=== PATIENT | male | born 1945 | race Hispanic/Latino ===

== ENCOUNTER 2018-03-28 12:17 | Emergency (ER) | payer OTHER ==
[2018-03-28 13:02] LABS: Absolute Lymphocytes (CBC) 1.5 K/uL (0.7-4.9); Absolute Monocytes 0.4 K/uL (0.1-1.3); Absolute Neutrophil 4.9 K/uL (1.8-8.0); Basophils % 0.5 % (0-1.3); Eosinophils % 1.6 % (0-4.4); Hematocrit 28.5 % (39.6-49.0); Lymphocytes % 21.3 % (15.3-44.8); MCH 30.3 pg (27.0-35.0); MCV 90.2 fL (80-100); MPV 8.2 fL (7.6-11.3); Monocytes % 5.7 % (3.3-12.3); RBC Red Blood Cell Count 3.16 M/uL (4.33-5.43)
[2018-03-28 13:03] LABS: Protime INR 2.69
[2018-03-28 13:16] LABS: Magnesium 2.8 mg/dL (1.8-2.4); Potassium 4.1 mmol/L (3.5-5.1)
--- NOTE | 2018-03-28 13:19 | RAD REPORT ---
EXAM DESCRIPTION: CT - Head Brain Wo Cont - 03/28/2018 1:09 pm CLINICAL HISTORY: Dizziness, weakness, history of CVA COMPARISON: CT head August 2010 TECHNIQUE: Axial 5 mm thick images of the head were obtained without IV contrast. All CT scans are performed using dose optimization technique as appropriate and may include automated exposure control or mA/KV adjustment according to patient size. FINDINGS: No intracranial hemorrhage, mass, edema or shift of mid-line structures. No acute cortical based infarction. No cortical edema or sulcal effacement. Patient has atrophy change this relatively mild but is progressive from 2011 comparison. There is chronic ischemic change in the cerebral white matter also progressive. Ventricles are in proportion to volume loss. Dense arterial tree calcificat ions are present. Mastoid air cells and visualized portions of the paranasal sinuses are clear. No acute bony findings. IMPRESSION: No hemorrhage, mass or acute cortical based infarction. Atrophy and chronic ischemic changes are present and have progressed from 2011. Chronic ischemic changes can mask nonhemorrhagic acute infarction. MR brain followup can be obtained if there is ongoing concern for acute ischemia.
--- NOTE | 2018-03-28 13:27 | RAD REPORT ---
EXAM DESCRIPTION: [place] Single View03/28/2018 1:02 pm CLINICAL HISTORY: Atrial fibrillation/hypertension COMPARISON: October 2017 FINDINGS: The lungs appear clear of acute infiltrate. The heart is mildly to moderately enlarged. P acemaker leads are in place. Postsurgical changes involve the chest IMPRESSION: No acute abnormalities displayed
[2018-03-28] MEDS ORDERED: NA CHLORIDE 0.9% 250 ML ONE (13:41)
--- NOTE | 2018-03-28 14:13 | ER ---
Nurse's Notes [facility] Name: Zana Zamora Age: 72 yrs Sex: Male : 1945 Arrival Date: 03/28/2018 Time: 12:20 Bed 5 Private MD: Diagnosis: Dizziness and giddiness;Dehydration;Unspecified systolic (congestive) heart failure Presentation: 03/28 12:20 Presenting complaint: EMS states: dizziness since 2 days. Transition of care: patient cc3 was received from another setting of care (ambulatory primary care physician practice), from the [place]. Onset of symptoms was March 26, 2018. Risk Assessment: Do you want to hurt yourself or someone else? Patient reports no desire to harm self or others. Initial Sepsis Screen: Does the patient meet any 2 criteria? No. Patient's initial sepsis screen is negative. Does the patient have a suspected source of infection? No. Patient's initial sepsis screen is negative. Care prior to arrival: None. 12:20 Method Of Arrival: EMS: [facility] cc3 12:20 Acuity: ELLA 3 cc3 Triage Assessment: 12:20 General: Appears in no apparent distress. comfortable, Behavior is calm, cooperative, cc3 appropriate for age. Pain: Denies pain. EENT: Reports dizziness since 2 days.. Neuro: Level of Consciousness is awake, alert, obeys commands, Oriented to person, place, time, situation, Appropriate for age Reports dizziness, since 2 days. Cardiovascular: Denies chest pain, Capillary refill < 3 seconds is brisk in bilateral Rhythm is Respiratory: Airway is patent Respiratory effort is even, unlabored, Respiratory pattern is regular, symmetrical. GI: Abdomen is flat, round non-distended. : No signs and/or symptoms were reported regarding the genitourinary system. Derm: No signs and/or symptoms reported regarding the dermatologic system. Musculoskeletal: No signs and/or symptoms reported regarding the musculoskeletal system. Historical: - Allergies: 12:20 No Known Allergies; cc3 - Home Meds: 12:20 aspirin 81 mg Oral chew 1 tab once daily [Active]; atorvastatin 20 mg Oral tab 1 tab cc3 once daily [Active]; carvedilol 25 mg Oral tab 1 tab 2 times per day [Active]; cyanocobalamin (vitamin B-12) 1,000 mcg oral tab daily [Active]; ferrous gluconate 324 mg (38 mg iron) Oral tab 324 mg twice a day [Active]; furosemide 40 mg Oral tab 1 tab 2 times per day [Active]; Novolog 100 unit/mL Sub-Q soln three times a day [Active]; 13:03 warfarin 5 mg oral tab 1 tab mondays, wednesdays, and fridays [Active]; cc3 - PMHx: 12:20 Atrial Fib; CAD; CHF; CVA; Diabetes - IDDM; Hyperlipidemia; Hypertension; Umbilical cc3 hernia; - PSHx: 12: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 - Social history:: Smoking status: Patient uses tobacco products, 2 cigars per day. - Ebola Screening: : Patient denies travel to an Ebola-affected area in the 21 days before illness onset No symptoms or risks identified at this time. - Family history:: not pertinent. - Hospitalizations: : No recent hospitalization is reported. Screenin:20 Abuse screen: Denies threats or abuse. Denies injuries from another. Nutritional cc3 screening: No deficits noted. Tuberculosis screening: No symptoms or risk factors identified. Fall Risk None identified. Mental Status- Oriented to own ability (0 pts). Total Feng Fall Scale indicates No Risk (0-24 pts). Assessment: 12:20 General: Appears in no apparent distress. comfortable, Behavior is calm, cooperative, cc3 appropriate for age. Pain: Denies pain. Neuro: Level of Consciousness is awake, alert, obeys commands, Oriented to person, place, time, situation, Appropriate for age Reports dizziness, since 2 days. Cardiovascular: Denies chest pain, Capillary refill < 3 seconds is brisk in bilateral Rhythm is ventricular pacer. Respiratory: Airway is patent Respiratory effort is even, unlabored, Respiratory pattern is regular, symmetrical. GI: Abdomen is flat, round non-distended. : No signs and/or symptoms were reported regarding the genitourinary system. EENT: Reports dizziness since 2 days. Derm: No signs and/or symptoms reported regarding the dermatologic system. Musculoskeletal: No signs and/or symptoms reported regarding the musculoskeletal system. 13:30 Reassessment: Patient appears in no apparent distress at this time. Patient and/or cc3 family updated on plan of care and expected duration. Pain level reassessed. Patient is alert, oriented x 3, equal unlabored respirations, skin warm/dry/pink. Patient states feeling better. Patient states symptoms have improved. 14:13 Reassessment: Patient appears in no apparent distress at this time. Patient and/or cc3 family updated on plan of care and expected duration. Pain level reassessed. Patient is alert, oriented x 3, equal unlabored respirations, skin warm/dry/pink. able to ambulate 70-80 steps; denies SOB, denies dizziness, Dr. Huynh informed Patient states feeling better. Patient states symptoms have improved. Vital Signs: 12:20 BP 137 / 66; Pulse 76; Resp 18; Temp 97.8(TE); Pulse Ox 99% on R/A; Weight 79.38 kg; hj Height 5 ft. 7 in. (170.18 cm); Pain 0/10; 13:15 BP 135 / 72; Pulse 74; Resp 17; Pulse Ox 98% on R/A; Pain 0/10; cc3 14:00 BP 119 / 96; Pulse 75; Resp 18; Pulse Ox 99% on R/A; Pain 0/10; cc3 12:20 Body Mass Index 27.41 (79.38 kg, 170.18 cm) ED Course: 12:20 Patient arrived in ED. hj 12:20 Arm band placed on right wrist. cc3 12:20 Patient has correct armband on for positive identification. Placed in gown. Bed in low cc3 position. Call light in reach. Side rails up X2. Adult w/ patient. 12:23 Niko Huynh MD is Attending Physician. rn 12:26 Brittney Douglas is Primary Nurse. cc3 12:27 EKG done, by field tech. reviewed by Niko Huynh MD. dt2 12:30 Triage completed. cc3 12:40 Inserted saline lock: 22 gauge in right antecubital area, using aseptic technique. cc3 Blood collected. 13:02 XRAY Chest (1 view) In Process Unspecified. EDMS 13:09 CT Head Brain wo Cont In Process Unspecified. EDMS 14:49 No provider procedures requiring assistance completed. IV discontinued, intact, cc3 bleeding controlled, No redness/swelling at site. Pressure dressing applied. Administered Medications: 13:34 Drug: NS 0.9% 250 ml Route: IV; Rate: 1 bolus; Site: right antecubital; cc3 14:00 Follow up: IV Status: Completed infusion; IV Intake: 250ml cc3 Point of Care Testing: Blood Glucose: 12:20 Blood Glucose: 217 mg/dL; hj Ranges: Intake: 14:00 IV: 250ml; Total: 250ml. cc3 Outcome: 14:13 Discharge ordered by MD. rn 14:49 Discharged to home ambulatory, with family. cc3 14:49 Condition: stable 14:49 Discharge instructions given to patient, family, Instructed on discharge instructions, follow up and referral plans. Demonstrated understanding of instructions, follow-up care. 14:50 Patient left the ED. cc3 Signatures: Dispatcher [employer] EDMS Niko Huynh MD MD rn Joaquin, Henry, RN RN hj Teague, Danielle dtBrittney Parry cc3 Corrections: (The following items were deleted from the chart) 12:42 12:20 Cardiovascular: Denies chest pain, Capillary refill < 3 seconds is brisk in cc3 bilateral Rhythm is cc3 12:46 12:20 Cardiovascular: Denies chest pain, Capillary refill < 3 seconds is brisk in hj bilateral Rhythm is cc3
--- NOTE | 2018-03-28 14:13 | EDPHYS ---
Physician Documentation [facility] Name: Zana Zamora Age: 72 yrs Sex: Male : 1945 Arrival Date: 03/28/2018 Time: 12:20 Bed 5 Private MD: ED Physician Niko Huynh HPI: 03/28 12:34 This 72 yrs old Male presents to ER via EMS with complaints of Dizziness. rn 12:34 The patient presents with dizziness, lightheadedness. Onset: The symptoms/episode rn began/occurred 2 day(s) ago. Modifying factors: The symptoms are alleviated by nothing, the symptoms are aggravated by changing position. Associated signs and symptoms: Pertinent positives: near-syncope, Pertinent negatives: abdominal pain, ataxia, blurred vision, chest pain, combativeness, confusion, diaphoresis, focal weakness, head injury, headache, seizure, shortness of breath, syncope, tingling, vomiting. Severity of symptoms: At their worst the symptoms were mild in the emergency department the symptoms have improved. The patient has experienced similar episodes in the past. REports dizziness, intermittent for 2 days, lightheaded and fatigue, worse when standing, no head injury, no focal weakness or complaints, no vomiting/diarrhea, eating and drinking fine, taking diuretics for CHF, denies chest pain and sob. Denies abd pain.. Historical: - Allergies: 12:20 No Known Allergies; cc3 - Home Meds: 12:20 aspirin 81 mg Oral chew 1 tab once daily [Active]; atorvastatin 20 mg Oral tab 1 tab cc3 once daily [Active]; carvedilol 25 mg Oral tab 1 tab 2 times per day [Active]; cyanocobalamin (vitamin B-12) 1,000 mcg oral tab daily [Active]; ferrous gluconate 324 mg (38 mg iron) Oral tab 324 mg twice a day [Active]; furosemide 40 mg Oral tab 1 tab 2 times per day [Active]; Novolog 100 unit/mL Sub-Q soln three times a day [Active]; 13:03 warfarin 5 mg oral tab 1 tab mondays, wednesdays, and fridays [Active]; cc3 - PMHx: 12:20 Atrial Fib; CAD; CHF; CVA; Diabetes - IDDM; Hyperlipidemia; Hypertension; Umbilical cc3 hernia; - PSHx: 12: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 - Social history:: Smoking status: Patient uses tobacco products, 2 cigars per day. - Ebola Screening: : Patient denies travel to an Ebola-affected area in the 21 days before illness onset No symptoms or risks identified at this time. - Family history:: not pertinent. - Hospitalizations: : No recent hospitalization is reported. ROS: 12:34 Constitutional: Negative for fever, chills, and weight loss, Eyes: Negative for injury, rn pain, redness, and discharge, Neck: Negative for injury, pain, and swelling, Cardiovascular: Negative for chest pain, palpitations, and edema, Respiratory: Negative for shortness of breath, cough, wheezing, and pleuritic chest pain, Abdomen/GI: Negative for abdominal pain, nausea, vomiting, diarrhea, and constipation, MS/Extremity: Negative for injury and deformity, Skin: Negative for injury, rash, and discoloration, Neuro: Negative for headache, numbness, tingling, and seizure. Exam: 12:34 Constitutional: This is a well developed, well nourished patient who is awake, alert, rn and in no acute distress. Head/Face: Normocephalic, atraumatic. Eyes: Pupils equal round and reactive to light, extra-ocular motions intact. Lids and lashes normal. Conjunctiva and sclera are non-icteric and not injected. Periorbital areas with no swelling, redness, or edema. Neck: Trachea midline, no thyromegaly or masses palpated, and no cervical lymphadenopathy. Supple, full range of motion without nuchal rigidity, or vertebral point tenderness. No Meningismus. Cardiovascular: regular rate and rhythm, no murmur Respiratory: Lungs have equal breath sounds bilaterally, clear to auscultation and percussion. No rales, rhonchi or wheezes noted. No increased work of breathing, no retractions or nasal flaring. Abdomen/GI: Soft, non-tender. No distension or tympany. No guarding or rebound. No evidence of tenderness throughout. Skin: Warm, dry, no evidence of cellulitis. MS/ Extremity: Pulses equal, no cyanosis. Neurovascular intact. Full, normal range of motion. Equal circumference. 1+ non-pitting edema bilateral lower ext Neuro: Awake and alert, GCS 15, oriented to person, place, time, and situation. Cranial nerves II-XII grossly intact. Motor strength 5/5 in all extremities. Sensory grossly intact. Cerebellar exam normal. Vital Signs: 12:20 BP 137 / 66; Pulse 76; Resp 18; Temp 97.8(TE); Pulse Ox 99% on R/A; Weight 79.38 kg; hj Height 5 ft. 7 in. (170.18 cm); Pain 0/10; 13:15 BP 135 / 72; Pulse 74; Resp 17; Pulse Ox 98% on R/A; Pain 0/10; cc3 14:00 BP 119 / 96; Pulse 75; Resp 18; Pulse Ox 99% on R/A; Pain 0/10; cc3 12:20 Body Mass Index 27.41 (79.38 kg, 170.18 cm) hj MDM: 12:23 Patient medically screened. rn 14:10 Differential diagnosis: generalized weakness, hypovolemia, idiopathic dizziness. Data rn reviewed: vital signs, nurses notes, lab test result(s), EKG, radiologic studies, CT scan, plain films, and as a result, I will discharge patient. Counseling: I had a detailed discussion with the patient and/or guardian regarding: the historical points, exam findings, and any diagnostic results supporting the discharge/admit diagnosis, lab results, radiology results, the need for outpatient follow up, to return to the emergency department if symptoms worsen or persist or if there are any questions or concerns that arise at home. Response to treatment: the patient's symptoms have markedly improved after treatment, and as a result, I will discharge patient. Special discussion: I discussed with the patient/guardian in detail that at this point there is no indication for admission to the hospital. It is understood, however, that if the symptoms persist or worsen the patient needs to return immediately for re-evaluation. ED course: Pt feels better after small fluid bolus, elevated BNP but no gross changes in CXR, oxygen 100%, ambulated after fluids, no longer feels dizzy, no pain, no dyspnea, patient wants to go home. Stable vitals, INR within acceptable range. . 14:14 ED course: No gross changes in ECG. rn 03/28 12:26 Order name: Glucose, Ancillary Testing; Complete Time: 12:32 EDMS 03/28 12:33 Order name: Basic Metabolic Panel; Complete Time: 13:29 rn 03/28 12:33 Order name: CBC with Diff; Complete Time: 13:16 rn 03/28 12:33 Order name: Magnesium; Complete Time: 13:29 rn 03/28 12:33 Order name: Protime (+inr); Complete Time: 13:16 rn 03/28 12:33 Order name: CT Head Brain wo Cont; Complete Time: 13:29 rn 03/28 12:33 Order name: Troponin (emerg Dept Use Only); Complete Time: 13:29 rn 03/28 12:33 Order name: EKG; Complete Time: 12:34 rn 03/28 12:33 Order name: Cardiac monitoring; Complete Time: 12:34 rn 03/28 12:33 Order name: BNP; Complete Time: 13: rn 03/28 12:33 Order name: Procalcitonin; Complete Time: 13:34 rn 03/28 12:33 Order name: XRAY Chest (1 view); Complete Time: 13:29 rn 03/28 12:33 Order name: EKG - Nurse/Tech; Complete Time: 12:34 rn 03/28 12:33 Order name: IV Saline Lock; Complete Time: 12:46 rn 03/28 12:33 Order name: Labs collected and sent; Complete Time: 12:46 rn 03/28 12:33 Order name: O2 Per Protocol; Complete Time: 12:34 rn 03/28 12:33 Order name: O2 Sat Monitoring; Complete Time: 12:34 rn Administered Medications: 13:34 Drug: NS 0.9% 250 ml Route: IV; Rate: 1 bolus; Site: right antecubital; cc3 14:00 Follow up: IV Status: Completed infusion; IV Intake: 250ml cc3 Point of Care Testing: Blood Glucose: 12:20 Blood Glucose: 217 mg/dL; hj Ranges: Critical Glucose Levels:Adult <50 mg/dl or >400 mg/dl <40 mg/dl or >180 mg/dl Disposition: 03/28/18 14:13 Discharged to Home. Impression: Dizziness and giddiness, Dehydration, Unspecified systolic (congestive) heart failure. - Condition is Stable. - Discharge Instructions: Dehydration, Adult, Dizziness. - Medication Reconciliation Form, Thank You Letter, Antibiotic Education, Prescription Opioid Use form. - Follow up: Private Physician; When: As needed; Reason: Recheck today's complaints, Re-evaluation by your physician. - Problem is new. - Symptoms have improved. Signatures: Dispatcher [employer] EDMS Niko Huynh MD MD rn Cordel, Charlene cc3 Corrections: (The following items were deleted from the chart) 14:50 14:13 03/28/2018 14:13 Discharged to Home. Impression: Dizziness and giddiness; cc3 Dehydration; Unspecified systolic (congestive) heart failure. Condition is Stable. Forms are Medication Reconciliation Form, Thank You Letter, Antibiotic Education, Prescription Opioid Use. Follow up: Private Physician; When: As needed; Reason: Recheck today's complaints, Re-evaluation by your physician. Problem is new. Symptoms have improved. rn
[2018-03-28 14:55] VITALS: TEMP 97.8
[2018-03-28 14:57] VITALS: BP 119/96; O2SAT 99
--- NOTE | 2018-03-29 09:33 | EKG ---
Test Date: 2018-03-28 Test Time: 12:18:08 Architecture Consultant: CARLOS MEASUREMENT RESULTS: Intervals: Rate: 75 UT: 184 QRSD: 96 QT: 394 QTc: 439 [place]: P: UT: 184 QRS: 43 T: 147 INTERPRETIVE STATEMENTS: Electronic atrial pacemaker ST & T wave abnormality, consider inferolateral ischemia Abnormal ECG Compared to ECG 10/16/2017 12:03:26 Possible ischemia now present Ventricular-paced complex(es) or rhythm no longer present ST (T wave) deviation still present Electronically Signed On 03-29-18 09:32:24 CDT by Jeovanny Ulloa
== END 2018-03-28 14:50 | disposition home or self-care (01) ==
LOC: ER 12:17
DX: E86.0 Dehydration (principal); I50.20 Unspecified systolic (congestive) heart failure; I10 Essential (primary) hypertension; F17.290 Nicotine dependence, other tobacco product, uncomplicated; E11.9 Type 2 diabetes mellitus without complications; Z95.1 Presence of aortocoronary bypass graft; I48.91 Unspecified atrial fibrillation; Z86.73 Personal history of transient ischemic attack (TIA), and cerebral infarction without residual deficits; Z79.01 Long term (current) use of anticoagulants; Z79.82 Long term (current) use of aspirin; Z79.4 Long term (current) use of insulin
CPT/HCPCS: 36415; 70450; 71045; 80048; 82962; 83735; 83880; 84145; 84484; 85025; 85610; 93005; 96360; 96365; 99284

== ENCOUNTER 2018-04-07 08:09 | Emergency (ER) | payer OTHER ==
[2018-04-07 09:35] LABS: Absolute Lymphocytes (CBC) 1.6 K/uL (0.7-4.9); Absolute Monocytes 0.4 K/uL (0.1-1.3); Absolute Neutrophil 5.2 K/uL (1.8-8.0); Hematocrit 23.6 % (39.6-49.0)
[2018-04-07 09:39] LABS: Potassium 4.1 mmol/L (3.5-5.1)
[2018-04-07 09:42] LABS: Albumin 3.3 g/dL (3.4-5.0); Magnesium 2.7 mg/dL (1.8-2.4)
[2018-04-07 09:45] LABS: Bilirubin Direct 0.1 mg/dL (0-0.2)
[2018-04-07 09:47] LABS: Bilirubin Total 0.3 mg/dL (0.2-1.0); Protein, Total 7.6 g/dL (6.4-8.2)
[2018-04-07 09:51] LABS: Troponin (Emerg Dept Use Only) 0.03 ng/mL (0.0-0.045)
[2018-04-07 11:16] LABS: MCH 31.3 pg (27.0-35.0); MCV 92.7 fL (80-100); MPV 8.7 fL (7.6-11.3); RBC Red Blood Cell Count 2.55 M/uL (4.33-5.43)
[2018-04-07 11:17] LABS: Basophils % 0.4 % (0-1.3); Eosinophils % 1.7 % (0-4.4); Lymphocytes % 21.8 % (15.3-44.8); Monocytes % 5.7 % (3.3-12.3)
[2018-04-07 11:22] LABS: Protime INR 3.04
--- NOTE | 2018-04-07 12:06 | EDPHYS ---
Physician Documentation [facility] Name: Zana Zamora Age: 72 yrs Sex: Male : 1945 Arrival Date: 04/07/2018 Time: 08:13 Bed 5 Private MD: None, None ED Physician Zackery Murphy HPI: 04/07 09:17 This 72 yrs old Male presents to ER via Wheelchair with complaints of kdr Shortness Of Breath, Chest Pressure, Dizziness. Historical: - Allergies: 08:15 No Known Allergies; aa5 - Home Meds: 08:15 aspirin 81 mg Oral chew 1 tab once daily [Active]; atorvastatin 20 mg Oral tab 1 tab aa5 once daily [Active]; carvedilol 25 mg Oral tab 1 tab 2 times per day [Active]; cyanocobalamin (vitamin B-12) 1,000 mcg Oral tab daily [Active]; ferrous gluconate 324 mg (38 mg iron) Oral tab 324 mg twice a day [Active]; furosemide 40 mg Oral tab 1 tab 2 times per day [Active]; Novolog 100 unit/mL Sub-Q soln three times a day [Active]; warfarin 5 mg Oral tab 1 tab mondays, wednesdays, and fridays [Active]; - PMHx: 08:15 Atrial Fib; CAD; CHF; CVA; Diabetes - IDDM; Hyperlipidemia; Hypertension; Umbilical aa5 hernia; - PSHx: 08:15 CABG; Defibrillator; aa5 - Immunization history:: Adult Immunizations unknown. - Social history:: Smoking status: Patient uses tobacco products, cigars. - Ebola Screening: : No symptoms or risks identified at this time. ROS: 09:40 Constitutional: Negative for fever, chills, and weight loss, Eyes: Negative for injury, kdr pain, redness, and discharge, ENT: Negative for injury, pain, and discharge, Neck: Negative for injury, pain, and swelling, Abdomen/GI: Negative for abdominal pain, nausea, vomiting, diarrhea, and constipation, Back: Negative for injury and pain, : Negative for injury, bleeding, discharge, and swelling, MS/Extremity: Negative for injury and deformity, Skin: Negative for injury, rash, and discoloration, Neuro: Negative for headache, weakness, numbness, tingling, and seizure activity. Psych: Negative for depression, anxiety, suicide ideation, homicidal ideation, and hallucinations, Allergy/Immunology: Negative for hives, rash, and allergies, Endocrine: Negative for neck swelling, polydipsia, polyuria, polyphagia, and marked weight changes, Hematologic/Lymphatic: Negative for swollen nodes, abnormal bleeding, and unusual bruising. 09:40 Cardiovascular: Positive for chest pain, of the chest, Negative for edema, orthopnea, palpitations, paroxysmal nocturnal dyspnea, acute changes. Exam: 09:40 Constitutional: This is a well developed, well nourished patient who is awake, alert, kdr and in no acute distress. Head/Face: Normocephalic, atraumatic. Eyes: Pupils equal round and reactive to light, extra-ocular motions intact. Lids and lashes normal. Conjunctiva and sclera are non-icteric and not injected. Cornea within normal limits. Periorbital areas with no swelling, redness, or edema. Neck: Trachea midline, no thyromegaly or masses palpated, and no cervical lymphadenopathy. Supple, full range of motion without nuchal rigidity, or vertebral point tenderness. No Meningismus. Chest/axilla: Normal chest wall appearance and motion. Nontender with no deformity. No lesions are appreciated. Cardiovascular: Regular rate and rhythm with a normal S1 and S2. No gallops, murmurs, or rubs. Normal PMI, no JVD. No pulse deficits. Respiratory: Lungs have equal breath sounds bilaterally, clear to auscultation and percussion. No rales, rhonchi or wheezes noted. No increased work of breathing, no retractions or nasal flaring. Abdomen/GI: Soft, non-tender, with normal bowel sounds. No distension or tympany. No guarding or rebound. No evidence of tenderness throughout. Back: No spinal tenderness. No costovertebral tenderness. Full range of motion. Skin: Warm, dry with normal turgor. Normal color with no rashes, no lesions, and no evidence of cellulitis. MS/ Extremity: Pulses equal, no cyanosis. Neurovascular intact. Full, normal range of motion. Neuro: Awake and alert, GCS 15, oriented to person, place, time, and situation. Cranial nerves II-XII grossly intact. Motor strength 5/5 in all extremities. Sensory grossly intact. Cerebellar exam normal. Normal gait. Psych: Awake, alert, with orientation to person, place and time. Behavior, mood, and affect are within normal limits. Vital Signs: 08:18 BP 136 / 75; Pulse 75; Resp 16 S; Temp 98.3(O); Pulse Ox 98% on R/A; Weight 77.11 kg aa5 (R); Height 5 ft. 7 in. (170.18 cm) (R); Pain 4/10; 11:00 BP 117 / 72; Pulse 75; Resp 18 S; Pulse Ox 96% on R/A; aa5 12:00 BP 115 / 62; Pulse 75; Resp 16 S; Pulse Ox 97% on R/A; aa5 13:00 BP 119 / 57; Pulse 75; Resp 16 S; Pulse Ox 96% on R/A; aa5 08:18 Body Mass Index 26.63 (77.11 kg, 170.18 cm) aa5 MDM: 09:40 Data reviewed: vital signs, nurses notes, lab test result(s), EKG, radiologic studies. kdr Counseling: I had a detailed discussion with the patient and/or guardian regarding: the historical points, exam findings, and any diagnostic results supporting the discharge/admit diagnosis, lab results, radiology results. 11:30 Patient medically screened. kdr 04/07 08:17 Order name: LFT's; Complete Time: 12:22 kdr 04/07 08:17 Order name: Basic Metabolic Panel; Complete Time: 12:22 kdr 04/07 08:17 Order name: CBC with Diff; Complete Time: 12:22 kdr 04/07 08:17 Order name: Magnesium; Complete Time: 12:22 kdr 04/07 08:17 Order name: NT PRO-BNP; Complete Time: 12:22 kdr 04/07 08:17 Order name: PT-INR; Complete Time: 12:22 kdr 04/07 08:17 Order name: Ptt, Activated; Complete Time: 12:22 kdr 04/07 08:17 Order name: Troponin (emerg Dept Use Only); Complete Time: 12:22 kdr 04/07 08:17 Order name: XRAY Chest (1 view) kdr 04/07 08:17 Order name: EKG; Complete Time: 08:18 kdr 04/07 08:17 Order name: Cardiac monitoring; Complete Time: 11:22 kdr 04/07 08:17 Order name: EKG - Nurse/Tech; Complete Time: 11: kdr 04/07 11:17 Order name: Guiac aa5 04/07 13:17 Order name: Urine Dipstick--Ancillary (enter results) eb 04/07 08:17 Order name: IV Saline Lock; Complete Time: 11: kdr 04/07 08:17 Order name: Labs collected and sent; Complete Time: : kdr 04/07 08:17 Order name: O2 Per Protocol; Complete Time: : kdr 04/07 08:17 Order name: O2 Sat Monitoring; Complete Time: : kdr 04/07 08:17 Order name: Urine Dipstick-Ancillary (obtain specimen); Complete Time: 13:15 kdr Administered Medications: No medications were administered Point of Care Testing: Guaiac: 11:17 Stool Guaiac: Positive; Stool Hemoccult Control: Pass; aa5 11:[address] Murphy aa5 Disposition: 04/07/18 11:30 Transfer ordered to [facility]. Diagnosis are Weakness, Anemia, unspecified. - Reason for transfer: Higher level of care. - Accepting physician is Dr. Duarte. - Condition is Fair. - Problem is new. - Symptoms have improved. Signatures: Dispatcher [employer] EDMS Zackery Murphy MD MD [facility] Alla Redd RN RN aa5 Corrections: (The following items were deleted from the chart) 13:11 11:30 04/07/2018 11:30 Transfer ordered to [facility]. Diagnosis is Weakness; Anemia, unspecified. Reason for transfer: Higher level of care. Accepting physician is Accepting. Condition is Fair. Problem is new. Symptoms have improved. kdr 13:52 13:11 04/07/2018 11:30 Transfer ordered to [facility]. Diagnosis is aa5 Weakness; Anemia, unspecified. Reason for transfer: Higher level of care. Accepting physician is Dr. Duarte. Condition is Fair. Problem is new. Symptoms have improved. kdr
--- NOTE | 2018-04-07 12:06 | ER ---
Nurse's Notes [facility] Name: Zana Zamora Age: 72 yrs Sex: Male : 1945 Arrival Date: 04/07/2018 Time: 08:13 Bed 5 Private MD: None, None Diagnosis: Weakness;Anemia, unspecified Presentation: 04/07 08:15 Presenting complaint: Patient states: chest pressure, SOB, generalized weakness, and aa5 dizziness since last night. Pt denies cough. Pt states "I was here last week for the same thing". 08:15 Transition of care: patient was not received from another setting of care. Onset of aa5 symptoms was April 06, 2018. Risk Assessment: Do you want to hurt yourself or someone else? Patient reports no desire to harm self or others. Initial Sepsis Screen: Does the patient meet any 2 criteria? No. Patient's initial sepsis screen is negative. Does the patient have a suspected source of infection? No. Patient's initial sepsis screen is negative. Care prior to arrival: None. 08:15 Acuity: ELLA 3 aa5 08:15 Method Of Arrival: Wheelchair aa5 Historical: - Allergies: 08:15 No Known Allergies; aa5 - Home Meds: 08:15 aspirin 81 mg Oral chew 1 tab once daily [Active]; atorvastatin 20 mg Oral tab 1 tab aa5 once daily [Active]; carvedilol 25 mg Oral tab 1 tab 2 times per day [Active]; cyanocobalamin (vitamin B-12) 1,000 mcg Oral tab daily [Active]; ferrous gluconate 324 mg (38 mg iron) Oral tab 324 mg twice a day [Active]; furosemide 40 mg Oral tab 1 tab 2 times per day [Active]; Novolog 100 unit/mL Sub-Q soln three times a day [Active]; warfarin 5 mg Oral tab 1 tab mondays, wednesdays, and fridays [Active]; - PMHx: 08:15 Atrial Fib; CAD; CHF; CVA; Diabetes - IDDM; Hyperlipidemia; Hypertension; Umbilical aa5 hernia; - PSHx: 08:15 CABG; Defibrillator; aa5 - Immunization history:: Adult Immunizations unknown. - Social history:: Smoking status: Patient uses tobacco products, cigars. - Ebola Screening: : No symptoms or risks identified at this time. Screenin:50 Abuse screen: Denies threats or abuse. Nutritional screening: No deficits noted. aa5 Tuberculosis screening: No symptoms or risk factors identified. Fall Risk None identified. Assessment: 11:22 Reassessment: See pt's paper chart for previous documentation and initial assessment . aa5 11:25 Reassessment: Patient and/or family updated on plan of care and expected duration. Pain aa5 level reassessed. Neuro: Level of Consciousness is awake, alert, obeys commands, Oriented to person, place, time, situation. Respiratory: Airway is patent Respiratory effort is even, unlabored, Respiratory pattern is regular, symmetrical. Derm: Skin is dry, Skin is pale, Skin temperature is warm. 11:25 Cardiovascular: Rhythm is sinus rhythm. aa5 12:10 Reassessment: Patient and/or family updated on plan of care and expected duration. Pain aa5 level reassessed. Pain: Pain currently is 3 out of 10 on a pain scale. Neuro: Level of Consciousness is awake, alert, obeys commands, Oriented to person, place, time, situation. Cardiovascular: Rhythm is sinus rhythm. Respiratory: Airway is patent Respiratory effort is even, unlabored, Respiratory pattern is regular, symmetrical. Derm: Skin is dry, Skin is pale, Skin temperature is warm. 13:05 Reassessment: Pt notified of wait time for transfer . Neuro: Level of Consciousness is aa5 awake, alert, obeys commands, Oriented to person, place, time, situation. Respiratory: Airway is patent Respiratory effort is even, unlabored, Respiratory pattern is regular, symmetrical. Derm: Skin is dry, Skin is pale, Skin temperature is warm. Vital Signs: 08:18 BP 136 / 75; Pulse 75; Resp 16 S; Temp 98.3(O); Pulse Ox 98% on R/A; Weight 77.11 kg aa5 (R); Height 5 ft. 7 in. (170.18 cm) (R); Pain 4/10; 11:00 BP 117 / 72; Pulse 75; Resp 18 S; Pulse Ox 96% on R/A; aa5 12:00 BP 115 / 62; Pulse 75; Resp 16 S; Pulse Ox 97% on R/A; aa5 13:00 BP 119 / 57; Pulse 75; Resp 16 S; Pulse Ox 96% on R/A; aa5 08:18 Body Mass Index 26.63 (77.11 kg, 170.18 cm) aa5 ED Course: 08:13 Patient arrived in ED. mr 08:13 None, None is Private Physician. mr 08:15 Arm band placed on Patient placed in an exam room, on a stretcher. aa5 08:15 Patient has correct armband on for positive identification. Placed in gown. Bed in low aa5 position. Call light in reach. Side rails up X2. automobile detailer on. Pulse ox on. NIBP on. 08:16 Zackery Murphy MD is Attending Physician. kdr 08:23 Alla Redd, MARTITA is Primary Nurse. aa5 08:27 Triage completed. aa5 08:30 Missed attempt(s): 20 gauge in right forearm. Bleeding controlled, band aid applied, mb4 catheter tip intact. 08:50 Inserted saline lock: 22 gauge in right upper arm, using aseptic technique. aa5 11:47 initiated a transfer with Deion at the [facility]. Per [place] they gave no beds at this time. 12:10 initiated a transfer with Shari at the [facility] transfer center. eb 12:16 connected the GI child welfare consultant from [facility] with ED doc for patient transfer eb consultaion. 12:25 connected the Hospitalist from [facility] with ED doc for patient transfer eb consulation. 12:30 administrative approval given by Shari Funes Hr Associate at [facility]. eb Pt going to 722 Report to be called to [phone]. Dr. Duarte accepted the patient in transfer. 12:44 XRAY Chest (1 view) In Process Unspecified. EDMS 13:50 Patient transferred, IV remains in place. aa5 13:50 No provider procedures requiring assistance completed. aa5 Administered Medications: No medications were administered Point of Care Testing: Guaiac: 11:17 Stool Guaiac: Positive; Stool Hemoccult Control: Pass; aa5 11:[address] Murphy aa5 Outcome: 11:30 ER care complete, transfer ordered by . kdr 13:50 Transferred by ground EMS to [facility], Transfer form completed. aa5 X-rays sent w/ patient. Note: report given to [facility], report given to MARTITA Man at [facility]'s 13:50 Condition: stable 13:50 Instructed on the need for transfer, Demonstrated understanding of instructions. 13:52 Patient left the ED. aa5 Signatures: Dispatcher [employer] EDZackery Terry MD MD kdr Rivera, Maria mr Calderon, Audri, RN RN aa5 Sayra Perez Mackenzie 4
[2018-04-07 13:52] LABS: Urine Blood TRACE (NEG); Urine Glucose NEGATIVE (NEG); Urine Protein TRACE (NEG); Urine Specific Gravity 1.015 (1.005-1.030); Urine pH 5.5 (5.0-7.0)
[2018-04-07 13:58] VITALS: TEMP 98.3
[2018-04-07 14:07] VITALS: BP 119/57; O2SAT 96
--- NOTE | 2018-04-07 14:41 | RAD REPORT ---
EXAM DESCRIPTION: RAD - Chest Single View - 04/07/2018 9:03 am CLINICAL HISTORY: CHEST PAIN<Reason For Exam>CHEST PAIN Weakness, dizziness, shortness of breath COMPARISON: Chest Single View dated 03/28/2018; Chest Pa And Lat (2 Views) dated 10/17/2017; Chest Sin gle View dated 10/16/2017; Chest Single View dated 12/15/2015<Comparisons> TECHNIQUE: AP portable chest image was obtained 0850 hours . FINDINGS: No peripheral mass or consolidation. Lung markings are prominent but stable. Upper lobe va sculature within normal limits. Cardiomegaly is present. Cardiac silhouette is similar to the compari son. Pacemaker is in place. Sternotomy wires are in place. Trachea is midline. No measurable pleural effusion and no pneumothorax. No gross bony abnormality seen. No acute aortic findings suspected. IMPRESSION: Chronic prominence of the interstitial markings. No acute lung parenchymal process ident ifiable. Stable cardiomegaly without vascular engorgement.
--- NOTE | 2018-04-08 08:38 | EKG ---
Test Date: 2018-04-07 Test Time: 08:23:16 [employer] Dean: THOM MEASUREMENT RESULTS: Intervals: Rate: 75 ME: 282 QRSD: 102 QT: 400 QTc: 446 [place]: P: 62 ME: 282 QRS: 86 T: -51 INTERPRETIVE STATEMENTS: Atrial-paced rhythm with prolonged AV conduction Possible Inferior infarct, age undetermined ST & T wave abnormality, consider lateral ischemia Abnormal ECG Compared to ECG 03/28/2018 12:18:08 Myocardial infarct finding now present ST (T wave) deviation still present Possible ischemia still present Electronically Signed On 04-08-18 08:36:36 CDT by Jeovanny Ulloa
== END 2018-04-07 13:52 | disposition short-term general hospital (02) ==
LOC: ER 08:09
DX: D64.9 Anemia, unspecified (principal); E11.9 Type 2 diabetes mellitus without complications; E78.5 Hyperlipidemia, unspecified; I10 Essential (primary) hypertension; F17.290 Nicotine dependence, other tobacco product, uncomplicated; Z79.4 Long term (current) use of insulin
CPT/HCPCS: 36415; 71045; 80048; 80076; 81003; 83735; 83880; 84484; 85025; 85610; 85730; 93005; 99285

== ENCOUNTER 2018-06-23 04:37 | Emergency (ER) | payer OTHER ==
--- OUTSIDE RECORDS SUMMARY | 2018-06-23 04:40 | XMS REPORT | Clinical Summary ---
:1945 Author Organization [facility] Address [address] [place] [address] Care Team Providers Name Role Phone Pcp, No Primary Care Provider Unavailable Allergies No Known Allergies Medications Medication Sig Dispensed Refills Start End Date Status Date aspirin 81 MG Take 81 mg by 0 Active chewable tablet mouth daily. atorvastatin Take 20 mg by 0 Active (LIPITOR) 20 MG mouth daily. tablet cyanocobalamin Take 1,000 mcg by 0 Active 1000 MCG tablet mouth daily. carvedilol (COREG) Take 25 mg by 0 Active 25 MG tablet mouth 2 (two) times daily with breakfast and dinner. ferrous gluconate Take 324 mg by 0 Active (FERGON) 324 MG mouth 2 (two) tablet times daily. finasteride Take 5 mg by mouth 0 Active (PROSCAR) 5 mg daily. tablet furosemide (LASIX) Take 40 mg by 0 Active 40 MG tablet mouth 2 (two) times daily. levothyroxine Take 112 mcg by 0 Active (SYNTHROID, mouth Every LEVOTHROID) 112 morning on an MCG tablet empty stomach 1 hour before breakfast with glass of water . lisinopril Take 10 mg by 0 Active (PRINIVIL,ZESTRIL) mouth daily. 10 MG tablet insulin aspart Inject 10 Units 0 Active U-100 (NOVOLOG) subcutaneously 3 100 unit/mL InPn (three) times daily with meals Do not give if meal is missed . insulin detemir Inject 15 Units 0 Active U-100 (LEVEMIR) subcutaneously 100 unit/mL (3 mL) every morning. InPn injection omeprazole Take 20 mg by 0 Active (PRILOSEC) 20 MG mouth daily. capsule warfarin Take 5 mg by mouth 0 Active (COUMADIN) 5 MG daily Except tablet Monday, Monday and Monday. . warfarin Take 7.5 mg by 0 Active (COUMADIN) 7.5 MG mouth daily On tablet Monday, Monday and Monday . nitroglycerin Place 1 tablet 90 tablet 0 Active (NITROSTAT) 0.4 MG (0.4 mg total) 8 SL tablet under the tongue every 5 (five) minutes as needed for Chest pain. ranolazine Take 1 tablet (500 180 tablet 3 04/10/20 Active (RANEXA) 500 MG 12 mg total) by mouth 8 19 hr tablet 2 (two) times daily. insulin detemir Inject 35 Units 0 04/10/20 Discontinued U-100 (LEVEMIR) subcutaneously 18 100 unit/mL (3 mL) nightly. InPn injection nitroglycerin Place 1 tablet 90 tablet 0 04/10/20 Discontinued (NITROSTAT) 0.4 MG (0.4 mg total) 8 18 SL tablet under the tongue every 5 (five) minutes as needed for Chest pain. ranolazine Take 1 tablet (500 180 tablet 3 04/10/20 Discontinued (RANEXA) 500 MG 12 mg total) by mouth 8 18 hr tablet 2 (two) times daily. Active Problems Problem Noted Date Chest pain 04/09/2018 Combined systolic and diastolic congestive heart failure, unspecified HF 04/08 chronicity CHF (congestive heart failure) 04/07/2018 Encounters Date Type Specialty Care Team Description 04/10/2018 Orders Only General Internal Medicine 04/08/2018 Surgery Gastroenterology [facility], UPPER ENDOSCOPY Jeovanny Scales MD 04/08/2018 Anesthesia Event Gastroenterology Deric Valero CRNA 04/07/2018 [facility] General Internal [facility] Combined systolic and diastolic congestive heart failure, unspecified HF chronicity (HCC); - Encounter Medicine ri, Atrial fibrillation, unspecified type (HCC); 04/10/2018 Juana, Essential hypertension; Gastrointestinal hemorrhage, unspecified gastrointestinal hemorrhage type; Mezrahi, Anemia due to other cause, not classified MD Torey David, MD Lisa 04/07/2018 Telephone Critical Care Medicine Samson, Biug-ov-Ilmq Call MD Sona after 06/22/2017 Social History Tobacco Use Types Packs/Day Years Used Date Never Assessed Sex Assigned at Date Recorded Not on file Job Start Date Occupation Industry Not on file Not on file Not on file Travel History Travel Start Travel End No recent travel history available. Last Filed Vital Signs Vital Sign Reading Time Taken Blood Pressure 134/68 04/10/2018 4:17 PM CDT Pulse 76 04/10/2018 4:17 PM CDT Temperature 35.9 C (96.6 F) 04/10/2018 4:17 PM CDT Respiratory Rate 18 04/10/2018 4:17 PM CDT Oxygen Saturation 97% 04/10/2018 4:17 PM CDT Inhaled Oxygen Concentration - - Weight 76.2 kg (168 lb) 04/07/2018 3:32 PM CDT Height 170.2 cm (5' 7") 04/07/2018 3:32 PM CDT Body Mass Index 26.31 04/07/2018 3:32 PM CDT Plan of Treatment Not on file Procedures Procedure Name Priority Date/Time Associated Comments Diagnosis ECHOCARDIOGRAM REPORT - 04/13/2018 9:20 SCAN AM CDT REPORT OF PROCEDURE - 04/12/2018 11:01 ENDOSCOPY SCAN AM CDT REPORT OF PROCEDURE - 04/12/2018 11:01 ENDOSCOPY SCAN AM CDT RHYTHM STRIP - SCAN 04/12/2018 11:01 AM CDT POCT-GLUCOSE METER Routine 04/10/2018 11:30 Results for this AM CDT procedure are in the results section. NM CARDIAC PET STAT 04/10/2018 8:47 Results for this PERFUSION REST AND/OR AM CDT procedure are in STRESS the results section. TREADMILL Routine 04/10/2018 8:38 Results for this TOLERANCE(NON-NUCLEAR AM CDT procedure are in TREADMILL) the results section. ECG 12-LEAD Routine 04/10/2018 8:34 Results for this AM CDT procedure are in the results section. ECG 12-LEAD Routine 04/10/2018 8:34 AM CDT Procedure Note - Interface, External Ris In - 04/10/2018 8:51 AM CDT Ventricular Rate 75 BPM Atrial Rate 75 BPM P-R Interval 214 ms QRS Duration 118 ms Q-T Interval 434 ms QTC Calculation(Bazett) 484 ms P [place] 33 degrees R [place] 77 degrees T [place] 229 degrees Sinus rhythm with 1st degree A-V block Non-specific intra-ventricular conduction delay ST & T wave abnormality, consider lateral ischemia Prolonged QT Abnormal ECG POCT-GLUCOSE METER Routine 04/10/2018 7:19 AM CDT CBC W/PLT COUNT & AUTO Routine 04/10/2018 5:26 AM CDT Results for this DIFFERENTIAL procedure are in the results section. PROTHROMBIN TIME/INR Routine 04/10/2018 5:26 AM CDT MAGNESIUM Routine 04/10/2018 5:26 AM CDT BASIC METABOLIC PANEL (7) Routine 04/10/2018 5:26 AM CDT CBC W/PLT COUNT & AUTO Routine 04/10/2018 5:26 AM CDT Results for this DIFFERENTIAL procedure are in the results section. POCT-GLUCOSE METER Routine 04/09/2018 10:32 PM CDT POCT-GLUCOSE METER Routine 04/09/2018 7:48 PM CDT POCT-GLUCOSE METER Routine 04/09/2018 11:30 AM CDT 2D ECHO W/ DOPPLER CLAY 04/09/2018 10:29 AM CDT Results for this (CW/PW/COLOR) procedure are in the results section. POCT-GLUCOSE METER Routine 04/09/2018 7:32 AM CDT CBC W/PLT COUNT & AUTO Routine 04/09/2018 5:57 AM CDT Results for this DIFFERENTIAL procedure are in the results section. PROTHROMBIN TIME/INR Routine 04/09/2018 5:57 AM CDT MAGNESIUM Routine 04/09/2018 5:57 AM CDT BASIC METABOLIC PANEL (7) Routine 04/09/2018 5:57 AM CDT CBC W/PLT COUNT & AUTO Routine 04/09/2018 5:57 AM CDT Results for this DIFFERENTIAL procedure are in the results section. CREATINE KINASE (CK), STAT 04/09/2018 5:57 AM CDT Results for this TOTAL AND MB procedure are in the results section. POCT-GLUCOSE METER Routine 04/08/2018 10:41 PM CDT UPPER ENDOSCOPY 04/08/2018 4:00 PM CDT Melena POCT-GLUCOSE METER Routine 04/08/2018 3:01 PM CDT POCT-GLUCOSE METER Routine 04/08/2018 2:29 PM CDT REPORT OF PROCEDURE - 04/08/2018 2:19 PM CDT ENDOSCOPY URL POCT-GLUCOSE METER Routine 04/08/2018 6:35 AM CDT CBC W/PLT COUNT & AUTO Routine 04/08/2018 5:25 AM CDT Results for this DIFFERENTIAL procedure are in the results section. PROTHROMBIN TIME/INR Routine 04/08/2018 5:25 AM CDT MAGNESIUM Routine 04/08/2018 5:25 AM CDT BASIC METABOLIC PANEL (7) Routine 04/08/2018 5:25 AM CDT CBC W/PLT COUNT & AUTO Routine 04/08/2018 5:25 AM CDT Results for this DIFFERENTIAL procedure are in the results section. CREATINE KINASE (CK), STAT 04/08/2018 5:25 AM CDT Results for this TOTAL AND MB procedure are in the results section. VITAMIN B12 AND FOLATE Routine 04/08/2018 5:25 AM CDT FERRITIN Routine 04/08/2018 5:25 AM CDT IRON, TIBC, % SAT. Routine 04/08/2018 5:25 AM CDT Results for this (WITHOUT FERRITIN) procedure are in the results section. HEMOGLOBIN A1C Routine 04/08/2018 5:25 AM CDT LIPID PANEL Routine 04/08/2018 12:25 AM CDT TROPONIN I Routine 04/08/2018 12:25 AM CDT POCT-GLUCOSE METER Routine 04/08/2018 12:05 AM CDT ECG 12-LEAD STAT 04/07/2018 6:27 PM CDT XR CHEST 1 VIEW STAT 04/07/2018 6:18 PM CDT Results for this PORTABLE/BEDSIDE procedure are in the results section. POCT-GLUCOSE METER Routine 04/07/2018 5:25 PM CDT CBC W/PLT COUNT & AUTO STAT 04/07/2018 4:51 PM CDT Results for this DIFFERENTIAL procedure are in the results section. PROTHROMBIN TIME/INR Routine 04/07/2018 4:51 PM CDT B-TYPE NATRIURETIC FACTOR STAT 04/07/2018 4:51 PM CDT Results for this (BNP) procedure are in the results section. TROPONIN I STAT 04/07/2018 4:51 PM CDT COMPREHENSIVE METABOLIC STAT 04/07/2018 4:51 PM CDT Results for this PANEL procedure are in the results section. CBC W/PLT COUNT & AUTO STAT 04/07/2018 4:51 PM CDT Results for this DIFFERENTIAL procedure are in the results section. after 06/22/2017 Results ECHOCARDIOGRAM REPORT - SCAN (04/13/2018 9:20 AM CDT) Narrative Performed At EKG-SCANNED (04/12/2018 11:01 AM CDT)Only the most recent of2 resultswithin the time period is included. Narrative Performed At RHYTHM STRIP - SCAN (04/12/2018 11:01 AM CDT) Narrative Performed At POC-Glucose meter (04/10/2018 11:30 AM CDT)Only the most recent of12 resultswithin the time period is included. POC-Glucose Meter 354 (H)Comment: Notified 70 - 110 mg/dL [facility] MARTITA MORSE/TESTED AT [address] [address] Specimen Blood Performing Organization Address City/State/Zipcode Phone Number [address] [address] CENTER NM myocardial perfusion PET (rest and stress) (04/10/2018 8:47 AM CDT) Narrative Performed At FINAL REPORT GE [facility] PROCEDURE:Rest/Stress MYOCARDIAL PERFUSION PET with regadenoson\\XA9\\ CPT CODE:50724 INDICATION:Ischemic evaluation, chest pain, atrial fibrillation HISTORY:Cardiac risk factors: Diabetes mellitus. Other cardiovascular history: Known CAD, CABG, ICD, cardiomyopathy. Recent cardiac symptoms: Dyspnea. Current cardiovascular-related medications: Warfarin, atorvastatin, Bumex, carvedilol. PROTOCOL:Limited low-dose CT imaging was performed for attenuation correction. 40.1 mCi of Rb-82 chloride was injected iv at rest, and gated PET (positron emission tomography) images were obtained. Subsequently, 40.0 mCi of Rb-82 chloride was injected iv at expected peak pharmacologic effect, and gated PET images were obtained. PRELIMINARY STRESS TEST DATA FROM NONINVASIVE CARDIOLOGY: Pharmacologic stress was by 10-second iv infusion of 0.4 mg of regadenoson.Radiotracer was injected 30 seconds after start of stress. Heart rate was 75 beats/min at rest and 75 beats/min (50% of MPHR) at tracer injection. BP was 101/50 mmHg at rest and 126/43 mmHg at tracer injection. Stress was stopped for predetermined endpoint. The patient experienced dyspnea; treatment was not required . Preliminary ECG evaluation revealed sinus rhythm at rest and no ischemic changes with stress. (Final ECG interpretation and other stress and monitoring data are reported separately by Cardiology.) IMAGING FINDINGS:Study quality is good. Images obtained after stress injection show moderately decreased anterior lateral lateral and inferior. Resting images show shows improvement in the anterolateral segment. LV volume appears dilated . RV volume appears normal . Gated images obtained immediately after stress show global hypokinesis LV wall motion. Gated images obtained at rest show global hypokinesis LV wall motion. LVEF at rest is 23%. LVEF at stress is 28%. IMPRESSION: 1. Abnormal study.2. Appropriate pharmacologic stress.3. Abnormal myocardial perfusion.There is a moderately severe severity, large size, anterolateral, lateral and inferior lateral, perfusion defect. There is reversibility of the inferolateral segment.4. Abnormal resting LV function. Abnormal stress function.5. Extracardiac tracer distribution is normal.6. No previous [facility] study for comparison. NONINVASIVE RISK STRATIFICATION: The above findings are considered high risk (>3% annual mortality rate) based on the following criteria: - Severe resting left ventricular dysfunction (LVEF 35%) - Severe exercise left ventricular dysfunction (exercise LVEF 35%) - Stress-induced large perfusion defect (particularly if anterior) - Stress-induced multiple perfusion defects of moderate size - Large, fixed perfusion defect with LV dilation or increased lung uptake (thallium-201) - Stress-induced moderate perfusion defect with LV dilation or increased lung uptake (thallium-201) (JACC. 2012;59(9):175-88.) Signed: Hao Faith MD Report Verified Date/Time:04/10/2018 12:33:34 Reading Location: [address] Reading Room Procedure Note Interface, External Ris In - 04/10/2018 12:35 PM CDT FINAL REPORT PROCEDURE: Rest/Stress MYOCARDIAL PERFUSION PET with regadenoson\\XA9\\ CPT CODE: 57433 INDICATION: Ischemic evaluation, chest pain, atrial fibrillation HISTORY: Cardiac risk factors: Diabetes mellitus. Other cardiovascular history: Known CAD, CABG, ICD, cardiomyopathy. Recent cardiac symptoms: Dyspnea. Current cardiovascular-related medications: Warfarin, atorvastatin, Bumex, carvedilol. PROTOCOL: Limited low-dose CT imaging was performed for attenuation correction. 40.1 mCi of Rb-82 chloride was injected iv at rest, and gated PET (positron emission tomography) images were obtained. Subsequently, 40.0 mCi of Rb-82 chloride was injected iv at expected peak pharmacologic effect, and gated PET images were obtained. PRELIMINARY STRESS TEST DATA FROM NONINVASIVE CARDIOLOGY: Pharmacologic stress was by 10-second iv infusion of 0.4 mg of regadenoson. Radiotracer was injected 30 seconds after start of stress. Heart rate was 75 beats/min at rest and 75 beats/min (50% of MPHR) at tracer injection. BP was 101/50 mmHg at rest and 126/43 mmHg at tracer injection. Stress was stopped for predetermined endpoint. The patient experienced dyspnea; treatment was not required . Preliminary ECG evaluation revealed sinus rhythm at rest and no ischemic changes with stress. (Final ECG interpretation and other stress and monitoring data are reported separately by Cardiology.) IMAGING FINDINGS: Study quality is good. Images obtained after stress injection show moderately decreased anterior lateral lateral and inferior. Resting images show shows improvement in the anterolateral segment. LV volume appears dilated . RV volume appears normal . Gated images obtained immediately after stress show global hypokinesis LV wall motion. Gated images obtained at rest show global hypokinesis LV wall motion. LVEF at rest is 23%. LVEF at stress is 28%. IMPRESSION: 1. Abnormal study. 2. Appropriate pharmacologic stress. 3. Abnormal myocardial perfusion. There is a moderately severe severity, large size, anterolateral, lateral and inferior lateral, perfusion defect. There is reversibility of the inferolateral segment. 4. Abnormal resting LV function. Abnormal stress function. 5. Extracardiac tracer distribution is normal. 6. No previous [facility] study for comparison. NONINVASIVE RISK STRATIFICATION: The above findings are considered high risk (>3% annual mortality rate) based on the following criteria: - Severe resting left ventricular dysfunction (LVEF 35%) - Severe exercise left ventricular dysfunction (exercise LVEF 35%) - Stress-induced large perfusion defect (particularly if anterior) - Stress-induced multiple perfusion defects of moderate size - Large, fixed perfusion defect with LV dilation or increased lung uptake (thallium-201) - Stress-induced moderate perfusion defect with LV dilation or increased lung uptake (thallium-201) (JACC. 2012;59(9):857-81.) Signed: Hao Faith MD Report Verified Date/Time: 04/10/2018 12:33:34 Reading Location: [address] Reading Room Performing Organization Address City/State/Zipcode Phone Number GE RIS Treadmill tolerance(Non-Nuclear Treadmill) (04/10/2018 8:38 AM CDT) Narrative Performed At Protocol Name Regadenoson What They Like Time In Exercise Phase 00:01:00 Max. Systolic BP 126 mmHg Max Diastolic BP 43 mmHg Max Heart Rate 75 BPM Max Predicted Heart Rate 149 BPM Reason For Termination Predetermined end point Reason for Test Chest Pain Dyspnea Known Coronary Artery Disease Target HR Formula (220 - Age)*100% Arrhythmias none Resting ECG Normal sinus rhythm ST Changes No Significant Changes Overall Impression Indeterminate due to pharmacological stress Chest Pain none HR Response To Exercise BP Response To Exercise wardfarin,atorvastatin,bumex,carvedilol Confirmed by fellow Tye Valencia ([id number]) on 04/10/2018 9:39:04 AM Confirmed by MD JACK YOCHAI ([id number]) on 04/18/2018 12:34:10 PM Procedure Note Interface, External Ris In - 04/18/2018 12:34 PM CDT Protocol Name Abby Time In Exercise Phase 00:01:00 Max. Systolic BP 126 mmHg Max Diastolic BP 43 mmHg Max Heart Rate 75 BPM Max Predicted Heart Rate 149 BPM Reason For Termination Predetermined end point Reason for Test Chest Pain Dyspnea Known Coronary Artery Disease Target HR Formula (220 - Age)*100% Arrhythmias none Resting ECG Normal sinus rhythm ST Changes No Significant Changes Overall Impression Indeterminate due to pharmacological stress Chest Pain none HR Response To Exercise BP Response To Exercise wardfarin,atorvastatin,bumex,carvedilol Confirmed by fellow Tye Valencia ([id number]) on 04/10/2018 9:39:04 AM Confirmed by MD JACK YOCHAI ([id number]) on 04/18/2018 12:34:10 PM Performing Organization Address [facility] Phone Number GE MUSE ECG 12 lead (04/10/2018 8:34 AM CDT)Only the most recent of2 resultswithin the time period is included. Narrative Performed At Ventricular Rate 75 BPM GE MUSE Atrial Rate 75 BPM P-R Interval 214 ms QRS Duration 118 ms Q-T Interval 434 ms QTC Calculation(Bazett) 484 ms P [place] 33 degrees R [place] 77 degrees T [place] 229 degrees Sinus rhythm with 1st degree A-V block Non-specific intra-ventricular conduction delay ST & T wave abnormality, consider lateral ischemia Prolonged QT Abnormal ECG Confirmed by MD Young Mahboob ([id number]) on 04/10/2018 1:15:21 PM Procedure Note Interface, External Ris In - 04/10/2018 1:15 PM CDT Ventricular Rate 75 BPM Atrial Rate 75 BPM P-R Interval 214 ms QRS Duration 118 ms Q-T Interval 434 ms QTC Calculation(Bazett) 484 ms P [place] 33 degrees R [place] 77 degrees T [place] 229 degrees Sinus rhythm with 1st degree A-V block Non-specific intra-ventricular conduction delay ST & T wave abnormality, consider lateral ischemia Prolonged QT Abnormal ECG Confirmed by MD Young Mahboob ([id number]) on 04/10/2018 1:15:21 PM Performing Organization Address [facility] Phone Number [facility] MUSE CBC with platelet count + automated diff (04/10/2018 5:26 AM CDT)Only the most recent of4 resultswithin the time period is included. WBC 6.3 3.5 - 10.5 K/L [facility] RBC 3.02 (L) 4.63 - 6.08 M/L [facility] Hemoglobin 9.1 (L) 13.7 - 17.5 GM/DL [facility] Hematocrit 28.4 (L) 40.1 - 51.0 % [facility] MCV 94.0 (H) 79.0 - 92.2 fL [facility] MCH 30.1 25.7 - 32.2 pg [facility] MCHC 32.0 (L) 32.3 - 36.5 GM/DL [facility] RDW 15.1 (H) 11.6 - 14.4 % [facility] Platelets 127 (L) 150 - 450 K/CU MM [facility] MPV 9.9 9.4 - 12.4 fL [facility] nRBC 0 0 - 0 /100 WBC [facility] % Neutros 70 % [facility] % Lymphs 18 % [facility] % Monos 9 % [facility] % Eos 2 % [facility] % Baso 1 % [facility] # Neutros 4.46 1.78 - 5.38 K/L [facility] # Lymphs 1.15 (L) 1.32 - 3.57 K/L [facility] # Monos 0.56 0.30 - 0.82 K/L [facility] # Eos 0.10 0.04 - 0.54 K/L [facility] # Baso 0.03 0.01 - 0.08 K/L [facility] Immature Granulocytes-Relative 1 0 - 1 % [facility] Specimen Blood - Arm, Right Performing Organization Address [facility] Phone Number [address] [address] [place] Daily Prothrombin time/INR while on warfarin (04/10/2018 5:26 AM CDT)Only the most recent of4 resultswithin the time period is included. Protime 17.5 (H) 11.7 - 14.7 seconds [facility] INR 1.4 <=5.9 [facility] Specimen Blood - Arm, Right Narrative Performed At [facility] RECOMMENDED COUMADIN/WARFARIN INR THERAPY RANGES STANDARD DOSE: 2.0 - 3.0 Includes: PROPHYLAXIS for venous thrombosis, systemic embolization; TREATMENT for venous thrombosis and/or pulmonary embolus. HIGH RISK: Target INR is 2.5-3.5 for patients with mechanical heart valves. While on warfarin. Performing Organization Address [facility] Phone Number [address] [address] CENTER Magnesium (04/10/2018 5:26 AM CDT)Only the most recent of3 resultswithin the time period is included. Magnesium 2.5 1.6 - 2.6 mg/dL [facility] Specimen Blood - Arm, Right Performing Organization Address City/[facility]/Zipcode Phone Number [address] [address] [place] Basic metabolic panel (04/10/2018 5:26 AM CDT)Only the most recent of3 resultswithin the time period is included. Sodium 137 136 - 145 meq/L [facility] Potassium 3.6 3.5 - 5.1 meq/L [facility] Chloride 101 98 - 107 meq/L [facility] CO2 28 22 - 29 meq/L [facility] BUN 28 (H) 7 - 21 mg/dL [facility] Creatinine 1.73 (H) 0.57 - 1.25 mg/dL [facility] Glucose 135 (H) 70 - 105 mg/dL [facility] Calcium 9.0 8.4 - 10.2 mg/dL [facility] EGFR 39Comment: ESTIMATED GFR IS mL/min/1.73 sq m [facility] NOT ACCURATE [facility] CLEARANCE IN PREDICTING GLOMERULAR FILTRATION RATE. ESTIMATED GFR IS NOT APPLICABLE FOR DIALYSIS PATIENTS. Specimen Blood - Arm, Right Performing Organization Address City/State/Zipcode Phone Number [facility] [address] [place] [address] [phone] CENTER 2D Echo W/Doppler(CW/PW/Color) (04/09/2018 10:29 AM CDT) Ejection Fraction [facility] ECHO [facility] Narrative Performed At Transthoracic Echocardiography Report (TTE) [facility] Demographics Patient Name SILVERIO ZAMORA Date of Study04/09/2018 [id number] Gender Male Visit Number [id number] Unknown [id number] Room [id number] Number Date of Birth1945Referring CHEN Marmolejo Age72 year(s)Stereoptic Projection Topographer Vance Duran [facility] AnalystIzolda Regis Calvin MD Procedure Type of Study TTE procedure:2DECHO W DOPPLER(CW/PW/COLOR) (CLAY) Indications:Acute Chest Pain/ Suspected CAD. Clinical History HGB 7.8 HCT 25.0 % CAD, ACB, PCI, AICD ([facility]) DM, ICMP Contrast Medium: Definity. Amount - 2 ml Height: 67 inches Weight: 76.2 kg (168 lbs) BSA: 1.88 m^2 BMI: 26.31 kg/m^2 HR: 75 bpm BP: 137/68 mmHg Summary The left ventricle is chamber size (by vol index) is severely enlarged (male - LVED vol >100ml/m2). Normal LV wall thickness. All of the LV segments are hypokinetic . Global LV systolic function moderately reduced . LVEF by Morales's method of disk assessment is moderately reduced (30-34%) . Grade 3 diastolic dysfunction (marked elevated LA pressure). Global RV systolic function is mildly reduced . Estimated peak systolic PA pressure is 40-45 mmHg . No significant pericardial effusion is visualized. The estimated RA pressure by IVC dynamics 11-15mmHg . Previous Study No prior exam available for comparison. Signature Findings Left Ventricle The left ventricle is chamber size (by vol index) is severely enlarged (male - LVED vol >100ml/m2). No rmal LV wall thickness. Al l of the LV segments are hypokinetic . Gl obal LV systolic function moderately reduced . LV EF by Morales's method of disk assessment is mo derately reduced (30-34%) . Th e LVEF was measured using Morales's bi-plane me thod of disk . LV endocardium is adequately visualized with IV ul trasound enhancing agent. Gr melody 3 diastolic dysfunction (marked elevated LA pr essure). Lo w (cardiac index <2 L/min/m2) cardiac output st ate at rest is noted. Left AtriumLA size is severely enlarged (>48 ml/m2) . Right VentricleRV pacing wire is visualized . RV chamber size is normal . Gl obal RV systolic function is mildly reduced . Right Atrium RA pacing wire is visualized . RA cavity size is mildly enlarged . Aortic Valve Mild AoV cusp thickening. A trace of aortic regurgitation. Mitral Valve Mild MV leaflet thickening. Tr argenis mitral regurgitation. Tricuspid ValveMild tricuspid regurgitation. Es timated peak systolic PA pressure is 40-45 mmHg . Pulmonic Valve Normal PV structure and function. A trace of pulmonary regurgitation. AortaAortic root size (SInus of Valsalva diameter) is no rmal . Proximal ascending aorta size is normal . PericardiumNo significant pericardial effusion is visualized. IVC/SVC/PA/PV/PleuralPulmonary vein flow is consistent with increased LA P . Th e estimated RA pressure by IVC dynamics 11-15mmHg . Chambers/Structures Left Atrium LA Volume: 99.31 ml LA Area: 29.64 cm^2 LA Vol. Index: 53 ml/m^2 Left Ventricle LVIDd: 5.96 cm LV Septum Diastolic: 0.65 cm LV PW Diastolic: 0.77 cm LVEDV Morales's:260.85 ml LVESV Morales's:176.87 ml LVEF Morales's: 32.2 % LVEDVI: 139 ml/m^2 LVESVI: 94 ml/m^2 LVOT Diameter: 2.04 cm Right Atrium RA Vol. (Sngl Plane): 71.99 ml Right Ventricle TAPSE: 1.11 cm Aorta Ao Root S of Sara.: 2.87 cm Ascending Aorta: 2.9 cm Doppler/Quantitative Measurements Mitral Valve MV Peak E-Wave: 1.26 m/sMV Peak A-Wave: 0.49 m/s E/A Ratio: 2.55 Peak Gradient: 6.37 mmHg Deceleration Time: 121.5 msec MV Cruz. Peak: Tissue Doppler E' Lateral Velocity: 0.09 m/s E/E': 14.22 LVOT Peak Velocity: 0.66 m/s Peak Gradient: 1.74 mmHg Mean Velocity: 0.44 m/s Mean Gradient: 0.91 mmHg LVOT Diameter: 2.04 cmLVOT VTI: 14.77 cm LVOT Area: 3.27 cm^2LVOT SV:48.25 ml LVOT CO: 3.62 l/min LVOT CI: 1.93 l/min/m^2 Tricuspid Valve TR Velocity: 2.69 m/s TR Gradient: 28.85 mmHg Procedure Note Interface, External Ris In - 04/13/2018 8:59 AM CDT Transthoracic Echocardiography Report (TTE) Demographics Patient Name SILVERIO ZAMORA Date of Study 04/09/2018 Gender Male Visit Number [id number] Race Unknown Room Number 722 Number Date of 1945 Referring Physician CHEN Valentin Age 72 year(s) 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 Learning Consultant Lawrence Gray Interpreting Regis Chung Physician MD Joe Corrigan MD Procedure Type of Study TTE procedure:2DECHO W DOPPLER(CW/PW/COLOR) (CLAY) Indications:Acute Chest Pain/ Suspected CAD. Clinical History HGB 7.8 HCT 25.0 % CAD, ACB, PCI, AICD ([facility]) DM, ICMP Contrast Medium: Definity. Amount - 2 ml Height: 67 inches Weight: 76.2 kg (168 lbs) BSA: 1.88 m^2 BMI: 26.31 kg/m^2 HR: 75 bpm BP: 137/68 mmHg Summary The left ventricle is chamber size (by vol index) is severely enlarged (male - LVED vol >100ml/m2). Normal LV wall thickness. All of the LV segments are hypokinetic . Global LV systolic function moderately reduced . LVEF by Morales's method of disk assessment is moderately reduced (30-34%) . Grade 3 diastolic dysfunction (marked elevated LA pressure). Global RV systolic function is mildly reduced . Estimated peak systolic PA pressure is 40-45 mmHg . No significant pericardial effusion is visualized. The estimated RA pressure by IVC dynamics 11-15mmHg . Previous Study No prior exam available for comparison. Signature Findings Left Ventricle The left ventricle is chamber size (by vol index) is severely enlarged (male - LVED vol >100ml/m2). Normal LV wall thickness. All of the LV segments are hypokinetic . Global LV systolic function moderately reduced . LVEF by Morales's method of disk assessment is moderately reduced (30-34%) . The LVEF was measured using Morales's bi-plane method of disk . LV endocardium is adequately visualized with IV ultrasound enhancing agent. Grade 3 diastolic dysfunction (marked elevated LA pressure). Low (cardiac index <2 L/min/m2) cardiac output state at rest is noted. Left Atrium LA size is severely enlarged (>48 ml/m2) . Right Ventricle RV pacing wire is visualized . RV chamber size is normal . Global RV systolic function is mildly reduced . Right Atrium RA pacing wire is visualized . RA cavity size is mildly enlarged . Aortic Valve Mild AoV cusp thickening. A trace of aortic regurgitation. Mitral Valve Mild MV leaflet thickening. Trace mitral regurgitation. Tricuspid Valve Mild tricuspid regurgitation. Estimated peak systolic PA pressure is 40-45 mmHg . Pulmonic Valve Normal PV structure and function. A trace of pulmonary regurgitation. Aorta Aortic root size (SInus of Valsalva diameter) is normal . Proximal ascending aorta size is normal . Pericardium No significant pericardial effusion is visualized. IVC/SVC/PA/PV/Pleural Pulmonary vein flow is consistent with increased LAP . The estimated RA pressure by IVC dynamics 11-15mmHg . Chambers/Structures Left Atrium LA Volume: 99.31 ml LA Area: 29.64 cm^2 LA Vol. Index: 53 ml/m^2 Left Ventricle LVIDd: 5.96 cm LV Septum Diastolic: 0.65 cm LV PW Diastolic: 0.77 cm LVEDV Morales's:260.85 ml LVESV Morales's:176.87 ml LVEF Morales's: 32.2 % LVEDVI: 139 ml/m^2 LVESVI: 94 ml/m^2 LVOT Diameter: 2.04 cm Right Atrium RA Vol. (Sngl Plane): 71.99 ml Right Ventricle TAPSE: 1.11 cm Aorta Ao Root S of Sara.: 2.87 cm Ascending Aorta: 2.9 cm Doppler/Quantitative Measurements Mitral Valve MV Peak E-Wave: 1.26 m/s MV Peak A-Wave: 0.49 m/s E/A Ratio: 2.55 Peak Gradient: 6.37 mmHg Deceleration Time: 121.5 msec MV Cruz. Peak: Tissue Doppler E' Lateral Velocity: 0.09 m/s E/E': 14.22 LVOT Peak Velocity: 0.66 m/s Peak Gradient: 1.74 mmHg Mean Velocity: 0.44 m/s Mean Gradient: 0.91 mmHg LVOT Diameter: 2.04 cm LVOT VTI: 14.77 cm LVOT Area: 3.27 cm^2 LVOT SV:48.25 ml LVOT CO: 3.62 l/min LVOT CI: 1.93 l/min/m^2 Tricuspid Valve TR Velocity: 2.69 m/s TR Gradient: 28.85 mmHg Performing Organization Address City/[facility] Phone Number [facility] MKCKESSON CPACS Creatine Kinase (CK), Total and MB (04/09/2018 5:57 AM CDT)Only the most recent of2 resultswithin the time period is included. Total CK 184 29 - 200 U/L [facility] CK-MB 0.9 0.0 - 6.6 ng/mL [facility] MB Relative Index 0.5 % [facility] Specimen Blood - Arm, Right Narrative Performed At CK-MB Reference Range: [facility] <6.7Normal 6.7-10.0Borderline >10.0 Abnormal Performing Organization Address [facility] [place] Phone Number [facility] [address] [place] [phone] CENTER REPORT OF PROCEDURE - ENDOSCOPY URL (04/08/2018 2:19 PM CDT) Narrative Performed At Vitamin B12 and Folate (04/08/2018 5:25 AM CDT) Vitamin B12 1,684 (H) 213 - 816 pg/mL [facility] Folate 14.0 >=7.0 ng/mL [facility] Specimen Blood - Arm, Right Performing Organization Address [facility] Centercowv Phone Number [facility] [address] [place] [address] [phone] CENTER Iron, TIBC, % sat. (without ferritin) (04/08/2018 5:25 AM CDT) Iron 36 (L) 40 - 160 ug/dL [facility] TIBC 278 250 - 450 ug/dL [facility] Iron % Saturation 13 (L) 20 - 55 % [facility] Specimen Blood - Arm, Right Performing Organization Address City/[facility]/Zipcode Phone Number [address] [phone] CENTER Hemoglobin A1c (04/08/2018 5:25 AM CDT) Hemoglobin A1C 6.6 (H) 4.3 - 6.1 % [facility] Specimen Blood - Arm, Right Performing Organization Address [facility]/Zipcode Phone Number [address] [address] CENTER Ferritin (04/08/2018 5:25 AM CDT) Ferritin 54 5 - 275 ng/mL [facility] Specimen Blood - Arm, Right Performing Organization Address [facility] Phone Number [address] [address] [phone] CENTER Troponin I (04/08/2018 12:25 AM CDT)Only the most recent of2 resultswithin the time period is included. Troponin I 0.03 0.00 - 0.03 ng/mL [facility] Specimen Blood - Arm, Right Narrative Performed At [facility] Troponin I (TnI) levels must be interpreted in the context of the presenting symptoms and the clinical findings. Elevated TnI levels indicate myocardial damage, but are not specific for ischemic heart disease. Elevated TnI levels are seen in patients with other cardiac conditions (including myocarditis and congestive heart failure), and slight TnI elevations occur in patients with other conditions, including sepsis, renal failure, acidosis, acute neurological disease, and persistent tachyarrhythmia. Performing Organization Address City/State/Zipcode Phone Number [facility] [address] [place] [address] [place] Lipid panel (04/08/2018 12:25 AM CDT) Triglycerides 147 mg/dL [facility] Cholesterol 129 mg/dL [facility] HDL 34 mg/dL [facility] LDL Calculated 66 mg/dL [facility] Specimen Blood - Arm, Right Narrative Performed At [facility] Triglyceride Reference Range: Low Risk <150 [id number] High Risk 200-499 Very High Risk>=500 Cholesterol Reference Range: Low Risk <200 [id number] High Risk>240 HDL Cholesterol Reference Range: Low Risk >=60 High Risk <40 LDL Cholesterol Reference Range: Optimal<100 Near [id number] Very High >=190 Performing Organization Address City/State/Zipcode Phone Number [facility] [address] [place] [address] [place] XR chest 1 view portable / bedside (04/07/2018 6:18 PM CDT) Narrative Performed At FINAL REPORT GE RIS History: Fluid overload. Comparison: None. Findings: A single view of the chest is submitted. The cardiac silhouette is enlarged. The patient has undergone previous sternotomy and left subclavian ICD placement. There is atherosclerotic calcification of the aorta. There is mild central pulmonary vascular congestion. Bilateral interstitial opacities are centered on the perihilar lungs and suggest pulmonary edema. There is no focal consolidation, pneumothorax, large pleural effusion or acute bony abnormality. Signed: Raul Villarreal MD Report Verified Date/Time:04/07/2018 18:37:22 Reading Location: [address] Reading Room Procedure Note Interface, External Ris In - 04/07/2018 6:39 PM CDT FINAL REPORT History: Fluid overload. Comparison: None. Findings: A single view of the chest is submitted. The cardiac silhouette is enlarged. The patient has undergone previous sternotomy and left subclavian ICD placement. There is atherosclerotic calcification of the aorta. There is mild central pulmonary vascular congestion. Bilateral interstitial opacities are centered on the perihilar lungs and suggest pulmonary edema. There is no focal consolidation, pneumothorax, large pleural effusion or acute bony abnormality. Signed: Raul Villarreal MD Report Verified Date/Time: 04/07/2018 18:37:22 Reading Location: [address] Reading Room Performing Organization Address City/State/Zipcode Phone Number [facility] B-type Natriuretic Factor (BNP) (04/07/2018 4:51 PM CDT) BNP 927 (H) 0 - 100 pg/mL [facility] Specimen Blood - Arm, Right Performing Organization Address [facility]/Zipcode Phone Number [place] [phone] [place] [address] [phone] CENTER Comprehensive metabolic panel (04/07/2018 4:51 PM CDT) Protein, Total 7.1 6.0 - 8.3 gm/dL [facility] Albumin 3.6 3.5 - 5.0 g/dL [facility] Alkaline Phosphatase 144 40 - 150 U/L [facility] Total Bilirubin 0.6 0.2 - 1.2 mg/dL [facility] Sodium 140 136 - 145 meq/L [facility] Potassium 4.0 3.5 - 5.1 meq/L [facility] Chloride 107 98 - 107 meq/L [facility] CO2 25 22 - 29 meq/L [facility] BUN 30 (H) 7 - 21 mg/dL [facility] Creatinine 1.59 (H) 0.57 - 1.25 mg/dL [facility] Glucose 97 70 - 105 mg/dL [facility] Calcium 8.9 8.4 - 10.2 mg/dL [facility] AST 25 5 - 34 U/L [facility] ALT 28 6 - 55 U/L [facility] EGFR 43Comment: ESTIMATED GFR mL/min/1.73 sq m IS NOT ACCURATE [facility] CREATININE CLEARANCE IN PREDICTING GLOMERULAR FILTRATION RATE. ESTIMATED GFR IS NOT APPLICABLE FOR DIALYSIS PATIENTS. Specimen Blood - Arm, Right Performing Organization Address City/State/Zipcode Phone Number [facility] [address] [place] [address] CENTER after 06/22/2017 Insurance Payer Benefit Plan / Group Subscriber ID Type Phone Address MEDICARE MEDICARE A B xxxxxxxxxx Medicare ([place]) [address] [place] [phone] Advance Directives For more information, please contact:[facility] [place] [address] [phone] Code Status Date Activated Date Inactivated Comments Full Code 04/07/2018 5:00 PM 04/10/2018 8:00 PM This code status was determined by: Patient
--- OUTSIDE RECORDS SUMMARY | 2018-06-23 04:41 | XMS REPORT ---
:1945 [facility] Address [address] [place] [place] [address] Care Team Providers Name Role Phone MATIAS COLLIER Unavailable Unavailable Problems This patient has no known problems. Allergies, Adverse Reactions, Alerts This patient has no known allergies or adverse reactions. Medications This patient has no known medications. Results Test Description Test Time Test Comments Text Results Atomic Results Result Comments PET, CARDIAC 2018-04-10 Reason for FINAL REPORT PATIENT ID: PERFUSION 12:33:00 exam:->ischemia [id number] PROCEDURE: MULTIPLE evaluation. Rest/Stress MYOCARDIAL STUDIES, REST PERFUSION PET with AND STRESS regadenoson\XA9\ CPT CODE: 13421 INDICATION: Ischemic evaluation, chest pain, atrial fibrillation [...] tracer distribution is normal. 6. No previous [facility] study for comparison. NONINVASIVE RISK STRATIFICATION: The above findings are considered high risk (>3% annual mortality rate) based on the following criteria: - Severe resting left ventricular dysfunction (LVEF 35%)- Severe exercise left ventricular dysfunction (exercise LVEF 35%)- Stress-induced large perfusion defect (particularly if anterior)- Stress-induced multiple perfusion defects of moderate size- Large, fixed perfusion defect with LV dilation or increased lung uptake(thallium-201)- Stress-induced moderate perfusion defect with LV dilation or increasedlung uptake (thallium-201)(JACC. 2012;59(9):857-97.) Signed: Andrew Faith Verified Date/Time: 04/10/2018 12:33:34 Reading Location: [address] Reading Room -GLUCOSE METER 2018-04-10 11:43:00 Test Item Value Reference Range Comments POC-GLUCOSE METER (BEAKER) (test 354 mg/dL 70-110 Notified MARTITA MORSE/TESTED AT [facility] lxxw=5750) [address] [place] [id number] POCT-GLUCOSE [id number] 07:21:00 Test Item Value Reference Range Comments POC-GLUCOSE METER (BEAKER) 156 mg/dL 70-110 TESTED AT [address] (test zpwt=9505) [facility] [address] [id number] 06:34:00 Test Item Value Reference Range Comments MAGNESIUM (BEAKER) (test qllu=601) 2.5 mg/dL 1.6-2.6 BASIC METABOLIC [id number] 06:34:00 Test Item Value Reference Range Comments SODIUM (BEAKER) (test 137 meq/L 136-145 khnt=459) POTASSIUM (BEAKER) (test 3.6 meq/L 3.5-5.1 tkhj=780) CHLORIDE (BEAKER) (test 101 meq/L 98-107 lefb=786) CO2 (BEAKER) (test 28 meq/L 22-29 drka=226) BLOOD UREA NITROGEN 28 mg/dL 7-21 (BEAKER) (test ghmb=806) CREATININE (BEAKER) (test 1.73 mg/dL 0.57-1.25 lkpm=574) GLUCOSE RANDOM (BEAKER) 135 mg/dL 70-105 (test qgqy=555) CALCIUM (BEAKER) (test 9.0 mg/dL 8.4-10.2 najk=294) EGFR (BEAKER) (test 39 mL/min/1.73 sq m ESTIMATED GFR IS NOT kdwh=5288) ACCURATE CREATININE CLEARANCE IN PREDICTING GLOMERULAR FILTRATION RATE. ESTIMATED GFR IS NOT APPLICABLE FOR DIALYSIS PATIENTS. PROTHROMBIN TIME/[id number] 06:31:00 Test Item Value Reference Range Comments PROTIME (BEAKER) (test dbre=377) 17.5 seconds 11.7-14.7 INR (BEAKER) (test peow=674) 1.4 <=5.9 RECOMMENDED COUMADIN/WARFARIN INR THERAPY RANGESSTANDARD DOSE: 2.0 - 3.0 Includes: PROPHYLAXIS forvenous thrombosis, systemic embolization; TREATMENT for venous thrombosis and/or pulmonary embolus.HIGH RISK: Target INR is 2.5-3.5 for patients with mechanical heart valves.While on warfarin.CBC W/PLT COUNT &amp ; AUTO [id number] 06:19:00 Test Item Value Reference Range Comments WHITE BLOOD CELL COUNT (BEAKER) (test tadz=665) 6.3 K/ L 3.5-10.5 RED BLOOD CELL COUNT (BEAKER) (test hgpi=572) 3.02 M/ L 4.63-6.08 HEMOGLOBIN (BEAKER) (test neew=915) 9.1 GM/DL 13.7-17.5 HEMATOCRIT (BEAKER) (test cgvn=975) 28.4 % 40.1-51.0 MEAN CORPUSCULAR VOLUME (BEAKER) (test mszq=862) 94.0 fL 79.0-92.2 MEAN CORPUSCULAR HEMOGLOBIN (BEAKER) (test 30.1 pg 25.7-32.2 wkrv=379) MEAN CORPUSCULAR HEMOGLOBIN CONC (BEAKER) (test 32.0 GM/DL 32.3-36.5 hjfo=538) RED CELL DISTRIBUTION WIDTH (BEAKER) (test 15.1 % 11.6-14.4 xkiv=761) PLATELET COUNT (BEAKER) (test ylin=693) 127 K/CU MM 150-450 MEAN PLATELET VOLUME (BEAKER) (test ndix=247) 9.9 fL 9.4-12.4 NUCLEATED RED BLOOD CELLS (BEAKER) (test 0 /100 WBC 0-0 mzkr=511) NEUTROPHILS RELATIVE PERCENT (BEAKER) (test 70 % igkx=869) LYMPHOCYTES RELATIVE PERCENT (BEAKER) (test 18 % vwho=297) MONOCYTES RELATIVE PERCENT (BEAKER) (test 9 % mjsc=630) EOSINOPHILS RELATIVE PERCENT (BEAKER) (test 2 % jsgy=464) BASOPHILS RELATIVE PERCENT (BEAKER) (test 1 % nlqk=481) NEUTROPHILS ABSOLUTE COUNT (BEAKER) (test 4.46 K/ L 1.78-5.38 nbwd=938) LYMPHOCYTES ABSOLUTE COUNT (BEAKER) (test 1.15 K/ L 1.32-3.57 zepn=490) MONOCYTES ABSOLUTE COUNT (BEAKER) (test 0.56 K/ L 0.30-0.82 tcbg=523) EOSINOPHILS ABSOLUTE COUNT (BEAKER) (test 0.10 K/ L 0.04-0.54 kppw=693) BASOPHILS ABSOLUTE COUNT (BEAKER) (test 0.03 K/ L 0.01-0.08 bnni=426) IMMATURE GRANULOCYTES-RELATIVE PERCENT (BEAKER) 1 % 0-1 (test qfol=8352) POCT-GLUCOSE [id number] 23:34:00 Test Item Value Reference Range Comments POC-GLUCOSE METER (BEAKER) 155 mg/dL 70-[address] [facility] [address] [facility] (test ygdf=8578) [facility] [address] POCT-GLUCOSE [id number] 19:50:00 Test Item Value Reference Range Comments POC-GLUCOSE METER (BEAKER) 155 mg/dL 70-[address] [facility] [address] [facility] [facility] (test clla=6081) [facility] [address] POCT-GLUCOSE [id number] 11:50:00 Test Item Value Reference Range Comments POC-GLUCOSE METER (BEAKER) 196 mg/dL 70-110 TESTED AT [place] [id number] [facility] (test kqzc=3292) [facility] [address] POCT-GLUCOSE [id number] 07:58:00 Test Item Value Reference Range Comments POC-GLUCOSE METER (BEAKER) 170 mg/dL 70-110 TESTED AT [address] (test ihvu=9155) [facility] [address] [id number] 07:31:00 Test Item Value Reference Range Comments MAGNESIUM (BEAKER) (test xwez=780) 2.5 mg/dL 1.6-2.6 BASIC METABOLIC [id number] 07:31:00 Test Item Value Reference Range Comments SODIUM (BEAKER) (test 138 meq/L 136-145 awpc=956) POTASSIUM (BEAKER) (test 3.9 meq/L 3.5-5.1 wduv=652) CHLORIDE (BEAKER) (test 104 meq/L 98-107 mvwc=285) CO2 (BEAKER) (test 22 meq/L 22-29 dmec=020) BLOOD UREA NITROGEN 28 mg/dL 7-21 (BEAKER) (test isnq=751) CREATININE (BEAKER) (test 1.66 mg/dL 0.57-1.25 pgez=013) GLUCOSE RANDOM (BEAKER) 133 mg/dL 70-105 (test bjcb=380) CALCIUM (BEAKER) (test 8.4 mg/dL 8.4-10.2 bank=154) EGFR (BEAKER) (test 41 mL/min/1.73 sq m ESTIMATED GFR IS NOT jlxo=4060) ACCURATE CREATININE CLEARANCE IN PREDICTING GLOMERULAR FILTRATION RATE. ESTIMATED GFR IS NOT APPLICABLE FOR DIALYSIS PATIENTS. CREATINE KINASE (CK), TOTAL AND [id number] 07:31:00 Test Item Value Reference Range Comments CREATINE KINASE TOTAL (BEAKER) (test adij=139) 184 U/L 29-200 CREATINE KINASE-MB (BEAKER) (test zqin=023) 0.9 ng/mL 0.0-6.6 CREATINE KINASE-MB INDEX (BEAKER) (test scml=176) 0.5 % CK-MB Reference Range:<6.7 Normal6.7-10.0 Borderline>10.0 AbnormalCBC W/PLT COUNT & AUTO [id number] 06:40:00 Test Item Value Reference Range Comments WHITE BLOOD CELL COUNT (BEAKER) (test zkrc=934) 6.6 K/ L 3.5-10.5 RED BLOOD CELL COUNT (BEAKER) (test cbyd=164) 2.61 M/ L 4.63-6.08 HEMOGLOBIN (BEAKER) (test nsjd=626) 7.8 GM/DL 13.7-17.5 HEMATOCRIT (BEAKER) (test gygc=716) 25.0 % 40.1-51.0 MEAN CORPUSCULAR VOLUME (BEAKER) (test qnfp=621) 95.8 fL 79.0-92.2 MEAN CORPUSCULAR HEMOGLOBIN (BEAKER) (test 29.9 pg 25.7-32.2 zzni=899) MEAN CORPUSCULAR HEMOGLOBIN CONC (BEAKER) (test 31.2 GM/DL 32.3-36.5 jkuv=450) RED CELL DISTRIBUTION WIDTH (BEAKER) (test 15.3 % 11.6-14.4 gejn=173) PLATELET COUNT (BEAKER) (test emmk=260) 111 K/CU MM 150-450 MEAN PLATELET VOLUME (BEAKER) (test hmoz=374) 9.8 fL 9.4-12.4 NUCLEATED RED BLOOD CELLS (BEAKER) (test 0 /100 WBC 0-0 uibe=351) NEUTROPHILS RELATIVE PERCENT (BEAKER) (test 72 % bhle=379) LYMPHOCYTES RELATIVE PERCENT (BEAKER) (test 18 % tbga=442) MONOCYTES RELATIVE PERCENT (BEAKER) (test 8 % jlnc=431) EOSINOPHILS RELATIVE PERCENT (BEAKER) (test 1 % ifni=660) BASOPHILS RELATIVE PERCENT (BEAKER) (test 1 % ewyl=154) NEUTROPHILS ABSOLUTE COUNT (BEAKER) (test 4.72 K/ L 1.78-5.38 xtra=950) LYMPHOCYTES ABSOLUTE COUNT (BEAKER) (test 1.19 K/ L 1.32-3.57 fzdy=577) MONOCYTES ABSOLUTE COUNT (BEAKER) (test 0.52 K/ L 0.30-0.82 pion=701) EOSINOPHILS ABSOLUTE COUNT (BEAKER) (test 0.06 K/ L 0.04-0.54 roco=819) BASOPHILS ABSOLUTE COUNT (BEAKER) (test 0.03 K/ L 0.01-0.08 geki=529) IMMATURE GRANULOCYTES-RELATIVE PERCENT (BEAKER) 1 % 0-1 (test jgec=0776) PROTHROMBIN [id number] 06:40:00 Test Item Value Reference Range Comments PROTIME (BEAKER) (test olkl=341) 18.2 seconds 11.7-14.7 INR (BEAKER) (test trmy=103) 1.5 <=5.9 RECOMMENDED COUMADIN/WARFARIN INR THERAPY RANGESSTANDARD DOSE: 2.0 - 3.0 Includes: PROPHYLAXIS forvenous thrombosis, systemic embolization; TREATMENT for venous thrombosis and/or pulmonary embolus.HIGH RISK: Target INR is 2.5-3.5 for patients with mechanical heart valves.While on warfarin.POCT-GLUCOSE [id number] 23:26:00 Test Item Value Reference Range Comments POC-GLUCOSE METER (BEAKER) 175 mg/dL 70-110 TESTED AT [address] (test rxmx=4413) [place] [address] POCT-GLUCOSE [id number] 16:46:00 Test Item Value Reference Range Comments POC-GLUCOSE METER (BEAKER) 143 mg/dL 70-110 TESTED AT [address] (test tobh=3334) [place] [address] POCT-GLUCOSE [id number] 14:34:00 Test Item Value Reference Range Comments POC-GLUCOSE METER (BEAKER) 171 mg/dL 70-110 TESTED AT [address] (test brwi=6440) [place] [address] HEMOGLOBIN [id number] 11:18:00 Test Item Value Reference Range Comments HEMOGLOBIN A1C (BEAKER) (test uxmf=380) 6.6 % 4.3-6.1 CREATINE KINASE (CK), TOTAL AND [id number] 07:48:00 Test Item Value Reference Range Comments CREATINE KINASE TOTAL (BEAKER) (test ttxb=083) 111 U/L 29-200 CREATINE KINASE-MB (BEAKER) (test jono=147) 1.1 ng/mL 0.0-6.6 CREATINE KINASE-MB INDEX (BEAKER) (test ejpc=629) 1.0 % CK-MB Reference Range:<6.7 Normal6.7-10.0 Borderline>10.0 [id number] 07:42:00 Test Item Value Reference Range Comments MAGNESIUM (BEAKER) (test geui=100) 2.4 mg/dL 1.6-2.6 BASIC METABOLIC [id number] 07:42:00 Test Item Value Reference Range Comments SODIUM (BEAKER) (test 137 meq/L 136-145 yoxc=206) POTASSIUM (BEAKER) (test 4.0 meq/L 3.5-5.1 gsfb=751) CHLORIDE (BEAKER) (test 104 meq/L 98-107 snrp=777) CO2 (BEAKER) (test 24 meq/L 22-29 wagj=357) BLOOD UREA NITROGEN 31 mg/dL 7-21 (BEAKER) (test vuiw=311) CREATININE (BEAKER) (test 1.62 mg/dL 0.57-1.25 fjwz=783) GLUCOSE RANDOM (BEAKER) 145 mg/dL 70-105 (test tcxh=559) CALCIUM (BEAKER) (test 8.5 mg/dL 8.4-10.2 vtve=831) EGFR (BEAKER) (test 42 mL/min/1.73 sq m ESTIMATED GFR IS NOT vgup=0087) ACCURATE CREATININE CLEARANCE IN PREDICTING GLOMERULAR FILTRATION RATE. ESTIMATED GFR IS NOT APPLICABLE FOR DIALYSIS PATIENTS. [id number] 07:17:00 Test Item Value Reference Range Comments FERRITIN (BEAKER) (test ejrs=996) 54 ng/mL 5-275 VITAMIN B12 AND [id number] 07:17:00 Test Item Value Reference Range Comments VITAMIN B12 (BEAKER) (test uizs=534) 1684 pg/mL 213-816 FOLATE (BEAKER) (test odqd=216) 14.0 ng/mL >=7.0 CBC W/PLT COUNT & AUTO [id number] 07:08:00 Test Item Value Reference Range Comments WHITE BLOOD CELL COUNT (BEAKER) (test hqqe=380) 6.2 K/ L 3.5-10.5 RED BLOOD CELL COUNT (BEAKER) (test kfwc=591) 2.55 M/ L 4.63-6.08 HEMOGLOBIN (BEAKER) (test wbwv=900) 7.7 GM/DL 13.7-17.5 HEMATOCRIT (BEAKER) (test xcnw=961) 24.5 % 40.1-51.0 MEAN CORPUSCULAR VOLUME (BEAKER) (test bmbo=332) 96.1 fL 79.0-92.2 MEAN CORPUSCULAR HEMOGLOBIN (BEAKER) (test 30.2 pg 25.7-32.2 znfn=567) MEAN CORPUSCULAR HEMOGLOBIN CONC (BEAKER) (test 31.4 GM/DL 32.3-36.5 bxbv=480) RED CELL DISTRIBUTION WIDTH (BEAKER) (test 15.6 % 11.6-14.4 leep=106) PLATELET COUNT (BEAKER) (test caae=120) 110 K/CU MM 150-450 MEAN PLATELET VOLUME (BEAKER) (test pmlw=004) 10.3 fL 9.4-12.4 NUCLEATED RED BLOOD CELLS (BEAKER) (test 0 /100 WBC 0-0 ksak=898) NEUTROPHILS RELATIVE PERCENT (BEAKER) (test 74 % mcvq=282) LYMPHOCYTES RELATIVE PERCENT (BEAKER) (test 19 % mkzw=617) MONOCYTES RELATIVE PERCENT (BEAKER) (test 5 % ynsn=936) EOSINOPHILS RELATIVE PERCENT (BEAKER) (test 1 % dppu=915) BASOPHILS RELATIVE PERCENT (BEAKER) (test 0 % ktcp=130) NEUTROPHILS ABSOLUTE COUNT (BEAKER) (test 4.58 K/ L 1.78-5.38 aprr=439) LYMPHOCYTES ABSOLUTE COUNT (BEAKER) (test 1.16 K/ L 1.32-3.57 hxch=795) MONOCYTES ABSOLUTE COUNT (BEAKER) (test 0.29 K/ L 0.30-0.82 dqcu=617) EOSINOPHILS ABSOLUTE COUNT (BEAKER) (test 0.06 K/ L 0.04-0.54 jcmk=476) BASOPHILS ABSOLUTE COUNT (BEAKER) (test 0.02 K/ L 0.01-0.08 bhce=468) IMMATURE GRANULOCYTES-RELATIVE PERCENT (BEAKER) 1 % 0-1 (test owfu=8922) IRON, TIBC, % SAT. (WITHOUT FERRITIN)2018-04-08 06:51:00 Test Item Value Reference Range Comments IRON (BEAKER) (test mrha=761) 36 ug/dL 40-160 TOTAL IRON BINDING CAPACITY (BEAKER) (test 278 ug/dL 250-450 hxec=570) IRON % SATURATION (2) (BEAKER) (test qvfd=8596) 13 % 20-55 POCT-GLUCOSE [id number] 06:40:00 Test Item Value Reference Range Comments POC-GLUCOSE METER (BEAKER) 147 mg/dL 70-[address] [facility] [address] (test xbph=2605) [facility] [address] PROTHROMBIN [id number] 06:24:00 Test Item Value Reference Range Comments PROTIME (BEAKER) (test disf=934) 23.6 seconds 11.7-14.7 INR (BEAKER) (test dztw=469) 2.1 <=5.9 RECOMMENDED COUMADIN/WARFARIN INR THERAPY RANGESSTANDARD DOSE: 2.0 - 3.0 Includes: PROPHYLAXIS forvenous thrombosis, systemic embolization; TREATMENT for venous thrombosis and/or pulmonary embolus.HIGH RISK: Target INR is 2.5-3.5 for patients with mechanical heart valves.TROPONIN [id number] 00:58:00 Test Item Value Reference Range Comments TROPONIN I (BEAKER) (test beiu=265) 0.03 ng/mL 0.00-0.03 Troponin I (TnI) levels must be interpreted [...] failure, acidosis, acute neurological disease, and persistent tachyarrhythmia.LIPID [id number] 00:52:00 Test Item Value Reference Range Comments TRIGLYCERIDES (BEAKER) (test epsb=440) 147 mg/dL CHOLESTEROL (BEAKER) (test hbca=984) 129 mg/dL HDL CHOLESTEROL (BEAKER) (test ctve=728) 34 mg/dL LDL CHOLESTEROL CALCULATED (BEAKER) (test 66 mg/dL tmlj=901) Triglyceride Reference Range: Low Risk <150 Borderline 150- 199 High Risk 200-499 Very High Risk >=500Cholesterol Reference Range: Low Risk <200 Borderline 200-239 High Risk > 240HDL Cholesterol Reference Range: Low Risk >=60 High Risk <40LDL Cholesterol Reference Range: Optimal <100 Near Optimal 100-129 Borderline 130-159 High 160-189 Very High >=190POCT-GLUCOSE [id number] 00:10:00 Test Item Value Reference Range Comments POC-GLUCOSE METER (BEAKER) 76 mg/dL 70-[address] [facility] [address] [facility] [facility] (test zfmt=2431) [facility] [address] RAD, CHEST, 1 VIEW, NON [id number] 18:37:00Reason for exam:->fluid overloadShould this be performed at the bedside?->YesFINAL REPORT History: Fluid overload. Comparison: None. Findings: A single view of the chest is submitted. The cardiac silhouette is enlarged. The patient has undergone previoussternotomy and left subclavian ICD placement. There is atherosclerotic calcification of the aorta. There is mild central pulmonary vascular congestion. Bilateral interstitial opacities are centered onthe perihilar lungs and suggest pulmonary edema. There is no focal consolidation, pneumothorax, large pleural effusion or acute bony abnormality. Signed: Aristeo Badillo MDReport Verified Date/Time: 04/07/2018 18:37:22 Reading Location: [address] Reading Room TROPONIN [id number] 17:35:00 Test Item Value Reference Range Comments TROPONIN I (BEAKER) (test solw=244) 0.02 ng/mL 0.00-0.03 Troponin I (TnI) levels must be interpreted [...] failure, acidosis, acute neurological disease, and persistent tachyarrhythmia.B-TYPE NATRIURETIC FACTOR (BNP) 17:35:00 Test Item Value Reference Range Comments B-TYPE NATRIURETIC PEPTIDE (BEAKER) (test 927 pg/mL 0-100 embr=000) POCT-GLUCOSE [id number] 17:28:00 Test Item Value Reference Range Comments POC-GLUCOSE METER (BEAKER) 105 mg/dL 70-[address] [facility] [address] [facility] [facility] (test yfpt=6833) [facility] [address] COMPREHENSIVE METABOLIC [id number] 17:28:00 Test Item Value Reference Range Comments TOTAL PROTEIN (BEAKER) 7.1 gm/dL 6.0-8.3 (test dumw=530) ALBUMIN (BEAKER) (test 3.6 g/dL 3.5-5.0 wezk=2102) ALKALINE PHOSPHATASE 144 U/L 40-150 (BEAKER) (test fezv=394) BILIRUBIN TOTAL (BEAKER) 0.6 mg/dL 0.2-1.2 (test djjg=496) SODIUM (BEAKER) (test 140 meq/L 136-145 pavz=424) POTASSIUM (BEAKER) (test 4.0 meq/L 3.5-5.1 ophx=751) CHLORIDE (BEAKER) (test 107 meq/L 98-107 fplf=300) CO2 (BEAKER) (test 25 meq/L 22-29 ooqb=519) BLOOD UREA NITROGEN 30 mg/dL 7-21 (BEAKER) (test trcc=191) CREATININE (BEAKER) (test 1.59 mg/dL 0.57-1.25 zuhw=710) GLUCOSE RANDOM (BEAKER) 97 mg/dL 70-105 (test lerh=042) CALCIUM (BEAKER) (test 8.9 mg/dL 8.4-10.2 yuvj=268) AST (SGOT) (BEAKER) (test 25 U/L 5-34 omea=436) ALT (SGPT) (BEAKER) (test 28 U/L 6-55 keag=607) EGFR (BEAKER) (test 43 mL/min/1.73 sq m ESTIMATED GFR IS NOT ybjn=9397) ACCURATE CREATININE CLEARANCE IN PREDICTING GLOMERULAR FILTRATION RATE. ESTIMATED GFR IS NOT APPLICABLE FOR DIALYSIS PATIENTS. PROTHROMBIN [id number] 17:18:00 Test Item Value Reference Range Comments PROTIME (BEAKER) (test zsks=001) 29.2 seconds 11.7-14.7 INR (BEAKER) (test nirx=140) 2.8 <=5.9 RECOMMENDED COUMADIN/WARFARIN INR THERAPY RANGESSTANDARD DOSE: 2.0 - 3.0 Includes: PROPHYLAXIS forvenous thrombosis, systemic embolization; TREATMENT for venous thrombosis and/or pulmonary embolus.HIGH RISK: Target INR is 2.5-3.5 for patients with mechanical heart valves.CBC W/PLT COUNT & AUTO [id number] 17:09:00 Test Item Value Reference Range Comments WHITE BLOOD CELL COUNT (BEAKER) (test iane=958) 6.7 K/ L 3.5-10.5 RED BLOOD CELL COUNT (BEAKER) (test lupo=933) 2.55 M/ L 4.63-6.08 HEMOGLOBIN (BEAKER) (test kzxa=000) 7.8 GM/DL 13.7-17.5 HEMATOCRIT (BEAKER) (test ttja=350) 24.4 % 40.1-51.0 MEAN CORPUSCULAR VOLUME (BEAKER) (test luym=683) 95.7 fL 79.0-92.2 MEAN CORPUSCULAR HEMOGLOBIN (BEAKER) (test 30.6 pg 25.7-32.2 jjpm=837) MEAN CORPUSCULAR HEMOGLOBIN CONC (BEAKER) (test 32.0 GM/DL 32.3-36.5 mzdy=104) RED CELL DISTRIBUTION WIDTH (BEAKER) (test 15.7 % 11.6-14.4 eevr=283) PLATELET COUNT (BEAKER) (test mbcr=195) 117 K/CU MM 150-450 MEAN PLATELET VOLUME (BEAKER) (test earx=220) 9.6 fL 9.4-12.4 NUCLEATED RED BLOOD CELLS (BEAKER) (test 0 /100 WBC 0-0 oprd=303) NEUTROPHILS RELATIVE PERCENT (BEAKER) (test 69 % vybn=508) LYMPHOCYTES RELATIVE PERCENT (BEAKER) (test 23 % puon=779) MONOCYTES RELATIVE PERCENT (BEAKER) (test 6 % qlci=963) EOSINOPHILS RELATIVE PERCENT (BEAKER) (test 2 % afrc=044) BASOPHILS RELATIVE PERCENT (BEAKER) (test 0 % msjr=179) NEUTROPHILS ABSOLUTE COUNT (BEAKER) (test 4.65 K/ L 1.78-5.38 hfsq=912) LYMPHOCYTES ABSOLUTE COUNT (BEAKER) (test 1.51 K/ L 1.32-3.57 efpy=352) MONOCYTES ABSOLUTE COUNT (BEAKER) (test 0.40 K/ L 0.30-0.82 ytmu=914) EOSINOPHILS ABSOLUTE COUNT (BEAKER) (test 0.11 K/ L 0.04-0.54 rsow=422) BASOPHILS ABSOLUTE COUNT (BEAKER) (test 0.02 K/ L 0.01-0.08 zjku=065) IMMATURE GRANULOCYTES-RELATIVE PERCENT (BEAKER) 0 % 0-1 (test qold=0950)
[2018-06-23] MEDS ORDERED: LORazepam 2 MG/ML VIAL ONE (04:51)
[2018-06-23] MEDS ORDERED: NA CHLORIDE 0.9% 100 ML IV ONE (04:52)
[2018-06-23] MEDS ORDERED: FOSPHENYTOIN PE 500 MG/10 ML VIAL ONE (04:53)
[2018-06-23 05:04] LABS: Absolute Lymphocytes (CBC) 1.7 K/uL (0.7-4.9); Absolute Monocytes 0.6 K/uL (0.1-1.3); Absolute Neutrophil 6.1 K/uL (1.8-8.0); Basophils % 0.3 % (0-1.3); Eosinophils % 1.2 % (0-4.4); Hematocrit 35.9 % (39.6-49.0); Lymphocytes % 20.1 % (15.3-44.8); MCH 30.4 pg (27.0-35.0); MCV 90.7 fL (80-100); MPV 7.3 fL (7.6-11.3); Monocytes % 6.9 % (3.3-12.3); RBC Red Blood Cell Count 3.96 M/uL (4.33-5.43)
[2018-06-23 05:07] LABS: Protime INR 3.01
--- NOTE | 2018-06-23 05:11 | ER ---
Nurse's Notes [facility] Name: Zana Zamora Age: 72 yrs Sex: Male : 1945 Arrival Date: 06/23/2018 Time: 04:38 Bed 15 Private MD: Diagnosis: Cerebral infarction;Epileptic seizures related to external causes;Coagulation defect, unspecified;Unspecified kidney failure Presentation: 06/23 04:39 Presenting complaint: EMS states: pt was found with left sided weakness at 0330 at [facility] [address] [place] [address]. ems reported a 147. Transition of care: patient was not received from another setting of care. Onset of symptoms was June 23, 2018 at 03:30. Risk Assessment: Do you want to hurt yourself or someone else? Patient reports no desire to harm self or others. Initial Sepsis Screen: Does the patient meet any 2 criteria? No. Patient's initial sepsis screen is negative. Does the patient have a suspected source of infection? No. Patient's initial sepsis screen is negative. Care prior to arrival: IV in place and IV fluids. 04:39 Method Of Arrival: EMS: [facility] 04:39 Acuity: ELLA 2 ak1 Triage Assessment: 03:35 General: Appears in no apparent distress. comfortable, Behavior is calm, cooperative. jb4 Historical: - Allergies: 04:50 NKA; ak1 - Home Meds: 04:50 aspirin 81 mg Oral chew 1 tab once daily [Active]; atorvastatin 20 mg Oral tab 1 tab ak1 once daily [Active]; carvedilol 6.25 mg oral tab .5 tab 2 times per day [Active]; furosemide 20 mg oral tab 3 tabs [Active]; levothyroxine 112 mcg tab 1 tab once daily [Active]; lisinopril 5 mg oral tab 1 tab once daily [Active]; Novolog 100 unit/mL Sub-Q soln three times a day [Active]; omeprazole 20 mg Oral cpDR 2 caps once daily [Active]; Ranexa 1,000 mg oral Tb12 1 tab 2 times per day [Active]; warfarin 5 mg Oral tab 1.5 tabs mondays, wednesdays, and fridays [Active]; warfarin 5 mg Oral tab 1 tab , Th, Sat, Sun [Active]; - PMHx: 04:50 Atrial Fib; CAD; CHF; CVA; Diabetes - IDDM; Hyperlipidemia; Hypertension; Umbilical ak1 hernia; - PSHx: 04:50 CABG; Defibrillator; ak1 - Immunization history:: Adult Immunizations unknown. - Social history:: Smoking status: Patient/guardian denies using tobacco. - Ebola Screening: : No symptoms or risks identified at this time. - Family history:: not pertinent. Screenin:57 Abuse screen: Denies threats or abuse. Nutritional screening: No deficits noted. [facility] Tuberculosis screening: No symptoms or risk factors identified. Patient has been NPO before screening. Pt post Ictal unable to perform. Fall Risk None identified. Assessment: 04:57 General: Appears Pt in postictal state.. Behavior is Pt is post ictal. Pt received from [facility] EMS at 0435. Taken to [place] 0437. Seized \T\ 0440. CT completed O445. PT in ER Room 0449. . Pain: Unable to use pain scale. Neuro: Level of Consciousness is post ictal, Speech Speech is slurred upon arrival at 0435. Facial droop on left, Pupils are PERRLA. Cardiovascular: Heart tones S1 S2 present Patient's skin is warm and dry. Respiratory: Airway is patent Respiratory effort is even, unlabored, Respiratory pattern is regular, symmetrical. GI: No signs and/or symptoms were reported involving the gastrointestinal system. : No signs and/or symptoms were reported regarding the genitourinary system. EENT: No signs and/or symptoms were reported regarding the EENT system. Derm: Skin is intact, Skin is pink, warm \T\ dry. Musculoskeletal: Range of motion:. 06:05 Reassessment: Patient appears in no apparent distress at this time. Patient and/or 4 family updated on plan of care and expected duration. Pain level reassessed. Pt is more awake and alert. Pt is not aware of where he is. respirations even and unlabored. 06:34 Reassessment: Patient appears in no apparent distress at this time. No changes from [facility] previously documented assessment. Patient and/or family updated on plan of care and expected duration. Pain level reassessed. EMS at the bedside prepping pt for transfer. Vital Signs: 04:52 BP 134 / 66; Pulse 75; Resp 16; Temp 97.7(A); Pulse Ox 99% on R/A; Weight 72.57 kg (R); jb4 Height 5 ft. 9 in. (175.26 cm); 05:24 BP 116 / 69; Pulse 75; Resp 16; Pulse Ox 100% on R/A; jb4 05:54 BP 137 / 69; Pulse 75; Resp 16; Pulse Ox 100% on R/A; jb4 04:52 Body Mass Index 23.63 (72.57 kg, 175.26 cm) jb4 NIH Stroke Scale Scores: 05:03 NIHSS Score: 10 denzel ED Course: 04:38 Patient arrived in ED. al2 04:47 Triage completed. ak1 04:48 CT Stroke Brain w/o Contrast In Process Unspecified. EDMS 04:49 Bobby Funes MD is Attending Physician. denzel 04:50 Arm band placed on Patient placed in an exam room, on a stretcher, on monitoring manager, ak1 on pulse oximetry, pt straight to CT from EMS stretcher. 04:56 Kirill Wrad RN is Primary Nurse. jb4 04:57 Patient has correct armband on for positive identification. Bed in low position. Side jb4 rails up X2. vehicle monitor technician on. Pulse ox on. NIBP on. 05:00 Inserted saline lock: 20 gauge in right forearm, using aseptic technique. jb4 05:00 Initial lab(s) drawn, by ED staff, sent to lab. Inserted saline lock: 20 gauge in left jb4 antecubital area, using aseptic technique. Blood collected. 05:06 X-ray completed. Portable x-ray completed in exam room. sg4 05:11 Stroke CXR 1 View In Process Unspecified. EDMS 05:59 Head angio In Process Unspecified. EDMS 06:05 Neck Angio In Process Unspecified. EDMS 06:36 No provider procedures requiring assistance completed. jb4 06:36 Patient transferred, IV remains in place. jb4 Administered Medications: 04:52 Drug: Fosphenytoin 1 grams Route: IVPB; Site: left antecubital; ea 05:14 Follow up: Response: No adverse reaction; IV Status: Completed infusion jb4 05:04 Drug: NS 0.9% 500 ml Route: IV; Rate: bolus; Site: left antecubital; ak1 06:07 Follow up: Response: No adverse reaction; IV Status: Completed infusion jb4 05:18 Drug: foLIC Acid 1 mg Route: IVPB; Site: left antecubital; jb4 05:18 Follow up: Response: No adverse reaction; IV Status: Completed infusion jb4 06:36 Follow up: IV Status: Completed infusion ak1 06:08 Drug: NS 0.9% 1000 ml Route: IV; Rate: 125 ml/hr; Site: left antecubital; jb4 06:34 Follow up: Response: No adverse reaction; IV Status: Infusion continued upon transfer jb4 06:36 Not Given (pt transferred with no other seizure activity. ): Ativan 2 mg IVP once ak1 Point of Care Testing: Blood Glucose: 04:57 Blood Glucose: 225 mg/dL; jb4 Ranges: Outcome: 05:10 ER care complete, transfer ordered by [facility] 06:36 Transferred to [facility]. jb4 06:36 Condition: stable 06:36 Instructed on the need for transfer, Demonstrated understanding of follow-up care. 06:37 Patient left the ED. jb4 NIH Stroke Scale - NIH Stroke Score Date: 06/23/2018 Time: 05:03 Total Score = 10 1a. Level of Consciousness (LOC) - 0(Alert) 1b. Level of Consciousness (LOC) (Year \T\ Age) - 0(Both) 1c. LOC Commands (Open \T\ Closes Eyes/Land Agent) - 0(Both) 2. Best Gaze (Lateral Gaze Paresis) - 0(Normal) 3. Visual Field Loss - 0(No visual loss) 4. Facial Palsy - 2(Partial paralysis) 5a. Left Arm: Motor (10-second hold) - 2(Drift, some effort against gravity) 5b. Right Arm: Motor (10-second hold) - 0(No drift) 6a. Left Leg: Motor (5-second hold - always test supine) - 2(Drift, some effort against gravity) 6b. Right Leg: Motor (5-second hold - always test supine) - 0(No drift) 7. Limb Ataxia (finger/nose \T\ heel/melvin - test with eyes open) - 2(Present in two limbs) 8. Sensory Loss (pinprick arms/legs/face) - 0(Normal) 9. Best Language: Aphasia (description/naming/reading) - 1(Mild to moderate aphasia) 10. Dysarthria (speech clarity - read or repeat words) - 1(Mild to Moderate) 11. Extinction and Inattention (visual/tactile/auditory/spatial/personal) - 0(No abnormality) Initials: denzel Signatures: Dispatcher [employer] EDBobby Short MD MD cha Krenek, Amber, RN RN ak1 Kirill Ward, RN RN jb4 Marlene Cotter, RN MARTITA Levin, Anali al2 Marilin Quevedo sg4 Corrections: (The following items were deleted from the chart) 05:17 04:52 BP 134 / 66; Pulse 75bpm; Resp 16bpm; Pulse Ox 99% RA; jb4 jb4 06:04 05:31 BP 137 / 69; Pulse 75bpm; Resp 16bpm; Pulse Ox 100% RA; jb4 jb4 06:44 04:57 General: Appears Pt in postictal state.. Pt received from EMS at 0435. jb[address] 0437. Seized \T\ 0440. CT completed O445. PT in ER Room 0449. . jb4 06:45 05:00 General: Appears PT is post ictal. Behavior is Pt is post ictal. jb4 jb4
--- NOTE | 2018-06-23 05:11 | EDPHYS ---
Physician Documentation [facility] Name: Zana Zamora Age: 72 yrs Sex: Male : 1945 Arrival Date: 06/23/2018 Time: 04:38 Bed 15 Private MD: ED Physician Bobby Funes HPI: 06/23 04:50 This 72 yrs old Male presents to ER via EMS with complaints of left side denzel weakness and aphasia. 04:50 This 72 yrs old Male presents to ER via EMS with complaints of left side denzel weakness, aphasia. 04:50 The patient's problem is reported as a facial droop, dysphasia, slurred speech, denzel expressive aphasia, weakness. Onset: The symptoms/episode began/occurred at an unknown time. awoke this way, last normal 11 pm. Context: the episode(s) was witnessed, by no one, symptoms became apparent upon awaking, last normal 11pm. The symptoms are alleviated by nothing. The symptoms are aggravated by nothing. The patient presents with dysphasia, trouble concentrating. Possible causes: low blood sugar, seizure. The patient presents to the emergency department with weakness of the left upper extremity, left lower extremity, left side of the face, that is moderate, a speech or higher order brain function problem, aphasia. Historical: - Allergies: 04:50 NKA; ak1 - Home Meds: 04:50 aspirin 81 mg Oral chew 1 tab once daily [Active]; atorvastatin 20 mg Oral tab 1 tab ak1 once daily [Active]; carvedilol 6.25 mg oral tab .5 tab 2 times per day [Active]; furosemide 20 mg oral tab 3 tabs [Active]; levothyroxine 112 mcg tab 1 tab once daily [Active]; lisinopril 5 mg oral tab 1 tab once daily [Active]; Novolog 100 unit/mL Sub-Q soln three times a day [Active]; omeprazole 20 mg Oral cpDR 2 caps once daily [Active]; Ranexa 1,000 mg oral Tb12 1 tab 2 times per day [Active]; warfarin 5 mg Oral tab 1.5 tabs mondays, wednesdays, and fridays [Active]; warfarin 5 mg Oral tab 1 tab Tues, Thurs, Sat, Sun [Active]; - PMHx: 04:50 Atrial Fib; CAD; CHF; CVA; Diabetes - IDDM; Hyperlipidemia; Hypertension; Umbilical ak1 hernia; - PSHx: 04:50 CABG; Defibrillator; ak1 - Immunization history:: Adult Immunizations unknown. - Social history:: Smoking status: Patient/guardian denies using tobacco. - Ebola Screening: : No symptoms or risks identified at this time. - Family history:: not pertinent. ROS: 04:50 Constitutional: Negative for fever, chills, and weight loss, Eyes: Negative for injury, denzel pain, redness, and discharge, ENT: Negative for injury, pain, and discharge, Neck: Negative for injury, pain, and swelling, Cardiovascular: Negative for chest pain, palpitations, and edema, Respiratory: Negative for shortness of breath, cough, wheezing, and pleuritic chest pain, Abdomen/GI: Negative for abdominal pain, nausea, vomiting, diarrhea, and constipation, Back: Negative for injury and pain, : Negative for injury, bleeding, discharge, and swelling, Skin: Negative for injury, rash, and discoloration, Psych: Negative for depression, anxiety, suicide ideation, homicidal ideation, and hallucinations, Allergy/Immunology: Negative for hives, rash, and allergies, Endocrine: Negative for neck swelling, polydipsia, polyuria, polyphagia, and marked weight changes. 04:50 : 04:50 MS/extremity: Positive for decreased range of motion, of the face, left arm and left leg. 04:50 Neuro: Positive for seizure activity, speech changes, weakness, of the face, left arm and left leg. Exam: 04:50 Constitutional: This is a well developed, well nourished patient who is awake, alert, denzel and in no acute distress. Head/Face: Normocephalic, atraumatic. Eyes: Pupils equal round and reactive to light, extra-ocular motions intact. Lids and lashes normal. Conjunctiva and sclera are non-icteric and not injected. Cornea within normal limits. Periorbital areas with no swelling, redness, or edema. ENT: Nares patent. No nasal discharge, no septal abnormalities noted. Tympanic membranes are normal and external auditory canals are clear. Oropharynx with no redness, swelling, or masses, exudates, or evidence of obstruction, uvula midline. Mucous membranes moist. Neck: Trachea midline, no thyromegaly or masses palpated, and no cervical lymphadenopathy. Supple, full range of motion without nuchal rigidity, or vertebral point tenderness. No Meningismus. Chest/axilla: Normal chest wall appearance and motion. Nontender with no deformity. No lesions are appreciated. Cardiovascular: Regular rate and rhythm with a normal S1 and S2. No gallops, murmurs, or rubs. Normal PMI, no JVD. No pulse deficits. Respiratory: Lungs have equal breath sounds bilaterally, clear to auscultation and percussion. No rales, rhonchi or wheezes noted. No increased work of breathing, no retractions or nasal flaring. Abdomen/GI: Soft, non-tender, with normal bowel sounds. No distension or tympany. No guarding or rebound. No evidence of tenderness throughout. Back: No spinal tenderness. No costovertebral tenderness. Full range of motion. Male : Normal genitalia with no discharge or lesions. Skin: Warm, dry with normal turgor. Normal color with no rashes, no lesions, and no evidence of cellulitis. MS/ Extremity: Pulses equal, no cyanosis. Neurovascular intact. Full, normal range of motion. Psych: Awake, alert, with orientation to person, place and time. Behavior, mood, and affect are within normal limits. 04:50 Neuro: Orientation: unable to test, Mentation: slow to respond, Memory: immediate memory is impaired, remote memory is impaired, recent memory is intact, Cerebellar function: dysmetria is noted on the left, the patient is unable to track right heel to left melvin, Motor: moves all fours, Sensation: no obvious gross deficits, appropriate no acute changes, Gait: not tested. Babinski testing is normal, seizure activity, in ct. 04:57 Radiologist reports: neg denzel 05:07 Neuro: arrived 438am, last normal 11pm, on coumadin, seizure in ct, no hx of seizure. [facility] Vital Signs: 04:52 BP 134 / 66; Pulse 75; Resp 16; Temp 97.7(A); Pulse Ox 99% on R/A; Weight 72.57 kg (R); jb4 Height 5 ft. 9 in. (175.26 cm); 05:24 BP 116 / 69; Pulse 75; Resp 16; Pulse Ox 100% on R/A; jb4 05:54 BP 137 / 69; Pulse 75; Resp 16; Pulse Ox 100% on R/A; jb4 04:52 Body Mass Index 23.63 (72.57 kg, 175.26 cm) 4 NIH Stroke Scale Scores: 05:03 NIHSS Score: 10 denzel MDM: 04:[address] [facility] 04:57 Data reviewed: vital signs, nurses notes, lab test result(s), EKG, radiologic studies, [facility] CT scan, plain films. 06/23 04:39 Order name: Basic Metabolic Panel; Complete Time: 05:20 [facility] 06/23 04:39 Order name: CBC with Diff; Complete Time: 05:20 [facility] 06/23 04:39 Order name: Protime (+inr); Complete Time: 05:20 [facility] 06/23 04:39 Order name: Ptt, Activated; Complete Time: 05:20 [facility] 06/23 04:39 Order name: CT Stroke Brain w/o Contrast [facility] 06/23 04:39 Order name: Stroke CXR 1 View [facility] 06/23 04:39 Order name: EKG; Complete Time: 04:40 [facility] 06/23 05:08 Order name: Head angio [facility] 06/23 05:08 Order name: Neck Angio [facility] 06/23 04:39 Order name: Accucheck; Complete Time: 05:05 [facility] 06/23 04:39 Order name: Cardiac monitoring; Complete Time: 05:05 [facility] 06/23 04:39 Order name: EKG - Nurse/Tech; Complete Time: 05:05 [facility] 06/23 04:39 Order name: IV Saline Lock; Complete Time: 05:05 [facility] 06/23 04:39 Order name: Labs collected and sent; Complete Time: 05:05 [facility] 06/23 04:39 Order name: NPO; Complete Time: 05:05 [facility] 06/23 04:39 Order name: O2 Per Protocol; Complete Time: 05:05 [facility] 06/23 04:39 Order name: O2 Sat Monitoring; Complete Time: 05:05 [facility] Administered Medications: 04:52 Drug: Fosphenytoin 1 grams Route: IVPB; Site: left antecubital; ea 05:14 Follow up: Response: No adverse reaction; IV Status: Completed infusion [facility] 05:04 Drug: NS 0.9% 500 ml Route: IV; Rate: bolus; Site: left antecubital; ak1 06:07 Follow up: Response: No adverse reaction; IV Status: Completed infusion jb4 05:18 Drug: foLIC Acid 1 mg Route: IVPB; Site: left antecubital; jb4 05:18 Follow up: Response: No adverse reaction; IV Status: Completed infusion jb4 06:36 Follow up: IV Status: Completed infusion ak1 06:08 Drug: NS 0.9% 1000 ml Route: IV; Rate: 125 ml/hr; Site: left antecubital; jb4 06:34 Follow up: Response: No adverse reaction; IV Status: Infusion continued upon transfer jb4 06:36 Not Given (pt transferred with no other seizure activity. ): Ativan 2 mg IVP once ak1 Point of Care Testing: Blood Glucose: 04:57 Blood Glucose: 225 mg/dL; jb4 Ranges: Critical Glucose Levels:Adult <50 mg/dl or >400 mg/dl <40 mg/dl or >180 mg/dl Disposition: 06/23/18 05:[address] [facility]. Diagnosis are Cerebral infarction, Epileptic seizures related to external causes, Coagulation defect, unspecified, Unspecified kidney failure. - Reason for transfer: Higher level of care. - Accepting physician is to rosalee medel. - Condition is Serious. - Problem is new. - Symptoms have improved. NIH Stroke Scale - NIH Stroke Score Date: 06/23/2018 Time: 05:03 Total Score = 10 1a. Level of Consciousness (LOC) - 0(Alert) 1b. Level of Consciousness (LOC) (Year \T\ Age) - 0(Both) 1c. LOC Commands (Open \T\ Closes Eyes/Bicycle Rental Clerk) - 0(Both) 2. Best Gaze (Lateral Gaze Paresis) - 0(Normal) 3. Visual Field Loss - 0(No visual loss) 4. Facial Palsy - 2(Partial paralysis) 5a. Left Arm: Motor (10-second hold) - 2(Drift, some effort against gravity) 5b. Right Arm: Motor (10-second hold) - 0(No drift) 6a. Left Leg: Motor (5-second hold - always test supine) - 2(Drift, some effort against gravity) 6b. Right Leg: Motor (5-second hold - always test supine) - 0(No drift) 7. Limb Ataxia (finger/nose \T\ heel/melvin - test with eyes open) - 2(Present in two limbs) 8. Sensory Loss (pinprick arms/legs/face) - 0(Normal) 9. Best Language: Aphasia (description/naming/reading) - 1(Mild to moderate aphasia) 10. Dysarthria (speech clarity - read or repeat words) - 1(Mild to Moderate) 11. Extinction and Inattention (visual/tactile/auditory/spatial/personal) - 0(No abnormality) Initials: denzel Signatures: Dispatcher [employer] EDMS Bobby Funes MD MD cha Krenek, Amber RN RN ak1 Kirill Ward RN RN jb4 Marlene Cotter RN RN mariam Corrections: (The following items were deleted from the chart) 05:12 04:39 Stroke Swallow Screen ordered. ak1 jbKarina 05:21 05:10 06/23/2018 05:[address] [facility]. denzel Diagnosis is Cerebral infarction; Epileptic seizures related to external causes; Coagulation defect, unspecified. Reason for transfer: Higher level of care. Accepting physician is to rosalee medel. Condition is Serious. Problem is new. Symptoms have improved. denzel 06:37 05:21 06/23/2018 05:[address] [facility]. brigitte Diagnosis is Cerebral infarction; Epileptic seizures related to external causes; Coagulation defect, unspecified; Unspecified kidney failure. Reason for transfer: Higher level of care. Accepting physician is to rosalee medel. Condition is Serious. Problem is new. Symptoms have improved. denzel
[2018-06-23 05:15] LABS: Potassium 3.6 mmol/L (3.5-5.1)
[2018-06-23] MEDS ORDERED: NA CHLORIDE 0.9% 1,000 ML ONE (05:17)
[2018-06-23] MEDS ORDERED: FOLIC ACID 5 MG/ML VIAL ONE (05:23)
[2018-06-23 06:47] VITALS: TEMP 97.7
[2018-06-23 06:48] VITALS: O2SAT 100
[2018-06-23 06:49] VITALS: BP 137/69
--- NOTE | 2018-06-23 10:39 | RAD REPORT ---
EXAM DESCRIPTION: CT - Ct Stroke Brain Wo Cont - 06/23/2018 6:46 am CLINICAL HISTORY: WEAKNESS TIA/CVA COMPARISON: Head Brain Wo Cont dated 03/28/2018; HEAD BRAIN W O CONTRAST dated 08/22/2010 TECHNIQUE: All CT scans are performed using dose optimization technique as appropriate and may inclu de automated exposure control or mA/KV adjustment according to patient size. FINDINGS: No intracranial hemorrhage, hydrocephalus or extra-axial fluid collection.Mild generalized brain atrophy is present with mild periventricular and deep white matter chronic microvascular ische shari changes.No areas of brain edema or evidence of midline shift. The paranasal sinuses and mastoids are clear. The calvarium is intact. Atherosclerosis of both verteb ral arteries. IMPRESSION: No acute intracranial abnormality.
--- NOTE | 2018-06-23 10:43 | RAD REPORT ---
EXAM DESCRIPTION: CT - Head angio - 06/23/2018 6:46 am CLINICAL HISTORY: Poss. Stroke TIA/CVA. COMPARISON: Ct Stroke Brain Wo Cont dated 06/23/2018; Head Brain Wo Cont dated 03/28/2018 TECHNIQUE: CT angiography of the head was performed with MIPs. All CT scans are performed using dose optimization technique as appropriate and may include automated exposure control or mA/KV adjustment according to patient size. FINDINGS: No evidence of aneurysm is detected. No vascular malformation identified. There is short-segment focal occlusion noted left intracranial vertebral artery. Reconstitution of di stal blood flow is seen likely from retrograde filling. The vertebral arteries are codominant. The visualized dural venous sinuses are patent. 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
--- NOTE | 2018-06-23 10:51 | RAD REPORT ---
EXAM DESCRIPTION: CT - Neck Angio - 06/23/2018 6:49 am CLINICAL HISTORY: Poss. Stroke TIA/CVA COMPARISON: Head C Spine Mpr Wo Con dated 12/15/2015Head C Spine Mpr Wo Con dated 12/15/2015 TECHNIQUE: CT angiography of the neck vessels was performed with MIPs. All CT scans are performed using dose optimization technique as appropriate and may include automated exposure control or mA/KV adjustment according to patient size. FINDINGS: A left aortic arch is identified with normal three vessel configuration of the great vesse ls. Moderately severe multifocal multisegmental atherosclerotic calcification is noted involving both com mon carotid arteries. Prominent hard plaquing is seen involving the left carotid bulb resulting in moderate stenosis estima jc at 70% utilizing NASCET criteria. The right carotid bulb demonstrates mild atherosclerosis withou t significant stenosis Focal short-segment occlusion of the intracranial left vertebral artery is again noted as detailed on dedicated MRA [place]. The extracranial vertebral arteries show no evidence of occlusion. IMPRESSION: Moderate stenosis of the left carotid bulb estimated at 70% utilizing NASCET criteria.
--- NOTE | 2018-06-23 10:53 | RAD REPORT ---
EXAM DESCRIPTION: RAD - Chest Single View - 06/23/2018 5:11 am CLINICAL HISTORY: stroke Chest pain. COMPARISON: Chest Single View dated 04/07/2018; Chest Single View dated 03/28/2018; Chest Pa And Lat (2 Views) dated 10/17/2017; Chest Single View dated 10/16/2017 FINDINGS: Portable technique limits examination quality. The lungs are grossly clear. The heart is mildly enlarged in size with a multilead pacer device prese nt. No displaced fractures.Sternotomy wires present. IMPRESSION: No acute intrathoracic process suspected.
--- NOTE | 2018-06-24 05:52 | EKG ---
Test Date: 2018-06-23 Test Time: 04:53:27 Rug Dyer: ROGELIO MEASUREMENT RESULTS: Intervals: Rate: 75 IA: 338 QRSD: 166 QT: 498 QTc: 556 [place]ford: P: 32 IA: 338 QRS: -1 T: 54 INTERPRETIVE STATEMENTS: Atrial-paced rhythm with prolonged AV conduction Right bundle branch block Inferior infarct, age undetermined Abnormal ECG Compared to ECG 05/10/2018 09:32:46 Right bundle-branch block now present Myocardial infarct finding still present Electronically Signed On 06-24-18 05:51:30 INSTRUCTOR OF NURSING by Jose Helms
== END 2018-06-23 06:37 | disposition short-term general hospital (02) ==
LOC: ER 04:37
DX: I63.9 Cerebral infarction, unspecified (principal); I10 Essential (primary) hypertension; R29.710 NIHSS score 10; G40.509 Epileptic seizures related to external causes, not intractable, without status epilepticus; D68.9 Coagulation defect, unspecified; N19 Unspecified kidney failure; E11.9 Type 2 diabetes mellitus without complications; E78.5 Hyperlipidemia, unspecified; I48.91 Unspecified atrial fibrillation; Z79.01 Long term (current) use of anticoagulants; Z79.82 Long term (current) use of aspirin; Z79.4 Long term (current) use of insulin; Z95.1 Presence of aortocoronary bypass graft; Z95.810 Presence of automatic (implantable) cardiac defibrillator
CPT/HCPCS: 36415; 70450; 70496; 70498; 71045; 80048; 82962; 85025; 85610; 85730; 93005; 96361; 96365; 96375; 99285; J7030; Q2009; Q9967 ×2

== ENCOUNTER 2018-07-20 17:01 | Observation (INO) | payer OTHER ==
--- OUTSIDE RECORDS SUMMARY | 2018-07-20 17:04 | XMS REPORT | Clinical Summary ---
:1945 Author Organization [facility] Address [address] [place] [address] Care Team Providers Name Role Phone Pcp, [...] MCG tablet mouth daily. carvedilol (COREG) Take 3.125 mg by 0 Active 25 MG tablet mouth 2 (two) times daily with breakfast and dinner . ferrous gluconate Take 324 mg by 0 Active (FERGON) 324 MG mouth 2 (two) tablet times daily. finasteride Take 5 mg by mouth 0 Active (PROSCAR) 5 mg daily. tablet furosemide (LASIX) Take 60 mg by 0 Active 40 MG tablet mouth daily . levothyroxine Take 112 mcg by 0 Active (SYNTHROID, mouth Every LEVOTHROID) 112 morning on an MCG tablet empty stomach 1 hour before breakfast with glass of water . lisinopril Take 5 mg by mouth 0 Active (PRINIVIL,ZESTRIL) daily . 10 MG tablet insulin aspart Inject 10 [...] times daily. Active Problems Problem Noted Date CVA (cerebral vascular accident) 06/24/2018 Seizures 06/23/2018 Essential hypertension 06/23/2018 Atrial fibrillation 06/23/2018 Stroke 06/23/2018 Chest pain 04/09/2018 Combined systolic and diastolic congestive heart failure, unspecified HF 04/08 chronicity CHF (congestive heart failure) 04/07/2018 Encounters Date Type Specialty Care Team Description 06/23/2018 [facility] Baron, Atrial fibrillation , unspecified type (HCC) (Primary Dx); - Encounter Medicine Fany Other congestive heart failure (HCC); 06/25/2018 MD Elissa Essential hypertension; Adelaida Lazar Seizures ([facility]); MD Yessy Dysarthria; Desiree Quintero Hemiparesis, unspecified hemiparesis etiology, unspecified laterality (HCC); MD Donnell Chronic kidney disease, unspecified CKD stage; Coronary artery disease involving [place] coronary artery of [place] heart without angina pectoris; Other specified hypothyroidism; Cerebrovascular accident (CVA), unspecified mechanism (HCC) 06/23/2018 Travel 04/10/2018 Orders Only General Internal Medicine 04/08/2018 Surgery Gastroenterology Jeovanny Magana UPPER ENDOSCOPY MD Loyda 04/08/2018 Anesthesia Event Gastroenterology Deric Valero CRNA 04/07/2018 Hospital General Internal [facility], Combined systolic and diastolic congestive heart failure, unspecified HF chronicity (HCC); - Encounter Medicine MD Juana Atrial fibrillation, unspecified type (HCC); 04/10/2018 Joann Shepherd, Essential hypertension; Gastrointestinal hemorrhage, unspecified gastrointestinal hemorrhage type; Lisa Lema MD Anemia due to other cause, not classified 04/07/2018 Telephone Critical Care Sona Davies MD Ofqd-yn-Dhar Call Medicine after 07/19/2017 Immunizations Name Dates Previously Given Next Due Pneumococcal Conjugate (Prevnar) 13-Valent 06/24/2018 (Deferred: ) Family History Medical History Relation Name Comments Heart attack Brother Heart attack Father Heart failure Mother Relation Name Status Comments Brother Father Mother Social History Tobacco Use Types Packs/Day Years Used Date Former Smoker Cigars 4 Smokeless Tobacco: Former User Snuff Alcohol Use Drinks/Week oz/Week Comments No Alcohol Habits Answer Date Recorded How often do you have a drink containing alcohol? Never 06/23/2018 How many drinks containing alcohol do you have on a typical Not asked day when you are drinking? How often do you have six or more drinks on one occasion? Not asked Sex Assigned at Date Recorded Not on file Job Start Date Occupation Industry Not on file Not on file Not on file Travel History Travel Start Travel End No recent travel history available. Last Filed Vital Signs Vital Sign Reading Time Taken Blood Pressure 129/72 06/25/2018 11:30 AM LEASE ATTENDANT Pulse 76 06/25/2018 11:30 AM LEASE ATTENDANT Temperature 36.2 C (97.2 F) 06/25/2018 11:30 AM LEASE ATTENDANT Respiratory Rate 18 06/25/2018 11:30 AM LEASE ATTENDANT Oxygen Saturation 100% 06/25/2018 11:30 AM LEASE ATTENDANT Inhaled Oxygen Concentration - - Weight 65.8 kg (145 lb) 06/25/2018 6:00 AM LEASE ATTENDANT Height 170.2 cm (5' 7") 06/23/2018 8:00 AM LEASE ATTENDANT Body Mass Index 22.71 06/25/2018 6:00 AM LEASE ATTENDANT Plan of Treatment Not on file Procedures Procedure Name Priority Date/Time Associated Comments Diagnosis ARRYTHMIA IMPLANT 06/26/2018 3:10 REPORT - SCAN PM LEASE ATTENDANT RHYTHM STRIP - SCAN 06/26/2018 3:10 PM LEASE ATTENDANT ECHOCARDIOGRAM REPORT 06/25/2018 5:50 - SCAN PM LEASE ATTENDANT 2D ECHO W/ DOPPLER Pending 06/25/2018 3:28 Results for (CW/PW/COLOR) Discharge PM LEASE ATTENDANT this procedure are in the results section. POCT-GLUCOSE METER Routine 06/25/2018 11:24 Results for AM LEASE ATTENDANT this procedure are in the results section. EEG AWAKE AND DROWSY Routine 06/25/2018 10:39 Results for AM LEASE ATTENDANT this procedure are in the results section. POCT-GLUCOSE METER Routine 06/25/2018 8:32 Results for AM LEASE ATTENDANT this procedure are in the results section. PROTHROMBIN TIME/INR Routine 06/25/2018 3:56 Results for AM LEASE ATTENDANT this procedure are in the results section. PHOSPHORUS Routine 06/25/2018 3:56 Results for AM LEASE ATTENDANT this procedure are in the results section. MAGNESIUM Routine 06/25/2018 3:56 Results for AM LEASE ATTENDANT this procedure are in the results section. BASIC METABOLIC PANEL Routine 06/25/2018 3:56 Results for (7) AM LEASE ATTENDANT this procedure are in the results section. URINALYSIS W/ REFLEX Routine 06/24/2018 9:54 Results for URINE CULTURE PM LEASE ATTENDANT this procedure are in the results section. URINE CULTURE Routine 06/24/2018 9:54 Results for PM LEASE ATTENDANT this procedure are in the results section. POCT-GLUCOSE METER Routine 06/24/2018 9:36 Results for PM LEASE ATTENDANT this procedure are in the results section. POCT-GLUCOSE METER Routine 06/24/2018 5:26 Results for PM LEASE ATTENDANT this procedure are in the results section. XR CHEST 1 VIEW Routine 06/24/2018 2:15 Results for PORTABLE/BEDSIDE PM LEASE ATTENDANT this procedure are in the results section. COMPREHENSIVE Routine 06/24/2018 12:55 Results for METABOLIC PANEL PM LEASE ATTENDANT this procedure are in the results section. POCT-GLUCOSE METER Routine 06/24/2018 12:38 Results for PM LEASE ATTENDANT this procedure are in the results section. CT BRAIN WITHOUT IV STAT 06/24/2018 9:30 Results for CONTRAST AM LEASE ATTENDANT this procedure are in the results section. POCT-GLUCOSE METER Routine 06/24/2018 8:08 Results for AM LEASE ATTENDANT this procedure are in the results section. T4, FREE Routine 06/24/2018 6:44 Results for AM LEASE ATTENDANT this procedure are in the results section. PROTHROMBIN TIME/INR Routine 06/24/2018 6:44 Results for AM LEASE ATTENDANT this procedure are in the results section. RPR Routine 06/24/2018 6:44 Results for AM LEASE ATTENDANT this procedure are in the results section. HEMOGLOBIN A1C Routine 06/24/2018 6:44 Results for AM LEASE ATTENDANT this procedure are in the results section. TSH/FREE T4 IF Routine 06/24/2018 6:44 Results for INDICATED AM LEASE ATTENDANT this procedure are in the results section. VITAMIN B12 AND Routine 06/24/2018 6:44 Results for FOLATE AM LEASE ATTENDANT this procedure are in the results section. LIPID PANEL Routine 06/24/2018 6:44 Results for AM LEASE ATTENDANT this procedure are in the results section. POCT-GLUCOSE METER Routine 06/23/2018 10:05 Results for PM LEASE ATTENDANT this procedure are in the results section. PROTHROMBIN TIME/INR Routine 06/23/2018 6:18 Results for PM LEASE ATTENDANT this procedure are in the results section. POCT-GLUCOSE METER Routine 06/23/2018 5:37 Results for PM LEASE ATTENDANT this procedure are in the results section. CBC W/PLT COUNT & Routine 06/23/2018 12:52 Results for AUTO DIFFERENTIAL PM LEASE ATTENDANT this procedure are in the results section. CBC W/PLT COUNT & Routine 06/23/2018 12:52 Results for AUTO DIFFERENTIAL PM LEASE ATTENDANT this procedure are in the results section. BASIC METABOLIC PANEL Routine 06/23/2018 12:52 Results for (7) PM LEASE ATTENDANT this procedure are in the results section. POCT-GLUCOSE METER Routine 06/23/2018 12:16 Results for PM LEASE ATTENDANT this procedure are in the results section. POCT-GLUCOSE METER Routine 06/23/2018 8:31 Results for AM LEASE ATTENDANT this procedure are in the results section. ECHOCARDIOGRAM REPORT 04/13/2018 9:20 - SCAN AM CDT REPORT OF PROCEDURE - 04/12/2018 11:01 ENDOSCOPY SCAN AM CDT REPORT OF PROCEDURE - 04/12/2018 11:01 ENDOSCOPY SCAN AM CDT RHYTHM STRIP - SCAN 04/12/2018 11:01 AM CDT POCT-GLUCOSE METER Routine 04/10/2018 11:30 Results for AM CDT this procedure are in the results section. NM CARDIAC PET STAT 04/10/2018 8:47 Results for PERFUSION REST AND/OR AM CDT this procedure STRESS are in the results section. TREADMILL Routine 04/10/2018 8:38 Results for TOLERANCE(NON-NUCLEAR AM CDT this procedure TREADMILL) are in the results section. ECG 12-LEAD Routine 04/10/2018 8:34 Results for AM CDT this procedure are in the results section. ECG 12-LEAD Routine 04/10/2018 8:34 AM CDT Procedure Note - Interface, External Ris In - 04/10/2018 8:51 AM CDT Ventricular Rate 75 BPM Atrial Rate 75 BPM P-R Interval 214 ms QRS Duration 118 ms Q-T Interval 434 ms QTC Calculation(Bazett) 484 ms P [place] 33 degrees R [place] 77 degrees T [place] 229 degrees Sinus rhythm with 1st degree [...] procedure are in the results section. after 07/19/2017 Results ARRYTHMIA IMPLANT REPORT - SCAN (06/26/2018 3:10 PM LEASE ATTENDANT) Narrative Performed At RHYTHM STRIP - SCAN (06/26/2018 3:10 PM LEASE ATTENDANT)Only the most recent of2 resultswithin the time period is included. Narrative Performed At ECHOCARDIOGRAM REPORT - SCAN (06/25/2018 5:50 PM LEASE ATTENDANT) Narrative Performed At 2D Echo W/Doppler(CW/PW/Color) (06/25/2018 3:28 PM LEASE ATTENDANT) Ejection Fraction [facility] Narrative Performed At Transthoracic Echocardiography Report (TTE) [facility] Demographics Patient NameCISNEROS,Date of Study06/25/2018 SILVERIO Gender Male Visit [id number] Race [id number] Number Date of 1945 Referring PhysicianDesiree Quintero MD Age 72 year(s) SonographJosephine Duran [facility] Binder Selector Sal Corrigan MD Physician Procedure Type of Study TTE procedure:2DECHO W DOPPLER(CW/PW/COLOR) (Pending Discharge) Indications:CVA. Clinical History HGB 11.9 HCT 35.6% A-FIB, CHF, CAD, DM, HTN, CVA ,CABG, DEFIB, PPM Height: 67 inches Weight: 65.77 kg (145 lbs) BSA: 1.76 m^2 BMI: 22.71 kg/m^2 HR: 79 bpm BP: 128/72 mmHg Summary The left ventricle is chamber size (by vol index) is mildly enlarged (male - LVED 75-89ml/m2). Normal LV wall thickness. The following segment(s) appear akinetic: inferior. The other segments are severely hypokinetic. LVEF by Morales's method of disk assessment is moderately reduced (30-34%) . LV diastolic function is indeterminate. Unable to estimate peak systolic PA pressure; inadequate TR velocity signal. No evidence of pericardial effusion. Previous Study In comparison with the prior exam 04/09/2018 no significant change. Signature Findings Left The left ventricle is chamber size (by vol index) is mildly Ventricleenlarged (male - LVED 75-89ml/m2). Normal LV wall thickness. The following segment(s) appear akinetic: inferior. The other segments are severely hypokinetic. LVEF by Morales's method of disk assessment is moderately reduced (30-34%) . LV diastolic function is indeterminate. Left AtriumLA size is [id number] enlarged . RightNormal right ventricle structure and function. VentricleRV pacing wire is visualized . Right Atrium Normal right atrium. Aortic Valve Mild AoV cusp thickening. Mild aortic regurgitation. Mitral Valve Mild MV leaflet thickening. Trace mitral regurgitation. TricuspidA trace of tricuspid regurgitation. ValveUnable to estimate peak systolic PA pressure; inadequate TR velocity signal. Pulmonic Normal PV structure and function by limited views and ValveDoppler. AortaAortic root size (SInus of Valsalva diameter) is normal . PericardiumNo evidence of pericardial effusion. Chambers/Structures Left Atrium LA Dimension: 3.8 cm LA Area: 22.51 cm^2 LA Volume: 76.29 ml LA Vol. Index: 43 ml/m^2 Left Ventricle LVIDd: 5.85 cm LVEDV:170 ml LV Septum Diastolic: 0.62 cm LV PW Diastolic: 0.73 cm LVEDV Morales's:139.69 ml LV Length: 7.56 cm LVESV Morales's:93.62 ml LVEF Morales's: 33 %L VEDVI: 79 ml/m^2 LVESVI: 53 ml/m^2 LVOT Diameter: 2.04 cm Aorta Ao Root S of Sara.: 2.81 cm Doppler/Quantitative Measurements LVOT Peak Velocity: 0.73 m/s Peak Gradient: 2.16 mmHg Mean Velocity: 0.38 m/s Mean Gradient: 0.76 mmHg LVOT Diameter: 2.04 cmLVOT VTI: 11.34 cm LVOT Area: 3.27 cm^2LVOT SV:37.05 ml LVOT CO: 2.93 l/min LVOT CI: 1.66 l/min/m^2 Tricuspid Valve TR Velocity: 1.86 m/s TR Gradient: 13.79 mmHg Procedure Note Interface, External Ris In - 06/25/2018 5:19 PM LEASE ATTENDANT Transthoracic Echocardiography Report (TTE) Demographics Patient Name URI, Date of Study 06/25/2018 SILVERIO Gender Male Visit Number [id number] Race Room Number 2235 Number Date of 1945 Referring Physician Desiree Quintero MD Age 72 year(s) 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 Clinical History HGB 11.9 HCT 35.6% A-FIB, CHF, CAD, DM, HTN, CVA ,CABG, DEFIB, PPM Height: 67 inches Weight: 65.77 kg (145 lbs) BSA: 1.76 m^2 BMI: 22.71 kg/m^2 HR: 79 bpm BP: 128/72 mmHg Summary The left ventricle is chamber size (by vol index) is mildly enlarged (male - LVED 75-89ml/m2). Normal LV wall thickness. The following segment(s) appear akinetic: inferior. The other segments are severely hypokinetic. LVEF by Morales's method of disk assessment is moderately reduced (30-34%) . LV diastolic function is indeterminate. Unable to estimate peak systolic PA pressure; inadequate TR velocity signal. No evidence of pericardial effusion. Previous Study In comparison with the prior exam 04/09/2018 no significant change. Signature Findings Left The left ventricle is chamber size (by vol index) is mildly Ventricle enlarged (male - LVED 75-89ml/m2). Normal LV wall thickness. The following segment(s) appear akinetic: inferior. The other segments are severely hypokinetic. LVEF by Morales's method of disk assessment is moderately reduced (30-34%) . LV diastolic function is indeterminate. Left Atrium LA size is [id number]-[id number] enlarged . Right Normal right ventricle structure and function. Ventricle RV pacing wire is visualized . Right Atrium Normal right atrium. Aortic Valve Mild AoV cusp thickening. Mild aortic regurgitation. Mitral Valve Mild MV leaflet thickening. Trace mitral regurgitation. Tricuspid A trace of tricuspid regurgitation. Valve Unable to estimate peak systolic PA pressure; inadequate TR velocity signal. Pulmonic Normal PV structure and function by limited views and Valve Doppler. Aorta Aortic root size (SInus of Valsalva diameter) is normal . Pericardium No evidence of pericardial effusion. Chambers/Structures Left Atrium LA Dimension: 3.8 cm LA Area: 22.51 cm^2 LA Volume: 76.29 ml LA Vol. Index: 43 ml/m^2 Left Ventricle LVIDd: 5.85 cm LVEDV:170 ml LV Septum Diastolic: 0.62 cm LV PW Diastolic: 0.73 cm LVEDV Morales's:139.69 ml LV Length: 7.56 cm LVESV Morales's:93.62 ml LVEF Morales's: 33 % LVEDVI: 79 ml/m^2 LVESVI: 53 ml/m^2 LVOT Diameter: 2.04 cm Aorta Ao Root S of Sara.: 2.81 cm Doppler/Quantitative Measurements LVOT Peak Velocity: 0.73 m/s Peak Gradient: 2.16 mmHg Mean Velocity: 0.38 m/s Mean Gradient: 0.76 mmHg LVOT Diameter: 2.04 cm LVOT VTI: 11.34 cm LVOT Area: 3.27 cm^2 LVOT SV:37.05 ml LVOT CO: 2.93 l/min LVOT CI: 1.66 l/min/m^2 Tricuspid Valve TR Velocity: 1.86 m/s TR Gradient: 13.79 mmHg Performing Organization Address City/State/Zipcode Phone Number [facility] POC-Glucose meter (06/25/2018 11:24 AM LEASE ATTENDANT)Only the most recent of22 resultswithin the time period is included. POC-Glucose Meter 156 (H)Comment: TESTED AT 70 - 110 mg/dL [facility] [address] [facility] [place] [address] Specimen Blood Performing Organization Address City/State/Zipcode Phone Number [address] [address] CENTER EEG AWAKE AND DROWSY (06/25/2018 10:39 AM LEASE ATTENDANT) Narrative Performed At Date of EE06/25/18 GE RIS DATE OF REPORT: 06/25/18 ACC: [id number] EEG Number: [id number] Test Location: Inpatient Start time: 06/25/18 at 1018 Stop time: 06/25/18 at 1039 ICD-10: 32420 CPT Code: R56.9 HISTORY: 72 year old male with h/o Afib, CAD s/p CABG, HTN,IDDM, prior CVA who presents with acute onset of dysarthria and seizure while in the CT scanner. MEDICATIONS THAT COULD AFFECT EEG: atorvastatin, carvedilol, levetiracetam, lisinopril TECHNICAL SUMMARY: This is a digital video-EEG recorded with 32 input channels reviewed with bipolar and referential montages using the modified combinatorial system nomenclature. DESCRIPTION OF RECORD: During the maximally alert state, a symmetric continuous background pattern is seen with an approximately 9 Hz posterior dominant rhythm that is poorly regulated. Drowsiness and stage II sleep are observed, all within normal limits. SIGNIFICANT VIDEO EVENTS: None SIGNIFICANT ELECTROCARDIOGRAM EVENTS: None HV: Hyperventilation was not performed. PHOTIC STIMULATION: Photic stimulation was done from 1-30 Hz; no photic driving was seen; photoparoxysmal responses were absent. IMPRESSION: Normal Awake and Asleep EEG. CLINICAL CORRELATION: An EEG without epileptiform discharges does not exclude the possibility of epilepsy.It the clinical suspicion of epilepsy remains, consider additional EEG recordings. Andre Sotelo MD Neurophysiology Fellow Yamilex Pagan MD PhD Attending Neurophysiologist [facility] Procedure Note Interface, External Ris In - 06/25/2018 2:58 PM LEASE ATTENDANT Date of EE06/25/18 DATE OF REPORT: 06/25/18 ACC: [id number] EEG Number: [id number] Test Location: Inpatient Start time: 06/25/18 at 1018 Stop time: 06/25/18 at 1039 ICD-10: 30833 CPT Code: R56.9 HISTORY: 72 year old male with h/o Afib, CAD s/p CABG, HTN,IDDM, prior CVA who presents with acute onset of dysarthria and seizure while in the CT scanner. MEDICATIONS THAT COULD AFFECT EEG: atorvastatin, carvedilol, levetiracetam, lisinopril TECHNICAL SUMMARY: This is a digital video-EEG recorded with 32 input channels reviewed with bipolar and referential montages using the modified combinatorial system nomenclature. DESCRIPTION OF RECORD: During the maximally alert state, a symmetric continuous background pattern is seen with an approximately 9 Hz posterior dominant rhythm that is poorly regulated. Drowsiness and stage II sleep are observed, all within normal limits. SIGNIFICANT VIDEO EVENTS: None SIGNIFICANT ELECTROCARDIOGRAM EVENTS: None HV: Hyperventilation was not performed. PHOTIC STIMULATION: Photic stimulation was done from 1-30 Hz; no photic driving was seen; photoparoxysmal responses were absent. IMPRESSION: Normal Awake and Asleep EEG. CLINICAL CORRELATION: An EEG without epileptiform discharges does not exclude the possibility of epilepsy. It the clinical suspicion of epilepsy remains, consider additional EEG recordings. Andre Sotelo MD Neurophysiology Fellow Yamilex Pagan MD PhD Attending Neurophysiologist [facility] Performing Organization Address City/State/Zipcode Phone Number GE RIS Prothrombin time/INR (06/25/2018 3:56 AM LEASE ATTENDANT)Only the most recent of7 resultswithin the time period is included. Protime 33.9 (H) 11.7 - 14.7 seconds [facility] INR 3.3 <=5.9 [facility] Specimen Blood Narrative Performed At RECOMMENDED COUMADIN/WARFARIN INR THERAPY [facility] RANGES STANDARD DOSE: 2.0 - 3.0 Includes: PROPHYLAXIS for venous thrombosis, systemic embolization; TREATMENT for venous thrombosis and/or pulmonary embolus. HIGH RISK: Target INR is 2.5-3.5 for patients with mechanical heart valves. Performing Organization Address City/State/Zipcode Phone Number [address] [address] [phone] CENTER Phosphorus (06/25/2018 3:56 AM LEASE ATTENDANT) Phosphorus 3.2 2.3 - 4.7 mg/dL [facility] Specimen Blood Performing Organization Address [facility] Phone Number [address] [address] CENTER Magnesium (06/25/2018 3:56 AM LEASE ATTENDANT)Only the most recent of4 resultswithin the time period is included. Magnesium 2.5 1.6 - 2.6 mg/dL [facility] Specimen Blood Performing Organization Address [facility] Phone Number [address] [address] [phone] CENTER Basic Metabolic Panel (06/25/2018 3:56 AM LEASE ATTENDANT)Only the most recent of5 resultswithin the time period is included. Sodium 137 136 - 145 meq/L [facility] Potassium 3.7 3.5 - 5.1 meq/L [facility] Chloride 103 98 - 107 meq/L [facility] CO2 23 22 - 29 meq/L [facility] BUN 20 7 - 21 mg/dL [facility] Creatinine 1.49 (H) 0.57 - 1.25 mg/dL [facility] Glucose 67 (L) 70 - 105 mg/dL [facility] Calcium 8.7 8.4 - 10.2 mg/dL [facility] EGFR 46Comment: ESTIMATED GFR IS mL/min/1.73 sq m [facility] NOT ACCURATE [facility] CLEARANCE IN PREDICTING GLOMERULAR FILTRATION RATE. ESTIMATED GFR IS NOT APPLICABLE FOR DIALYSIS PATIENTS. Specimen Blood Performing Organization Address City/[facility]/Zipcode Phone Number [facility] [address] [place] [address] BLUE DIAMOND Urinalysis w/Microscopic + Reflex to Culture (06/24/2018 9:54 PM LEASE ATTENDANT) Color, UA Yellow [facility] Clarity, UA Clear [facility] Specific [place], UA 1.014 1.001 - 1.035 [facility] pH, UA 6.5 5.0 - 8.0 [facility] Protein, UA 20 mg/dL (A) Negative [facility] Glucose, UA 70 mg/dL (A) Negative [facility] Ketones, UA Negative Negative [facility] Bilirubin, UA Negative Negative [facility] Blood, UA Negative Negative [facility] Nitrite, UA Negative Negative [facility] Leukocytes, UA Negative Negative [facility] Urobilinogen, UA 0.2 0.2 - 1.0 mg/dL [facility] RBC, UA 1 /HPF [facility] WBC, UA <1 /HPF [facility] Hyaline Casts, UA 1 /LPF [facility] Specimen Source [facility] Specimen Urine - Urine, Clean Catch Performing Organization Address City/[facility]/Zipcode Phone Number [address] [address] [phone] CENTER Urine culture (06/24/2018 9:54 PM LEASE ATTENDANT) Result STAPHYLOCOCCUS, COAGULASE [facility] NEGATIVE (A) CENTER Specimen Urine - Urine, Clean Catch Organism Antibiotic Method Susceptibility Coagulase negative Clindamycin <=0.12: Susceptible Staphylococcus Coagulase negative Erythromycin >=8: Resistant Staphylococcus Coagulase negative Linezolid 1: Susceptible Staphylococcus Coagulase negative Nitrofurantoin <=16: Susceptible Staphylococcus Coagulase negative Oxacillin <=0.25: Susceptible Staphylococcus Coagulase negative Rifampin <=0.5: Susceptible Staphylococcus Coagulase negative Tetracycline >=16: Resistant Staphylococcus Coagulase negative Trimethoprim + <=10: Susceptible Staphylococcus Sulfamethoxazole Coagulase negative Vancomycin <=0.5: Susceptible Staphylococcus Performing Organization Address City/State/Zipcode Phone Number [facility] [address] [place] [address] [phone] CENTER XR chest 1 view portable / bedside (06/24/2018 2:15 PM LEASE ATTENDANT)Only the most recent of2 resultswithin the time period is included. Narrative Performed At FINAL REPORT GE RIS Chest, 1 view Clinical history: AMS Comparison: April 07, 2018 Discussion: Left-sided pacemaker in position without pneumothorax or pleural effusion. There is mild bibasilar atelectasis. The cardiac silhouette is enlarged with tortuous appearance of the thoracic aorta. No acute osseous abnormality. Status post median sternotomy. Signed: Naveen Jackson MD Report Verified Date/Time:06/24/2018 16:32:28 Reading Location: [facility] C0[facility] Ortho Consult Reading Room Procedure Note Interface, External Ris In - 06/24/2018 4:34 PM LEASE ATTENDANT FINAL REPORT Chest, 1 view Clinical history: AMS Comparison: April 07, 2018 Discussion: Left-sided pacemaker in position without pneumothorax or pleural effusion. There is mild bibasilar atelectasis. The cardiac silhouette is enlarged with tortuous appearance of the thoracic aorta. No acute osseous abnormality. Status post median sternotomy. Signed: Naveen Jackson MD Report Verified Date/Time: 06/24/2018 16:32:28 Reading Location: [facility] [id number] Ortho Consult Reading Room Performing Organization Address City/[facility]/Zipcode Phone Number [facility] Comprehensive metabolic panel (06/24/2018 12:55 PM LEASE ATTENDANT)Only the most recent of2 resultswithin the time period is included. Protein, Total 7.7 6.0 - 8.3 gm/dL [facility] Albumin 3.8 3.5 - 5.0 g/dL [facility] Alkaline Phosphatase 122 40 - 150 U/L [facility] Total Bilirubin 0.5 0.2 - 1.2 mg/dL [facility] Sodium 136 136 - 145 meq/L [facility] Potassium 3.9 3.5 - 5.1 meq/L [facility] Chloride 101 98 - 107 meq/L [facility] CO2 28 22 - 29 meq/L [facility] BUN 19 7 - 21 mg/dL [facility] Creatinine 1.66 (H) 0.57 - 1.25 mg/dL [facility] Glucose 126 (H) 70 - 105 mg/dL [facility] Calcium 9.1 8.4 - 10.2 mg/dL [facility] AST 18 5 - 34 U/L [facility] ALT 17 6 - 55 U/L [facility] EGFR 41Comment: ESTIMATED GFR mL/min/1.73 sq m [facility] IS NOT ACCURATE [facility] CREATININE CLEARANCE IN PREDICTING GLOMERULAR FILTRATION RATE. ESTIMATED GFR IS NOT APPLICABLE FOR DIALYSIS PATIENTS. Specimen Blood - Arm, Right Performing Organization Address City/[facility]/Zipcode Phone Number [facility] [address] [place] [address] brain without IV contrast (06/24/2018 9:30 AM LEASE ATTENDANT) Narrative Performed At FINAL REPORT [facility] CT head without contrast 06/24/2018 9:31 AM CLINICAL HISTORY: stroke like symptoms, can't get mri 2/2 defibrillator, also had first time seizure TECHNIQUE: Axial noncontrast CT images through the head were obtained. This examination was performed according to our departmental dose optimization program, which includes automated exposure control, adjustment of the mA and/or kV according to patient size, and/or use of iterated reconstruction technique. COMPARISON: None available FINDINGS: There is no hemorrhage, extra-axial collection, mass, hydrocephalus, or midline shift. 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 There is mild microvascular ischemia and chadwick. There is atherosclerotic calcification of the intracranial arterial vasculature. There is generalized parenchymal volume loss. The visualized paranasal sinuses and mastoid air cells are well aerated. The skull is intact. IMPRESSION: No intracranial hemorrhage or mass effect. Chronic appearing ischemic and involutional changes. Signed: Gabriel Quarles MD Report Verified Date/Time:06/24/2018 09:37:20 Reading Location: [address] Neuro Reading Room Procedure Note Interface, External Ris In - 06/24/2018 9:39 AM LEASE ATTENDANT FINAL REPORT CT head without contrast 06/24/2018 9:31 AM CLINICAL HISTORY: stroke like symptoms, can't get mri 2/2 defibrillator, also had first time seizure TECHNIQUE: Axial noncontrast CT images through the head were obtained. This examination was performed according to our departmental dose optimization program, which includes automated exposure control, adjustment of the mA and/or kV according to patient size, and/or use of iterated reconstruction technique. COMPARISON: None available FINDINGS: There is no hemorrhage, extra-axial collection, mass, hydrocephalus, or midline shift. 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 There is mild microvascular ischemia and chadwick. There is atherosclerotic calcification of the intracranial arterial vasculature. There is generalized parenchymal volume loss. The visualized paranasal sinuses and mastoid air cells are well aerated. The skull is intact. IMPRESSION: No intracranial hemorrhage or mass effect. Chronic appearing ischemic and involutional changes. Signed: Gabriel Quarles MD Report Verified Date/Time: 06/24/2018 09:37:20 Reading Location: [address] Neuro Reading Room Performing Organization Address City/State/Zipcode Phone Number RIS Vitamin B12 and Folate (06/24/2018 6:44 AM LEASE ATTENDANT)Only the most recent of2 resultswithin the time period is included. Vitamin B12 1,074 (H) 213 - 816 pg/mL [facility] Folate 13.7 >=7.0 ng/mL [facility] Specimen Blood Performing Organization Address City/[facility] Phone Number [address] [address] [phone] [facility] TSH/Free T4 If Indicated (06/24/2018 6:44 AM LEASE ATTENDANT) TSH 0.04 (L) 0.35 - 4.94 uIU/mL [facility] Specimen Blood Performing Organization Address [facility] Cent[facility]ode Phone Number [address] [address] [phone] [facility] RPR (06/24/2018 6:44 AM LEASE ATTENDANT) RPR Nonreactive Nonreactive [facility] Specimen Blood Performing Organization Address [facility] Phone Number [address] [phone] [facility] T4, free (06/24/2018 6:44 AM LEASE ATTENDANT) Free T4 1.22 0.70 - 1.48 ng/dL [facility] Specimen Blood Performing Organization Address City/[facility] Cent[facility]ode Phone Number [address] [address] [phone] CENTER Hemoglobin A1c (06/24/2018 6:44 AM LEASE ATTENDANT)Only the most recent of2 resultswithin the time period is included. Hemoglobin A1C 5.8 4.3 - 6.1 % [facility] Specimen Blood Performing Organization Address City/[facility]/Zipcode Phone Number [facility] [address] [facility] Fasting lipid panel (06/24/2018 6:44 AM LEASE ATTENDANT)Only the most recent of2 resultswithin the time period is included. Triglycerides 185 mg/dL [facility] Cholesterol 166 mg/dL [facility] HDL 39 mg/dL [facility] LDL Calculated 90 mg/dL [facility] Specimen Blood Narrative Performed At Triglyceride Reference Range: [facility] Low Risk <150 [id number] High Risk 200-499 Very High Risk>=500 Cholesterol Reference Range: Low Risk <200 [id number] High Risk>240 HDL Cholesterol Reference Range: Low Risk >=60 High Risk <40 LDL Cholesterol Reference Range: Optimal<100 Near [id number] Vpekiozeur980-466 [id number] Very High >=190 Fasting Performing Organization Address City/State/Zipcode Phone Number [address] [phone] [facility] CBC with platelet count + automated diff (06/23/2018 12:52 PM LEASE ATTENDANT)Only the most recent of5 resultswithin the time period is included. WBC 7.3 3.5 - 10.5 K/L [facility] RBC 3.88 (L) 4.63 - 6.08 M/L [facility] Hemoglobin 11.9 (L) 13.7 - 17.5 GM/DL [facility] Hematocrit 35.6 (L) 40.1 - 51.0 % [facility] MCV 91.8 79.0 - 92.2 fL [facility] MCH 30.7 25.7 - 32.2 pg [facility] MCHC 33.4 32.3 - 36.5 GM/DL [facility] RDW 13.5 11.6 - 14.4 % [facility] Platelets 149 (L) 150 - 450 K/CU MM [facility] MPV 9.5 9.4 - 12.4 fL [facility] nRBC 0 0 - 0 /100 WBC [facility] % Neutros 78 % [facility] % Lymphs 15 % [facility] % Monos 6 % [facility] % Eos 0 % [facility] % Baso 0 % [facility] # Neutros 5.67 (H) 1.78 - 5.38 K/L [facility] # Lymphs 1.08 (L) 1.32 - 3.57 K/L [facility] # Monos 0.47 0.30 - 0.82 K/L [facility] # Eos 0.02 (L) 0.04 - 0.54 K/L [facility] # Baso 0.02 0.01 - 0.08 K/L [facility] Immature Granulocytes-Relative 0 0 - 1 % [facility] Specimen Blood - Arm, Right Performing Organization Address City/State/Zipcode Phone Number [facility] [address] [place] [address] [phone] CENTER ECHOCARDIOGRAM REPORT - SCAN (04/13/2018 9:20 AM CDT) Narrative Performed At EKG-SCANNED (04/12/2018 11:01 AM CDT)Only the most recent of2 resultswithin the time period is included. Narrative Performed At NM myocardial perfusion PET (rest and stress) (04/10/2018 8:47 AM CDT) Narrative Performed At FINAL REPORT [facility] PROCEDURE:Rest/Stress MYOCARDIAL PERFUSION PET with regadenoson\\XA9\\ CPT CODE:83911 INDICATION:Ischemic evaluation, chest pain, atrial fibrillation HISTORY:Cardiac [...] Extracardiac tracer distribution is normal.6. No previous [facility] study for comparison. NONINVASIVE RISK STRATIFICATION: The [...] dilation or increased lung uptake (thallium-201) (JACC. 2012;59(9):349-48.) Signed: Hao Faith MD Report Verified Date/Time:04/10/2018 12:33:34 Reading Location: [address] [address] Reading Room Procedure Note Interface, External Ris In - 04/10/2018 12:35 PM CDT FINAL REPORT PROCEDURE: Rest/Stress MYOCARDIAL PERFUSION PET with regadenoson\\XA9\\ CPT CODE: [id number] INDICATION: Ischemic evaluation, chest pain, atrial fibrillation [...] is normal. 6. No previous [facility] study for comparison. NONINVASIVE RISK STRATIFICATION: The [...] Report Verified Date/Time: 04/10/2018 12:33:34 Reading Location: [address] Reading Room Performing Organization Address City/State/Zipcode Phone Number GE RIS Treadmill tolerance(Non-Nuclear Treadmill) (04/10/2018 8:38 AM CDT) Narrative Performed At Protocol Name Regadenoson GE MUSE Time In Exercise Phase 00:01:00 Max. Systolic [...] Exercise wardfarin,atorvastatin,bumex,carvedilol Confirmed by fellow Tye Valencia ([id number]) on 04/10/2018 9:39:04 AM Confirmed by MD GUERO, JAMESON ([id number]) on 04/18/2018 12:34:10 PM Procedure Note Interface, External Ris In - 04/18/2018 12:34 PM CDT Protocol Name Regadenoson Time In Exercise Phase 00:01:00 Max. Systolic [...] Exercise wardfarin,atorvastatin,bumex,carvedilol Confirmed by fellow Tye Valencia ([id number]) on 04/10/2018 9:39:04 AM Confirmed by MD JACK YOCHAI ([id number]) on 04/18/2018 12:34:10 PM Performing Organization Address City/[facility] Phone Number [facility] ECG 12 lead (04/10/2018 8:34 AM CDT)Only the most recent of2 resultswithin the time period is included. Narrative Performed At Ventricular Rate 75 BPM GE MUSE Atrial Rate 75 BPM P-R Interval 214 ms QRS Duration 118 ms Q-T Interval 434 ms QTC Calculation(Bazett) 484 ms P Nor[place] 33 degrees R Norwood 77 degrees T [place]wood 229 degrees Sinus rhythm with 1st degree [...] 434 ms QTC Calculation(Bazett) 484 ms P [place] 33 degrees R [place] 77 degrees T [place] 229 degrees Sinus rhythm with 1st degree A-V block Non-specific intra-ventricular conduction delay ST & T wave abnormality, consider lateral ischemia Prolonged QT Abnormal ECG Confirmed by MD Young Mahboob ([id number]) on 04/10/2018 1:15:21 PM Performing Organization Address City/[facility] Phone Number [facility] 2D Echo W/Doppler(CW/PW/Color) (04/09/2018 10:29 AM CDT) Ejection Fraction [facility] Narrative Performed At Transthoracic Echocardiography Report (TTE) 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 Duran [facility] Rita Gray Interpreting Regis Chung MD Procedure Type of Study TTE procedure:2DECHO [...] of Study 04/09/2018 Gender Male Visit Number [id number] Race Unknown Room Number 722 Number Date of 1945 Referring Physician CHEN Valentin Age 72 year(s) 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 Total CK 184 29 - 200 U/L [facility] CK-MB 0.9 0.0 - 6.6 ng/mL [facility] MB Relative Index 0.5 % [facility] Specimen Blood - Arm, Right Narrative Performed At CK-MB Reference Range: [facility] <6.7Normal 6.7-10.0Borderline >10.0 Abnormal Performing Organization Address [facility]/Zipcode Phone Number [address] [phone] [facility] REPORT OF PROCEDURE - ENDOSCOPY URL (04/08/2018 2:19 PM CDT) Narrative Performed At Iron, TIBC, % sat. (without ferritin) (04/08/2018 5:25 AM CDT) Iron 36 (L) 40 - 160 ug/dL [facility] TIBC 278 250 - 450 ug/dL [facility] Iron % Saturation 13 (L) 20 - 55 % [facility] Specimen Blood - Arm, Right Performing Organization Address [facility] Phone Number [address] [address] CENTER Ferritin (04/08/2018 5:25 AM CDT) Ferritin 54 5 - 275 ng/mL [facility] Specimen Blood - Arm, Right Performing Organization Address [facility] Phone Number [address] [phone] CENTER Troponin I (04/08/2018 12:25 AM CDT)Only the most recent of2 resultswithin the time period is included. Troponin I 0.03 0.00 - 0.03 ng/mL [facility] Specimen Blood - Arm, Right Narrative Performed At [facility] Troponin I (TnI) levels must be [...] tachyarrhythmia. Performing Organization Address City/State/Zipcode Phone Number [facility] [address] [place] [address] [phone] CENTER B-type Natriuretic Factor (BNP) (04/07/2018 4:51 PM CDT) BNP 927 (H) 0 - 100 pg/mL [facility] Specimen Blood - Arm, Right Performing Organization Address City/State/Zipcode Phone Number [facility] [address] [place] [address] [phone] CENTER after 07/19/2017 Insurance Payer Benefit Plan / Group Subscriber ID Type Phone Address MEDICARE MEDICARE A B xxxxxxxxxxx Medicare ) [address] [place] [phone] Advance Directives Patient has advance care planning documents, and code status on file. For more information, please contact:[address] [phone] Code Status Date Activated Date Inactivated Comments Full Code 06/23/2018 8:37 AM This code status was determined by: Patient Full Code 04/07/2018 5:00 PM 04/10/2018 8:00 PM This code status was determined by: Patient
--- OUTSIDE RECORDS SUMMARY | 2018-07-20 17:05 | XMS REPORT ---
:1945 [facility] Address [address] [place] [address] [address]. [address] [place] [address] Care Team Providers Name Role Phone DELFINO WARREN Unavailable Unavailable MATIAS COLLIER Unavailable Unavailable Problems This patient has no known problems. Allergies, Adverse Reactions, Alerts This patient has no known allergies or adverse reactions. Medications This patient has no known medications. Results Test Description Test Time Test Comments Text Results Atomic Results Result Comments URINE CULTURE 2018-06-27 09:31:00 Test Item Value Reference Range Comments CULTURE (BEAKER) (test COAGULASE NEGATIVE 10-19,000 col/mL Coagulase vqrg=5743) STAPHYLOCOCCUS negative Staphylococcus Clindamycin (test code=10) Erythromycin (test code=4) Linezolid (test code=40) Nitrofurantoin (test code=23) Oxacillin (test code=14) Rifampin (test code=43) Tetracycline (test code=2) Trimethoprim + Sulfamethoxazole (test code=47) Vancomycin (test code=13) EEG AWAKE AND [id number] 14:58:00For STAT EEG- after 5 PM weekdays, weekends and holidays, page the on-call EEG TechReason for exam:->reports of first time seizure hould this be performed at the bedside?->YesDate of EE06/25/18 DATE OF REPORT: 06/25/18 ACC: [id number] EEG Number: [id number] Test Location: Inpatient Start time: 06/25/18 at 1018 Stop time: 06/25/18 at 1039 ICD -10: 83451 CPT Code: R56.9 HISTORY: 72 year old male with h/o Afib, CAD s/p CABG, HTN,IDDM, prior CVA who presents with acute onset ofdysarthria and seizure while in the CT scanner. MEDICATIONS THAT COULD AFFECT EEG: atorvastatin , carvedilol, levetiracetam, lisinopril TECHNICAL SUMMARY: This is [...] all within normal limits. SIGNIFICANT VIDEO EVENTS: NoneSIGNIFICANT ELECTROCARDIOGRAM EVENTS: None HV: Hyperventilation was not performed. PHOTIC STIMULATION: Photic stimulation was done from 1-30 Hz; no photic driving was seen; photoparoxysmal responses were absent. IMPRESSION: Normal Awake and Asleep EEG. CLINICAL CORRELATION: An EEG without epileptiform discharges does not exclude the possibility of epilepsy. It the clinical suspicion of epilepsy remains, consider additional EEG recordings. Andre Sotelo MD Neurophysiology Fellow Jamir Pagan MD PhD Attending Neurophysiologist [facility] POCT-GLUCOSE [id number] 11:26:00 Test Item Value Reference Range Comments POC-GLUCOSE METER (BEAKER) 156 mg/dL 70-110 TESTED AT [address] (test jmrp=9211) [facility] [address] POCT-GLUCOSE [id number] 08:59:00 Test Item Value Reference Range Comments POC-GLUCOSE METER (BEAKER) 85 mg/dL 70-110 TESTED AT [address] (test jdgw=6735) [facility] [address] [id number] 07:29:00 Test Item Value Reference Range Comments PHOSPHORUS (BEAKER) (test qngp=394) 3.2 mg/dL 2.3-4.7 [id number] 07:29:00 Test Item Value Reference Range Comments MAGNESIUM (BEAKER) (test uuvk=955) 2.5 mg/dL 1.6-2.6 BASIC METABOLIC [id number] 07:29:00 Test Item Value Reference Range Comments SODIUM (BEAKER) (test 137 meq/L 136-145 iazq=656) POTASSIUM (BEAKER) (test 3.7 meq/L 3.5-5.1 gesy=490) CHLORIDE (BEAKER) (test 103 meq/L 98-107 advs=892) CO2 (BEAKER) (test 23 meq/L 22-29 fylp=084) BLOOD UREA NITROGEN 20 mg/dL 7-21 (BEAKER) (test yvvh=052) CREATININE (BEAKER) (test 1.49 mg/dL 0.57-1.25 akxf=106) GLUCOSE RANDOM (BEAKER) 67 mg/dL 70-105 (test btfb=819) CALCIUM (BEAKER) (test 8.7 mg/dL 8.4-10.2 uieh=188) EGFR (BEAKER) (test 46 mL/min/1.73 sq m ESTIMATED GFR IS NOT qtdz=3402) ACCURATE CREATININE CLEARANCE IN PREDICTING GLOMERULAR FILTRATION RATE. ESTIMATED GFR IS NOT APPLICABLE FOR DIALYSIS PATIENTS. PROTHROMBIN [id number] 06:05:00 Test Item Value Reference Range Comments PROTIME (BEAKER) (test qzdm=356) 33.9 seconds 11.7-14.7 INR (BEAKER) (test mfng=621) 3.3 <=5.9 RECOMMENDED COUMADIN/WARFARIN INR THERAPY RANGESSTANDARD DOSE: 2.0 - 3.0 Includes: PROPHYLAXIS forvenous thrombosis, systemic embolization; TREATMENT for venous thrombosis and/or pulmonary embolus.HIGH RISK: Target INR is 2.5-3.5 for patients with mechanical heart valves.[id number] 03:36:00 Test Item Value Reference Range Comments RPR SCREEN (BEAKER) (test iryu=992) Nonreactive Nonreactive URINALYSIS W/ REFLEX URINE [id number] 22:28:00 Test Item Value Reference Range Comments COLOR (BEAKER) (test syrx=734) Yellow CLARITY (BEAKER) (test mxbh=308) Clear SPECIFIC GRAVITY UA (BEAKER) (test tmzn=363) 1.014 1.001-1.035 PH UA (BEAKER) (test ddah=706) 6.5 5.0-8.0 PROTEIN UA (BEAKER) (test sdnc=915) 20 mg/dL Negative GLUCOSE UA (BEAKER) (test tzyo=350) 70 mg/dL Negative KETONES UA (BEAKER) (test nmyk=586) Negative Negative BILIRUBIN UA (BEAKER) (test osle=936) Negative Negative BLOOD UA (BEAKER) (test ista=397) Negative Negative NITRITE UA (BEAKER) (test rehf=784) Negative Negative LEUKOCYTE ESTERASE UA (BEAKER) (test pskq=044) Negative Negative UROBILINOGEN UA (BEAKER) (test wddz=164) 0.2 mg/dL 0.2-1.0 RBC UA (BEAKER) (test gnap=068) 1 /HPF WBC UA (BEAKER) (test svty=718) < /HPF HYALINE CASTS (BEAKER) (test vzvl=094) 1 /LPF SOURCE(BEAKER) (test tmxn=8444) POCT-GLUCOSE [id number] 22:00:00 Test Item Value Reference Range Comments POC-GLUCOSE METER (BEAKER) 84 mg/dL 70-110 TESTED AT [address] (test otra=5741) [place] [id number] POCT-GLUCOSE [id number] 17:33:00 Test Item Value Reference Range Comments POC-GLUCOSE METER (BEAKER) 106 mg/dL 70-110 TESTED AT [address] (test nlau=4597) [facility] [address] RAD, CHEST, 1 VIEW, NON [id number] 16:32:00Reason for exam:->AMSShould this be performed at the bedside?->YesFINAL REPORT Chest, 1 view Clinical history: AMS Comparison: April 07, 2018 Discussion: Left-sided pacemaker in position without pneumothorax or pleural effusion. There is mild bibasilar atelectasis. The cardiac silhouette is enlarged with tortuous appearance of the thoracicaorta. No acute osseous abnormality. Status post median sternotomy. Signed: Aguila Jackson MDReport Verified Date/Time: 2017 16:32:28 Reading Location: [facility] B1 C013X Ortho Consult Reading Room COMPREHENSIVE METABOLIC [id number] 13:24:00 Test Item Value Reference Range Comments TOTAL PROTEIN (BEAKER) 7.7 gm/dL 6.0-8.3 (test cggy=756) ALBUMIN (BEAKER) (test 3.8 g/dL 3.5-5.0 nnrr=8271) ALKALINE PHOSPHATASE 122 U/L 40-150 (BEAKER) (test dqet=611) BILIRUBIN TOTAL (BEAKER) 0.5 mg/dL 0.2-1.2 (test tmpt=288) SODIUM (BEAKER) (test 136 meq/L 136-145 jtql=396) POTASSIUM (BEAKER) (test 3.9 meq/L 3.5-5.1 rosp=808) CHLORIDE (BEAKER) (test 101 meq/L 98-107 elyo=589) CO2 (BEAKER) (test 28 meq/L 22-29 ylwn=022) BLOOD UREA NITROGEN 19 mg/dL 7-21 (BEAKER) (test widx=892) CREATININE (BEAKER) (test 1.66 mg/dL 0.57-1.25 qrfh=944) GLUCOSE RANDOM (BEAKER) 126 mg/dL 70-105 (test pjod=189) CALCIUM (BEAKER) (test 9.1 mg/dL 8.4-10.2 snbl=868) AST (SGOT) (BEAKER) (test 18 U/L 5-34 ustk=860) ALT (SGPT) (BEAKER) (test 17 U/L 6-55 jvxs=412) EGFR (BEAKER) (test 41 mL/min/1.73 sq m ESTIMATED GFR IS NOT uopf=8066) ACCURATE CREATININE CLEARANCE IN PREDICTING GLOMERULAR FILTRATION RATE. ESTIMATED GFR IS NOT APPLICABLE FOR DIALYSIS PATIENTS. POCT-GLUCOSE [id number] 12:41:00 Test Item Value Reference Range Comments POC-GLUCOSE METER (BEAKER) 135 mg/dL 70-[address] [facility] [address] [facility] (test eirk=3772) [facility] [address] T4, [id number] 11:37:00 Test Item Value Reference Range Comments FREE T4 (BEAKER) (test lvgq=278) 1.22 ng/dL 0.70-1.48 CT, BRAIN, WITHOUT [id number] 09:37:00FINAL REPORT CT head without contrast 06/24/2018 9:31 AM CLINICAL HISTORY: stroke like symptoms, can't get mri 2/2 defibrillator, also had first time seizure TECHNIQUE: Axial noncontrast CT images through the head were obtained. This examination was performed according to our departmental dose optimization program, which includes automated exposure control, adjustment of the mAand/or kV according to patient size, and/or use [...] appearing ischemic and involutional changes. Signed: Gabriel Hill Verified Date/Time: 09:37:20 Reading Location: [facility] C013V Neuro Reading Room POCT- GLUCOSE [id number] 09:07:00 Test Item Value Reference Range Comments POC-GLUCOSE METER (BEAKER) 144 mg/dL 70-[address] [facility] [address] [facility] (test gvqm=2146) [facility] [address] VITAMIN B12 AND [id number] 08:24:00 Test Item Value Reference Range Comments VITAMIN B12 (BEAKER) (test lvgb=607) 1074 pg/mL 213-816 FOLATE (BEAKER) (test zrba=106) 13.7 ng/mL >=7.0 HEMOGLOBIN [id number] 08:16:00 Test Item Value Reference Range Comments HEMOGLOBIN A1C (BEAKER) (test ukla=642) 5.8 % 4.3-6.1 TSH/FREE T4 IF [id number] 08:01:00 Test Item Value Reference Range Comments THYROID STIMULATING HORMONE (BEAKER) (test 0.04 uIU/mL 0.35-4.94 ivxg=063) LIPID [id number] 07:25:00 Test Item Value Reference Range Comments TRIGLYCERIDES (BEAKER) (test figp=347) 185 mg/dL CHOLESTEROL (BEAKER) (test aruz=244) 166 mg/dL HDL CHOLESTEROL (BEAKER) (test vpxx=810) 39 mg/dL LDL CHOLESTEROL CALCULATED (BEAKER) (test 90 mg/dL tjhp=512) Triglyceride Reference Range: Low Risk <150 Borderline 150- 199 High Risk 200-499 Very High Risk >=500Cholesterol Reference Range: Low Risk <200 Borderline 200-239 High Risk > 240HDL Cholesterol Reference Range: Low Risk >=60 High Risk <40LDL Cholesterol Reference Range: Optimal <100 Near Optimal 100-129 Borderline 130-159 High 160-189 Very High >=190 FastingPROTHROMBIN [id number] 07:13:00 Test Item Value Reference Range Comments PROTIME (BEAKER) (test glkf=889) 29.0 seconds 11.7-14.7 INR (BEAKER) (test yxcl=020) 2.7 <=5.9 RECOMMENDED COUMADIN/WARFARIN INR THERAPY RANGESSTANDARD DOSE: 2.0 - 3.0 Includes: PROPHYLAXIS forvenous thrombosis, systemic embolization; TREATMENT for venous thrombosis and/or pulmonary embolus.HIGH RISK: Target INR is 2.5-3.5 for patients with mechanical heart valves.POCT-GLUCOSE [id number] 22:17:00 Test Item Value Reference Range Comments POC-GLUCOSE METER ([email or web address]) 176 mg/dL 70-110 TESTED AT [address] (test hmwt=8733) [place] [address] PROTHROMBIN [id number] 18:50:00 Test Item Value Reference Range Comments PROTIME (BEAKER) (test dxlf=074) 30.8 seconds 11.7-14.7 INR (BEAKER) (test hwbc=579) 3.0 <=5.9 RECOMMENDED COUMADIN/WARFARIN INR THERAPY RANGESSTANDARD DOSE: 2.0 - 3.0 Includes: PROPHYLAXIS forvenous thrombosis, systemic embolization; TREATMENT for venous thrombosis and/or pulmonary embolus.HIGH RISK: Target INR is 2.5-3.5 for patients with mechanical heart valves.POCT-GLUCOSE [id number] 17:55:00 Test Item Value Reference Range Comments POC-GLUCOSE METER ([employer]) 134 mg/dL 70-110 TESTED AT [address] (test pdhs=5508) [place] [address] BASIC METABOLIC [id number] 13:37:00 Test Item Value Reference Range Comments SODIUM (BEAKER) (test 136 meq/L 136-145 yfwl=375) POTASSIUM (BEAKER) (test 4.6 meq/L 3.5-5.1 Specimen slightly dlgb=564) hemolyzed CHLORIDE (BEAKER) (test 103 meq/L 98-107 rplv=678) CO2 (BEAKER) (test 23 meq/L 22-29 gmss=998) BLOOD UREA NITROGEN 16 mg/dL 7-21 (BEAKER) (test stig=426) CREATININE (BEAKER) (test 1.39 mg/dL 0.57-1.25 Specimen slightly vhsg=732) hemolyzed GLUCOSE RANDOM (BEAKER) 132 mg/dL 70-105 (test pxal=815) CALCIUM (BEAKER) (test 8.7 mg/dL 8.4-10.2 jzfw=572) EGFR (BEAKER) (test 50 mL/min/1.73 sq m ESTIMATED GFR IS NOT kewj=4546) ACCURATE CREATININE CLEARANCE IN PREDICTING GLOMERULAR FILTRATION RATE. ESTIMATED GFR IS NOT APPLICABLE FOR DIALYSIS PATIENTS. CBC W/PLT COUNT & AUTO [id number] 13:23:00 Test Item Value Reference Range Comments WHITE BLOOD CELL COUNT (BEAKER) (test teqz=216) 7.3 K/ L 3.5-10.5 RED BLOOD CELL COUNT (BEAKER) (test xvki=922) 3.88 M/ L 4.63-6.08 HEMOGLOBIN (BEAKER) (test yjuf=749) 11.9 GM/DL 13.7-17.5 HEMATOCRIT (BEAKER) (test kdkq=727) 35.6 % 40.1-51.0 MEAN CORPUSCULAR VOLUME (BEAKER) (test diwg=773) 91.8 fL 79.0-92.2 MEAN CORPUSCULAR HEMOGLOBIN (BEAKER) (test 30.7 pg 25.7-32.2 gucq=343) MEAN CORPUSCULAR HEMOGLOBIN CONC (BEAKER) (test 33.4 GM/DL 32.3-36.5 rldf=779) RED CELL DISTRIBUTION WIDTH (BEAKER) (test 13.5 % 11.6-14.4 lhml=729) PLATELET COUNT (BEAKER) (test dqdw=839) 149 K/CU MM 150-450 MEAN PLATELET VOLUME (BEAKER) (test mgyd=882) 9.5 fL 9.4-12.4 NUCLEATED RED BLOOD CELLS (BEAKER) (test 0 /100 WBC 0-0 ynng=703) NEUTROPHILS RELATIVE PERCENT (BEAKER) (test 78 % rnth=933) LYMPHOCYTES RELATIVE PERCENT (BEAKER) (test 15 % cbzd=714) MONOCYTES RELATIVE PERCENT (BEAKER) (test 6 % qyga=346) EOSINOPHILS RELATIVE PERCENT (BEAKER) (test 0 % aamz=008) BASOPHILS RELATIVE PERCENT (BEAKER) (test 0 % tddb=777) NEUTROPHILS ABSOLUTE COUNT (BEAKER) (test 5.67 K/ L 1.78-5.38 wcps=085) LYMPHOCYTES ABSOLUTE COUNT (BEAKER) (test 1.08 K/ L 1.32-3.57 dqrx=809) MONOCYTES ABSOLUTE COUNT (BEAKER) (test 0.47 K/ L 0.30-0.82 wirt=730) EOSINOPHILS ABSOLUTE COUNT (BEAKER) (test 0.02 K/ L 0.04-0.54 ahee=906) BASOPHILS ABSOLUTE COUNT (BEAKER) (test 0.02 K/ L 0.01-0.08 ntps=176) IMMATURE GRANULOCYTES-RELATIVE PERCENT (BEAKER) 0 % 0-1 (test whym=4100) POCT-GLUCOSE [id number] 12:33:00 Test Item Value Reference Range Comments POC-GLUCOSE METER (BEAKER) 165 mg/dL 70-110 TESTED AT [address] (test ozpp=7574) [place] [address] POCT-GLUCOSE [id number] 08:33:00 Test Item Value Reference Range Comments POC-GLUCOSE METER (BEAKER) 233 mg/dL 70-110 TESTED AT [address] (test ooeo=5672) [place] [address] PET, CARDIAC PERFUSION MULTIPLE STUDIES, REST AND [id number] 12:33: 00Reason for exam:->ischemia evaluation.FINAL REPORT PROCEDURE: Rest/Stress MYOCARDIAL PERFUSION PET with regadenoson\XA9\ CPT CODE: 44033 INDICATION: Ischemic evaluation, chest pain, atrial fibrillation [...] 75 beats/min at rest and 75 beats/min (50 % of MPHR) at tracer injection. BP was [...] FINDINGS: Study quality is good. Images obtained afterstress injection show moderately decreased anterior lateral lateral [...] is normal. 6. No previous [facility] study for comparison. NONINVASIVE RISK STRATIFICATION: The above findings are considered high risk (& gt;3% annual mortality rate) based on the following criteria: - Severe resting left ventriculardysfunction (LVEF 35%)- Severe exercise left ventricular dysfunction (exercise LVEF 35%)- Stress-induced large perfusion defect ( particularly if anterior)- Stress-induced multiple perfusion defects of moderate size- Large, fixed perfusion defect with LV dilation or increased lung uptake(thallium-201)-Stress-induced moderate perfusion defect with LV dilation or increasedlung uptake (thallium-201)(JACC. 2012;59(9):857-81.) Signed: Andrew Faith MDReport Verified Date/Time: 04/10/2018 12:33:34 Reading Location: [address] Reading Room POCT-GLUCOSE [id number] 11:43:00 Test Item Value Reference Range Comments POC-GLUCOSE METER (BEAKER) 354 mg/dL 70-110 Notified MARTITA MORSE/TESTED AT [facility] (test atbv=4097) [address] [facility] [address] POCT-GLUCOSE [id number] 07:21:00 Test Item Value Reference Range Comments POC-GLUCOSE METER (BEAKER) 156 mg/dL 70-110 TESTED AT [address] (test wigc=7625) [facility] [address] [id number] 06:34:00 Test Item Value Reference Range Comments MAGNESIUM (BEAKER) (test zbce=819) 2.5 mg/dL 1.6-2.6 BASIC METABOLIC [id number] 06:34:00 Test Item Value Reference Range Comments SODIUM (BEAKER) (test 137 meq/L 136-145 bjfd=935) POTASSIUM (BEAKER) (test 3.6 meq/L 3.5-5.1 ebmv=076) CHLORIDE (BEAKER) (test 101 meq/L 98-107 yhqk=574) CO2 (BEAKER) (test 28 meq/L 22-29 yuhz=201) BLOOD UREA NITROGEN 28 mg/dL 7-21 (BEAKER) (test olgi=091) CREATININE (BEAKER) (test 1.73 mg/dL 0.57-1.25 cxva=144) GLUCOSE RANDOM (BEAKER) 135 mg/dL 70-105 (test sazs=035) CALCIUM (BEAKER) (test 9.0 mg/dL 8.4-10.2 xcva=963) EGFR (BEAKER) (test 39 mL/min/1.73 sq m ESTIMATED GFR IS NOT gghj=3307) ACCURATE CREATININE CLEARANCE IN PREDICTING GLOMERULAR FILTRATION RATE. ESTIMATED GFR IS NOT APPLICABLE FOR DIALYSIS PATIENTS. PROTHROMBIN [id number] 06:31:00 Test Item Value Reference Range Comments PROTIME (BEAKER) (test abre=481) 17.5 seconds 11.7-14.7 INR (BEAKER) (test wliy=971) 1.4 <=5.9 RECOMMENDED COUMADIN/WARFARIN INR THERAPY RANGESSTANDARD DOSE: 2.0 - 3.0 Includes: PROPHYLAXIS forvenous thrombosis, systemic embolization; TREATMENT for venous thrombosis and/or pulmonary embolus.HIGH RISK: Target INR is 2.5-3.5 for patients with mechanical heart valves.While on warfarin.CBC W/PLT COUNT &amp ; AUTO [id number] 06:19:00 Test Item Value Reference Range Comments WHITE BLOOD CELL COUNT (BEAKER) (test iwcz=936) 6.3 K/ L 3.5-10.5 RED BLOOD CELL COUNT (BEAKER) (test ygtb=211) 3.02 M/ L 4.63-6.08 HEMOGLOBIN (BEAKER) (test oziq=894) 9.1 GM/DL 13.7-17.5 HEMATOCRIT (BEAKER) (test uuzs=246) 28.4 % 40.1-51.0 MEAN CORPUSCULAR VOLUME (BEAKER) (test ekfi=570) 94.0 fL 79.0-92.2 MEAN CORPUSCULAR HEMOGLOBIN (BEAKER) (test 30.1 pg 25.7-32.2 iamg=541) MEAN CORPUSCULAR HEMOGLOBIN CONC (BEAKER) (test 32.0 GM/DL 32.3-36.5 hchv=037) RED CELL DISTRIBUTION WIDTH (BEAKER) (test 15.1 % 11.6-14.4 wvti=147) PLATELET COUNT (BEAKER) (test snmp=394) 127 K/CU MM 150-450 MEAN PLATELET VOLUME (BEAKER) (test wlui=585) 9.9 fL 9.4-12.4 NUCLEATED RED BLOOD CELLS (BEAKER) (test 0 /100 WBC 0-0 uhrn=957) NEUTROPHILS RELATIVE PERCENT (BEAKER) (test 70 % kfol=894) LYMPHOCYTES RELATIVE PERCENT (BEAKER) (test 18 % dfrp=842) MONOCYTES RELATIVE PERCENT (BEAKER) (test 9 % uysh=553) EOSINOPHILS RELATIVE PERCENT (BEAKER) (test 2 % bmzs=008) BASOPHILS RELATIVE PERCENT (BEAKER) (test 1 % xbgz=833) NEUTROPHILS ABSOLUTE COUNT (BEAKER) (test 4.46 K/ L 1.78-5.38 twuj=505) LYMPHOCYTES ABSOLUTE COUNT (BEAKER) (test 1.15 K/ L 1.32-3.57 iwmh=395) MONOCYTES ABSOLUTE COUNT (BEAKER) (test 0.56 K/ L 0.30-0.82 xfqp=136) EOSINOPHILS ABSOLUTE COUNT (BEAKER) (test 0.10 K/ L 0.04-0.54 uypx=815) BASOPHILS ABSOLUTE COUNT (BEAKER) (test 0.03 K/ L 0.01-0.08 uoho=467) IMMATURE GRANULOCYTES-RELATIVE PERCENT (BEAKER) 1 % 0-1 (test qkja=5563) POCT-GLUCOSE [id number] 23:34:00 Test Item Value Reference Range Comments POC-GLUCOSE METER (BEAKER) 155 mg/dL 70-110 TESTED AT [address] (test jggr=8174) [place] [id number] POCT-GLUCOSE [id number] 19:50:00 Test Item Value Reference Range Comments POC-GLUCOSE METER (BEAKER) 155 mg/dL 70-110 TESTED AT [address] (test vgxs=4876) [place] [address] POCT-GLUCOSE [id number] 11:50:00 Test Item Value Reference Range Comments POC-GLUCOSE METER (BEAKER) 196 mg/dL 70-110 TESTED AT [address] (test kxoq=4225) [place] [address] POCT-GLUCOSE [id number] 07:58:00 Test Item Value Reference Range Comments POC-GLUCOSE METER (BEAKER) 170 mg/dL 70-110 TESTED AT [address] (test llro=6177) [place] [address] [id number] 07:31:00 Test Item Value Reference Range Comments MAGNESIUM (BEAKER) (test umbs=788) 2.5 mg/dL 1.6-2.6 BASIC METABOLIC [id number] 07:31:00 Test Item Value Reference Range Comments SODIUM (BEAKER) (test 138 meq/L 136-145 skde=320) POTASSIUM (BEAKER) (test 3.9 meq/L 3.5-5.1 fawm=504) CHLORIDE (BEAKER) (test 104 meq/L 98-107 ludx=748) CO2 (BEAKER) (test 22 meq/L 22-29 ierq=819) BLOOD UREA NITROGEN 28 mg/dL 7-21 (BEAKER) (test rbsw=881) CREATININE (BEAKER) (test 1.66 mg/dL 0.57-1.25 jxym=013) GLUCOSE RANDOM (BEAKER) 133 mg/dL 70-105 (test evhg=220) CALCIUM (BEAKER) (test 8.4 mg/dL 8.4-10.2 yngy=219) EGFR (BEAKER) (test 41 mL/min/1.73 sq m ESTIMATED GFR IS NOT fktf=4522) ACCURATE CREATININE CLEARANCE IN PREDICTING GLOMERULAR FILTRATION RATE. ESTIMATED GFR IS NOT APPLICABLE FOR DIALYSIS PATIENTS. CREATINE KINASE (CK), TOTAL AND [id number] 07:31:00 Test Item Value Reference Range Comments CREATINE KINASE TOTAL (BEAKER) (test ucxy=502) 184 U/L 29-200 CREATINE KINASE-MB (BEAKER) (test bjfl=142) 0.9 ng/mL 0.0-6.6 CREATINE KINASE-MB INDEX (BEAKER) (test tgbi=225) 0.5 % CK-MB Reference Range:<6.7 Normal6.7-10.0 Borderline>10.0 AbnormalCBC W/PLT COUNT & AUTO [id number] 06:40:00 Test Item Value Reference Range Comments WHITE BLOOD CELL COUNT (BEAKER) (test lqxm=329) 6.6 K/ L 3.5-10.5 RED BLOOD CELL COUNT (BEAKER) (test wwls=042) 2.61 M/ L 4.63-6.08 HEMOGLOBIN (BEAKER) (test wedu=447) 7.8 GM/DL 13.7-17.5 HEMATOCRIT (BEAKER) (test natn=803) 25.0 % 40.1-51.0 MEAN CORPUSCULAR VOLUME (BEAKER) (test uhes=178) 95.8 fL 79.0-92.2 MEAN CORPUSCULAR HEMOGLOBIN (BEAKER) (test 29.9 pg 25.7-32.2 cppm=969) MEAN CORPUSCULAR HEMOGLOBIN CONC (BEAKER) (test 31.2 GM/DL 32.3-36.5 fwsl=170) RED CELL DISTRIBUTION WIDTH (BEAKER) (test 15.3 % 11.6-14.4 myyw=560) PLATELET COUNT (BEAKER) (test igct=252) 111 K/CU MM 150-450 MEAN PLATELET VOLUME (BEAKER) (test ywjk=245) 9.8 fL 9.4-12.4 NUCLEATED RED BLOOD CELLS (BEAKER) (test 0 /100 WBC 0-0 iazi=443) NEUTROPHILS RELATIVE PERCENT (BEAKER) (test 72 % hlwi=257) LYMPHOCYTES RELATIVE PERCENT (BEAKER) (test 18 % qypm=954) MONOCYTES RELATIVE PERCENT (BEAKER) (test 8 % zpgo=105) EOSINOPHILS RELATIVE PERCENT (BEAKER) (test 1 % xjpp=761) BASOPHILS RELATIVE PERCENT (BEAKER) (test 1 % cpmw=464) NEUTROPHILS ABSOLUTE COUNT (BEAKER) (test 4.72 K/ L 1.78-5.38 uudm=168) LYMPHOCYTES ABSOLUTE COUNT (BEAKER) (test 1.19 K/ L 1.32-3.57 ifey=200) MONOCYTES ABSOLUTE COUNT (BEAKER) (test 0.52 K/ L 0.30-0.82 qggr=682) EOSINOPHILS ABSOLUTE COUNT (BEAKER) (test 0.06 K/ L 0.04-0.54 zahj=968) BASOPHILS ABSOLUTE COUNT (BEAKER) (test 0.03 K/ L 0.01-0.08 nvjj=674) IMMATURE GRANULOCYTES-RELATIVE PERCENT (BEAKER) 1 % 0-1 (test itgy=0714) PROTHROMBIN [id number] 06:40:00 Test Item Value Reference Range Comments PROTIME (BEAKER) (test emjl=164) 18.2 seconds 11.7-14.7 INR (BEAKER) (test ieyu=235) 1.5 <=5.9 RECOMMENDED COUMADIN/WARFARIN INR THERAPY RANGESSTANDARD DOSE: 2.0 - 3.0 Includes: PROPHYLAXIS forvenous thrombosis, systemic embolization; TREATMENT for venous thrombosis and/or pulmonary embolus.HIGH RISK: Target INR is 2.5-3.5 for patients with mechanical heart valves.While on warfarin.POCT-GLUCOSE [id number] 23:26:00 Test Item Value Reference Range Comments POC-GLUCOSE METER (BEAKER) 175 mg/dL 70-[address] [facility] [address] (test hgva=1341) [facility] [id number] POCT-GLUCOSE [id number] 16:46:00 Test Item Value Reference Range Comments POC-GLUCOSE METER (BEAKER) 143 mg/dL 70-[address] [facility] [address] [facility] (test ishx=6376) [facility] [address] POCT-GLUCOSE [id number] 14:34:00 Test Item Value Reference Range Comments POC-GLUCOSE METER (BEAKER) 171 mg/dL 70-[address] [facility] [address] [facility] (test sphr=3751) [facility] [address] HEMOGLOBIN [id number] 11:18:00 Test Item Value Reference Range Comments HEMOGLOBIN A1C (BEAKER) (test pgnc=359) 6.6 % 4.3-6.1 CREATINE KINASE (CK), TOTAL AND [id number] 07:48:00 Test Item Value Reference Range Comments CREATINE KINASE TOTAL (BEAKER) (test arxn=812) 111 U/L 29-200 CREATINE KINASE-MB (BEAKER) (test zgbh=866) 1.1 ng/mL 0.0-6.6 CREATINE KINASE-MB INDEX (BEAKER) (test cybb=685) 1.0 % CK-MB Reference Range:<6.7 Normal6.7-10.0 Borderline>10.0 [id number] 07:42:00 Test Item Value Reference Range Comments MAGNESIUM (BEAKER) (test swxr=398) 2.4 mg/dL 1.6-2.6 BASIC METABOLIC [id number] 07:42:00 Test Item Value Reference Range Comments SODIUM (BEAKER) (test 137 meq/L 136-145 utgd=540) POTASSIUM (BEAKER) (test 4.0 meq/L 3.5-5.1 rpqk=556) CHLORIDE (BEAKER) (test 104 meq/L 98-107 eypm=936) CO2 (BEAKER) (test 24 meq/L 22-29 fpvx=299) BLOOD UREA NITROGEN 31 mg/dL 7-21 (BEAKER) (test ukzx=962) CREATININE (BEAKER) (test 1.62 mg/dL 0.57-1.25 tgpo=207) GLUCOSE RANDOM (BEAKER) 145 mg/dL 70-105 (test prev=461) CALCIUM (BEAKER) (test 8.5 mg/dL 8.4-10.2 nkrz=825) EGFR (BEAKER) (test 42 mL/min/1.73 sq m ESTIMATED GFR IS NOT dwus=5112) ACCURATE CREATININE CLEARANCE IN PREDICTING GLOMERULAR FILTRATION RATE. ESTIMATED GFR IS NOT APPLICABLE FOR DIALYSIS PATIENTS. [id number] 07:17:00 Test Item Value Reference Range Comments FERRITIN (BEAKER) (test hjhu=396) 54 ng/mL 5-275 VITAMIN B12 AND [id number] 07:17:00 Test Item Value Reference Range Comments VITAMIN B12 (BEAKER) (test bbcc=394) 1684 pg/mL 213-816 FOLATE (BEAKER) (test xbhu=788) 14.0 ng/mL >=7.0 CBC W/PLT COUNT & AUTO [id number] 07:08:00 Test Item Value Reference Range Comments WHITE BLOOD CELL COUNT (BEAKER) (test wtob=975) 6.2 K/ L 3.5-10.5 RED BLOOD CELL COUNT (BEAKER) (test xgpt=966) 2.55 M/ L 4.63-6.08 HEMOGLOBIN (BEAKER) (test voce=363) 7.7 GM/DL 13.7-17.5 HEMATOCRIT (BEAKER) (test mkvc=231) 24.5 % 40.1-51.0 MEAN CORPUSCULAR VOLUME (BEAKER) (test dmjf=193) 96.1 fL 79.0-92.2 MEAN CORPUSCULAR HEMOGLOBIN (BEAKER) (test 30.2 pg 25.7-32.2 evvy=391) MEAN CORPUSCULAR HEMOGLOBIN CONC (BEAKER) (test 31.4 GM/DL 32.3-36.5 yrei=928) RED CELL DISTRIBUTION WIDTH (BEAKER) (test 15.6 % 11.6-14.4 zklc=924) PLATELET COUNT (BEAKER) (test kgne=455) 110 K/CU MM 150-450 MEAN PLATELET VOLUME (BEAKER) (test tbyy=470) 10.3 fL 9.4-12.4 NUCLEATED RED BLOOD CELLS (BEAKER) (test 0 /100 WBC 0-0 znob=201) NEUTROPHILS RELATIVE PERCENT (BEAKER) (test 74 % tujb=387) LYMPHOCYTES RELATIVE PERCENT (BEAKER) (test 19 % odoi=342) MONOCYTES RELATIVE PERCENT (BEAKER) (test 5 % bfxl=156) EOSINOPHILS RELATIVE PERCENT (BEAKER) (test 1 % sswu=362) BASOPHILS RELATIVE PERCENT (BEAKER) (test 0 % hgoz=452) NEUTROPHILS ABSOLUTE COUNT (BEAKER) (test 4.58 K/ L 1.78-5.38 tmht=506) LYMPHOCYTES ABSOLUTE COUNT (BEAKER) (test 1.16 K/ L 1.32-3.57 hruu=546) MONOCYTES ABSOLUTE COUNT (BEAKER) (test 0.29 K/ L 0.30-0.82 cceh=642) EOSINOPHILS ABSOLUTE COUNT (BEAKER) (test 0.06 K/ L 0.04-0.54 xamg=707) BASOPHILS ABSOLUTE COUNT (BEAKER) (test 0.02 K/ L 0.01-0.08 lkcr=256) IMMATURE GRANULOCYTES-RELATIVE PERCENT (BEAKER) 1 % 0-1 (test katu=1364) IRON, TIBC, % SAT. (WITHOUT FERRITIN)2018-04-08 06:51:00 Test Item Value Reference Range Comments IRON (BEAKER) (test sdat=028) 36 ug/dL 40-160 TOTAL IRON BINDING CAPACITY (BEAKER) (test 278 ug/dL 250-450 icjx=636) IRON % SATURATION (2) (BEAKER) (test hnga=3993) 13 % 20-55 POCT-GLUCOSE [id number] 06:40:00 Test Item Value Reference Range Comments POC-GLUCOSE METER (BEAKER) 147 mg/dL 70-[address] [facility] [address] [facility] (test pckz=9200) [facility] [address] PROTHROMBIN [id number] 06:24:00 Test Item Value Reference Range Comments PROTIME (BEAKER) (test gptj=380) 23.6 seconds 11.7-14.7 INR (BEAKER) (test kkzi=253) 2.1 <=5.9 RECOMMENDED COUMADIN/WARFARIN INR THERAPY RANGESSTANDARD DOSE: 2.0 - 3.0 Includes: PROPHYLAXIS forvenous thrombosis, systemic embolization; TREATMENT for venous thrombosis and/or pulmonary embolus.HIGH RISK: Target INR is 2.5-3.5 for patients with mechanical heart valves.TROPONIN [id number] 00:58:00 Test Item Value Reference Range Comments TROPONIN I (BEAKER) (test jste=721) 0.03 ng/mL 0.00-0.03 Troponin I (TnI) levels [...] acidosis, acute neurological disease, and persistent tachyarrhythmia.LIPID [id number] 00:52:00 Test Item Value Reference Range Comments TRIGLYCERIDES (BEAKER) (test dnrj=369) 147 mg/dL CHOLESTEROL (BEAKER) (test phoj=418) 129 mg/dL HDL CHOLESTEROL (BEAKER) (test mpcc=237) 34 mg/dL LDL CHOLESTEROL CALCULATED (BEAKER) (test 66 mg/dL ogez=003) Triglyceride Reference Range: Low Risk <150 Borderline 150- 199 High Risk 200-499 Very High Risk >=500Cholesterol Reference Range: Low Risk <200 Borderline 200-239 High Risk > 240HDL Cholesterol Reference Range: Low Risk >=60 High Risk <40LDL Cholesterol Reference Range: Optimal <100 Near Optimal 100-129 Borderline 130-159 High 160-189 Very High >=190POCT-GLUCOSE [id number] 00:10:00 Test Item Value Reference Range Comments POC-GLUCOSE METER ([employer]) 76 mg/dL 70-110 TESTED AT [address] (test oama=9501) [facility] [address] RAD, CHEST, 1 VIEW, NON [id number] 18:37:00Reason for exam:->fluid overloadShould this be performed [...] effusion or acute bony abnormality. Signed: Aristeo Badilloeport Verified Date/Time: 04/07/2018 18:37:22 Reading Location: [address] Reading Room TROPONIN [id number] 17:35:00 Test Item Value Reference Range Comments TROPONIN I (BEAKER) (test ffrz=632) 0.02 ng/mL 0.00-0.03 Troponin I (TnI) levels [...] NATRIURETIC PEPTIDE (BEAKER) (test 927 pg/mL 0-100 gjxg=122) POCT-GLUCOSE [id number] 17:28:00 Test Item Value Reference Range Comments POC-GLUCOSE METER (BEAKER) 105 mg/dL 70-110 TESTED AT [address] (test huto=7508) [facility] [address] COMPREHENSIVE METABOLIC [id number] 17:28:00 Test Item Value Reference Range Comments TOTAL PROTEIN (BEAKER) 7.1 gm/dL 6.0-8.3 (test boeb=089) ALBUMIN (BEAKER) (test 3.6 g/dL 3.5-5.0 phhe=6068) ALKALINE PHOSPHATASE 144 U/L 40-150 (BEAKER) (test jdya=084) BILIRUBIN TOTAL (BEAKER) 0.6 mg/dL 0.2-1.2 (test uyqy=341) SODIUM (BEAKER) (test 140 meq/L 136-145 sxzk=611) POTASSIUM (BEAKER) (test 4.0 meq/L 3.5-5.1 ffuy=877) CHLORIDE (BEAKER) (test 107 meq/L 98-107 eyly=786) CO2 (BEAKER) (test 25 meq/L 22-29 majc=864) BLOOD UREA NITROGEN 30 mg/dL 7-21 (BEAKER) (test aqaw=543) CREATININE (BEAKER) (test 1.59 mg/dL 0.57-1.25 cevz=814) GLUCOSE RANDOM (BEAKER) 97 mg/dL 70-105 (test ogpa=898) CALCIUM (BEAKER) (test 8.9 mg/dL 8.4-10.2 vcvp=151) AST (SGOT) (BEAKER) (test 25 U/L 5-34 wcuv=386) ALT (SGPT) (BEAKER) (test 28 U/L 6-55 mxzq=816) EGFR (BEAKER) (test 43 mL/min/1.73 sq m ESTIMATED GFR IS NOT twnp=8670) ACCURATE CREATININE CLEARANCE IN PREDICTING GLOMERULAR FILTRATION RATE. ESTIMATED GFR IS NOT APPLICABLE FOR DIALYSIS PATIENTS. PROTHROMBIN [id number] 17:18:00 Test Item Value Reference Range Comments PROTIME (BEAKER) (test gopd=939) 29.2 seconds 11.7-14.7 INR (BEAKER) (test hfrz=359) 2.8 <=5.9 RECOMMENDED COUMADIN/WARFARIN INR THERAPY RANGESSTANDARD DOSE: 2.0 - 3.0 Includes: PROPHYLAXIS forvenous thrombosis, systemic embolization; TREATMENT for venous thrombosis and/or pulmonary embolus.HIGH RISK: Target INR is 2.5-3.5 for patients with mechanical heart valves.CBC W/PLT COUNT & AUTO [id number] 17:09:00 Test Item Value Reference Range Comments WHITE BLOOD CELL COUNT (BEAKER) (test dkwx=173) 6.7 K/ L 3.5-10.5 RED BLOOD CELL COUNT (BEAKER) (test otzb=103) 2.55 M/ L 4.63-6.08 HEMOGLOBIN (BEAKER) (test remg=737) 7.8 GM/DL 13.7-17.5 HEMATOCRIT (BEAKER) (test vyww=766) 24.4 % 40.1-51.0 MEAN CORPUSCULAR VOLUME (BEAKER) (test ezxp=675) 95.7 fL 79.0-92.2 MEAN CORPUSCULAR HEMOGLOBIN (BEAKER) (test 30.6 pg 25.7-32.2 xlyv=233) MEAN CORPUSCULAR HEMOGLOBIN CONC (BEAKER) (test 32.0 GM/DL 32.3-36.5 yzxj=701) RED CELL DISTRIBUTION WIDTH (BEAKER) (test 15.7 % 11.6-14.4 ofsy=323) PLATELET COUNT (BEAKER) (test sjuv=181) 117 K/CU MM 150-450 MEAN PLATELET VOLUME (BEAKER) (test gktj=248) 9.6 fL 9.4-12.4 NUCLEATED RED BLOOD CELLS (BEAKER) (test 0 /100 WBC 0-0 nnep=131) NEUTROPHILS RELATIVE PERCENT (BEAKER) (test 69 % xsqz=127) LYMPHOCYTES RELATIVE PERCENT (BEAKER) (test 23 % tfqr=350) MONOCYTES RELATIVE PERCENT (BEAKER) (test 6 % kxon=806) EOSINOPHILS RELATIVE PERCENT (BEAKER) (test 2 % amxc=218) BASOPHILS RELATIVE PERCENT (BEAKER) (test 0 % xtkt=725) NEUTROPHILS ABSOLUTE COUNT (BEAKER) (test 4.65 K/ L 1.78-5.38 qxaa=708) LYMPHOCYTES ABSOLUTE COUNT (BEAKER) (test 1.51 K/ L 1.32-3.57 gkvp=203) MONOCYTES ABSOLUTE COUNT (BEAKER) (test 0.40 K/ L 0.30-0.82 qacl=389) EOSINOPHILS ABSOLUTE COUNT (BEAKER) (test 0.11 K/ L 0.04-0.54 dnmx=971) BASOPHILS ABSOLUTE COUNT (BEAKER) (test 0.02 K/ L 0.01-0.08 ankd=866) IMMATURE GRANULOCYTES-RELATIVE PERCENT (BEAKER) 0 % 0-1 (test udkk=7109)
[2018-07-20 17:49] LABS: Absolute Lymphocytes (CBC) 1.5 K/uL (0.7-4.9); Absolute Monocytes 0.5 K/uL (0.1-1.3); Absolute Neutrophil 3.2 K/uL (1.8-8.0); Basophils % 0.6 % (0-1.3); Eosinophils % 1.5 % (0-4.4); Hematocrit 33.9 % (39.6-49.0); MCH 30.5 pg (27.0-35.0); MCV 88.3 fL (80-100); MPV 8.3 fL (7.6-11.3); Monocytes % 8.9 % (3.3-12.3); RBC Red Blood Cell Count 3.83 M/uL (4.33-5.43)
[2018-07-20 17:50] LABS: Protime INR 2.87
[2018-07-20 18:10] LABS: Albumin 3.2 g/dL (3.4-5.0); Bilirubin Direct 0.1 mg/dL (0-0.2); Bilirubin Total 0.3 mg/dL (0.2-1.0); Magnesium 2.3 mg/dL (1.8-2.4); Potassium 3.8 mmol/L (3.5-5.1); Protein, Total 6.7 g/dL (6.4-8.2); Troponin (Emerg Dept Use Only) 0.02 ng/mL (0.0-0.045)
--- NOTE | 2018-07-20 18:10 | RAD REPORT ---
EXAM DESCRIPTION: Brandon Single View07/20/2018 5:34 pm CLINICAL HISTORY: Palpitation COMPARISON: June 2018 FINDINGS: The lungs appear clear of acute infiltrate. The heart is mildly enlarged. Pacemaker leads are in place. Postsurgical changes involve the chest IMPRESSION: No acute abnormalities displayed
[2018-07-20] MEDS ORDERED: NA CHLORIDE 0.9% 250 ML ONE (18:53)
[2018-07-20 19:19] LABS: Urine Bacteria 20-50 /HPF (NONE SEEN); Urine Culture Reflex Order REFLEXED; Urine Mucus 2+ /HPF (NONE SEEN); Urine RBC <5 /HPF (NONE SEEN)
[2018-07-20 19:20] LABS: Urine Blood NEGATIVE (NEG); Urine Glucose NEGATIVE (NEG); Urine Protein 1+ (NEG); Urine Specific Gravity >1.030 (1.005-1.030)
--- NOTE | 2018-07-20 19:54 | RAD REPORT ---
EXAM DESCRIPTION: CT - Head Brain Wo Cont - 07/20/2018 7:30 pm CLINICAL HISTORY: Dizziness COMPARISON: June 08 2018 TECHNIQUE: Computed axial tomography of the head was obtained. IV contrast was not requested. All CT scans are performed using dose optimization technique as appropriate and may include automated exposure control or mA/KV adjustment according to patient size. FINDINGS: An intracranial bleed is not seen . The ventricles are normal in caliber. No extra-axial fluid collection is noted. Small low-density area within the deep white matter of the left posterior frontal lobe may represent a small infarct. Fluid within the sinuses/ mastoids is not seen. IMPRESSION: No acute intracranial abnormality is seen. If patient's symptoms persist MRI of the bra in would be recommended.
--- NOTE | 2018-07-20 20:02 | ER ---
Nurse's Notes [facility] Name: Zana Zamora Age: 72 yrs Sex: Male : 1945 Arrival Date: 07/20/2018 Time: 17:06 Bed 30 Private MD: Diagnosis: Weakness-General;Palpitations Presentation: 07/20 17:22 Presenting complaint: EMS states: patient has been feeling weak and light headed and mg2 palpitation soon after his discharged from [facility] last Monday for TIA. BGL-145 md/dl on scene, EKG showing st elevation on lead II,III, AVF. denies chest pain and shortness of breath. Transition of care: [facility]. Onset of symptoms was July 16, 2018. Risk Assessment: Do you want to hurt yourself or someone else? Patient reports no desire to harm self or others. Initial Sepsis Screen: Does the patient meet any 2 criteria? No. Patient's initial sepsis screen is negative. Does the patient have a suspected source of infection? No. Patient's initial sepsis screen is negative. Care prior to arrival: None. 17:22 Method Of Arrival: EMS: [facility] mg2 17:22 Acuity: ELLA 3 mg2 Historical: - Allergies: 17:29 NKA; mg2 - Home Meds: 17:29 aspirin 81 mg Oral chew 1 tab once daily [Active]; atorvastatin 20 mg Oral tab 1 tab mg2 once daily [Active]; carvedilol 6.25 mg Oral tab 0.5 tab 2 times per day [Active]; furosemide 20 mg Oral tab 3 tabs [Active]; levothyroxine 112 mcg tab 1 tab once daily [Active]; lisinopril 5 mg Oral tab 1 tab once daily [Active]; Novolog 100 unit/mL Sub-Q soln three times a day [Active]; omeprazole 20 mg Oral cpDR 2 caps once daily [Active]; Ranexa 1,000 mg Oral Tb12 1 tab 2 times per day [Active]; warfarin 5 mg Oral tab 1.5 tabs mondays, wednesdays, and fridays [Active]; warfarin 5 mg Oral tab 1 tab es, Thurs, Sat, Sun [Active]; - PMHx: 17:29 Atrial Fib; CAD; CHF; CVA; Diabetes - IDDM; Hyperlipidemia; Hypertension; Umbilical mg2 hernia; - PSHx: 17:29 triple bypass; mg2 - Immunization history:: Flu vaccine is up to date. - Social history:: Smoking status: Patient/guardian denies using tobacco, Patient/guardian denies using alcohol, street drugs, IV drugs. - Ebola Screening: : No symptoms or risks identified at this time. Screenin:30 Abuse screen: Denies threats or abuse. Denies injuries from another. Nutritional mg2 screening: No deficits noted. Tuberculosis screening: No symptoms or risk factors identified. Fall Risk Secondary diagnosis (15 points) TIA, IV access (20 points). Assessment: 17:31 General: Appears in no apparent distress. comfortable, Behavior is calm, cooperative. mg2 Pain: Denies pain. Neuro: Level of Consciousness is awake, alert, obeys commands, Oriented to person, place, time, situation. Cardiovascular: Capillary refill < 3 seconds Patient's skin is warm and dry. Cardiovascular: Reports palpitations. Respiratory: Airway is patent Respiratory effort is even, unlabored, Respiratory pattern is regular, symmetrical. GI: No signs and/or symptoms were reported involving the gastrointestinal system. : No signs and/or symptoms were reported regarding the genitourinary system. EENT: No signs and/or symptoms were reported regarding the EENT system. Derm: Skin is intact, is healthy with good turgor, Skin is pink, warm \T\ dry. normal. Musculoskeletal: No signs and/or symptoms reported regarding the musculoskeletal system. 20:29 Reassessment: Patient appears in no apparent distress at this time. Patient and/or mg2 family updated on plan of care and expected duration. Pain level reassessed. Patient is alert, oriented x 3, equal unlabored respirations, skin warm/dry/pink. patient informed about the plan for admission. patient agreed. 23:20 Reassessment:. mg2 Vital Signs: 17:26 BP 125 / 60; Pulse 75; Resp 18; Temp 98.6(O); Pulse Ox 100% on R/A; Weight 63.5 kg; mg2 Height 5 ft. 7 in. (170.18 cm); Pain 0/10; 19:20 BP 152 / 76; Pulse 75; Resp 18; Pulse Ox 100% on R/A; Pain 0/10; mg2 19:59 BP 142 / 69; Pulse 75; Resp 18; Pulse Ox 100% on R/A; Pain 0/10; mg2 20:38 BP 146 / 70; Pulse 75; Resp 18; Pulse Ox 100% on R/A; Pain 0/10; mg2 22:15 BP 135 / 78; Pulse 80; Resp 18; Pulse Ox 100% on R/A; Pain 0/10; mg2 17:26 Body Mass Index 21.93 (63.50 kg, 170.18 cm) mg2 [place] Coma Score: 17:55 Eye Response: spontaneous(4). Verbal Response: oriented(5). Motor Response: obeys mg2 commands(6). Total: 15. NIH Stroke Scale Scores: 18:00 NIHSS Score: 0 mg2 ED Course: 17:06 Patient arrived in ED. cp 17:06 Bobby Dumont PA is PHCP. cp 17:06 Bobby Funes MD is Attending Physician. cp 17:12 Tex Win, MARTITA is Primary Nurse. mg2 17:21 EKG done, by certified emergency vehicle technician. reviewed by Bobby MARROQUIN. sm3 17:25 Triage completed. mg2 17:30 Arm band placed on. mg2 17:34 XRAY Chest (1 view) In Process Unspecified. EDMS 17:39 No provider procedures requiring assistance completed. Maintain EMS IV. Dressing mg2 intact. Good blood return noted. Site clean \T\ dry. Gauge \T\ site: 18 \T\ LFA. 17:39 Patient has correct armband on for positive identification. Placed in gown. Call light mg2 in reach. Side rails up X 1. quality assurance monitor final on. Pulse ox on. NIBP on. 17:55 Door closed. Warm blanket given. mg2 19:[address] vr 19:30 CT Head Brain wo Cont In Process Unspecified. EDMS 20:00 Zenia Licona MD is Hospitalizing Provider. cp 22:42 Patient admitted, IV remains in place. mg2 Administered Medications: 19:04 Drug: NS 0.9% 250 ml Route: IV; Rate: bolus; Site: left forearm; mg2 20:39 Follow up: Response: No adverse reaction; IV Status: Completed infusion mg2 Point of Care Testing: Blood Glucose: 17:26 Blood Glucose: 143 mg/dL; mg2 Ranges: Outcome: 20:01 Decision to Hospitalize by Provider. cp 22:43 Admitted to Med/surg accompanied by tech, via wheelchair, room 210, with chart, Report mg2 called to MARTITA Kaiser 22:43 Condition: stable 22:43 Instructed on the need for admit. 22:44 Patient left the ED. mg2 NIH Stroke Scale - NIH Stroke Score Date: 07/20/2018 Time: 18:00 Total Score = 0 1a. Level of Consciousness (LOC) - 0(Alert) 1b. Level of Consciousness (LOC) (Year \T\ Age) - 0(Both) 1c. LOC Commands (Open \T\ Closes Eyes/Brand Specialist) - 0(Both) 2. Best Gaze (Lateral Gaze Paresis) - 0(Normal) 3. Visual Field Loss - 0(No visual loss) 4. Facial Palsy - 0(Normal) 5a. Left Arm: Motor (10-second hold) - 0(No drift) 5b. Right Arm: Motor (10-second hold) - 0(No drift) 6a. Left Leg: Motor (5-second hold - always test supine) - 0(No drift) 6b. Right Leg: Motor (5-second hold - always test supine) - 0(No drift) 7. Limb Ataxia (finger/nose \T\ heel/melvin - test with eyes open) - 0(Absent) 8. Sensory Loss (pinprick arms/legs/face) - 0(Normal) 9. Best Language: Aphasia (description/naming/reading) - 0(No aphasia) 10. Dysarthria (speech clarity - read or repeat words) - 0(Normal) 11. Extinction and Inattention (visual/tactile/auditory/spatial/personal) - 0(No abnormality) Initials: mg2 Signatures: Dispatcher [employer] Beverly Montague Corey, PA PA cp Gardose, Michele, RN RN mg2 Nia Rosa3
--- NOTE | 2018-07-20 20:02 | EDPHYS ---
Physician Documentation [facility] Name: Zana Zamora Age: 72 yrs Sex: Male : 1945 Arrival Date: 07/20/2018 Time: 17:06 Bed 30 Private MD: ED Physician Bobby Funes HPI: 07/20 17:15 This 72 yrs old Male presents to ER via EMS with complaints of general cp weakness, palpitations. 17:15 The patient's problem is reported as weakness, that is generalized. cp 17:15 Onset: The symptoms/episode began/occurred gradually. cp 17:15 Duration: The episode is continuous. Associated signs and symptoms: Pertinent cp positives: dizziness, palpitations, Pertinent negatives: abdominal pain, chest pain, diaphoresis, diarrhea, headache, vomiting. Severity of symptoms: in the emergency department the symptoms are unchanged despite home interventions. Historical: - Allergies: 17:29 NKA; mg2 - Home Meds: 17:29 aspirin 81 mg Oral chew 1 tab once daily [Active]; atorvastatin 20 mg Oral tab 1 tab mg2 once daily [Active]; carvedilol 6.25 mg Oral tab 0.5 tab 2 times per day [Active]; furosemide 20 mg Oral tab 3 tabs [Active]; levothyroxine 112 mcg tab 1 tab once daily [Active]; lisinopril 5 mg Oral tab 1 tab once daily [Active]; Novolog 100 unit/mL Sub-Q soln three times a day [Active]; omeprazole 20 mg Oral cpDR 2 caps once daily [Active]; Ranexa 1,000 mg Oral Tb12 1 tab 2 times per day [Active]; warfarin 5 mg Oral tab 1.5 tabs mondays, wednesdays, and fridays [Active]; warfarin 5 mg Oral tab 1 tab , Th, Sat, Sun [Active]; - PMHx: 17:29 Atrial Fib; CAD; CHF; CVA; Diabetes - IDDM; Hyperlipidemia; Hypertension; Umbilical mg2 hernia; - PSHx: 17:29 triple bypass; mg2 - Immunization history:: Flu vaccine is up to date. - Social history:: Smoking status: Patient/guardian denies using tobacco, Patient/guardian denies using alcohol, street drugs, IV drugs. - Ebola Screening: : No symptoms or risks identified at this time. ROS: 17:22 Constitutional: Negative for body aches, chills, fever, poor PO intake. cp 17:22 Eyes: Negative for injury, pain, redness, and discharge. cp 17:22 ENT: Negative for drainage from ear(s), ear pain, sore throat, difficulty swallowing, difficulty handling secretions. 17:22 Cardiovascular: Positive for palpitations, Negative for chest pain, edema. 17:22 Respiratory: Negative for cough, shortness of breath, wheezing. 17:22 Abdomen/GI: Negative for abdominal pain, nausea, vomiting, and diarrhea, constipation, black/tarry stool, rectal bleeding. 17:22 : Negative for urinary symptoms. 17:22 Skin: Negative for cellulitis, rash. 17:22 Neuro: Positive for dizziness, weakness, Negative for altered mental status, headache, syncope. 17:22 All other systems are negative. Exam: 17:20 ECG was reviewed by the Attending Physician. cp 17:25 Constitutional: The patient appears in no acute distress, alert, awake, cp non-diaphoretic, non-toxic, well developed, well nourished. 17:25 Head/Face: Normocephalic, atraumatic. Eyes: Pupils equal round and reactive to light, cp extra-ocular motions intact. Lids and lashes normal. Conjunctiva and sclera are non-icteric and not injected. Cornea within normal limits. Periorbital areas with no swelling, redness, or edema. ENT: Nares patent. No nasal discharge, no septal abnormalities noted. Tympanic membranes are normal and external auditory canals are clear. Oropharynx with no redness, swelling, or masses, exudates, or evidence of obstruction, uvula midline. Mucous membranes moist. Neck: Trachea midline, no thyromegaly or masses palpated, and no cervical lymphadenopathy. Supple, full range of motion without nuchal rigidity, or vertebral point tenderness. No Meningismus. Chest/axilla: Normal chest wall appearance and motion. Nontender with no deformity. No lesions are appreciated. 17:25 Cardiovascular: Rate: normal, Rhythm: regular, Edema: is not appreciated, JVD: is not appreciated. 17:25 Respiratory: the patient does not display signs of respiratory distress, Respirations: normal, no use of accessory muscles, no retractions, no splinting, no tachypnea, labored breathing, is not present, Breath sounds: are clear throughout, no decreased breath sounds, no stridor, no wheezing. 17:25 Abdomen/GI: Inspection: abdomen appears normal, Bowel sounds: active, all quadrants, Palpation: abdomen is soft and non-tender, in all quadrants, rebound tenderness, is not appreciated, voluntary guarding, is not appreciated, involuntary guarding, is not appreciated. 17:25 Back: pain, is absent, ROM is normal. 17:25 Skin: cellulitis, is not appreciated, no rash present. 17:25 Neuro: Orientation: to person, place \T\ time. Mentation: is normal, Cerebellar function: is grossly normal, Motor: moves all fours, strength is normal, Sensation: is normal. 19:58 Radiologist reports: no acute findings cp Vital Signs: 17:26 BP 125 / 60; Pulse 75; Resp 18; Temp 98.6(O); Pulse Ox 100% on R/A; Weight 63.5 kg; mg2 Height 5 ft. 7 in. (170.18 cm); Pain 0/10; 19:20 BP 152 / 76; Pulse 75; Resp 18; Pulse Ox 100% on R/A; Pain 0/10; mg2 19:59 BP 142 / 69; Pulse 75; Resp 18; Pulse Ox 100% on R/A; Pain 0/10; mg2 20:38 BP 146 / 70; Pulse 75; Resp 18; Pulse Ox 100% on R/A; Pain 0/10; mg2 22:15 BP 135 / 78; Pulse 80; Resp 18; Pulse Ox 100% on R/A; Pain 0/10; mg2 17:26 Body Mass Index 21.93 (63.50 kg, 170.18 cm) mg2 NIH Stroke Scale Scores: 18:00 NIHSS Score: 0 mg2 Danilo Coma Score: 17:55 Eye Response: spontaneous(4). Verbal Response: oriented(5). Motor Response: obeys mg2 commands(6). Total: 15. MDM: 17:07 Patient medically screened. denzel 18:00 Differential diagnosis: CVA, TIA, metabolic disorder, drug effects, acute WI, cardiac cp arrythmia, electrolyte abnormality. 20:00 Data reviewed: vital signs, nurses notes, lab test result(s), EKG, radiologic studies, cp CT scan, plain films. 20:00 Test interpretation: by ED physician or midlevel provider: ECG, plain radiologic cp studies. 20:00 Response to treatment: the patient's symptoms have mildly improved after treatment, and cp as a result, I will admit patient. 07/20 17:07 Order name: Basic Metabolic Panel; Complete Time: 18:34 07/20 19:13 Interpretation: Normal except: GLUC 142; BUN 24; CRE 2.30; GFR 28; CA 7.8. 07/20 17:07 Order name: CBC with Diff; Complete Time: 18:34 07/20 18:34 Interpretation: Normal except: RBC 3.83; HGB 11.7; HCT 33.9; PLT 123. 07/20 17:07 Order name: LFT's; Complete Time: 18:34 07/20 19:13 Interpretation: Normal except: ALK 127; ALB 3.2; A/G 0.9. 07/20 17:07 Order name: Magnesium; Complete Time: 18:34 07/20 17:07 Order name: NT PRO-BNP; Complete Time: 18:34 07/20 17:07 Order name: PT-INR; Complete Time: 18:34 07/20 17:07 Order name: Troponin (emerg Dept Use Only); Complete Time: 18:34 07/20 17:10 Order name: Type And Screen; Complete Time: 18:34 07/20 17:10 Order name: Lactate; Complete Time: 18:34 07/20 18:35 Interpretation: Abnormal: LAC 2.1. 07/20 17:10 Order name: Procalcitonin; Complete Time: 18:34 07/20 17:10 Order name: Blood Culture Adult (2) 07/20 17:10 Order name: Influenza Screen (a \T\ B); Complete Time: 18:34 07/20 17:29 Order name: Urine Microscopic Only; Complete Time: 19:56 07/20 19:56 Interpretation: Normal except: UBACT 20-50; SQEPI 10-20. 07/20 18:31 Order name: Urine Dipstick--Ancillary (enter results); Complete Time: 19:56 em 07/20 19:56 Interpretation: Normal except: USPGR >1.030; UPROT 1+. 07/20 17:07 Order name: XRAY Chest (1 view); Complete Time: 18:34 07/20 17:07 Order name: EKG; Complete Time: 17:08 07/20 17:07 Order name: Cardiac monitoring; Complete Time: 17:18 07/20 17:07 Order name: EKG - Nurse/Tech; Complete Time: 17:18 07/20 17:07 Order name: IV Saline Lock; Complete Time: 17:18 07/20 17:07 Order name: Labs collected and sent; Complete Time: 17:18 07/20 17:07 Order name: O2 Per Protocol; Complete Time: 17:18 07/20 17:07 Order name: O2 Sat Monitoring; Complete Time: 17:18 07/20 17:29 Order name: Urine Dipstick-Ancillary (obtain specimen); Complete Time: 18:43 07/20 19:03 Order name: CT Head Brain wo Cont; Complete Time: 19:56 07/20 19:56 Interpretation: Report reviewed. 07/20 19:21 Order name: Urine Culture EDMS 07/20 21:40 Order name: Lactate Sepsis 2 HR Follow-up EDMS EC:20 Rate is 75 beats/min. Rhythm is regular, Paced. QRS interval is prolonged at 148 msec. cp QT interval is normal. T waves are Inverted in leads I, aVL, V2. Interpreted by me. Reviewed by me. Administered Medications: 19:04 Drug: NS 0.9% 250 ml Route: IV; Rate: bolus; Site: left forearm; mg2 20:39 Follow up: Response: No adverse reaction; IV Status: Completed infusion mg2 Point of Care Testing: Blood Glucose: 17:26 Blood Glucose: 143 mg/dL; mg2 Ranges: Critical Glucose Levels:Adult <50 mg/dl or >400 mg/dl <40 mg/dl or >180 mg/dl Disposition: 07/20/18 20:01 Hospitalization ordered by Zenia Licona for Observation. Preliminary diagnosis are Weakness - General, Palpitations. - Bed requested for Telemetry/MedSurg (observation). - Status is Observation. mg2 - Condition is Stable. - Problem is new. - Symptoms have improved. UTI on Admission? No NIH Stroke Scale - NIH Stroke Score Date: 07/20/2018 Time: 18:00 Total Score = 0 1a. Level of Consciousness (LOC) - 0(Alert) 1b. Level of Consciousness (LOC) (Year \T\ Age) - 0(Both) 1c. LOC Commands (Open \T\ Closes Eyes/Financial Services Assistant) - 0(Both) 2. Best Gaze (Lateral Gaze Paresis) - 0(Normal) 3. Visual Field Loss - 0(No visual loss) 4. Facial Palsy - 0(Normal) 5a. Left Arm: Motor (10-second hold) - 0(No drift) 5b. Right Arm: Motor (10-second hold) - 0(No drift) 6a. Left Leg: Motor (5-second hold - always test supine) - 0(No drift) 6b. Right Leg: Motor (5-second hold - always test supine) - 0(No drift) 7. Limb Ataxia (finger/nose \T\ heel/melvin - test with eyes open) - 0(Absent) 8. Sensory Loss (pinprick arms/legs/face) - 0(Normal) 9. Best Language: Aphasia (description/naming/reading) - 0(No aphasia) 10. Dysarthria (speech clarity - read or repeat words) - 0(Normal) 11. Extinction and Inattention (visual/tactile/auditory/spatial/personal) - 0(No abnormality) Initials: mg2 Addendum: 07/23/2018 07:02 Co-signature as Attending Physician, Bobby Funes MD I agree with the [facility] assessment and plan of care. Signatures: Dispatcher [employer] Renee Caro RN RN kl Anderson, Corey, MD MD cha Page, Corey, PA PA Tex Streeter RN RN mg2 Corrections: (The following items were deleted from the chart) 07/20 19:13 18:34 Normal except: GLUC 142; BUN 24; CRE 2.30; GFR 28. cp cp 20:00 17:29 Person ordered. cp mg2 22:03 20:01 Hospitalization Ordered by Zenia Licona MD for Observation. Preliminary kl diagnosis is Weakness - General; Palpitations. Bed requested for Telemetry/MedSurg (observation). Status is Observation. Condition is Stable. Problem is new. Symptoms have improved. UTI on Admission? No. cp 22:44 22:03 07/20/2018 20:01 Hospitalization Ordered by Zenia Licona MD for mg2 Observation. Preliminary diagnosis is Weakness - General; Palpitations. Bed requested for Telemetry/MedSurg (observation). Status is Observation. Condition is Stable. Problem is new. Symptoms have improved. UTI on Admission? No. kl
--- NOTE | 2018-07-20 21:43 | P.HP ---
Certification for Inpatient Patient admitted to: Observation With expected LOS: <2 Midnights Practitioner: I am a practitioner with admitting privileges, knowledge of patient current condition, hospital course, and medical plan of care. Services: Services provided to patient in accordance with Admission requirements found in Title 42 Section 412.3 of the Code of Federal Regulations Patient History Date of Service: 07/20/18 Reason for admission: dizziness History of Present Illness: Mr Zamora is a 72 years old male with multiple medical problems including, CAD S/P CABG, chronic systolic CHF, EF 23%, ICD placement, HTN, CKD, recently admitted to [facility] because dizziness and left side weakness. He was told that had a stroke. He was discharged home 4 days ago, since so, he has been progressively more dizzy and weak. His left side deficit has been slightly improving. He states that has not been taking enough water. He denied any chest pain, nausea, vomiting, fever or diarrhea. No SOB or palpitations. Lab work shows normal WBC count. lactate is elevated, creatinine more elevated than baseline, initial trop I negative, EKG shows pacemaker rhythm at 75 bpm, RBBB with left axis deviation. CT head shows no acute abnormalities. CXR no acute infiltrate. Allergies No Known Allergies Allergy (Verified 02/24/14 21:37) Home medications list reviewed: Yes Home Medications: Aspirin [Aspirin EC 81 MG] 81 mg PO DAILY 02/24/14 Carvedilol [Coreg] 25 mg PO BID 02/24/14 Furosemide [Lasix*] 40 mg PO BID 02/24/14 Insulin Aspart [Novolog*] 10 units SQ WMP PRN 02/24/14 Insulin Detemir [Levemir*] 35 units SQ BEDTIME 02/24/14 Simvastatin [Zocor*] 20 mg PO BEDTIME 02/24/14 Lisinopril [Zestril] 5 mg PO DAILY 02/26/14 Tamsulosin [Flomax*] 0.4 mg PO DAILY 02/26/14 Finasteride [Proscar*] 5 mg PO DAILY #0 tab 02/28/14 Insulin Detemir [Levemir*] 10 unit SQ BREAKFAST 10/16/17 Levothyroxine [Synthroid*] 112 mcg PO [id number] 10/16/17 Pantoprazole [Protonix Tab*] 20 mg PO DAILYAC 10/16/17 Warfarin Sodium 7.5 mg PO M,W,F 10/16/17 Warfarin Sodium [Coumadin*] 5 mg PO SEECOM 10/16/17 Cyanocobalamin (Vitamin B-12) [Vitamin B-12] 1,000 mcg PO DAILY #90 capsule Ferrous Sulfate [Iron] 325 mg PO BID #60 tablet 10/17/17 - Past Medical/Surgical History Diabetic: Yes -: History of atrial fibrillation -: Chronic anti coagulation -: CAD, CABG x3 vessel -: CHF, systolic dysfunction -: Hypertension -: BPH -: Hyperlipidemia -: Diabetes mellitus -: Pacemaker/defibrillator -: Tobacco abuse -: CABG -: DEFIBRILATOR -: L ARM SX Psychosocial/ Personal History: The patient lives at an assisted living facility. He is single. He has 3 children. - Family History Mother -: Heart disease Father -: Heart disease, Stroke - Social History Smoking Status: Former smoker Alcohol use: No CD- Drugs: No Caffeine use: Yes Place of Residence: Home Review of Systems 10-point ROS is otherwise unremarkable Physical Examination - Physical Exam General: Alert, In no apparent distress HEENT: Atraumatic, PERRLA, Mucous membr. moist/pink, EOMI, Sclerae nonicteric Neck: Supple, 2+ carotid pulse no bruit, No LAD, Without JVD or thyroid abnormality Respiratory: Clear to auscultation bilaterally, Normal air movement Cardiovascular: Regular rate/rhythm, Normal S1 S2 Gastrointestinal: Normal bowel sounds, No tenderness Musculoskeletal: No tenderness Integumentary: No rashes Neurological: Normal speech, Normal tone, Normal affect, Abnormal strength ( Left arm and leg 3/5, right arm and leg 5/5) Lymphatics: No axilla or inguinal lymphadenopathy - Studies Laboratory Data (last 24 hrs) 07/20/18 17:20: PT 34.2 H, INR 2.87 07/20/18 17:20: WBC 5.2, Hgb 11.7 L, Hct 33.9 L, Plt Count 123 L 07/20/18 17:20: Sodium 140, Potassium 3.8, BUN 24 H, Creatinine 2.30 H, Glucose 142 H, Magnesium 2.3, Total Bilirubin 0.3, AST 17, ALT 20, Alkaline Phosphatase 127 H Microbiology Data (last 24 hrs): 07/20/18 17:20 Nasopharnyx Influenza Type A Antigen Screen - Final 07/20/18 17:20 Nasopharnyx Influenza Type B Antigen Screen - Final Assessment and Plan - Problems (Diagnosis) (1) Chronic systolic (congestive) heart failure Current Visit: Yes Status: Acute (2) Dizziness Current Visit: Yes Status: Acute (3) Acute kidney injury superimposed on CKD Current Visit: Yes Status: Acute (4) CVA (cerebral vascular accident) Current Visit: Yes Status: Acute Qualifiers: CVA mechanism: unspecified Qualified Code(s): I63.9 - Cerebral infarction, unspecified (5) CAD (coronary artery disease) Onset Date: 10/17/17 Current Visit: No Status: Chronic Qualifiers: Coronary Disease-Associated Artery/Lesion type: unspecified vessel or lesion type [place] vs. transplanted heart: unspecified whether [place] or transplanted heart Associated angina: angina presence unspecified Qualified Code(s): I25.10 - Atherosclerotic heart disease of [place] coronary artery without angina pectoris (6) Diabetes mellitus Onset Date: 10/17/17 Current Visit: No Status: Chronic Qualifiers: Diabetes mellitus type: type 2 Diabetes mellitus flight technician insulin use: with flight technician use Diabetes mellitus complication status: with other specified complication Qualified Code(s): E11.69 - Type 2 diabetes mellitus with other specified complication; Z79.4 - MCC (current) use of insulin; Z79.4 - MCC (current) use of insulin; Z79.4 - MCC (current) use of insulin; Z79.4 - clinical psychologist licensed (current) use of insulin (7) Hypertension Onset Date: 10/17/17 Current Visit: No Status: Chronic Qualifiers: Hypertension type: essential hypertension Qualified Code(s): I10 - Essential (primary) hypertension (8) Presence of combination internal cardiac defibrillator (ICD) and pacemaker Onset Date: 10/17/17 Current Visit: No Status: Chronic - Plan Mr Zamora will be admitted to the hospital due to dizziness. The eitology seems to be multifactorial, including possible acute vs subacute CVA and volume depletion. Will order IV fluids, PT evalution, unable to perform MRI due to Pacemaker. [facility]. Cotinue serial cardiac enzymes, serial EKG, consult cardiology team. - Advance Directives Does patient have a Living Will: No Does patient have a Durable POA for Healthcare: Yes - Code Status/Comfort Care Code Status Assessed: Yes Code Status: Full Code
--- NOTE | 2018-07-20 22:09 | EKG ---
Test Date: 2018-07-20 Test Time: 17:14:33 Brass Molder Helper: [place] MEASUREMENT RESULTS: Intervals: Rate: 75 VA: 112 QRSD: 148 QT: 470 QTc: 524 [place]: P: 45 VA: 112 QRS: -40 T: 129 INTERPRETIVE STATEMENTS: Atrial-Ventricular Dual-Paced rhythm with prolonged AV delay Abnormal ECG Compared to ECG 06/23/2018 04:53:27 Ventricular-paced complex(es) or rhythm now present Electronically Signed On 07-20-18 22:08:43 INFORMATION SYSTEMS SUPERVISOR by Jose Helms
[2018-07-20] MEDS ORDERED: ACETAMINOPHEN 500 MG TAB PO PRN (22:54)
[2018-07-20] MEDS ORDERED: WARFARIN SODIUM 5 MG TAB PO SCH (22:54)
[2018-07-20] MEDS ORDERED: ONDANSETRON 4 MG/2 ML VIAL IV PRN (22:54)
[2018-07-20 22:56] VITALS: BMI 22.3
[2018-07-20] MEDS: NA CHLORIDE 0.9% 1,000 ML IV SCH (23:26)
[2018-07-21] MEDS ORDERED: WARFARIN SODIUM 5 MG TAB PO SCH ×2 (01:00→17:00)
[2018-07-21 01:14] VITALS: O2SAT 100
[2018-07-21] MEDS ORDERED: PNEUMOCOCCAL VACCINE 0.5 ML IMVAC ONE (06:00)
[2018-07-21 06:56] LABS: Protime INR 2.72
[2018-07-21 06:59] LABS: Absolute Lymphocytes (CBC) 1.4 K/uL (0.7-4.9); Absolute Monocytes 0.3 K/uL (0.1-1.3); Absolute Neutrophil 2.8 K/uL (1.8-8.0); Basophils % 0.6 % (0-1.3); Eosinophils % 1.9 % (0-4.4); Hematocrit 31.9 % (39.6-49.0); Lymphocytes % 29.4 % (15.3-44.8); MCH 30.2 pg (27.0-35.0); MCV 88.2 fL (80-100); MPV 8.3 fL (7.6-11.3); Monocytes % 7.5 % (3.3-12.3); RBC Red Blood Cell Count 3.62 M/uL (4.33-5.43)
[2018-07-21 07:08] LABS: Potassium 3.8 mmol/L (3.5-5.1)
[2018-07-21] MEDS: INSULIN -REGULAR HUMAN 50 UNIT/0.5 ML ML SQ SCH ×2 (07:30→13:00)
[2018-07-21] MEDS ORDERED: CARVEDILOL 25 MG TAB PO SCH (09:00)
[2018-07-21] MEDS ORDERED: POTASSIUM CL SA 10 MEQ TAB PO ONE (09:00)
[2018-07-21] MEDS ORDERED: ASPIRIN EC 81 MG TAB PO SCH (09:00)
[2018-07-21] MEDS ORDERED: INSULIN ASPART 10 UNIT SQ PRN (09:03)
[2018-07-21] MEDS ORDERED: INSULIN LISPRO 100 UNIT/1 ML SQ PRN (09:12)
[2018-07-21] MEDS: NA CHLORIDE 0.9% 1,000 ML IV SCH (09:37)
[2018-07-21] MEDS ORDERED: CARVEDILOL 3.125 MG TAB PO SCH (10:00)
[2018-07-21] MEDS ORDERED: PANTOPRAZOLE 40MG TABLET PO SCH (10:00)
[2018-07-21] MEDS ORDERED: FERROUS SULFATE 325 MG TAB PO SCH (10:00)
--- NOTE | 2018-07-21 12:49 | CON ---
History Of Present Illness: Mr. Zamora is a patient who has coronary heart disease and congestive heart failure. He had bypass surgery remotely. He has a defibrillator. It is a [facility] device a nd followed by the [facility]. He came to the hospital, because he was lightheaded. Whenever he would khan e body position, it did seem to come on. He had some vomiting, some less than ideal oral intake. No body has checked orthostatic vital signs at this point. He denies having chest pain or shortness of breath or palpitations or defibrillator discharge, and he feels back to normal. He is eating and dri nking, not feeling nauseated or dizzy. Physical Examination: General: He is 5 feet 7 inches, 142 pounds. Blood pressure 114/55, pulse 76, O2 saturation 96% on r oom air. HEENT: Normal carotids, no bruit. Abdomen: Soft. Extremities: No edema. Distal pulses palpable. He was a cigarette smoker, but quit when he had his bypass surgery. His electrocardiogram shows AV s equential pacing. He is completely pacemaker driven with his rhythm. Impression: My impression is that Mr. Zamora may have had vertigo. He may have had some mild orth ostasis. He does not seem to be orthostatic now. I think he could be discharged and continue outpat ient care. If he comes to my office, we could arrange a defibrillator check to [facility], but the re is not any strong reason to keep him in the hospital. I think he should be discharged home. SACHI/DANIEL Voice ID: [id number] Report ID: [id number]
[2018-07-21 15:21] VITALS: BP 123/60; TEMP 98
[2018-07-21] MEDS ORDERED: HOME MED 1 EA UNK (Ranolazine [Ranexa] 1,000 MG) PO SCH (21:00)
[2018-07-21] MEDS ORDERED: ATORVASTATIN 10 MG TAB PO SCH (21:00)
[2018-07-21] MEDS ORDERED: ATORVASTATIN 80 MG TAB PO SCH (21:00)
[2018-07-22] MEDS ORDERED: LEVOTHYROXINE SOD 0.112 MG TAB PO SCH (06:00)
--- NOTE | 2018-07-22 07:11 | DS ---
Date of Discharge: 07/21/2018 Consultants: Dr. Helms with Cardiology. Code status: addressed, full code Admitting Diagnoses: 1. Dizziness. 2. Acute dehydration. 3. [id number] kidney injury stage 3. 4. Congestive heart failure, systolic, chronic. 5. History of cerebrovascular accident. 6. Coronary artery disease, [place] artery and [place] heart without angina. 7. Diabetes mellitus type 2 with long-term use of insulin with hyperglycemia. 8. Essential hypertension. 9. Status post AICD pacemaker. Hospital Course: The patient is a 72-year-old male who follows at the [facility], was recently diagnosed with a stroke and was discharged home 5 days ago, has been having some dizziness and weakness. The patient has been dehydrated, comes in with a creatinine level of 2.3, which is above his baseline of about 1.5 or so. The patient was hydrated and his lactate level improved, creatinine also improved. He did not seem to be in any acute failure, ACS was ruled out. He was seen by Cardiology, Dr. Helms, did not recommend any further intervention. His head CT scan was negative for any acute issues. MRI of the brain was unable to be done due to his MRI incompatible pacemaker. The patient overall did well after fluid hydration. His vital signs had improved. The patient likely has acute dehydration and orthostatic hypotension. The patient was counseled on getting out of seating position immediately and to rest for standing up too quickly. The patient voiced understanding. Otherwise, the patient did not have any further complaints, did not appear septic, is doing well, tolerating his diet. He was then cleared for discharge from information security consultant's standpoint. Diet: Diabetic diet. Activity: As tolerated. Fall precautions. Followup: Follow up with PCP at the [facility] in 2 to 3 days. Follow up with electroplating worker, Dr. Helms, in 1 week to have pacemaker interrogated. Return to ER for worsening condition. Follow up with neurologist at the [facility] as scheduled. Medications: As per medication reconciliation list. Physical Examination: General: Awake, alert, oriented x3, elderly male, no acute distress. CV: S1, S2. Peripheral pulses present. Respiratory: Clear to auscultation bilaterally. No wheezing or stridor. Gastrointestinal: Abdomen is soft, nontender, nondistended. Positive bowel sounds. Extremities: No clubbing, cyanosis, edema. Neuro: Nonfocal. SA/MODL Voice ID: [id number] Report ID: [id number]
[2018-07-23] MEDS ORDERED: WARFARIN SODIUM 5 MG TAB PO SCH (17:00)
== END 2018-07-21 15:06 ==
LOC: ER 17:01 → ERHOLD 21:37 → 2ND 22:31
PROVIDERS: ADMIT Internal Medicine; ATTEND Internal Medicine
DX: R42 Dizziness and giddiness (principal); E86.0 Dehydration; I13.0 Hypertensive heart and chronic kidney disease with heart failure and stage 1 through stage 4 chronic kidney disease, or unspecified chronic kidney disease; E11.22 Type 2 diabetes mellitus with diabetic chronic kidney disease; N18.3 Chronic kidney disease, stage 3 (moderate); I50.22 Chronic systolic (congestive) heart failure; N17.9 Acute kidney failure, unspecified; I25.10 Atherosclerotic heart disease of native coronary artery without angina pectoris; Z95.810 Presence of automatic (implantable) cardiac defibrillator; Z95.1 Presence of aortocoronary bypass graft; Z86.73 Personal history of transient ischemic attack (TIA), and cerebral infarction without residual deficits; Z23 Encounter for immunization
CPT/HCPCS: 36415; 70450; 71045; 80048; 80061; 80076; 81003; 81015; 82962; 83605; 83735; 83880; 84145; 84484; 85025; 85610; 86850; 86900; 86901; 87040; 87086; 87088; 87804; 90670; 93005; 96360; 96361; 96365; 96366; 97166; 99285; G0009; G0378; J7030

== ENCOUNTER 2018-07-27 02:28 | Emergency (ER) | payer OTHER ==
[2018-07-27 03:13] LABS: Absolute Lymphocytes (CBC) 1.4 K/uL (0.7-4.9); Absolute Monocytes 0.4 K/uL (0.1-1.3); Absolute Neutrophil 3.4 K/uL (1.8-8.0); Basophils % 0.4 % (0-1.3); Eosinophils % 1.7 % (0-4.4); Hematocrit 35.1 % (39.6-49.0); Lymphocytes % 25.5 % (15.3-44.8); Monocytes % 8.4 % (3.3-12.3); RBC Red Blood Cell Count 4.01 M/uL (4.33-5.43)
[2018-07-27] MEDS ORDERED: NA CHLORIDE 0.9% 1,000 ML ONE (03:13)
[2018-07-27 03:23] LABS: Protime INR 2.78
[2018-07-27] MEDS ORDERED: THIAMINE 200 MG/2 ML INJ ONE (03:36)
[2018-07-27] MEDS ORDERED: FOLIC ACID 5 MG/ML VIAL ONE (03:37)
[2018-07-27 03:39] LABS: ALT/SGPT 27 U/L (12-78); AST/SGOT 30 U/L (15-37); Albumin 3.2 g/dL (3.4-5.0); Alkaline Phosphatase 136 U/L (45-117); BUN Blood Urea Nitrogen 11 mg/dL (7-18); Bicarbonate 26 mmol/L (21-32); Bilirubin Direct 0.2 mg/dL (0-0.2); Bilirubin Total 0.4 mg/dL (0.2-1.0); C-Reactive Protein < 2.90 mg/L (<3.00); Glucose Level 129 mg/dL (74-106); Lipase 152 U/L (73-393); Magnesium 2.2 mg/dL (1.8-2.4); NT PRO-BNP 5611 pg/mL (<125); Protein, Total 7.2 g/dL (6.4-8.2); Sodium Level 139 mmol/L (136-145); Troponin (Emerg Dept Use Only) 0.04 ng/mL (0.0-0.045)
--- NOTE | 2018-07-27 04:02 | ER ---
Nurse's Notes [facility] Name: Zana Zamora Age: 72 yrs Sex: Male : 1945 Arrival Date: 07/27/2018 Time: 02:28 Bed 2 Private MD: Diagnosis: Aphasia;Weakness;Altered mental status, unspecified Presentation: 07/27 02:33 Presenting complaint: EMS states: Pt has stated he does not feel good and has tremors. tl2 Denies chest pain or shortness of breath. Transition of care: patient was received from another setting of care (long-term care [facility]), [facility]. Onset of symptoms was July 27, 2018 at 02:00. Risk Assessment: Do you want to hurt yourself or someone else? Patient reports no desire to harm self or others. Initial Sepsis Screen: Does the patient meet any 2 criteria? No. Patient's initial sepsis screen is negative. Does the patient have a suspected source of infection? No. Patient's initial sepsis screen is negative. Care prior to arrival: None. 02:33 Method Of Arrival: EMS: [facility] tl2 02:33 Acuity: ELLA 2 tl2 Historical: - Allergies: 02:37 NKA; tl2 - Home Meds: 02:37 aspirin 81 mg Oral chew 1 tab once daily [Active]; atorvastatin 20 mg Oral tab 1 tab tl2 once daily [Active]; carvedilol 6.25 mg Oral tab 0.5 tab 2 times per day [Active]; furosemide 20 mg Oral tab 3 tabs [Active]; levothyroxine 112 mcg tab 1 tab once daily [Active]; lisinopril 5 mg Oral tab 1 tab once daily [Active]; Novolog 100 unit/mL Sub-Q soln three times a day [Active]; omeprazole 20 mg Oral cpDR 2 caps once daily [Active]; Ranexa 1,000 mg Oral Tb12 1 tab 2 times per day [Active]; warfarin 5 mg Oral tab 1.5 tabs mondays, wednesdays, and fridays [Active]; - PMHx: 02:37 Atrial Fib; CAD; CHF; CVA; Diabetes - IDDM; Hyperlipidemia; Hypertension; Umbilical tl2 hernia; - Immunization history:: Adult Immunizations up to date. - Social history:: Smoking status: Patient/guardian denies using tobacco. - Ebola Screening: : No symptoms or risks identified at this time. - Family history:: not pertinent. Screenin:38 Abuse screen: Denies threats or abuse. Nutritional screening: No deficits noted. tl2 Tuberculosis screening: No symptoms or risk factors identified. Fall Risk None identified. Assessment: 02:45 General: Appears in no apparent distress. Behavior is anxious. Pain: Denies pain. lp1 Neuro: Level of Consciousness is awake, alert, obeys commands, Oriented to person, place, situation, Reports numbness paresthesias in right arm, left arm, right leg and left leg. Cardiovascular: Patient's skin is warm and dry. Respiratory: Respiratory effort is even, unlabored, Breath sounds are clear bilaterally. GI: Abdomen is non-distended. : No signs and/or symptoms were reported regarding the genitourinary system. EENT: No signs and/or symptoms were reported regarding the EENT system. Derm: Skin is pink, warm \T\ dry. Musculoskeletal: Range of motion: intact in all extremities. 03:00 Patient has been NPO before screening. The patient is alert, and able to follow lp1 commands. The patient exhibits slurred or garbled speech. The patient is exhibiting difficulty speaking. The patient does not exhibit difficulty understanding words. The patient is able to swallow own secretions with no drooling or need for suction. Patient tolerated one teaspoon of water. No drooling, immediate coughing, gurgling, or clearing of the throat was noted. The patient tolerated 90mL of water. No drooling, immediate coughing, gurgling, or clearing of the throat was noted. The patient passed the bedside swallow screening. Oral medications may be given as ordered. Contact Physician for further diet orders. Provider notified of bedside swallow screening results: Bobby Funes MD. T-PA (Activase) Screening: Contraindications: Is the patient on Aspirin, Heparin, or Warfarin: Yes. 04:00 Reassessment: Patient appears in no apparent distress at this time. Patient is alert, lp1 oriented x 3, equal unlabored respirations, skin warm/dry/pink. Patient states feeling like his speech has improved. 04:49 Reassessment: Report called to MARTITA Segovia at [facility] for patient going to room 2250.lp1 05:34 Reassessment: Patient's daughter, Beverly, notified of patient's transfer to . [facility]. Reassessment: EMS at bedside for transfer. Vital Signs: 02:37 BP 161 / 91; Pulse 75; Resp 20; Pulse Ox 100% on R/A; Weight 77.11 kg; Height 5 ft. 9 tl2 in. (175.26 cm); Pain 0/10; 02:45 BP 156 / 94; Pulse 75; Resp 17; Pulse Ox 100% on R/A; lp1 03:45 BP 164 / 76; Pulse 76; Resp 18; Pulse Ox 99% on R/A; lp1 04:30 BP 146 / 67; Pulse 76; Resp 15; Temp 98.5(O); Pulse Ox 100% on R/A; Pain 0/10; lp1 02:37 Body Mass Index 25.10 (77.11 kg, 175.26 cm) tl2 NIH Stroke Scale Scores: 03:00 NIHSS Score: 8 lp1 03:28 NIHSS Score: 7 [facility] ED Course: 02:28 Patient arrived in ED. al2 02:34 Triage completed. tl2 02:37 Arm band placed on right wrist. tl2 02:38 Patient has correct armband on for positive identification. Bed in low position. Call tl2 light in reach. Side rails up X2. 02:42 Missed attempt(s): 22 gauge in right antecubital area. Inserted saline lock: 22 gauge lp1 in right forearm, using aseptic technique. Blood collected. 02:44 Bobby Funes MD is Attending Physician. [facility] 03:13 X-ray completed. Portable x-ray completed in exam room. Patient tolerated procedure kw well. 03:13 XRAY Chest (1 view) In Process Unspecified. EDMS 03:46 CT completed. Patient tolerated procedure well. Patient moved to CT via stretcher. Patient moved back from CT. 04:02 Liliam Cary, MARTITA is Primary Nurse. lp1 04:06 CT Head Brain wo Cont In Process Unspecified. EDMS 04:34 No provider procedures requiring assistance completed. lp1 05:34 Patient transferred, IV remains in place. lp1 Administered Medications: 03:07 Drug: NS 0.9% 500 ml Route: IV; Rate: bolus; Site: right forearm; tl2 03:30 Follow up: IV Status: Completed infusion; IV Intake: 500ml lp1 03:32 Drug: NS 0.9% 1000 ml Route: IV; Rate: 125 ml/hr; Site: right forearm; tl2 05:36 Follow up: IV Status: Infusion continued upon transfer lp1 03:32 Drug: foLIC Acid 1 mg Route: IVPB; Site: right forearm; tl2 04:30 Follow up: IV Status: Completed infusion lp1 03:32 Drug: Thiamine 100 mg Route: IV; Rate: bolus; Site: right forearm; tl2 04:30 Follow up: IV Status: Completed infusion lp1 Intake: 03:30 IV: 500ml; Total: 500ml. lp1 Outcome: 04:01 ER care complete, transfer ordered by . [facility] 04:37 Condition: stable lp1 05:34 Transferred by ground EMS to [facility], Transfer form completed. lp1 X-rays sent w/ patient. 05:34 Instructed on the need for transfer. 05:37 Patient left the ED. lp1 NIH Stroke Scale - NIH Stroke Score Date: 07/27/2018 Time: 03:00 Total Score = 8 1a. Level of Consciousness (LOC) - 0(Alert) 1b. Level of Consciousness (LOC) (Year \T\ Age) - 0(Both) 1c. LOC Commands (Open \T\ Closes Eyes/Director Of Recruiting) - 0(Both) 2. Best Gaze (Lateral Gaze Paresis) - 0(Normal) 3. Visual Field Loss - 1(Partial hemianopia) 4. Facial Palsy - 0(Normal) 5a. Left Arm: Motor (10-second hold) - 0(No drift) 5b. Right Arm: Motor (10-second hold) - 0(No drift) 6a. Left Leg: Motor (5-second hold - always test supine) - 1(Drift) 6b. Right Leg: Motor (5-second hold - always test supine) - 1(Drift) 7. Limb Ataxia (finger/nose \T\ heel/melvin - test with eyes open) - 2(Present in two limbs) 8. Sensory Loss (pinprick arms/legs/face) - 1(Mild to moderate loss) 9. Best Language: Aphasia (description/naming/reading) - 1(Mild to moderate aphasia) 10. Dysarthria (speech clarity - read or repeat words) - 1(Mild to Moderate) 11. Extinction and Inattention (visual/tactile/auditory/spatial/personal) - 0(No abnormality) Initials: lp1 NIH Stroke Scale - NIH Stroke Score Date: 07/27/2018 Time: 03:28 Total Score = 7 1a. Level of Consciousness (LOC) - 0(Alert) 1b. Level of Consciousness (LOC) (Year \T\ Age) - 0(Both) 1c. LOC Commands (Open \T\ Closes Eyes/Director Of Recruiting) - 0(Both) 2. Best Gaze (Lateral Gaze Paresis) - 0(Normal) 3. Visual Field Loss - 0(No visual loss) 4. Facial Palsy - 0(Normal) 5a. Left Arm: Motor (10-second hold) - 0(No drift) 5b. Right Arm: Motor (10-second hold) - 0(No drift) 6a. Left Leg: Motor (5-second hold - always test supine) - 1(Drift) 6b. Right Leg: Motor (5-second hold - always test supine) - 1(Drift) 7. Limb Ataxia (finger/nose \T\ heel/melvin - test with eyes open) - 2(Present in two limbs) 8. Sensory Loss (pinprick arms/legs/face) - 1(Mild to moderate loss) 9. Best Language: Aphasia (description/naming/reading) - 1(Mild to moderate aphasia) 10. Dysarthria (speech clarity - read or repeat words) - 1(Mild to Moderate) 11. Extinction and Inattention (visual/tactile/auditory/spatial/personal) - 0(No abnormality) Initials: denzel Signatures: Dispatcher [employer] EDBobby Short MD MD cha Hagler, China Qiu Laura RN RN lp1 Teresa Rodriguez RN RN tl2 Anali Levin
--- NOTE | 2018-07-27 04:02 | EDPHYS ---
Physician Documentation [facility] Name: Zana Zamora Age: 72 yrs Sex: Male : 1945 Arrival Date: 07/27/2018 Time: 02:28 Bed 2 Private MD: ED Physician Bobby Funes HPI: 07/27 02:59 This 72 yrs old Male presents to ER via EMS with complaints of ams, speech not denzel normal. 02:59 This 72 yrs old Male presents to ER via EMS with complaints of ams, speech denzel difficult. 02:59 The patient's problem is reported as altered mental status, disoriented to time, denzel confused. Onset: The symptoms/episode began/occurred just prior to arrival. Duration: The episode is continuous. Context: occurred while the patient was at rest. Context: the episode(s) was witnessed, by the shelter staff, symptoms became apparent upon waking, occurred at a shelter or assisted living facility. The symptoms are alleviated by nothing. The symptoms are aggravated by nothing. The patient presents with confusion. Onset: The symptoms/episode began/occurred at an unknown time. bed at 8pm awoke this way. Possible causes: CVA or TIA, low blood sugar. Associated signs and symptoms: The patient has no apparent associated signs or symptoms. Historical: - Allergies: 02:37 NKA; tl2 - Home Meds: 02:37 aspirin 81 mg Oral chew 1 tab once daily [Active]; atorvastatin 20 mg Oral tab 1 tab tl2 once daily [Active]; carvedilol 6.25 mg Oral tab 0.5 tab 2 times per day [Active]; furosemide 20 mg Oral tab 3 tabs [Active]; levothyroxine 112 mcg tab 1 tab once daily [Active]; lisinopril 5 mg Oral tab 1 tab once daily [Active]; Novolog 100 unit/mL Sub-Q soln three times a day [Active]; omeprazole 20 mg Oral cpDR 2 caps once daily [Active]; Ranexa 1,000 mg Oral Tb12 1 tab 2 times per day [Active]; warfarin 5 mg Oral tab 1.5 tabs mondays, wednesdays, and fridays [Active]; - PMHx: 02:37 Atrial Fib; CAD; CHF; CVA; Diabetes - IDDM; Hyperlipidemia; Hypertension; Umbilical tl2 hernia; - Immunization history:: Adult Immunizations up to date. - Social history:: Smoking status: Patient/guardian denies using tobacco. - Ebola Screening: : No symptoms or risks identified at this time. - Family history:: not pertinent. ROS: 02:59 Constitutional: Negative for fever, chills, and weight loss, Eyes: Negative for injury, denzel pain, redness, and discharge, ENT: Negative for injury, pain, and discharge, Neck: Negative for injury, pain, and swelling, Cardiovascular: Negative for chest pain, palpitations, and edema, Respiratory: Negative for shortness of breath, cough, wheezing, and pleuritic chest pain, Abdomen/GI: Negative for abdominal pain, nausea, vomiting, diarrhea, and constipation, Back: Negative for injury and pain, : Negative for injury, bleeding, discharge, and swelling, MS/Extremity: Negative for injury and deformity, Skin: Negative for injury, rash, and discoloration, Psych: Negative for depression, anxiety, suicide ideation, homicidal ideation, and hallucinations, Allergy/Immunology: Negative for hives, rash, and allergies, Endocrine: Negative for neck swelling, polydipsia, polyuria, polyphagia, and marked weight changes, Hematologic/Lymphatic: Negative for swollen nodes, abnormal bleeding, and unusual bruising. 02:59 Neuro: Positive for altered mental status, weakness. Exam: 02:59 Radiologist reports: see report denzel 02:59 Constitutional: This is a well developed, well nourished patient who is awake, alert, and in no acute distress. Head/Face: Normocephalic, atraumatic. Eyes: Pupils equal round and reactive to light, extra-ocular motions intact. Lids and lashes normal. Conjunctiva and sclera are non-icteric and not injected. Cornea within normal limits. Periorbital areas with no swelling, redness, or edema. ENT: Nares patent. No nasal discharge, no septal abnormalities noted. Tympanic membranes are normal and external auditory canals are clear. Oropharynx with no redness, swelling, or masses, exudates, or evidence of obstruction, uvula midline. Mucous membranes moist. Neck: Trachea midline, no thyromegaly or masses palpated, and no cervical lymphadenopathy. Supple, full range of motion without nuchal rigidity, or vertebral point tenderness. No Meningismus. Chest/axilla: Normal chest wall appearance and motion. Nontender with no deformity. No lesions are appreciated. Cardiovascular: Regular rate and rhythm with a normal S1 and S2. No gallops, murmurs, or rubs. Normal PMI, no JVD. No pulse deficits. Respiratory: Lungs have equal breath sounds bilaterally, clear to auscultation and percussion. No rales, rhonchi or wheezes noted. No increased work of breathing, no retractions or nasal flaring. Abdomen/GI: Soft, non-tender, with normal bowel sounds. No distension or tympany. No guarding or rebound. No evidence of tenderness throughout. Back: No spinal tenderness. No costovertebral tenderness. Full range of motion. Male : Normal genitalia with no discharge or lesions. Skin: Warm, dry with normal turgor. Normal color with no rashes, no lesions, and no evidence of cellulitis. 02:59 Neuro: Orientation: to person, Not oriented to place, time, situation, Mentation: slow to respond, confused, Memory: unable to test, Cranial nerves: is grossly normal based on the patient's age, no acute changes, Cerebellar function: unable to test, Motor: moves all fours, Gait: not tested. Deep tendon reflexes are 2+ (normal) in the bilateral brachioradialis, bicep, tricep and patellar and Achilles tendons. Vital Signs: 02:37 BP 161 / 91; Pulse 75; Resp 20; Pulse Ox 100% on R/A; Weight 77.11 kg; Height 5 ft. 9 tl2 in. (175.26 cm); Pain 0/10; 02:45 BP 156 / 94; Pulse 75; Resp 17; Pulse Ox 100% on R/A; lp1 03:45 BP 164 / 76; Pulse 76; Resp 18; Pulse Ox 99% on R/A; lp1 04:30 BP 146 / 67; Pulse 76; Resp 15; Temp 98.5(O); Pulse Ox 100% on R/A; Pain 0/10; lp1 02:37 Body Mass Index 25.10 (77.11 kg, 175.26 cm) tl2 NIH Stroke Scale Scores: 03:00 NIHSS Score: 8 lp1 03:28 NIHSS Score: 7 denzel MDM: 02:44 Patient medically screened. [facility] 03:03 Data reviewed: vital signs, nurses notes, lab test result(s), EKG, radiologic studies, [facility] CT scan, plain films. 07/27 02:58 Order name: Basic Metabolic Panel; Complete Time: 03:58 [facility] 07/27 02:58 Order name: CBC with Diff; Complete Time: 03:58 [facility] 07/27 02:58 Order name: LFT's; Complete Time: 03:58 [facility] 07/27 02:58 Order name: Magnesium; Complete Time: 03:58 [facility] 07/27 02:58 Order name: NT PRO-BNP; Complete Time: 03:58 [facility] 07/27 02:58 Order name: PT-INR; Complete Time: 03:58 [facility] 07/27 02:58 Order name: Troponin (emerg Dept Use Only); Complete Time: 03:58 [facility] 07/27 02:58 Order name: XRAY Chest (1 view) [facility] 07/27 02:58 Order name: Lipase; Complete Time: 03:58 [facility] 07/27 02:58 Order name: CT Head Brain wo Cont [facility] 07/27 02:58 Order name: Sed Rate; Complete Time: 03:58 [facility] 07/27 02:58 Order name: CRP; Complete Time: 03:58 [facility] 07/27 02:58 Order name: EKG; Complete Time: 03:00 [facility] 07/27 02:58 Order name: Cardiac monitoring; Complete Time: 03:02 [facility] 07/27 02:58 Order name: EKG - Nurse/Tech; Complete Time: 03:02 [facility] 07/27 02:58 Order name: IV Saline Lock; Complete Time: 03:02 [facility] 07/27 02:58 Order name: Labs collected and sent; Complete Time: 03:02 [facility] 07/27 02:58 Order name: O2 Per Protocol; Complete Time: 03:02 [facility] 07/27 02:58 Order name: O2 Sat Monitoring; Complete Time: 03:02 [facility] Administered Medications: 03:07 Drug: NS 0.9% 500 ml Route: IV; Rate: bolus; Site: right forearm; tl2 03:30 Follow up: IV Status: Completed infusion; IV Intake: 500ml lp1 03:32 Drug: NS 0.9% 1000 ml Route: IV; Rate: 125 ml/hr; Site: right forearm; tl2 05:36 Follow up: IV Status: Infusion continued upon transfer lp1 03:32 Drug: foLIC Acid 1 mg Route: IVPB; Site: right forearm; tl2 04:30 Follow up: IV Status: Completed infusion lp1 03:32 Drug: Thiamine 100 mg Route: IV; Rate: bolus; Site: right forearm; tl2 04:30 Follow up: IV Status: Completed infusion lp1 Disposition: 07/27/18 04:01 Transfer ordered to [facility]. Diagnosis are Aphasia, Weakness, Altered mental status, unspecified. - Reason for transfer: Higher level of care. - Accepting physician is to [facility]. - Condition is Fair. - Problem is new. - Symptoms have improved. NIH Stroke Scale - NIH Stroke Score Date: 07/27/2018 Time: 03:00 Total Score = 8 1a. Level of Consciousness (LOC) - 0(Alert) 1b. Level of Consciousness (LOC) (Year \T\ Age) - 0(Both) 1c. LOC Commands (Open \T\ Closes Eyes/Meal Attendant) - 0(Both) 2. Best Gaze (Lateral Gaze Paresis) - 0(Normal) 3. Visual Field Loss - 1(Partial hemianopia) 4. Facial Palsy - 0(Normal) 5a. Left Arm: Motor (10-second hold) - 0(No drift) 5b. Right Arm: Motor (10-second hold) - 0(No drift) 6a. Left Leg: Motor (5-second hold - always test supine) - 1(Drift) 6b. Right Leg: Motor (5-second hold - always test supine) - 1(Drift) 7. Limb Ataxia (finger/nose \T\ heel/melvin - test with eyes open) - 2(Present in two limbs) 8. Sensory Loss (pinprick arms/legs/face) - 1(Mild to moderate loss) 9. Best Language: Aphasia (description/naming/reading) - 1(Mild to moderate aphasia) 10. Dysarthria (speech clarity - read or repeat words) - 1(Mild to Moderate) 11. Extinction and Inattention (visual/tactile/auditory/spatial/personal) - 0(No abnormality) Initials: lp1 NIH Stroke Scale - NIH Stroke Score Date: 07/27/2018 Time: 03:28 Total Score = 7 1a. Level of Consciousness (LOC) - 0(Alert) 1b. Level of Consciousness (LOC) (Year \T\ Age) - 0(Both) 1c. LOC Commands (Open \T\ Closes Eyes/Meal Attendant) - 0(Both) 2. Best Gaze (Lateral Gaze Paresis) - 0(Normal) 3. Visual Field Loss - 0(No visual loss) 4. Facial Palsy - 0(Normal) 5a. Left Arm: Motor (10-second hold) - 0(No drift) 5b. Right Arm: Motor (10-second hold) - 0(No drift) 6a. Left Leg: Motor (5-second hold - always test supine) - 1(Drift) 6b. Right Leg: Motor (5-second hold - always test supine) - 1(Drift) 7. Limb Ataxia (finger/nose \T\ heel/melvin - test with eyes open) - 2(Present in two limbs) 8. Sensory Loss (pinprick arms/legs/face) - 1(Mild to moderate loss) 9. Best Language: Aphasia (description/naming/reading) - 1(Mild to moderate aphasia) 10. Dysarthria (speech clarity - read or repeat words) - 1(Mild to Moderate) 11. Extinction and Inattention (visual/tactile/auditory/spatial/personal) - 0(No abnormality) Initials: denzel Signatures: Dispatcher [employer] EDMS Bobby Funes MD MD cha Pena, Laura, RN RN lp1 Teresa Rodriguez, MARTITA RN tl2 Corrections: (The following items were deleted from the chart) 05:37 04:01 07/27/2018 04:01 Transfer ordered to [facility]. lp1 Diagnosis is Aphasia; Weakness; Altered mental status, unspecified. Reason for transfer: Higher level of care. Accepting physician is to [facility]. Condition is Fair. Problem is new. Symptoms have improved. denzel
[2018-07-27 05:56] VITALS: BP 146/67; TEMP 98.5; O2SAT 100
--- NOTE | 2018-07-27 08:37 | RAD REPORT ---
EXAM DESCRIPTION: [place] Single View07/27/2018 3:15 am CLINICAL HISTORY: Hypertension COMPARISON: July 20, 2018 FINDINGS: The lungs appear clear of acute infiltrate. The heart is mildly enlarged. Pacemaker leads are in place. Postsurgical changes involve the chest IMPRESSION: No acute abnormalities displayed
--- NOTE | 2018-07-27 09:03 | RAD REPORT ---
EXAM DESCRIPTION: CT - Head Brain Wo Cont - 07/27/2018 5:41 am CLINICAL HISTORY: Alteration of awareness/confusion COMPARISON: July 20, 2018 TECHNIQUE: Computed axial tomography of the head was obtained. IV contrast was not requested. Preliminary report generated by [employer] and reviewed prior to dictation All CT scans are performed using dose optimization technique as appropriate and may include automated exposure control or mA/KV adjustment according to patient size. FINDINGS: An intracranial bleed is not seen . The ventricles are normal in caliber. No extra-axial fluid collection is noted. Fluid within the sinuses/ mastoids is not seen. IMPRESSION: No acute intracranial abnormality is seen. If patient's symptoms persist MRI of the bra in would be recommended.
--- OUTSIDE RECORDS SUMMARY | 2018-07-27 17:46 | XMS REPORT | Clinical Summary ---
:1945 Author Organization [facility] Address [address] [place] [address] Care Team Providers Name Role Phone Pcp, No Primary Care Provider Unavailable Allergies No Known Allergies Medications Medication Sig Dispensed Refills Start End Date Status Date aspirin 81 MG Take 81 mg by 0 Suspended chewable tablet mouth daily. atorvastatin Take 20 mg by 0 Suspended (LIPITOR) 20 MG mouth daily. tablet cyanocobalamin Take 1,000 mcg by 0 Suspended 1000 MCG tablet mouth daily. carvedilol (COREG) Take 3.125 mg by 0 Suspended 25 MG tablet mouth 2 (two) times daily with breakfast and dinner . ferrous gluconate Take 324 mg by 0 Suspended (FERGON) 324 MG mouth 2 (two) tablet times daily. finasteride Take 5 mg by mouth 0 Suspended (PROSCAR) 5 mg daily. tablet furosemide (LASIX) Take 60 mg by 0 Suspended 40 MG tablet mouth daily . levothyroxine Take 112 mcg by 0 Suspended (SYNTHROID, mouth Every LEVOTHROID) 112 morning on an MCG tablet empty stomach 1 hour before breakfast with glass of water . lisinopril Take 5 mg by mouth 0 Suspended (PRINIVIL,ZESTRIL) daily . 10 MG tablet insulin aspart Inject 10 Units 0 Suspended U-100 (NOVOLOG) subcutaneously 3 100 unit/mL InPn (three) times daily with meals Do not give if meal is missed . insulin detemir Inject 35 Units 0 04/10/20 Discontinued U-100 (LEVEMIR) subcutaneously 18 100 unit/mL (3 mL) nightly. InPn injection insulin detemir Inject 15 Units 0 Suspended U-100 (LEVEMIR) subcutaneously 100 unit/mL (3 mL) every morning. InPn injection omeprazole Take 20 mg by 0 Suspended (PRILOSEC) 20 MG mouth daily. capsule warfarin Take 5 mg by mouth 0 Suspended (COUMADIN) 5 MG daily Except tablet Monday, Monday and Monday. . warfarin Take 7.5 mg by 0 Suspended (COUMADIN) 7.5 MG mouth daily On tablet [...] 18 hr tablet 2 (two) times daily. nitroglycerin Place 1 tablet 90 tablet 0 Suspended (NITROSTAT) 0.4 MG (0.4 mg total) 8 SL tablet under the tongue every 5 (five) minutes as needed for Chest pain. ranolazine Take 1 tablet (500 180 tablet 3 04/10/20 Suspended (RANEXA) 500 MG 12 mg total) by mouth 8 19 hr tablet 2 (two) times daily. Active Problems Problem Noted Date TIA (transient ischemic attack) 07/27/2018 CVA (cerebral vascular accident) 06/24/2018 Seizures 06/23/2018 Essential hypertension 06/23/2018 Atrial fibrillation 06/23/2018 Stroke 06/23/2018 Chest pain 04/09/2018 Combined systolic and diastolic congestive heart failure, unspecified HF 04/08 chronicity Encounters Date Type Specialty Care Team Description 07/27/2018 [facility] Internal Elsy Mares Encounter Medicine MD Ez Sawyer, Tamera Stevens MD 07/27/2018 Travel 06/23/2018 [facility] Internal [facility], Atrial fibrillation , unspecified type (HCC) (Primary Dx); - Encounter Medicine Fany Other congestive heart failure (HCC); 06/25/2018 MD Elissa Essential hypertension; Adelaida Lazar Seizures (HCC); MD Yessy Dysarthria; Desiree Quintero Hemiparesis, unspecified hemiparesis etiology, unspecified laterality (HCC); MD Donnell Chronic kidney disease, unspecified CKD stage; Coronary artery disease involving [place] coronary artery of [place] heart without angina pectoris; Other specified hypothyroidism; Cerebrovascular accident (CVA), unspecified mechanism (HCC) 06/23/2018 Travel 04/10/2018 Orders Only General Internal Medicine 04/08/2018 Surgery Gastroenterology Jeovanny Magana UPPER ENDOSCOPY MD Loyda 04/08/2018 Anesthesia Event Gastroenterology Deric Valero CRNA 04/07/2018 Hospital General Internal [facility], Combined systolic and diastolic congestive heart failure, unspecified HF chronicity (HCC); - Encounter Medicine MD Juana Atrial fibrillation, unspecified type (HCC); 04/10/2018 Joann Shepherd, Essential hypertension; Gastrointestinal hemorrhage, unspecified gastrointestinal hemorrhage type; Lisa Lema MD Anemia due to other cause, not classified 04/07/2018 Telephone Critical Care Sona Davies MD [facility] Call Medicine after 07/26/2017 Immunizations Name Dates Previously Given Next Due Pneumococcal Conjugate (Prevnar) 13-Valent 06/24/2018 (Deferred: ) Family History Medical History Relation Name Comments Heart attack Brother Heart attack Father Heart failure Mother Relation Name Status Comments Brother Father Mother Social History Tobacco Use Types Packs/Day Years Used Date Former Smoker Cigars 6 Quit: 07/07/2017 Smokeless Tobacco: Never Used Comments: 2 cigars per day Alcohol Use Drinks/Week oz/Week Comments No Alcohol [...] Vital Sign Reading Time Taken Blood Pressure 143/67 07/27/2018 4:01 PM APPLICATION SUPPORT ANALYST Pulse 66 07/27/2018 4:01 PM APPLICATION SUPPORT ANALYST Temperature 36.1 C (97 F) 07/27/2018 4:01 PM APPLICATION SUPPORT ANALYST Respiratory Rate 18 07/27/2018 4:01 PM APPLICATION SUPPORT ANALYST Oxygen Saturation 97% 07/27/2018 4:01 PM APPLICATION SUPPORT ANALYST Inhaled Oxygen Concentration - - Weight 65.8 kg (145 lb) 07/27/2018 6:00 AM APPLICATION SUPPORT ANALYST Height 170.2 cm (5' 7") 07/27/2018 6:00 AM APPLICATION SUPPORT ANALYST Body Mass Index 22.71 07/27/2018 6:00 AM APPLICATION SUPPORT ANALYST Plan of Treatment Not on file Procedures The patient is currently admitted. The information in this section might not be complete until the patient is discharged. Procedure Name Priority Date/Time Associated Comments Diagnosis POCT-GLUCOSE METER Routine 07/27/2018 4:56 Results for PM APPLICATION SUPPORT ANALYST this procedure are in the results section. POCT-GLUCOSE METER Routine 07/27/2018 11:39 Results for AM APPLICATION SUPPORT ANALYST this procedure are in the results section. CBC W/PLT COUNT & Routine 07/27/2018 9:16 Results for AUTO DIFFERENTIAL AM APPLICATION SUPPORT ANALYST this procedure are in the results section. PROTHROMBIN TIME/INR Routine 07/27/2018 9:16 Results for AM APPLICATION SUPPORT ANALYST this procedure are in the results section. RPR Routine 07/27/2018 9:16 Results for AM APPLICATION SUPPORT ANALYST this procedure are in the results section. HEPATIC FUNCTION Routine 07/27/2018 9:16 Results for PANEL AM APPLICATION SUPPORT ANALYST this procedure are in the results section. TROPONIN I Routine 07/27/2018 9:16 Results for AM APPLICATION SUPPORT ANALYST this procedure are in the results section. TSH Routine 07/27/2018 9:16 Results for AM APPLICATION SUPPORT ANALYST this procedure are in the results section. VITAMIN B12 AND Routine 07/27/2018 9:16 Results for FOLATE AM APPLICATION SUPPORT ANALYST this procedure are in the results section. LIPID PANEL Routine 07/27/2018 9:16 Results for AM APPLICATION SUPPORT ANALYST this procedure are in the results section. CBC W/PLT COUNT & Routine 07/27/2018 9:16 Results for AUTO DIFFERENTIAL AM APPLICATION SUPPORT ANALYST this procedure are in the results section. BASIC METABOLIC PANEL Routine 07/27/2018 9:16 Results for (7) AM APPLICATION SUPPORT ANALYST this procedure are in the results section. POCT-GLUCOSE METER Routine 07/27/2018 8:35 Results for AM APPLICATION SUPPORT ANALYST this procedure are in the results section. ARRYTHMIA IMPLANT 06/26/2018 3:10 REPORT - SCAN PM APPLICATION SUPPORT ANALYST RHYTHM STRIP - SCAN 06/26/2018 3:10 PM APPLICATION SUPPORT ANALYST ECHOCARDIOGRAM REPORT 06/25/2018 5:50 - SCAN PM APPLICATION SUPPORT ANALYST 2D ECHO W/ DOPPLER Pending 06/25/2018 3:28 Results for (CW/PW/COLOR) Discharge PM APPLICATION SUPPORT ANALYST this procedure are in the results section. POCT-GLUCOSE METER Routine 06/25/2018 11:24 Results for AM APPLICATION SUPPORT ANALYST this procedure are in the results section. EEG AWAKE AND DROWSY Routine 06/25/2018 10:39 Results for AM APPLICATION SUPPORT ANALYST this procedure are in the results section. POCT-GLUCOSE METER Routine 06/25/2018 8:32 Results for AM APPLICATION SUPPORT ANALYST this procedure are in the results section. PROTHROMBIN TIME/INR Routine 06/25/2018 3:56 Results for AM APPLICATION SUPPORT ANALYST this procedure are in the results section. PHOSPHORUS Routine 06/25/2018 3:56 Results for AM APPLICATION SUPPORT ANALYST this procedure are in the results section. MAGNESIUM Routine 06/25/2018 3:56 Results for AM APPLICATION SUPPORT ANALYST this procedure are in the results section. BASIC METABOLIC PANEL Routine 06/25/2018 3:56 Results for (7) AM APPLICATION SUPPORT ANALYST this procedure are in the results section. URINALYSIS W/ REFLEX Routine 06/24/2018 9:54 Results for URINE CULTURE PM APPLICATION SUPPORT ANALYST this procedure are in the results section. URINE CULTURE Routine 06/24/2018 9:54 Results for PM APPLICATION SUPPORT ANALYST this procedure are in the results section. POCT-GLUCOSE METER Routine 06/24/2018 9:36 Results for PM APPLICATION SUPPORT ANALYST this procedure are in the results section. POCT-GLUCOSE METER Routine 06/24/2018 5:26 Results for PM APPLICATION SUPPORT ANALYST this procedure are in the results section. XR CHEST 1 VIEW Routine 06/24/2018 2:15 Results for PORTABLE/BEDSIDE PM APPLICATION SUPPORT ANALYST this procedure are in the results section. COMPREHENSIVE Routine 06/24/2018 12:55 Results for METABOLIC PANEL PM APPLICATION SUPPORT ANALYST this procedure are in the results section. POCT-GLUCOSE METER Routine 06/24/2018 12:38 Results for PM APPLICATION SUPPORT ANALYST this procedure are in the results section. CT BRAIN WITHOUT IV STAT 06/24/2018 9:30 Results for CONTRAST AM APPLICATION SUPPORT ANALYST this procedure are in the results section. POCT-GLUCOSE METER Routine 06/24/2018 8:08 Results for AM APPLICATION SUPPORT ANALYST this procedure are in the results section. T4, FREE Routine 06/24/2018 6:44 Results for AM APPLICATION SUPPORT ANALYST this procedure are in the results section. PROTHROMBIN TIME/INR Routine 06/24/2018 6:44 Results for AM APPLICATION SUPPORT ANALYST this procedure are in the results section. RPR Routine 06/24/2018 6:44 Results for AM APPLICATION SUPPORT ANALYST this procedure are in the results section. HEMOGLOBIN A1C Routine 06/24/2018 6:44 Results for AM APPLICATION SUPPORT ANALYST this procedure are in the results section. TSH/FREE T4 IF Routine 06/24/2018 6:44 Results for INDICATED AM APPLICATION SUPPORT ANALYST this procedure are in the results section. VITAMIN B12 AND Routine 06/24/2018 6:44 Results for FOLATE AM APPLICATION SUPPORT ANALYST this procedure are in the results section. LIPID PANEL Routine 06/24/2018 6:44 Results for AM APPLICATION SUPPORT ANALYST this procedure are in the results section. POCT-GLUCOSE METER Routine 06/23/2018 10:05 Results for PM APPLICATION SUPPORT ANALYST this procedure are in the results section. PROTHROMBIN TIME/INR Routine 06/23/2018 6:18 Results for PM APPLICATION SUPPORT ANALYST this procedure are in the results section. POCT-GLUCOSE METER Routine 06/23/2018 5:37 Results for PM APPLICATION SUPPORT ANALYST this procedure are in the results section. CBC W/PLT COUNT & Routine 06/23/2018 12:52 Results for AUTO DIFFERENTIAL PM APPLICATION SUPPORT ANALYST this procedure are in the results section. CBC W/PLT COUNT & Routine 06/23/2018 12:52 Results for AUTO DIFFERENTIAL PM APPLICATION SUPPORT ANALYST this procedure are in the results section. BASIC METABOLIC PANEL Routine 06/23/2018 12:52 Results for (7) PM APPLICATION SUPPORT ANALYST this procedure are in the results section. POCT-GLUCOSE METER Routine 06/23/2018 12:16 Results for PM APPLICATION SUPPORT ANALYST this procedure are in the results section. POCT-GLUCOSE METER Routine 06/23/2018 8:31 Results for AM APPLICATION SUPPORT ANALYST this procedure are in the results section. [...] 434 ms QTC Calculation(Bazett) 484 ms P [place] 33 degrees R [place] 77 degrees T [place] 229 degrees Sinus rhythm with 1st degree [...] procedure are in the results section. after 07/26/2017 Results POC-Glucose meter (07/27/2018 4:56 PM APPLICATION SUPPORT ANALYST)Only the most recent of25 resultswithin the time period is included. POC-Glucose Meter 109Comment: TESTED AT 70 - 110 mg/dL [facility] [address] [facility] [address] Specimen Blood Performing Organization Address City/State/Zipcode Phone Number [address] [address] CENTER Vitamin B12 and Folate (07/27/2018 9:16 AM APPLICATION SUPPORT ANALYST)Only the most recent of3 resultswithin the time period is included. Vitamin B12 1,571 (H) 213 - 816 pg/mL [facility] Folate 12.0 >=7.0 ng/mL [facility] Specimen Blood Performing Organization Address City/State/Zipcode Phone Number [facility] [address] [place] [address] CENTER CBC with platelet count + automated diff (07/27/2018 9:16 AM APPLICATION SUPPORT ANALYST)Only the most recent of6 resultswithin the time period is included. WBC 5.8 3.5 - 10.5 K/L [facility] RBC 3.84 (L) 4.63 - 6.08 M/L [facility] Hemoglobin 11.2 (L) 13.7 - 17.5 GM/DL [facility] Hematocrit 34.4 (L) 40.1 - 51.0 % [facility] MCV 89.6 79.0 - 92.2 fL [facility] MCH 29.2 25.7 - 32.2 pg [facility] MCHC 32.6 32.3 - 36.5 GM/DL [facility] RDW 13.7 11.6 - 14.4 % [facility] Platelets 127 (L) 150 - 450 K/CU MM [facility] MPV 9.6 9.4 - 12.4 fL [facility] nRBC 0 0 - 0 /100 WBC [facility] % Neutros 72 % [facility] % Lymphs 22 % [facility] % Monos 6 % [facility] % Eos 1 % [facility] % Baso 0 % [facility] # Neutros 4.18 1.78 - 5.38 K/L [facility] # Lymphs 1.26 (L) 1.32 - 3.57 K/L [facility] # Monos 0.32 0.30 - 0.82 K/L [facility] # Eos 0.04 0.04 - 0.54 K/L [facility] # Baso 0.02 0.01 - 0.08 K/L [facility] Immature Granulocytes-Relative 0 0 - 1 % [facility] Specimen Blood Performing Organization Address City/[facility] Phone Number [address] [address] [phone] CENTER Troponin I (07/27/2018 9:16 AM APPLICATION SUPPORT ANALYST)Only the most recent of3 resultswithin the time period is included. Troponin I 0.04 (H) 0.00 - 0.03 ng/mL [facility] Specimen Blood Narrative Performed At Troponin I (TnI) levels must be interpreted [facility] in the context of the presenting symptoms [...] disease, and persistent tachyarrhythmia. Performing Organization Address City/[facility]/Zipcode Phone Number [address] [address] CENTER RPR (07/27/2018 9:16 AM APPLICATION SUPPORT ANALYST)Only the most recent of2 resultswithin the time period is included. RPR Nonreactive Nonreactive [facility] Specimen Blood Performing Organization Address City/State/Zipcode Phone Number [address] [address] CENTER Prothrombin time/INR (07/27/2018 9:16 AM APPLICATION SUPPORT ANALYST)Only the most recent of8 resultswithin the time period is included. Protime 29.3 (H) 11.7 - 14.7 seconds [facility] INR 2.8 <=5.9 [facility] Specimen Blood Narrative Performed At RECOMMENDED COUMADIN/WARFARIN INR THERAPY [facility] RANGES STANDARD DOSE: 2.0 - 3.0 Includes: PROPHYLAXIS for venous thrombosis, systemic embolization; TREATMENT for venous thrombosis and/or pulmonary embolus. HIGH RISK: Target INR is 2.5-3.5 for patients with mechanical heart valves. Performing Organization Address City/[facility] Cent[facility]ode Phone Number [address] [address] [place] TSH (07/27/2018 9:16 AM APPLICATION SUPPORT ANALYST) TSH 0.05 (L) 0.35 - 4.94 uIU/mL [facility] Specimen Blood Performing Organization Address [facility] Phone Number [address] [address] [phone] [place] Hepatic function panel (07/27/2018 9:16 AM APPLICATION SUPPORT ANALYST) Protein, Total 6.7 6.0 - 8.3 gm/dL [facility] Albumin 3.5 3.5 - 5.0 g/dL [facility] Total Bilirubin 0.4 0.2 - 1.2 mg/dL [facility] Bilirubin, Direct 0.2 0.1 - 0.5 mg/dL [facility] Alkaline Phosphatase 104 40 - 150 U/L [facility] AST 22 5 - 34 U/L [facility] ALT 19 6 - 55 U/L [facility] Specimen Blood Performing Organization Address [facility] Cent[facility]ode Phone Number [address] [address] [place] Lipid panel (07/27/2018 9:16 AM APPLICATION SUPPORT ANALYST)Only the most recent of3 resultswithin the time period is included. Triglycerides 172 mg/dL [facility] Cholesterol 123 mg/dL [facility] HDL 37 mg/dL [facility] LDL Calculated 52 mg/dL [facility] Specimen Blood Narrative Performed At Triglyceride Reference Range: [facility] Low Risk <150 [id number] High Risk 200-499 Very High Risk>=500 Cholesterol Reference Range: Low Risk <200 [id number] High Risk>240 HDL Cholesterol Reference Range: Low Risk >=60 High Risk <40 LDL Cholesterol Reference Range: Optimal<100 Near [id number] [id number] [id number] Very High >=190 Performing Organization Address City/[facility] Centercode Phone Number [address] [address] CENTER Basic Metabolic Panel (07/27/2018 9:16 AM APPLICATION SUPPORT ANALYST)Only the most recent of6 resultswithin the time period is included. Sodium 136 136 - 145 meq/L [facility] Potassium 4.4 3.5 - 5.1 meq/L [facility] Chloride 105 98 - 107 meq/L [facility] CO2 29 22 - 29 meq/L [facility] BUN 10 7 - 21 mg/dL [facility] Creatinine 1.04 0.57 - 1.25 mg/dL [facility] Glucose 127 (H) 70 - 105 mg/dL [facility] Calcium 8.7 8.4 - 10.2 mg/dL [facility] EGFR 70Comment: ESTIMATED GFR IS mL/min/1.73 sq m [facility] NOT ACCURATE [facility] CLEARANCE IN PREDICTING GLOMERULAR FILTRATION RATE. ESTIMATED GFR IS NOT APPLICABLE FOR DIALYSIS PATIENTS. Specimen Blood Performing Organization Address City/[facility] Centercode Phone Number [facility] [address] [place] [address] CENTER ARRYTHMIA IMPLANT REPORT - SCAN (06/26/2018 3:10 PM APPLICATION SUPPORT ANALYST) Narrative Performed At RHYTHM STRIP - SCAN (06/26/2018 3:10 PM APPLICATION SUPPORT ANALYST)Only the most recent of2 resultswithin the time period is included. Narrative Performed At ECHOCARDIOGRAM REPORT - SCAN (06/25/2018 5:50 PM APPLICATION SUPPORT ANALYST) Narrative Performed At 2D Echo W/Doppler(CW/PW/Color) (06/25/2018 3:28 PM APPLICATION SUPPORT ANALYST) Ejection Fraction [facility] ECHO [facility]CK[facility] Narrative Performed At Transthoracic Echocardiography Report (TTE) [facility] ECHO HEART[facility] CKESSSH[facility] Demographics Patient NameCISNEROS,Date of Study06/25/2018 SILVERIO Gender Male Visit [id number] Race [id number] Number Date of 1945 Referring PhysicianDesiree Quintero MD Age 72 year(s) SonographerMphi Duran CS Chief Strategy Officer Sal KeydeLaurating Joe Corrigan MD Physician Procedure Type of [...] function is indeterminate. Left AtriumLA size is hafb-[id number] enlarged . RightNormal right ventricle structure and [...] External Ris In - 06/25/2018 5:19 PM APPLICATION SUPPORT ANALYST Transthoracic Echocardiography Report (TTE) Demographics Patient Name URI, Date of Study 06/25/2018 SILVERIO Gender Male Visit Number [id number] Race Room Number 2235 Number Date of 1945 Referring Physician Desiree Quintero MD Age 72 year(s) [place] [employer] Vance Duran [facility] Chief Strategy Officer Sal Carney Interpreting Joe Corrigan MD Physician [...] is indeterminate. Left Atrium LA size is qtvi-nl-tviqsjxdtb enlarged . Right Normal right ventricle structure [...] Address City/State/Zipcode Phone Number [facility] E[facility] HEART[facility] MKCKMILENA CPACS EEG AWAKE AND DROWSY (06/25/2018 10:39 AM APPLICATION SUPPORT ANALYST) Narrative Performed At Date of EE06/25/18 GE RIS DATE OF REPORT: 06/25/18 ACC: [id number] EEG Number: [id number] Test Location: Inpatient Start time: 06/25/18 at 1018 Stop time: 06/25/18 at 1039 ICD-10: 74580 CPT Code: R56.9 HISTORY: 72 year old [...] Fellow Yamilex Pagan MD PhD Attending Neurophysiologist [facility] Procedure Note Interface, External Ris In - 06/25/2018 2:58 PM APPLICATION SUPPORT ANALYST Date of EE06/25/18 DATE OF REPORT: 06/25/18 ACC: [id number] EEG Number: [id number] Test Location: Inpatient Start time: 06/25/18 at 1018 Stop time: 06/25/18 at 1039 ICD-10: 73052 CPT Code: R56.9 HISTORY: 72 year old [...] Fellow Yamilex Pagan MD PhD Attending Neurophysiologist [facility] Performing Organization Address City/State/Zipcode Phone Number RIS Phosphorus (06/25/2018 3:56 AM APPLICATION SUPPORT ANALYST) Phosphorus 3.2 2.3 - 4.7 mg/dL [facility] Specimen Blood Performing Organization Address City/State/Zipcode Phone Number [facility] [address] [place] [phone] CENTER Magnesium (06/25/2018 3:56 AM APPLICATION SUPPORT ANALYST)Only the most recent of4 resultswithin the time period is included. Magnesium 2.5 1.6 - 2.6 mg/dL [facility] Specimen Blood Performing Organization Address [facility]/Zipcode Phone Number [facility] [address] [place] [address] [place] Urinalysis w/Microscopic + Reflex to Culture (06/24/2018 9:54 PM APPLICATION SUPPORT ANALYST) Color, UA Yellow [facility] Clarity, UA Clear [facility] Specific [place], UA 1.014 1.001 - 1.035 [facility] pH, UA 6.5 5.0 - 8.0 [facility] Protein, UA 20 mg/dL (A) Negative [facility] Glucose, UA 70 mg/dL (A) Negative [facility] Ketones, UA Negative Negative [facility] Bilirubin, UA Negative Negative [facility] Blood, UA Negative Negative [facility] Nitrite, UA Negative Negative [facility] Leukocytes, UA Negative Negative [facility] Urobilinogen, UA 0.2 0.2 - 1.0 mg/dL [facility] RBC, UA 1 /HPF [facility] WBC, UA <1 /HPF [facility] Hyaline Casts, UA 1 /LPF [facility] Specimen Source [facility] Specimen Urine - Urine, Clean Catch Performing Organization Address City/[facility]/Zipcode Phone Number [facility] [address] [place] [address] CENTER Urine culture (06/24/2018 9:54 PM APPLICATION SUPPORT ANALYST) Result STAPHYLOCOCCUS, COAGULASE [facility] NEGATIVE (A) [place] Specimen Urine - Urine, Clean Catch Organism [...] Vancomycin <=0.5: Susceptible Staphylococcus Performing Organization Address City/[facility] Centercodc Phone Number [facility] [address] [place] [address] CENTER XR chest 1 view portable / bedside (06/24/2018 2:15 PM APPLICATION SUPPORT ANALYST)Only the most recent of2 resultswithin the time period is included. Narrative Performed At FINAL REPORT [facility] Chest, 1 view Clinical history: AMS Comparison: April 07, 2018 Discussion: Left-sided pacemaker in position without pneumothorax or pleural effusion. There is mild bibasilar atelectasis. The cardiac silhouette is enlarged with tortuous appearance of the thoracic aorta. No acute osseous abnormality. Status post median sternotomy. Signed: Naveen Jackson MD Report Verified Date/Time:06/24/2018 16:32:28 Reading Location: [address] Ortho Consult Reading Room Procedure Note Interface, External Ris In - 06/24/2018 4:34 PM APPLICATION SUPPORT ANALYST FINAL REPORT Chest, 1 view Clinical history: AMS Comparison: April 07, 2018 Discussion: Left-sided pacemaker in position without pneumothorax or pleural effusion. There is mild bibasilar atelectasis. The cardiac silhouette is enlarged with tortuous appearance of the thoracic aorta. No acute osseous abnormality. Status post median sternotomy. Signed: Naveen Jackson MD Report Verified Date/Time: 06/24/2018 16:32:28 Reading Location: [facility] [id number] Ortho Consult Reading Room Performing Organization Address City/[facility] Centercode Phone Number [facility] Comprehensive metabolic panel (06/24/2018 12:55 PM APPLICATION SUPPORT ANALYST)Only the most recent of2 resultswithin the time period is included. Protein, Total 7.7 6.0 - 8.3 gm/dL [facility] Albumin 3.8 3.5 - 5.0 g/dL [facility] Alkaline Phosphatase 122 40 - 150 U/L [facility] Total Bilirubin 0.5 0.2 - 1.2 mg/dL [facility] Sodium 136 136 - 145 meq/L [facility] Potassium 3.9 3.5 - 5.1 meq/L [facility] Chloride 101 98 - 107 meq/L [facility] CO2 28 22 - 29 meq/L [facility] BUN 19 7 - 21 mg/dL [facility] Creatinine 1.66 (H) 0.57 - 1.25 mg/dL [facility] Glucose 126 (H) 70 - 105 mg/dL [facility] Calcium 9.1 8.4 - 10.2 mg/dL [facility] AST 18 5 - 34 U/L [facility] ALT 17 6 - 55 U/L [facility] EGFR 41Comment: ESTIMATED GFR mL/min/1.73 sq m [facility] IS NOT ACCURATE [facility] CREATININE CLEARANCE IN PREDICTING GLOMERULAR FILTRATION RATE. ESTIMATED GFR IS NOT APPLICABLE FOR DIALYSIS PATIENTS. Specimen Blood - Arm, Right Performing Organization Address City/State/Zipcode Phone Number [facility] [address] [place] [address] brain without IV contrast (06/24/2018 9:30 AM APPLICATION SUPPORT ANALYST) Narrative Performed At FINAL REPORT [facility] CT head without contrast 06/24/2018 9:31 AM [...] MD Report Verified Date/Time:06/24/2018 09:37:20 Reading Location: [address] Neuro Reading Room Procedure Note Interface, External Ris In - 06/24/2018 9:39 AM APPLICATION SUPPORT ANALYST FINAL REPORT CT head without contrast 06/24/2018 [...] Report Verified Date/Time: 06/24/2018 09:37:20 Reading Location: [address] Neuro Reading Room Performing Organization Address City/State/Zipcode Phone Number GE RIS TSH/Free T4 If Indicated (06/24/2018 6:44 AM APPLICATION SUPPORT ANALYST) TSH 0.04 (L) 0.35 - 4.94 uIU/mL [facility] Specimen Blood Performing Organization Address City/[facility] Phone Number [address] [address] [place] T4, free (06/24/2018 6:44 AM APPLICATION SUPPORT ANALYST) Free T4 1.22 0.70 - 1.48 ng/dL [facility] Specimen Blood Performing Organization Address [facility] Phone Number [address] [address] [place] Hemoglobin A1c (06/24/2018 6:44 AM APPLICATION SUPPORT ANALYST)Only the most recent of2 resultswithin the time period is included. Hemoglobin A1C 5.8 4.3 - 6.1 % [facility] Specimen Blood Performing Organization Address [facility] Phone Number [address] [address] [place] ECHOCARDIOGRAM REPORT - SCAN (04/13/2018 9:20 AM CDT) Narrative Performed At EKG-SCANNED (04/12/2018 11:01 AM CDT)Only the most recent of2 resultswithin the time period is included. Narrative Performed At NM myocardial perfusion PET (rest and stress) (04/10/2018 8:47 AM CDT) Narrative Performed At FINAL REPORT GE RIS PROCEDURE:Rest/Stress MYOCARDIAL PERFUSION PET with regadenoson\\XA9\\ CPT CODE:30210 INDICATION:Ischemic evaluation, chest pain, atrial fibrillation HISTORY:Cardiac [...] Extracardiac tracer distribution is normal.6. No previous [facility] study for comparison. NONINVASIVE RISK STRATIFICATION: [...] dilation or increased lung uptake (thallium-201) (JACC. 2012;59(9):857-02.) Signed: Hao Faith MD Report Verified Date/Time:04/10/2018 12:33:34 Reading Location: [address] [address] [facility] Reading Room Procedure Note Interface, External Ris In - 04/10/2018 12:35 PM CDT FINAL REPORT PROCEDURE: Rest/Stress MYOCARDIAL PERFUSION PET with regadenoson\\XA9\\ CPT CODE: 02095 INDICATION: Ischemic evaluation, chest pain, atrial fibrillation [...] tracer distribution is normal. 6. No previous [facility] study for comparison. NONINVASIVE RISK STRATIFICATION: [...] Report Verified Date/Time: 04/10/2018 12:33:34 Reading Location: [address] [place] [address] Reading Room Performing Organization Address City/State/Zipcode Phone [...] Exercise wardfarin,atorvastatin,bumex,carvedilol Confirmed by fellow Tye Valencia ([id number]) on 04/10/2018 9:39:04 AM Confirmed by MD [...] Exercise wardfarin,atorvastatin,bumex,carvedilol Confirmed by fellow Tye Valencia ([id number]) on 04/10/2018 9:39:04 AM Confirmed by MD GUERO, JAMESON ([id number]) on 04/18/2018 12:34:10 PM Performing Organization Address [facility] Phone Number GE MUSE ECG 12 lead (04/10/2018 8:34 AM CDT)Only the most recent of2 resultswithin the time period is included. Narrative Performed At Ventricular Rate 75 BPM GE [facility]USE Atrial Rate 75 BPM P-R Interval 214 ms QRS Duration 118 ms Q-T Interval 434 ms QTC Calculation(Bazett) 484 ms P [place] 33 degrees R [place] 77 degrees T [place] 229 degrees Sinus rhythm with 1st degree [...] 434 ms QTC Calculation(Bazett) 484 ms P [place] 33 degrees R [place] 77 degrees T [place] 229 degrees Sinus rhythm with 1st degree A-V block Non-specific intra-ventricular conduction delay ST & T wave abnormality, consider lateral ischemia Prolonged QT Abnormal ECG Confirmed by MD Young Mahboob ([id number]) on 04/10/2018 1:15:21 PM Performing Organization Address [facility] Phone Number GE MUSE 2D Echo W/Doppler(CW/PW/Color) (04/09/2018 10:29 AM CDT) Ejection Fraction [facility]ART[facility] Narrative Performed At Transthoracic Echocardiography Report (TTE) [facility]CHO HEART[facility] Demographics Patient Name SILVERIO ZAMORA Date of Study04/09/2018 [id number] Gender Male Visit Number [id number] Unknown [id number] Room [id number] Number Date of Birth1945Referring CHEN Marmolejo Age72 year(s)[employer] Vance Roger [facility] AnalystIzofrieda Gray Interpreting Regis Chung PhysicianMD Joe Corrigan MD Procedure Type of Study [...] of Study 04/09/2018 Gender Male Visit Number [id number] Race Unknown Room Number 722 Number Date of 1945 Referring Physician CHEN Valentin Age 72 year(s) [employer] Vance Duran [facility] Chief Strategy Officer Lawrence Gray Interpreting Regis Chung Physician MD [...] TR Gradient: 28.85 mmHg Performing Organization Address City/[facility] Phone Number [facility] E[facility] HEART[facility] Creatine Kinase (CK), Total and MB (04/09/2018 5:57 AM CDT)Only the most recent of2 resultswithin the time period is included. Total CK 184 29 - 200 U/L [facility] CK-MB 0.9 0.0 - 6.6 ng/mL [facility] MB Relative Index 0.5 % [facility] Specimen Blood - Arm, Right Narrative Performed At CK-MB Reference Range: [facility] <6.7Normal 6.7-10.0Borderline >10.0 Abnormal Performing Organization Address City/[facility] Phone Number [facility] [address] [phone] CENTER REPORT OF PROCEDURE - ENDOSCOPY URL (04/08/2018 2:19 PM CDT) Narrative Performed At Iron, TIBC, % sat. (without ferritin) (04/08/2018 5:25 AM CDT) Iron 36 (L) 40 - 160 ug/dL [facility] TIBC 278 250 - 450 ug/dL [facility] Iron % Saturation 13 (L) 20 - 55 % [facility] Specimen Blood - Arm, Right Performing Organization Address [facility] Cent[facility]ode Phone Number [address] [address] CENTER Ferritin (04/08/2018 5:25 AM CDT) Ferritin 54 5 - 275 ng/mL [facility] Specimen Blood - Arm, Right Performing Organization Address City/[facility]/Zipcode Phone Number [address] [address] [facility] B-type Natriuretic Factor (BNP) (04/07/2018 4:51 PM CDT) BNP 927 (H) 0 - 100 pg/mL [facility] Specimen Blood - Arm, Right Performing Organization Address [facility] Cent[facility]ode Phone Number [address] [address] [phone] CENTER after 07/26/2017 Insurance Payer Benefit Plan / Group Subscriber ID Type Phone Address MEDICARE MEDICARE A B xxxxxxxxxxx Medicare Advance Directives Patient has advance care planning documents, and code status on file. For more information, please contact:[address] [phone] Code Status Date Activated Date Inactivated Comments Full Code 07/27/2018 7:55 AM This code status was determined by: Patient Full Code 06/23/2018 8:37 AM 07/27/2018 6:43 AM This code status was determined by: Patient Full Code 04/07/2018 5:00 PM 04/10/2018 8:00 PM This code status was determined by: Patient
--- OUTSIDE RECORDS SUMMARY | 2018-07-27 17:47 | XMS REPORT ---
:1945 [facility] [address] [place] [address] Care Team Providers Name Role Phone MEIR REYES Unavailable Unavailable DELFINO WARREN Unavailable Unavailable MATIAS COLLIER Unavailable Unavailable Problems This patient has no known problems. Allergies, Adverse Reactions, Alerts This patient has no known allergies or adverse reactions. Medications This patient has no known medications. Results Test Description Test Time Test Comments Text Results Atomic Results Result Comments POCT-GLUCOSE METER 2018-07-27 17:01:00 Test Item Value Reference Range Comments POC-GLUCOSE METER (BEAKER) (test 109 mg/dL 70-110 TESTED AT [address] gxvp=6716) [place] [address] [id number] 15:06:00 Test Item Value Reference Range Comments RPR SCREEN (BEAKER) (test npsl=788) Nonreactive Nonreactive POCT-GLUCOSE [id number] 11:50:00 Test Item Value Reference Range Comments POC-GLUCOSE METER (BEAKER) 156 mg/dL 70-110 TESTED AT [address] (test tibd=2047) [place] [address] [id number] 10:36:00 Test Item Value Reference Range Comments THYROID STIMULATING HORMONE (BEAKER) (test 0.05 uIU/mL 0.35-4.94 iimh=419) VITAMIN B12 AND [id number] 10:27:00 Test Item Value Reference Range Comments VITAMIN B12 (BEAKER) (test woog=569) 1571 pg/mL 213-816 FOLATE (BEAKER) (test dcac=940) 12.0 ng/mL >=7.0 TROPONIN [id number] 09:58:00 Test Item Value Reference Range Comments TROPONIN I (BEAKER) (test zhoy=233) 0.04 ng/mL 0.00-0.03 Troponin I (TnI) levels must [...] acidosis, acute neurological disease, and persistent tachyarrhythmia.LIPID [id number] 09:52:00 Test Item Value Reference Range Comments TRIGLYCERIDES (BEAKER) (test avvm=406) 172 mg/dL CHOLESTEROL (BEAKER) (test inor=288) 123 mg/dL HDL CHOLESTEROL (BEAKER) (test cpkh=436) 37 mg/dL LDL CHOLESTEROL CALCULATED (BEAKER) (test 52 mg/dL ezov=076) Triglyceride Reference Range: Low Risk <150 Borderline 150- 199 High Risk 200-499 Very High Risk >=500Cholesterol Reference Range: Low Risk <200 Borderline 200-239 High Risk > 240HDL Cholesterol Reference Range: Low Risk >=60 High Risk <40LDL Cholesterol Reference Range: Optimal <100 Near Optimal 100-129 Borderline 130-159 High 160-189 Very High >=190BASIC METABOLIC [id number] 09:52:00 Test Item Value Reference Range Comments SODIUM (BEAKER) (test 136 meq/L 136-145 aocc=704) POTASSIUM (BEAKER) (test 4.4 meq/L 3.5-5.1 ttfl=338) CHLORIDE (BEAKER) (test 105 meq/L 98-107 jexf=610) CO2 (BEAKER) (test 29 meq/L 22-29 pttc=653) BLOOD UREA NITROGEN 10 mg/dL 7-21 (BEAKER) (test bwwg=876) CREATININE (BEAKER) (test 1.04 mg/dL 0.57-1.25 cfzj=023) GLUCOSE RANDOM (BEAKER) 127 mg/dL 70-105 (test zjab=427) CALCIUM (BEAKER) (test 8.7 mg/dL 8.4-10.2 qywd=325) EGFR (BEAKER) (test 70 mL/min/1.73 sq m ESTIMATED GFR IS NOT uufd=6090) ACCURATE CREATININE CLEARANCE IN PREDICTING GLOMERULAR FILTRATION RATE. ESTIMATED GFR IS NOT APPLICABLE FOR DIALYSIS PATIENTS. HEPATIC FUNCTION [id number] 09:52:00 Test Item Value Reference Range Comments TOTAL PROTEIN (BEAKER) (test ozol=761) 6.7 gm/dL 6.0-8.3 ALBUMIN (BEAKER) (test hpne=3934) 3.5 g/dL 3.5-5.0 BILIRUBIN TOTAL (BEAKER) (test gpaa=037) 0.4 mg/dL 0.2-1.2 BILIRUBIN DIRECT (BEAKER) (test qasd=840) 0.2 mg/dL 0.1-0.5 ALKALINE PHOSPHATASE (BEAKER) (test aexx=389) 104 U/L 40-150 AST (SGOT) (BEAKER) (test gjiw=011) 22 U/L 5-34 ALT (SGPT) (BEAKER) (test eoyc=665) 19 U/L 6-55 PROTHROMBIN [id number] 09:43:00 Test Item Value Reference Range Comments PROTIME (BEAKER) (test fdjr=514) 29.3 seconds 11.7-14.7 INR (BEAKER) (test bvjs=801) 2.8 <=5.9 RECOMMENDED COUMADIN/WARFARIN INR THERAPY RANGESSTANDARD DOSE: 2.0 - 3.0 Includes: PROPHYLAXIS forvenous thrombosis, systemic embolization; TREATMENT for venous thrombosis and/or pulmonary embolus.HIGH RISK: Target INR is 2.5-3.5 for patients with mechanical heart valves.CBC W/PLT COUNT & AUTO [id number] 09:41:00 Test Item Value Reference Range Comments WHITE BLOOD CELL COUNT (BEAKER) (test xhvj=778) 5.8 K/ L 3.5-10.5 RED BLOOD CELL COUNT (BEAKER) (test wduj=303) 3.84 M/ L 4.63-6.08 HEMOGLOBIN (BEAKER) (test ucfk=689) 11.2 GM/DL 13.7-17.5 HEMATOCRIT (BEAKER) (test ppxs=390) 34.4 % 40.1-51.0 MEAN CORPUSCULAR VOLUME (BEAKER) (test askv=981) 89.6 fL 79.0-92.2 MEAN CORPUSCULAR HEMOGLOBIN (BEAKER) (test 29.2 pg 25.7-32.2 wmta=022) MEAN CORPUSCULAR HEMOGLOBIN CONC (BEAKER) (test 32.6 GM/DL 32.3-36.5 vbcv=540) RED CELL DISTRIBUTION WIDTH (BEAKER) (test 13.7 % 11.6-14.4 vudd=549) PLATELET COUNT (BEAKER) (test baoo=238) 127 K/CU MM 150-450 MEAN PLATELET VOLUME (BEAKER) (test khrm=543) 9.6 fL 9.4-12.4 NUCLEATED RED BLOOD CELLS (BEAKER) (test 0 /100 WBC 0-0 hmuj=875) NEUTROPHILS RELATIVE PERCENT (BEAKER) (test 72 % biak=716) LYMPHOCYTES RELATIVE PERCENT (BEAKER) (test 22 % xwtq=191) MONOCYTES RELATIVE PERCENT (BEAKER) (test 6 % iqzu=083) EOSINOPHILS RELATIVE PERCENT (BEAKER) (test 1 % lejn=432) BASOPHILS RELATIVE PERCENT (BEAKER) (test 0 % ekku=067) NEUTROPHILS ABSOLUTE COUNT (BEAKER) (test 4.18 K/ L 1.78-5.38 rgmm=215) LYMPHOCYTES ABSOLUTE COUNT (BEAKER) (test 1.26 K/ L 1.32-3.57 pkwd=054) MONOCYTES ABSOLUTE COUNT (BEAKER) (test 0.32 K/ L 0.30-0.82 utbw=046) EOSINOPHILS ABSOLUTE COUNT (BEAKER) (test 0.04 K/ L 0.04-0.54 bnyn=688) BASOPHILS ABSOLUTE COUNT (BEAKER) (test 0.02 K/ L 0.01-0.08 cnpi=224) IMMATURE GRANULOCYTES-RELATIVE PERCENT (BEAKER) 0 % 0-1 (test vxes=0871) POCT-GLUCOSE [id number] 08:38:00 Test Item Value Reference Range Comments POC-GLUCOSE METER (BEAKER) 146 mg/dL 70-110 TESTED AT [facility] [address] [facility] (test kfwh=1631) [facility] [address] URINE [id number] 09:31:00 Test Item Value Reference Range Comments CULTURE (BEAKER) (test COAGULASE NEGATIVE 10-19,000 col/mL ssxn=1303) STAPHYLOCOCCUS Coagulase negative Staphylococcus Clindamycin (test code=10) Erythromycin (test code=4) Linezolid (test code=40) Nitrofurantoin (test code=23) Oxacillin (test code=14) Rifampin (test code=43) Tetracycline (test code=2) Trimethoprim + Sulfamethoxazole (test code=47) Vancomycin (test code=13) EEG AWAKE AND [id number] 14:58:00For STAT EEG- after 5 PM weekdays, weekends and holidays, page the on-call EEG TechReason for exam:->reports of first time seizure hould this be performed at the bedside?->YesDate of EE06/25/18 DATE OF REPORT: 06/25/18 ACC: [id number] EEG Number: [id number] Test Location: Inpatient Start time: 06/25/18 at 1018 Stop time: 06/25/18 at 1039 ICD -10: 23398 CPT Code: R56.9 HISTORY: 72 year old [...] Fellow Jamir Pagan MD PhD Attending Neurophysiologist [facility] POCT-GLUCOSE [id number] 11:26:00 Test Item Value Reference Range Comments POC-GLUCOSE METER (BEAKER) 156 mg/dL 70-110 TESTED AT [facility] [address] [facility] (test smip=8901) [facility] [address] POCT-GLUCOSE [id number] 08:59:00 Test Item Value Reference Range Comments POC-GLUCOSE METER (BEAKER) 85 mg/dL 70-110 TESTED AT [place] [id number] [facility] (test jrvu=6475) [facility] [address] [id number] 07:29:00 Test Item Value Reference Range Comments PHOSPHORUS (BEAKER) (test rvpo=959) 3.2 mg/dL 2.3-4.7 [id number] 07:29:00 Test Item Value Reference Range Comments MAGNESIUM (BEAKER) (test vamh=927) 2.5 mg/dL 1.6-2.6 BASIC METABOLIC [id number] 07:29:00 Test Item Value Reference Range Comments SODIUM (BEAKER) (test 137 meq/L 136-145 bgvb=267) POTASSIUM (BEAKER) (test 3.7 meq/L 3.5-5.1 vdko=369) CHLORIDE (BEAKER) (test 103 meq/L 98-107 pgme=963) CO2 (BEAKER) (test 23 meq/L 22-29 wynf=066) BLOOD UREA NITROGEN 20 mg/dL 7-21 (BEAKER) (test xgws=704) CREATININE (BEAKER) (test 1.49 mg/dL 0.57-1.25 ugxl=922) GLUCOSE RANDOM (BEAKER) 67 mg/dL 70-105 (test pbje=672) CALCIUM (BEAKER) (test 8.7 mg/dL 8.4-10.2 tzqz=417) EGFR (BEAKER) (test 46 mL/min/1.73 sq m ESTIMATED GFR IS NOT rnur=4460) ACCURATE CREATININE CLEARANCE IN PREDICTING GLOMERULAR FILTRATION RATE. ESTIMATED GFR IS NOT APPLICABLE FOR DIALYSIS PATIENTS. PROTHROMBIN [id number] 06:05:00 Test Item Value Reference Range Comments PROTIME (BEAKER) (test tagx=632) 33.9 seconds 11.7-14.7 INR (BEAKER) (test qytb=540) 3.3 <=5.9 RECOMMENDED COUMADIN/WARFARIN INR THERAPY RANGESSTANDARD DOSE: 2.0 - 3.0 Includes: PROPHYLAXIS forvenous thrombosis, systemic embolization; TREATMENT for venous thrombosis and/or pulmonary embolus.HIGH RISK: Target INR is 2.5-3.5 for patients with mechanical heart valves.[id number] 03:36:00 Test Item Value Reference Range Comments RPR SCREEN (BEAKER) (test inuu=588) Nonreactive Nonreactive URINALYSIS W/ REFLEX URINE [id number] 22:28:00 Test Item Value Reference Range Comments COLOR (BEAKER) (test warn=465) Yellow CLARITY (BEAKER) (test wrbs=487) Clear SPECIFIC GRAVITY UA (BEAKER) (test haeu=755) 1.014 1.001-1.035 PH UA (BEAKER) (test eoia=215) 6.5 5.0-8.0 PROTEIN UA (BEAKER) (test gpnw=109) 20 mg/dL Negative GLUCOSE UA (BEAKER) (test qxps=384) 70 mg/dL Negative KETONES UA (BEAKER) (test swut=645) Negative Negative BILIRUBIN UA (BEAKER) (test uhbc=185) Negative Negative BLOOD UA (BEAKER) (test ofei=919) Negative Negative NITRITE UA (BEAKER) (test vbnj=395) Negative Negative LEUKOCYTE ESTERASE UA (BEAKER) (test zkij=068) Negative Negative UROBILINOGEN UA (BEAKER) (test kkiq=445) 0.2 mg/dL 0.2-1.0 RBC UA (BEAKER) (test sels=863) 1 /HPF WBC UA (BEAKER) (test fpdl=836) < /HPF HYALINE CASTS (BEAKER) (test lfti=678) 1 /LPF SOURCE(BEAKER) (test hobm=7187) POCT-GLUCOSE [id number] 22:00:00 Test Item Value Reference Range Comments POC-GLUCOSE METER (BEAKER) 84 mg/dL 70-110 TESTED AT [address] (test dkut=6762) [facility] [address] POCT-GLUCOSE [id number] 17:33:00 Test Item Value Reference Range Comments POC-GLUCOSE METER (BEAKER) 106 mg/dL 70-110 TESTED AT [address] (test laia=5970) [facility] [address] RAD, CHEST, 1 VIEW, NON [id number] 16:32:00Reason for exam:->AMSShould this be performed at the bedside?->YesFINAL REPORT Chest, 1 view Clinical history: AMS Comparison: April 07, 2018 Discussion: Left-sided pacemaker in position without pneumothorax or pleural effusion. There is mild bibasilar atelectasis. The cardiac silhouette is enlarged with tortuous appearance of the thoracicaorta. No acute osseous abnormality. Status post median sternotomy. Signed: Naveen Jackson MDReport Verified Date/Time: 2017 16:32:28 Reading Location: [address] Ortho Consult Reading Room COMPREHENSIVE METABOLIC [id number] 13:24:00 Test Item Value Reference Range Comments TOTAL PROTEIN (BEAKER) 7.7 gm/dL 6.0-8.3 (test qogd=638) ALBUMIN (BEAKER) (test 3.8 g/dL 3.5-5.0 uytq=6705) ALKALINE PHOSPHATASE 122 U/L 40-150 (BEAKER) (test vwto=771) BILIRUBIN TOTAL (BEAKER) 0.5 mg/dL 0.2-1.2 (test ghjh=650) SODIUM (BEAKER) (test 136 meq/L 136-145 vlbf=392) POTASSIUM (BEAKER) (test 3.9 meq/L 3.5-5.1 qoza=770) CHLORIDE (BEAKER) (test 101 meq/L 98-107 pdzl=582) CO2 (BEAKER) (test 28 meq/L 22-29 nvlk=299) BLOOD UREA NITROGEN 19 mg/dL 7-21 (BEAKER) (test tjdj=870) CREATININE (BEAKER) (test 1.66 mg/dL 0.57-1.25 mqvj=929) GLUCOSE RANDOM (BEAKER) 126 mg/dL 70-105 (test omdz=515) CALCIUM (BEAKER) (test 9.1 mg/dL 8.4-10.2 kgks=327) AST (SGOT) (BEAKER) (test 18 U/L 5-34 kcah=129) ALT (SGPT) (BEAKER) (test 17 U/L 6-55 bzph=482) EGFR (BEAKER) (test 41 mL/min/1.73 sq m ESTIMATED GFR IS NOT njnq=4547) ACCURATE CREATININE CLEARANCE IN PREDICTING GLOMERULAR FILTRATION RATE. ESTIMATED GFR IS NOT APPLICABLE FOR DIALYSIS PATIENTS. POCT-GLUCOSE [id number] 12:41:00 Test Item Value Reference Range Comments POC-GLUCOSE METER (BEAKER) 135 mg/dL 70-110 TESTED AT [address] (test owrd=5533) [place] [address] T4, [id number] 11:37:00 Test Item Value Reference Range Comments FREE T4 (BEAKER) (test osup=258) 1.22 ng/dL 0.70-1.48 CT, BRAIN, WITHOUT [id number] 09:37:00FINAL REPORT CT head without contrast 06/24/2018 [...] ischemic and involutional changes. Signed: Gabriel Hill MDReport Verified Date/Time: 09:37:20 Reading Location: [address] Neuro Reading Room POCT- GLUCOSE [id number] 09:07:00 Test Item Value Reference Range Comments POC-GLUCOSE METER (BEAKER) 144 mg/dL 70-110 TESTED AT [address] (test vuph=6688) [place] [id number] VITAMIN B12 AND [id number] 08:24:00 Test Item Value Reference Range Comments VITAMIN B12 (BEAKER) (test pgxz=192) 1074 pg/mL 213-816 FOLATE (BEAKER) (test enta=465) 13.7 ng/mL >=7.0 HEMOGLOBIN [id number] 08:16:00 Test Item Value Reference Range Comments HEMOGLOBIN A1C (BEAKER) (test xlwh=742) 5.8 % 4.3-6.1 TSH/FREE T4 IF [id number] 08:01:00 Test Item Value Reference Range Comments THYROID STIMULATING HORMONE (BEAKER) (test 0.04 uIU/mL 0.35-4.94 gsvb=520) LIPID [id number] 07:25:00 Test Item Value Reference Range Comments TRIGLYCERIDES (BEAKER) (test irjk=327) 185 mg/dL CHOLESTEROL (BEAKER) (test uhrr=938) 166 mg/dL HDL CHOLESTEROL (BEAKER) (test shez=809) 39 mg/dL LDL CHOLESTEROL CALCULATED (BEAKER) (test 90 mg/dL twdj=889) Triglyceride Reference Range: Low Risk <150 Borderline 150- 199 High Risk 200-499 Very High Risk >=500Cholesterol Reference Range: Low Risk <200 Borderline 200-239 High Risk > 240HDL Cholesterol Reference Range: Low Risk >=60 High Risk <40LDL Cholesterol Reference Range: Optimal <100 Near Optimal 100-129 Borderline 130-159 High 160-189 Very High >=190 FastingPROTHROMBIN [id number] 07:13:00 Test Item Value Reference Range Comments PROTIME (BEAKER) (test lakb=560) 29.0 seconds 11.7-14.7 INR (BEAKER) (test txnt=400) 2.7 <=5.9 RECOMMENDED COUMADIN/WARFARIN INR THERAPY RANGESSTANDARD DOSE: 2.0 - 3.0 Includes: PROPHYLAXIS forvenous thrombosis, systemic embolization; TREATMENT for venous thrombosis and/or pulmonary embolus.HIGH RISK: Target INR is 2.5-3.5 for patients with mechanical heart valves.POCT-GLUCOSE [id number] 22:17:00 Test Item Value Reference Range Comments POC-GLUCOSE METER (BEAKER) 176 mg/dL 70-110 TESTED AT [address] (test lkuw=4020) [facility] [address] PROTHROMBIN [id number] 18:50:00 Test Item Value Reference Range Comments PROTIME (BEAKER) (test rbgs=242) 30.8 seconds 11.7-14.7 INR (BEAKER) (test euia=385) 3.0 <=5.9 RECOMMENDED COUMADIN/WARFARIN INR THERAPY RANGESSTANDARD DOSE: 2.0 - 3.0 Includes: PROPHYLAXIS forvenous thrombosis, systemic embolization; TREATMENT for venous thrombosis and/or pulmonary embolus.HIGH RISK: Target INR is 2.5-3.5 for patients with mechanical heart valves.POCT-GLUCOSE [id number] 17:55:00 Test Item Value Reference Range Comments POC-GLUCOSE METER (BEAKER) 134 mg/dL 70-110 TESTED AT [address] (test ognx=3691) [facility] [address] BASIC METABOLIC [id number] 13:37:00 Test Item Value Reference Range Comments SODIUM (BEAKER) (test 136 meq/L 136-145 bzts=908) POTASSIUM (BEAKER) (test 4.6 meq/L 3.5-5.1 Specimen slightly otfy=117) hemolyzed CHLORIDE (BEAKER) (test 103 meq/L 98-107 ziqw=453) CO2 (BEAKER) (test 23 meq/L 22-29 kimx=473) BLOOD UREA NITROGEN 16 mg/dL 7-21 (BEAKER) (test gxii=378) CREATININE (BEAKER) (test 1.39 mg/dL 0.57-1.25 Specimen slightly oofp=151) hemolyzed GLUCOSE RANDOM (BEAKER) 132 mg/dL 70-105 (test ofir=704) CALCIUM (BEAKER) (test 8.7 mg/dL 8.4-10.2 rpek=343) EGFR (BEAKER) (test 50 mL/min/1.73 sq m ESTIMATED GFR IS NOT pfjf=6348) ACCURATE CREATININE CLEARANCE IN PREDICTING GLOMERULAR FILTRATION RATE. ESTIMATED GFR IS NOT APPLICABLE FOR DIALYSIS PATIENTS. CBC W/PLT COUNT & AUTO [id number] 13:23:00 Test Item Value Reference Range Comments WHITE BLOOD CELL COUNT (BEAKER) (test vgbk=616) 7.3 K/ L 3.5-10.5 RED BLOOD CELL COUNT (BEAKER) (test dxyd=090) 3.88 M/ L 4.63-6.08 HEMOGLOBIN (BEAKER) (test dsbt=831) 11.9 GM/DL 13.7-17.5 HEMATOCRIT (BEAKER) (test ckzl=764) 35.6 % 40.1-51.0 MEAN CORPUSCULAR VOLUME (BEAKER) (test xeax=340) 91.8 fL 79.0-92.2 MEAN CORPUSCULAR HEMOGLOBIN (BEAKER) (test 30.7 pg 25.7-32.2 hryi=355) MEAN CORPUSCULAR HEMOGLOBIN CONC (BEAKER) (test 33.4 GM/DL 32.3-36.5 jjwf=032) RED CELL DISTRIBUTION WIDTH (BEAKER) (test 13.5 % 11.6-14.4 pugs=911) PLATELET COUNT (BEAKER) (test kvya=277) 149 K/CU MM 150-450 MEAN PLATELET VOLUME (BEAKER) (test wswn=132) 9.5 fL 9.4-12.4 NUCLEATED RED BLOOD CELLS (BEAKER) (test 0 /100 WBC 0-0 nguv=922) NEUTROPHILS RELATIVE PERCENT (BEAKER) (test 78 % ghhl=973) LYMPHOCYTES RELATIVE PERCENT (BEAKER) (test 15 % cptq=037) MONOCYTES RELATIVE PERCENT (BEAKER) (test 6 % exvh=753) EOSINOPHILS RELATIVE PERCENT (BEAKER) (test 0 % rpen=432) BASOPHILS RELATIVE PERCENT (BEAKER) (test 0 % mecb=198) NEUTROPHILS ABSOLUTE COUNT (BEAKER) (test 5.67 K/ L 1.78-5.38 gzzr=081) LYMPHOCYTES ABSOLUTE COUNT (BEAKER) (test 1.08 K/ L 1.32-3.57 wmxv=579) MONOCYTES ABSOLUTE COUNT (BEAKER) (test 0.47 K/ L 0.30-0.82 nhzx=162) EOSINOPHILS ABSOLUTE COUNT (BEAKER) (test 0.02 K/ L 0.04-0.54 wvbk=032) BASOPHILS ABSOLUTE COUNT (BEAKER) (test 0.02 K/ L 0.01-0.08 makh=600) IMMATURE GRANULOCYTES-RELATIVE PERCENT (BEAKER) 0 % 0-1 (test cihe=7878) POCT-GLUCOSE [id number] 12:33:00 Test Item Value Reference Range Comments POC-GLUCOSE METER (BEAKER) 165 mg/dL 70-110 TESTED AT [facility] [address] [facility] (test poid=2805) [facility] [address] POCT-GLUCOSE [id number] 08:33:00 Test Item Value Reference Range Comments POC-GLUCOSE METER (BEAKER) 233 mg/dL 70-110 TESTED AT [facility] [address] [facility] (test sjlh=7415) [facility] [address] PET, CARDIAC PERFUSION MULTIPLE STUDIES, REST AND [id number] 12:33: 00Reason for exam:->ischemia evaluation.FINAL REPORT PROCEDURE: Rest/Stress MYOCARDIAL PERFUSION PET with regadenoson\XA9\ CPT CODE: 97432 INDICATION: Ischemic evaluation, chest pain, atrial fibrillation [...] tracer distribution is normal. 6. No previous [facility] study for comparison. NONINVASIVE RISK STRATIFICATION: The [...] dilation or increasedlung uptake (thallium-201)(JACC. 2012;59(9):857-81.) Signed: Hao Faith [facility] Verified Date/Time: 04/10/2018 12:33:34 Reading Location: [address] Reading Room POCT-GLUCOSE [id number] 11:43:00 Test Item Value Reference Range Comments POC-GLUCOSE METER (BEAKER) 354 mg/dL 70-110 Notified MARTITA MORSE/TESTED AT [facility] (test dhju=1200) [address] [place] [address] POCT-GLUCOSE [id number] 07:21:00 Test Item Value Reference Range Comments POC-GLUCOSE METER (BEAKER) 156 mg/dL 70-110 TESTED AT [address] (test axjp=5431) [place] [address] [id number] 06:34:00 Test Item Value Reference Range Comments MAGNESIUM (BEAKER) (test tuzl=453) 2.5 mg/dL 1.6-2.6 BASIC METABOLIC [id number] 06:34:00 Test Item Value Reference Range Comments SODIUM (BEAKER) (test 137 meq/L 136-145 vcxe=304) POTASSIUM (BEAKER) (test 3.6 meq/L 3.5-5.1 jlhk=112) CHLORIDE (BEAKER) (test 101 meq/L 98-107 qiqf=800) CO2 (BEAKER) (test 28 meq/L 22-29 eunj=315) BLOOD UREA NITROGEN 28 mg/dL 7-21 (BEAKER) (test mdiz=773) CREATININE (BEAKER) (test 1.73 mg/dL 0.57-1.25 qgyd=880) GLUCOSE RANDOM (BEAKER) 135 mg/dL 70-105 (test dadd=913) CALCIUM (BEAKER) (test 9.0 mg/dL 8.4-10.2 jsxq=512) EGFR (BEAKER) (test 39 mL/min/1.73 sq m ESTIMATED GFR IS NOT vehi=5158) ACCURATE CREATININE CLEARANCE IN PREDICTING GLOMERULAR FILTRATION RATE. ESTIMATED GFR IS NOT APPLICABLE FOR DIALYSIS PATIENTS. PROTHROMBIN [id number] 06:31:00 Test Item Value Reference Range Comments PROTIME (BEAKER) (test yung=112) 17.5 seconds 11.7-14.7 INR (BEAKER) (test lzwd=484) 1.4 <=5.9 RECOMMENDED COUMADIN/WARFARIN INR THERAPY RANGESSTANDARD DOSE: 2.0 - 3.0 Includes: PROPHYLAXIS forvenous thrombosis, systemic embolization; TREATMENT for venous thrombosis and/or pulmonary embolus.HIGH RISK: Target INR is 2.5-3.5 for patients with mechanical heart valves.While on warfarin.CBC W/PLT COUNT &amp ; AUTO [id number] 06:19:00 Test Item Value Reference Range Comments WHITE BLOOD CELL COUNT (BEAKER) (test haih=142) 6.3 K/ L 3.5-10.5 RED BLOOD CELL COUNT (BEAKER) (test rxwc=618) 3.02 M/ L 4.63-6.08 HEMOGLOBIN (BEAKER) (test xjux=441) 9.1 GM/DL 13.7-17.5 HEMATOCRIT (BEAKER) (test ymno=451) 28.4 % 40.1-51.0 MEAN CORPUSCULAR VOLUME (BEAKER) (test uofc=797) 94.0 fL 79.0-92.2 MEAN CORPUSCULAR HEMOGLOBIN (BEAKER) (test 30.1 pg 25.7-32.2 jlij=196) MEAN CORPUSCULAR HEMOGLOBIN CONC (BEAKER) (test 32.0 GM/DL 32.3-36.5 kuot=233) RED CELL DISTRIBUTION WIDTH (BEAKER) (test 15.1 % 11.6-14.4 mrbw=458) PLATELET COUNT (BEAKER) (test jafl=601) 127 K/CU MM 150-450 MEAN PLATELET VOLUME (BEAKER) (test iayt=620) 9.9 fL 9.4-12.4 NUCLEATED RED BLOOD CELLS (BEAKER) (test 0 /100 WBC 0-0 ghpp=566) NEUTROPHILS RELATIVE PERCENT (BEAKER) (test 70 % kykm=442) LYMPHOCYTES RELATIVE PERCENT (BEAKER) (test 18 % kesf=185) MONOCYTES RELATIVE PERCENT (BEAKER) (test 9 % hldt=993) EOSINOPHILS RELATIVE PERCENT (BEAKER) (test 2 % xqvr=731) BASOPHILS RELATIVE PERCENT (BEAKER) (test 1 % vwif=900) NEUTROPHILS ABSOLUTE COUNT (BEAKER) (test 4.46 K/ L 1.78-5.38 hjgl=311) LYMPHOCYTES ABSOLUTE COUNT (BEAKER) (test 1.15 K/ L 1.32-3.57 rjxn=319) MONOCYTES ABSOLUTE COUNT (BEAKER) (test 0.56 K/ L 0.30-0.82 tgsc=717) EOSINOPHILS ABSOLUTE COUNT (BEAKER) (test 0.10 K/ L 0.04-0.54 ebmu=738) BASOPHILS ABSOLUTE COUNT (BEAKER) (test 0.03 K/ L 0.01-0.08 ficb=525) IMMATURE GRANULOCYTES-RELATIVE PERCENT (BEAKER) 1 % 0-1 (test pjvy=0675) POCT-GLUCOSE [id number] 23:34:00 Test Item Value Reference Range Comments POC-GLUCOSE METER (BEAKER) 155 mg/dL 70-110 TESTED AT [address] (test zija=7771) [place] [id number] POCT-GLUCOSE [id number] 19:50:00 Test Item Value Reference Range Comments POC-GLUCOSE METER (BEAKER) 155 mg/dL 70-110 TESTED AT [address] (test lbkw=4078) [place] [id number] POCT-GLUCOSE [id number] 11:50:00 Test Item Value Reference Range Comments POC-GLUCOSE METER (BEAKER) 196 mg/dL 70-110 TESTED AT [address] (test vifz=4163) [place] [id number] POCT-GLUCOSE [id number] 07:58:00 Test Item Value Reference Range Comments POC-GLUCOSE METER (BEAKER) 170 mg/dL 70-110 TESTED AT [facility] [address] [facility] (test klnw=6438) [facility] [address] [id number] 07:31:00 Test Item Value Reference Range Comments MAGNESIUM (BEAKER) (test arzt=766) 2.5 mg/dL 1.6-2.6 BASIC METABOLIC [id number] 07:31:00 Test Item Value Reference Range Comments SODIUM (BEAKER) (test 138 meq/L 136-145 qdwm=219) POTASSIUM (BEAKER) (test 3.9 meq/L 3.5-5.1 dlwy=259) CHLORIDE (BEAKER) (test 104 meq/L 98-107 oikm=836) CO2 (BEAKER) (test 22 meq/L 22-29 jzky=878) BLOOD UREA NITROGEN 28 mg/dL 7-21 (BEAKER) (test kjtp=974) CREATININE (BEAKER) (test 1.66 mg/dL 0.57-1.25 qyhk=988) GLUCOSE RANDOM (BEAKER) 133 mg/dL 70-105 (test kdpr=432) CALCIUM (BEAKER) (test 8.4 mg/dL 8.4-10.2 pwcq=665) EGFR (BEAKER) (test 41 mL/min/1.73 sq m ESTIMATED GFR IS NOT yzrd=4271) ACCURATE CREATININE CLEARANCE IN PREDICTING GLOMERULAR FILTRATION RATE. ESTIMATED GFR IS NOT APPLICABLE FOR DIALYSIS PATIENTS. CREATINE KINASE (CK), TOTAL AND [id number] 07:31:00 Test Item Value Reference Range Comments CREATINE KINASE TOTAL (BEAKER) (test ubiq=778) 184 U/L 29-200 CREATINE KINASE-MB (BEAKER) (test tmgl=713) 0.9 ng/mL 0.0-6.6 CREATINE KINASE-MB INDEX (BEAKER) (test wskk=687) 0.5 % CK-MB Reference Range:<6.7 Normal6.7-10.0 Borderline>10.0 AbnormalCBC W/PLT COUNT & AUTO [id number] 06:40:00 Test Item Value Reference Range Comments WHITE BLOOD CELL COUNT (BEAKER) (test jwfh=057) 6.6 K/ L 3.5-10.5 RED BLOOD CELL COUNT (BEAKER) (test xwxo=282) 2.61 M/ L 4.63-6.08 HEMOGLOBIN (BEAKER) (test zmyf=952) 7.8 GM/DL 13.7-17.5 HEMATOCRIT (BEAKER) (test htel=489) 25.0 % 40.1-51.0 MEAN CORPUSCULAR VOLUME (BEAKER) (test wcst=625) 95.8 fL 79.0-92.2 MEAN CORPUSCULAR HEMOGLOBIN (BEAKER) (test 29.9 pg 25.7-32.2 tupr=779) MEAN CORPUSCULAR HEMOGLOBIN CONC (BEAKER) (test 31.2 GM/DL 32.3-36.5 urft=250) RED CELL DISTRIBUTION WIDTH (BEAKER) (test 15.3 % 11.6-14.4 mebd=621) PLATELET COUNT (BEAKER) (test detb=676) 111 K/CU MM 150-450 MEAN PLATELET VOLUME (BEAKER) (test qqvz=186) 9.8 fL 9.4-12.4 NUCLEATED RED BLOOD CELLS (BEAKER) (test 0 /100 WBC 0-0 jkrm=799) NEUTROPHILS RELATIVE PERCENT (BEAKER) (test 72 % xcdq=377) LYMPHOCYTES RELATIVE PERCENT (BEAKER) (test 18 % vyfb=355) MONOCYTES RELATIVE PERCENT (BEAKER) (test 8 % ozwg=393) EOSINOPHILS RELATIVE PERCENT (BEAKER) (test 1 % nvde=488) BASOPHILS RELATIVE PERCENT (BEAKER) (test 1 % zlrz=335) NEUTROPHILS ABSOLUTE COUNT (BEAKER) (test 4.72 K/ L 1.78-5.38 wnck=360) LYMPHOCYTES ABSOLUTE COUNT (BEAKER) (test 1.19 K/ L 1.32-3.57 ivde=703) MONOCYTES ABSOLUTE COUNT (BEAKER) (test 0.52 K/ L 0.30-0.82 jgoo=028) EOSINOPHILS ABSOLUTE COUNT (BEAKER) (test 0.06 K/ L 0.04-0.54 qrcw=929) BASOPHILS ABSOLUTE COUNT (BEAKER) (test 0.03 K/ L 0.01-0.08 fmir=129) IMMATURE GRANULOCYTES-RELATIVE PERCENT (BEAKER) 1 % 0-1 (test ffhd=9753) PROTHROMBIN [id number] 06:40:00 Test Item Value Reference Range Comments PROTIME (BEAKER) (test gnqk=348) 18.2 seconds 11.7-14.7 INR (BEAKER) (test hiva=374) 1.5 <=5.9 RECOMMENDED COUMADIN/WARFARIN INR THERAPY RANGESSTANDARD DOSE: 2.0 - 3.0 Includes: PROPHYLAXIS forvenous thrombosis, systemic embolization; TREATMENT for venous thrombosis and/or pulmonary embolus.HIGH RISK: Target INR is 2.5-3.5 for patients with mechanical heart valves.While on warfarin.POCT-GLUCOSE [id number] 23:26:00 Test Item Value Reference Range Comments POC-GLUCOSE METER (BEAKER) 175 mg/dL 70-110 TESTED AT [address] (test mvgn=3651) [place] [address] POCT-GLUCOSE [id number] 16:46:00 Test Item Value Reference Range Comments POC-GLUCOSE METER (BEAKER) 143 mg/dL 70-110 TESTED AT [address] (test bosu=8126) [place] [address] POCT-GLUCOSE [id number] 14:34:00 Test Item Value Reference Range Comments POC-GLUCOSE METER (BEAKER) 171 mg/dL 70-110 TESTED AT [address] (test lrkv=9732) [place] [address] HEMOGLOBIN [id number] 11:18:00 Test Item Value Reference Range Comments HEMOGLOBIN A1C (BEAKER) (test egxt=322) 6.6 % 4.3-6.1 CREATINE KINASE (CK), TOTAL AND [id number] 07:48:00 Test Item Value Reference Range Comments CREATINE KINASE TOTAL (BEAKER) (test sypj=509) 111 U/L 29-200 CREATINE KINASE-MB (BEAKER) (test jjar=976) 1.1 ng/mL 0.0-6.6 CREATINE KINASE-MB INDEX (BEAKER) (test qcsc=756) 1.0 % CK-MB Reference Range:<6.7 Normal6.7-10.0 Borderline>10.0 [id number] 07:42:00 Test Item Value Reference Range Comments MAGNESIUM (BEAKER) (test wwbe=826) 2.4 mg/dL 1.6-2.6 BASIC METABOLIC [id number] 07:42:00 Test Item Value Reference Range Comments SODIUM (BEAKER) (test 137 meq/L 136-145 dvgs=836) POTASSIUM (BEAKER) (test 4.0 meq/L 3.5-5.1 qlna=340) CHLORIDE (BEAKER) (test 104 meq/L 98-107 fzyy=508) CO2 (BEAKER) (test 24 meq/L 22-29 wxso=361) BLOOD UREA NITROGEN 31 mg/dL 7-21 (BEAKER) (test wwnl=513) CREATININE (BEAKER) (test 1.62 mg/dL 0.57-1.25 zlou=773) GLUCOSE RANDOM (BEAKER) 145 mg/dL 70-105 (test ttwy=551) CALCIUM (BEAKER) (test 8.5 mg/dL 8.4-10.2 xwbz=036) EGFR (BEAKER) (test 42 mL/min/1.73 sq m ESTIMATED GFR IS NOT xjca=4376) ACCURATE CREATININE CLEARANCE IN PREDICTING GLOMERULAR FILTRATION RATE. ESTIMATED GFR IS NOT APPLICABLE FOR DIALYSIS PATIENTS. [id number] 07:17:00 Test Item Value Reference Range Comments FERRITIN (BEAKER) (test xamd=677) 54 ng/mL 5-275 VITAMIN B12 AND [id number] 07:17:00 Test Item Value Reference Range Comments VITAMIN B12 (BEAKER) (test ajnj=592) 1684 pg/mL 213-816 FOLATE (BEAKER) (test srrd=733) 14.0 ng/mL >=7.0 CBC W/PLT COUNT & AUTO [id number] 07:08:00 Test Item Value Reference Range Comments WHITE BLOOD CELL COUNT (BEAKER) (test aimc=814) 6.2 K/ L 3.5-10.5 RED BLOOD CELL COUNT (BEAKER) (test ixfd=191) 2.55 M/ L 4.63-6.08 HEMOGLOBIN (BEAKER) (test jxdu=418) 7.7 GM/DL 13.7-17.5 HEMATOCRIT (BEAKER) (test taep=998) 24.5 % 40.1-51.0 MEAN CORPUSCULAR VOLUME (BEAKER) (test fnyh=606) 96.1 fL 79.0-92.2 MEAN CORPUSCULAR HEMOGLOBIN (BEAKER) (test 30.2 pg 25.7-32.2 hokq=946) MEAN CORPUSCULAR HEMOGLOBIN CONC (BEAKER) (test 31.4 GM/DL 32.3-36.5 wsmk=435) RED CELL DISTRIBUTION WIDTH (BEAKER) (test 15.6 % 11.6-14.4 fcqg=395) PLATELET COUNT (BEAKER) (test cdpv=147) 110 K/CU MM 150-450 MEAN PLATELET VOLUME (BEAKER) (test lksg=461) 10.3 fL 9.4-12.4 NUCLEATED RED BLOOD CELLS (BEAKER) (test 0 /100 WBC 0-0 zpnh=665) NEUTROPHILS RELATIVE PERCENT (BEAKER) (test 74 % wsxr=620) LYMPHOCYTES RELATIVE PERCENT (BEAKER) (test 19 % vucx=714) MONOCYTES RELATIVE PERCENT (BEAKER) (test 5 % lehm=147) EOSINOPHILS RELATIVE PERCENT (BEAKER) (test 1 % jstu=461) BASOPHILS RELATIVE PERCENT (BEAKER) (test 0 % daxm=387) NEUTROPHILS ABSOLUTE COUNT (BEAKER) (test 4.58 K/ L 1.78-5.38 cxkk=812) LYMPHOCYTES ABSOLUTE COUNT (BEAKER) (test 1.16 K/ L 1.32-3.57 qhkw=862) MONOCYTES ABSOLUTE COUNT (BEAKER) (test 0.29 K/ L 0.30-0.82 imnb=678) EOSINOPHILS ABSOLUTE COUNT (BEAKER) (test 0.06 K/ L 0.04-0.54 alio=647) BASOPHILS ABSOLUTE COUNT (BEAKER) (test 0.02 K/ L 0.01-0.08 smxz=108) IMMATURE GRANULOCYTES-RELATIVE PERCENT (BEAKER) 1 % 0-1 (test npca=6936) IRON, TIBC, % SAT. (WITHOUT FERRITIN)2018-04-08 06:51:00 Test Item Value Reference Range Comments IRON (BEAKER) (test khnh=827) 36 ug/dL 40-160 TOTAL IRON BINDING CAPACITY (BEAKER) (test 278 ug/dL 250-450 pszr=724) IRON % SATURATION (2) (BEAKER) (test vchh=0621) 13 % 20-55 POCT-GLUCOSE [id number] 06:40:00 Test Item Value Reference Range Comments POC-GLUCOSE METER (BEAKER) 147 mg/dL 70-110 TESTED AT [address] (test fbxj=5087) [facility] [address] PROTHROMBIN [id number] 06:24:00 Test Item Value Reference Range Comments PROTIME (BEAKER) (test zjhg=182) 23.6 seconds 11.7-14.7 INR (BEAKER) (test ketf=737) 2.1 <=5.9 RECOMMENDED COUMADIN/WARFARIN INR THERAPY RANGESSTANDARD DOSE: 2.0 - 3.0 Includes: PROPHYLAXIS forvenous thrombosis, systemic embolization; TREATMENT for venous thrombosis and/or pulmonary embolus.HIGH RISK: Target INR is 2.5-3.5 for patients with mechanical heart valves.TROPONIN [id number] 00:58:00 Test Item Value Reference Range Comments TROPONIN I (BEAKER) (test pqiy=740) 0.03 ng/mL 0.00-0.03 Troponin I (TnI) levels [...] acidosis, acute neurological disease, and persistent tachyarrhythmia.LIPID [id number] 00:52:00 Test Item Value Reference Range Comments TRIGLYCERIDES (BEAKER) (test wuas=393) 147 mg/dL CHOLESTEROL (BEAKER) (test rtlo=903) 129 mg/dL HDL CHOLESTEROL (BEAKER) (test sdih=862) 34 mg/dL LDL CHOLESTEROL CALCULATED (BEAKER) (test 66 mg/dL mwhh=266) Triglyceride Reference Range: Low Risk <150 Borderline 150- 199 High Risk 200-499 Very High Risk >=500Cholesterol Reference Range: Low Risk <200 Borderline 200-239 High Risk > 240HDL Cholesterol Reference Range: Low Risk >=60 High Risk <40LDL Cholesterol Reference Range: Optimal <100 Near Optimal 100-129 Borderline 130-159 High 160-189 Very High >=190POCT-GLUCOSE [id number] 00:10:00 Test Item Value Reference Range Comments POC-GLUCOSE METER (DONTE) 76 mg/dL 70-110 TESTED AT [facility] [address] (test aoae=4439) [facility] [address] RAD, CHEST, 1 VIEW, NON [id number] 18:37:00Reason for exam:->fluid overloadShould this be performed [...] effusion or acute bony abnormality. Signed: Raul Badilloeport Verified Date/Time: 04/07/2018 18:37:22 Reading Location: [address] Reading Room TROPONIN [id number] 17:35:00 Test Item Value Reference Range Comments TROPONIN I (BEAKER) (test fsit=886) 0.02 ng/mL 0.00-0.03 Troponin I (TnI) levels [...] NATRIURETIC PEPTIDE (BEAKER) (test 927 pg/mL 0-100 lhgi=260) POCT-GLUCOSE [id number] 17:28:00 Test Item Value Reference Range Comments POC-GLUCOSE METER (BEAKER) 105 mg/dL 70-110 TESTED AT [facility] [address] (test mwkj=4280) [facility] [address] COMPREHENSIVE METABOLIC [id number] 17:28:00 Test Item Value Reference Range Comments TOTAL PROTEIN (BEAKER) 7.1 gm/dL 6.0-8.3 (test rzfb=658) ALBUMIN (BEAKER) (test 3.6 g/dL 3.5-5.0 tzcl=7145) ALKALINE PHOSPHATASE 144 U/L 40-150 (BEAKER) (test nfas=134) BILIRUBIN TOTAL (BEAKER) 0.6 mg/dL 0.2-1.2 (test vpfk=574) SODIUM (BEAKER) (test 140 meq/L 136-145 oxlh=242) POTASSIUM (BEAKER) (test 4.0 meq/L 3.5-5.1 ehbf=346) CHLORIDE (BEAKER) (test 107 meq/L 98-107 ivbo=587) CO2 (BEAKER) (test 25 meq/L 22-29 hmqj=994) BLOOD UREA NITROGEN 30 mg/dL 7-21 (BEAKER) (test rhfc=632) CREATININE (BEAKER) (test 1.59 mg/dL 0.57-1.25 sjee=761) GLUCOSE RANDOM (BEAKER) 97 mg/dL 70-105 (test uudk=209) CALCIUM (BEAKER) (test 8.9 mg/dL 8.4-10.2 yufg=446) AST (SGOT) (BEAKER) (test 25 U/L 5-34 gqgk=010) ALT (SGPT) (BEAKER) (test 28 U/L 6-55 romi=992) EGFR (BEAKER) (test 43 mL/min/1.73 sq m ESTIMATED GFR IS NOT xyfj=1673) ACCURATE CREATININE CLEARANCE IN PREDICTING GLOMERULAR FILTRATION RATE. ESTIMATED GFR IS NOT APPLICABLE FOR DIALYSIS PATIENTS. PROTHROMBIN [id number] 17:18:00 Test Item Value Reference Range Comments PROTIME (BEAKER) (test uadr=017) 29.2 seconds 11.7-14.7 INR (BEAKER) (test gjro=165) 2.8 <=5.9 RECOMMENDED COUMADIN/WARFARIN INR THERAPY RANGESSTANDARD DOSE: 2.0 - 3.0 Includes: PROPHYLAXIS forvenous thrombosis, systemic embolization; TREATMENT for venous thrombosis and/or pulmonary embolus.HIGH RISK: Target INR is 2.5-3.5 for patients with mechanical heart valves.CBC W/PLT COUNT & AUTO [id number] 17:09:00 Test Item Value Reference Range Comments WHITE BLOOD CELL COUNT (BEAKER) (test axqs=781) 6.7 K/ L 3.5-10.5 RED BLOOD CELL COUNT (BEAKER) (test hyhv=930) 2.55 M/ L 4.63-6.08 HEMOGLOBIN (BEAKER) (test ufal=301) 7.8 GM/DL 13.7-17.5 HEMATOCRIT (BEAKER) (test mbps=812) 24.4 % 40.1-51.0 MEAN CORPUSCULAR VOLUME (BEAKER) (test oaiy=173) 95.7 fL 79.0-92.2 MEAN CORPUSCULAR HEMOGLOBIN (BEAKER) (test 30.6 pg 25.7-32.2 tjzs=728) MEAN CORPUSCULAR HEMOGLOBIN CONC (BEAKER) (test 32.0 GM/DL 32.3-36.5 fzdl=593) RED CELL DISTRIBUTION WIDTH (BEAKER) (test 15.7 % 11.6-14.4 sogn=354) PLATELET COUNT (BEAKER) (test oocs=028) 117 K/CU MM 150-450 MEAN PLATELET VOLUME (BEAKER) (test cjfr=722) 9.6 fL 9.4-12.4 NUCLEATED RED BLOOD CELLS (BEAKER) (test 0 /100 WBC 0-0 saju=800) NEUTROPHILS RELATIVE PERCENT (BEAKER) (test 69 % jlhe=924) LYMPHOCYTES RELATIVE PERCENT (BEAKER) (test 23 % zxwk=507) MONOCYTES RELATIVE PERCENT (BEAKER) (test 6 % bbqr=404) EOSINOPHILS RELATIVE PERCENT (BEAKER) (test 2 % vnqk=365) BASOPHILS RELATIVE PERCENT (BEAKER) (test 0 % ipbe=122) NEUTROPHILS ABSOLUTE COUNT (BEAKER) (test 4.65 K/ L 1.78-5.38 bzfm=182) LYMPHOCYTES ABSOLUTE COUNT (BEAKER) (test 1.51 K/ L 1.32-3.57 wkzc=711) MONOCYTES ABSOLUTE COUNT (BEAKER) (test 0.40 K/ L 0.30-0.82 lszp=912) EOSINOPHILS ABSOLUTE COUNT (BEAKER) (test 0.11 K/ L 0.04-0.54 afiy=059) BASOPHILS ABSOLUTE COUNT (BEAKER) (test 0.02 K/ L 0.01-0.08 zfhe=330) IMMATURE GRANULOCYTES-RELATIVE PERCENT (BEAKER) 0 % 0-1 (test yjki=4913)
--- NOTE | 2018-07-27 18:08 | EKG ---
Test Date: 2018-07-27 Test Time: 02:26:35 Airline Manager: LAUREN MEASUREMENT RESULTS: Intervals: Rate: 75 TX: 324 QRSD: 148 QT: 470 QTc: 524 [place]: P: TX: 324 QRS: 0 T: 87 INTERPRETIVE STATEMENTS: Atrial-paced rhythm with prolonged AV conduction Right bundle branch block Inferior infarct, age undetermined Abnormal ECG Compared to ECG 07/20/2018 17:14:33 Right bundle-branch block now present Myocardial infarct finding now present AV dual-paced complex(es) or rhythm no longer present Electronically Signed On 07-27-18 18:05:30 [employer] LIN[employer] by Jeovanny Ulloa
== END 2018-07-27 05:37 | disposition short-term general hospital (02) ==
LOC: ER 02:28
DX: R53.1 Weakness (principal); R47.01 Aphasia; I10 Essential (primary) hypertension; E11.9 Type 2 diabetes mellitus without complications; I48.91 Unspecified atrial fibrillation; I50.9 Heart failure, unspecified; Z79.01 Long term (current) use of anticoagulants; Z79.82 Long term (current) use of aspirin; Z79.4 Long term (current) use of insulin; Z86.73 Personal history of transient ischemic attack (TIA), and cerebral infarction without residual deficits
CPT/HCPCS: 36415; 70450; 71045; 80048; 80076; 83690; 83735; 83880; 84484; 85025; 85610; 85652; 86140; 93005; 96361; 96365; 96368; 99285; J3411; J7030

== ENCOUNTER 2022-06-11 18:07 | Emergency (ER) | payer OTHER ==
--- OUTSIDE RECORDS SUMMARY | 2022-06-11 18:11 | XMS REPORT | Continuity of Care Document ---
:1945 Author Organization [facility] t Address [address] [place] [address] Care Team Providers Name Role Phone No, Pcp [facility] Primary Care Physician Unavailable MEIR REYES Attending Clinician Unavailable DELFINO WARREN Attending Clinician Unavailable MATIAS COLLIER Attending Clinician Unavailable MEIR REYES Admitting Clinician Unavailable DELFINO WARREN Admitting Clinician Unavailable MATIAS COLLIER Admitting Clinician Unavailable Problems Condition Condition Condition Status Onset Resolution Last Treating Co mments Source Name Details Category Date Date Treatment Clinician Date TIA TIA Disease Active 2017-[address] [facility] (transient (transient 2-21 [facility] ischemic ischemic 00:00: Medica l attack) attack) 00 [place] CVA CVA Disease Active 2017-[address] [facility] (cerebral (cerebral 1-18 [facility] vascular vascular 00:00: Medica l accident) accident) 00 [facility] er Seizures Seizures Disease Active 2017[facility] 00 [place] Essential Essential Disease Active 2017-[address] [facility] hypertensi hypertensi 1-17 [facility] on on 00:00: Medical 00 [place] Atrial Atrial Disease Active 2017-[address] [facility] fibrillati fibrillati 1-17 [facility] on on 00:00: Medical 00 [place] Stroke Stroke Disease Active 2017-[address] [facility] 00:[facility] 00 Center Chest pain Chest pain Disease Active [facility] 00 Center 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 Family History Family Member Diagnosis Comments Start Date Stop Date Source Natural brother Heart attack [facility] Natural father Heart attack [facility] Natural mother Heart failure [facility] Social History Social Habit Start Date Stop Date Quantity Comments Source History SDOH [facility] Alcohol Comment Medical C enter History SDOH [facility] Alcohol Std Drinks [facility]ica Center History SDOH [facility] Alcohol Binge Medical [facility] Tobacco Comment 2018-07-27 2018-07-27 2 cigars [address] [facility] 00:00[facility]00 00:00:00 [facility] Alcohol intake 2018-07-27 2018-07-[address] [facility] 00:00:00 00:00:00 non-drinker of Medical Ce nter alcohol (finding) Tobacco use and 2018-06-23 2018-06-[address] [facility] exposure 00:00:00 00:00:00 Medical Center History SDOH 2018-06-23 2018-06-[address] [facility] Alcohol Frequency 00:00:00 00:00:00 [facility] History of tobacco 2017-07-07 Current sm[facility] use [facility]00 [facility] Sex Assigned At [address] [facility] 00:00:00 00:00:00 [facility] Smoking Status Start Date Stop Date Source Former smoker 2018-06-23 00:00:00 2018-06-23 00:00:00 [facility] Medications Ordered Filled Start Stop Current Ordering Indication Dosage Frequency Signature Comments Components Source Medication Medication Date Date Medication? Clinician (SIG) Name Name aspirin 81 2017-08 Yes 81mg QD Take [address] MG chewable 2-24 by mouth [facility] tablet 14:47: daily. [address] atorvastati 2017-08 Yes 20mg QD Take [address] n (LIPITOR) 2-24 by mouth Luke [facility] 20 MG 14:47: daily. Medical tablet 27 [place] cyanocobala 2017-08 Yes 1000ug QD Take 1,[address] min 1000 2-24 mcg by [facility]ukes MCG tablet 14:47: mouth Medica l 27 daily. [place] carvedilol 2017-08 Yes 3.125mg Take 3.[address] (COREG) 25 2-24 mg by [facility] MG tablet 14:47: mouth 2 Medic al 27 (two) Center times daily with breakfast and dinner . ferrous 2017-08 Yes 324mg Q.5D Take 324 [facility] gluconate 2-24 mg by [facility] (FERGON) 14:47: mouth 2 Medica l 324 MG 27 (two) Center tablet times daily. finasteride 2017-08 Yes 5mg QD Take [address] (PROSCAR) 5 2-24 by mouth [facility] mg tablet 14:47: daily. Medica l 27 [place] furosemide 2017-08 Yes 60mg QD Take [address] (LASIX) 40 2-24 by mouth [facility] MG tablet 14:47: daily . Medic al 27 [place] insulin 2017-08 Yes 10U Inject 10 [facility] aspart 2-24 Units [facility] U-100 14:47: subcutaneo Medica l (NOVOLOG) 27 usly 3 Center 100 unit/mL (three) InPn times daily with meals Do not give if meal is missed . insulin 2017-08 Yes 15U QD Inject 15 [facility] detemir 2-24 Units [facility] U-100 14:47: subcutaneo Medica l (LEVEMIR) 27 usly every Cent er 100 unit/mL morning. (3 mL) InPn injection omeprazole 2017-08 Yes 20mg QD Take [address] (PRILOSEC) 2-24 by mouth [facility]ukes 20 MG 14:47: daily. Medical capsule 27 [place] warfarin 2017-08 Yes 5mg QD Take [address] (COUMADIN) 2-24 by mouth [facility]ukes 5 MG tablet 14:47: daily Medic al 27 Except Center Monday, Monday and Monday. . warfarin 2017-08 Yes 7.5mg QD Take 7.[address] (COUMADIN) 2-24 mg by [facility]ukes 7.5 MG 14:47: mouth Medical tablet 27 daily On Center Monday, Monday and Monday . levothyroxi 2017-08 Yes 100ug Take [address] [facility] [facility] ne 2-24 tablet [facility] (SYNTHROID, 00:00: (100 mcg Me dical LEVOTHROID) 00 total) by [facility] 100 MCG mouth tablet Every morning on an empty stomach 1 hour before breakfast with glass of water . lisinopril 2017-08 Yes 2.5mg QD Take [address] (PRINIVIL,Z 2-24 tablet [facility]ukes ESTRIL) 2.5 00:00: (2.5 mg Med ical MG tablet 00 total) by Cente r mouth daily. famotidine 2017-08 Yes 20mg Q.5D Take 1 [facility] (PEPCID) 20 2-24 tablet (20 [facility] MG tablet 00:00: mg total) Med ical 00 by mouth 2 Center (two) times daily. nitroglycer Yes .4mg Place [address] in 9-04 tablet [facility] (NITROSTAT) 00:00: (0.4 mg Med ical 0.4 MG SL 00 total) Center tablet under the tongue every 5 (five) minutes as needed for Chest pain. Procedures This patient has no known procedures. Results Test Description Test Time Test Comments Results Result Comments Source POCT-GLUCOSE METER 2018-07-30 11:40:00 Test Item Value Reference Range Interpretation Comme nts POC-GLUCOSE METER ([employer]) (test 179 mg/dL 70-110 H TESTED AT [facility] [address] [facility] 7703 0 POCT-GLUCOSE [id number] 08:10:00 Test Item Value Reference Range Interpretation Comments POC-GLUCOSE METER 134 mg/dL 70-110 H TESTED AT [facility] 6720 ([employer]) (test code = YAO R [facility] 1538) [id number] PROTHROMBIN [id number] 06:51:00 Test Item Value Reference Range Interpretation Comments PROTIME ([employer]ellet[employer]) (test code = 25.3 seconds 11.7-14.7 H 759) INR ([employer]) (test code = 370) 2.3 <=5.9 RECOMMENDED COUMADIN/WARFARIN INR THERAPY RANGESSTANDARD DOSE: 2.0 - 3.0 Includes: PROPHYLAXIS for venous thrombosis, systemic embolization; TREATMENT for venous thrombosis and/or pulmonary embolus.HIGH RISK: Target INR is 2.5-3.5 for patients with mechanical heart valves.BASIC METABOLIC [id number] 06:46:00 Test Item Value Reference Range Interpretation Comments SODIUM (BEAKER) 137 meq/L 136-145 (test code = 381) POTASSIUM (BEAKER) 4.5 meq/L 3.5-5.1 (test code = 379) CHLORIDE (BEAKER) 102 meq/L 98-107 (test code = 382) CO2 (BEAKER) (test 29 meq/L 22-29 code = 355) BLOOD UREA NITROGEN 17 mg/dL 7-21 (BEAKER) (test code = 354) CREATININE (BEAKER) 1.49 mg/dL 0.57-1.25 H (test code = 358) GLUCOSE RANDOM 120 mg/dL 70-105 H (BEAKER) (test code = 652) CALCIUM (BEAKER) 9.1 mg/dL 8.4-10.2 (test code = 697) EGFR (BEAKER) (test 46 mL/min/1.73 ESTIMA VINICIUS GFR IS code = 1092) sq m NOT ACCURATE CREATININE CLEARANCE IN PREDICTING GLOMERULAR FILTRATION RATE . ESTIMATED GFR I S NOT APPLICABLE FOR DIALYSIS PATIEN TS. CBC W/PLT COUNT & AUTO [id number] 06:08:00 Test Item Value Reference Range Interpretation Comments WHITE BLOOD CELL COUNT (BEAKER) 5.9 K/ L 3.5-10.5 (test code = 775) RED BLOOD CELL COUNT (BEAKER) 4.24 M/ L 4.63-6.08 L (test code = 761) HEMOGLOBIN (BEAKER) (test code = 12.4 GM/DL 13.7-17.5 L 410) HEMATOCRIT (BEAKER) (test code = 37.7 % 40.1-51.0 L 411) MEAN CORPUSCULAR VOLUME (BEAKER) 88.9 fL 79.0-92.2 (test code = 753) MEAN CORPUSCULAR HEMOGLOBIN 29.2 pg 25.7-32.2 (BEAKER) (test code = 751) MEAN CORPUSCULAR HEMOGLOBIN CONC 32.9 GM/DL 32.3-36.5 (BEAKER) (test code = 752) RED CELL DISTRIBUTION WIDTH 13.5 % 11.6-14.4 (BEAKER) (test code = 412) PLATELET COUNT (BEAKER) (test 119 K/CU MM 150-450 L code = 756) MEAN PLATELET VOLUME (BEAKER) 9.0 fL 9.4-12.4 L (test code = 754) NUCLEATED RED BLOOD CELLS 0 /100 WBC 0-0 (BEAKER) (test code = 413) NEUTROPHILS RELATIVE PERCENT 64 % (BEAKER) (test code = 429) LYMPHOCYTES RELATIVE PERCENT 25 % (BEAKER) (test code = 430) MONOCYTES RELATIVE PERCENT 9 % (BEAKER) (test code = 431) EOSINOPHILS RELATIVE PERCENT 2 % (BEAKER) (test code = 432) BASOPHILS RELATIVE PERCENT 1 % (BEAKER) (test code = 437) NEUTROPHILS ABSOLUTE COUNT 3.79 K/ L 1.78-5.38 (BEAKER) (test code = 670) LYMPHOCYTES ABSOLUTE COUNT 1.47 K/ L 1.32-3.57 (BEAKER) (test code = 414) MONOCYTES ABSOLUTE COUNT (BEAKER) 0.51 K/ L 0.30-0.82 (test code = 415) EOSINOPHILS ABSOLUTE COUNT 0.11 K/ L 0.04-0.54 (BEAKER) (test code = 416) BASOPHILS ABSOLUTE COUNT (BEAKER) 0.03 K/ L 0.01-0.08 (test code = 417) IMMATURE GRANULOCYTES-RELATIVE 0 % 0-1 PERCENT (BEAKER) (test code = 2801) POCT-GLUCOSE [id number] 22:28:00 Test Item Value Reference Range Interpretation Comments POC-GLUCOSE METER 166 mg/dL 70-110 H TESTED AT [facility] (test code = [place] 1538) [id number] POCT-GLUCOSE [id number] 17:28:00 Test Item Value Reference Range Interpretation Comments POC-GLUCOSE METER 155 mg/dL 70-110 H TESTED AT [facility] 6720 ([facility] (test code = [facility] 1538) [id number] POCT-GLUCOSE [id number] 14:06:00 Test Item Value Reference Range Interpretation Comments POC-GLUCOSE METER 78 mg/dL 70-110 TESTED AT [facility] 6720 ([facility] (test code = [facility] [place]elle [facility] [id number] 1538) POCT-GLUCOSE [id number] 11:23:00 Test Item Value Reference Range Interpretation Comments POC-GLUCOSE METER 197 mg/dL 70-110 H TESTED AT [facility] 6720 (BEAKER) (test code = [place] 1538) [address] POCT-GLUCOSE [id number] 08:12:00 Test Item Value Reference Range Interpretation Comments POC-GLUCOSE METER 124 mg/dL 70-110 H TESTED AT [facility] 6720 (BEAKER) (test code = [place] 1538) [id number] PROTHROMBIN [id number] 05:20:00 Test Item Value Reference Range Interpretation Comments PROTIME (BEAKER) (test code = 27.0 seconds 11.7-14.7 H 759) INR (BEAKER) (test code = 370) 2.5 <=5.9 RECOMMENDED COUMADIN/WARFARIN INR THERAPY RANGESSTANDARD DOSE: 2.0 - 3.0 Includes: PROPHYLAXIS for venous thrombosis, systemic embolization; TREATMENT for venous thrombosis and/or pulmonary embolus.HIGH RISK: Target INR is 2.5-3.5 for patients with mechanical heart valves.BASIC METABOLIC [id number] 05:20:00 Test Item Value Reference Range Interpretation Comments SODIUM (BEAKER) 136 meq/L 136-145 (test code = 381) POTASSIUM (BEAKER) 4.0 meq/L 3.5-5.1 (test code = 379) CHLORIDE (BEAKER) 102 meq/L 98-107 (test code = 382) CO2 (BEAKER) (test 27 meq/L 22-29 code = 355) BLOOD UREA NITROGEN 14 mg/dL 7-21 (BEAKER) (test code = 354) CREATININE (BEAKER) 1.35 mg/dL 0.57-1.25 H (test code = 358) GLUCOSE RANDOM 103 mg/dL 70-105 (BEAKER) (test code = 652) CALCIUM (BEAKER) 9.0 mg/dL 8.4-10.2 (test code = 697) EGFR (BEAKER) (test 52 mL/min/1.73 ESTIMA VINICIUS GFR IS code = 1092) sq m NOT ACCURATE CREATININE CLEARANCE IN PREDICTING GLOMERULAR FILTRATION RATE . ESTIMATED GFR I S NOT APPLICABLE FOR DIALYSIS PATIEN TS. CBC W/PLT COUNT & AUTO [id number] 04:53:00 Test Item Value Reference Range Interpretation Comments WHITE BLOOD CELL COUNT (BEAKER) 5.3 K/ L 3.5-10.5 (test code = 775) RED BLOOD CELL COUNT (BEAKER) 4.07 M/ L 4.63-6.08 L (test code = 761) HEMOGLOBIN (BEAKER) (test code = 12.0 GM/DL 13.7-17.5 L 410) HEMATOCRIT (BEAKER) (test code = 35.8 % 40.1-51.0 L 411) MEAN CORPUSCULAR VOLUME (BEAKER) 88.0 fL 79.0-92.2 (test code = 753) MEAN CORPUSCULAR HEMOGLOBIN 29.5 pg 25.7-32.2 (BEAKER) (test code = 751) MEAN CORPUSCULAR HEMOGLOBIN CONC 33.5 GM/DL 32.3-36.5 (BEAKER) (test code = 752) RED CELL DISTRIBUTION WIDTH 13.4 % 11.6-14.4 (BEAKER) (test code = 412) PLATELET COUNT (BEAKER) (test 119 K/CU MM 150-450 L code = 756) MEAN PLATELET VOLUME (BEAKER) 9.3 fL 9.4-12.4 L (test code = 754) NUCLEATED RED BLOOD CELLS 0 /100 WBC 0-0 (BEAKER) (test code = 413) NEUTROPHILS RELATIVE PERCENT 62 % (BEAKER) (test code = 429) LYMPHOCYTES RELATIVE PERCENT 26 % (BEAKER) (test code = 430) MONOCYTES RELATIVE PERCENT 9 % (BEAKER) (test code = 431) EOSINOPHILS RELATIVE PERCENT 2 % (BEAKER) (test code = 432) BASOPHILS RELATIVE PERCENT 0 % (BEAKER) (test code = 437) NEUTROPHILS ABSOLUTE COUNT 3.25 K/ L 1.78-5.38 (BEAKER) (test code = 670) LYMPHOCYTES ABSOLUTE COUNT 1.39 K/ L 1.32-3.57 (BEAKER) (test code = 414) MONOCYTES ABSOLUTE COUNT (BEAKER) 0.49 K/ L 0.30-0.82 (test code = 415) EOSINOPHILS ABSOLUTE COUNT 0.09 K/ L 0.04-0.54 (BEAKER) (test code = 416) BASOPHILS ABSOLUTE COUNT (BEAKER) 0.02 K/ L 0.01-0.08 (test code = 417) IMMATURE GRANULOCYTES-RELATIVE 0 % 0-1 PERCENT (BEAKER) (test code = 2801) POCT-GLUCOSE [id number] 21:31:00 Test Item Value Reference Range Interpretation Comments POC-GLUCOSE METER 159 mg/dL 70-110 H TESTED AT [facility] 6720 ([facility]) (test code = [place] Ibanez [place] 1538) [id number] POCT-GLUCOSE [id number] 16:54:00 Test Item Value Reference Range Interpretation Comments POC-GLUCOSE METER 201 mg/dL 70-110 H TESTED AT [facility] 67 ([facility]) (test code = [place] [place] [place] 1538) [id number] POCT-GLUCOSE [id number] 15:07:00 Test Item Value Reference Range Interpretation Comments POC-GLUCOSE METER 98 mg/dL 70-110 TESTED AT [place] [address] ([facility]) (test code = [facility] I[facility] [address] 1538) PROTHROMBIN [id number] 14:05:00 Test Item Value Reference Range Interpretation Comments PROTIME ([facility]) (test code = 26.6 seconds 11.7-14.7 H 759) INR ([facility]) (test code = 370) 2.5 <=5.9 RECOMMENDED COUMADIN/WARFARIN INR THERAPY RANGESSTANDARD DOSE: 2.0 - 3.0 Includes: PROPHYLAXIS for venous thrombosis, systemic embolization; TREATMENT for venous thrombosis and/or pulmonary embolus.HIGH RISK: Target INR is 2.5-3.5 for patients with mechanical heart valves.While on warfarin.BASIC METABOLIC [id number] 13:55:00 Test Item Value Reference Range Interpretation Comments SODIUM (BEAKER) 136 meq/L 136-145 (test code = 381) POTASSIUM (BEAKER) 4.0 meq/L 3.5-5.1 (test code = 379) CHLORIDE (BEAKER) 100 meq/L 98-107 (test code = 382) CO2 (BEAKER) (test 29 meq/L 22-29 code = 355) BLOOD UREA NITROGEN 12 mg/dL 7-21 (BEAKER) (test code = 354) CREATININE (BEAKER) 1.35 mg/dL 0.57-1.25 H (test code = 358) GLUCOSE RANDOM 69 mg/dL 70-105 L (BEAKER) (test code = 652) CALCIUM (BEAKER) 9.2 mg/dL 8.4-10.2 (test code = 697) EGFR (BEAKER) (test 52 mL/min/1.73 ESTIMA VINICIUS GFR IS code = 1092) sq m NOT ACCURATE CREATININE CLEARANCE IN PREDICTING GLOMERULAR FILTRATION RATE . ESTIMATED GFR I S NOT APPLICABLE FOR DIALYSIS PATIEN TS. CBC W/PLT COUNT & AUTO [id number] 13:44:00 Test Item Value Reference Range Interpretation Comments WHITE BLOOD CELL COUNT (BEAKER) 5.0 K/ L 3.5-10.5 (test code = 775) RED BLOOD CELL COUNT (BEAKER) 4.30 M/ L 4.63-6.08 L (test code = 761) HEMOGLOBIN (BEAKER) (test code = 12.4 GM/DL 13.7-17.5 L 410) HEMATOCRIT (BEAKER) (test code = 38.1 % 40.1-51.0 L 411) MEAN CORPUSCULAR VOLUME (BEAKER) 88.6 fL 79.0-92.2 (test code = 753) MEAN CORPUSCULAR HEMOGLOBIN 28.8 pg 25.7-32.2 (BEAKER) (test code = 751) MEAN CORPUSCULAR HEMOGLOBIN CONC 32.5 GM/DL 32.3-36.5 (BEAKER) (test code = 752) RED CELL DISTRIBUTION WIDTH 13.5 % 11.6-14.4 (BEAKER) (test code = 412) PLATELET COUNT (BEAKER) (test 133 K/CU MM 150-450 L code = 756) MEAN PLATELET VOLUME (BEAKER) 8.7 fL 9.4-12.4 L (test code = 754) NUCLEATED RED BLOOD CELLS 0 /100 WBC 0-0 (BEAKER) (test code = 413) NEUTROPHILS RELATIVE PERCENT 66 % (BEAKER) (test code = 429) LYMPHOCYTES RELATIVE PERCENT 25 % (BEAKER) (test code = 430) MONOCYTES RELATIVE PERCENT 7 % (BEAKER) (test code = 431) EOSINOPHILS RELATIVE PERCENT 1 % (BEAKER) (test code = 432) BASOPHILS RELATIVE PERCENT 1 % (BEAKER) (test code = 437) NEUTROPHILS ABSOLUTE COUNT 3.32 K/ L 1.78-5.38 (BEAKER) (test code = 670) LYMPHOCYTES ABSOLUTE COUNT 1.26 K/ L 1.32-3.57 L (BEAKER) (test code = 414) MONOCYTES ABSOLUTE COUNT (BEAKER) 0.35 K/ L 0.30-0.82 (test code = 415) EOSINOPHILS ABSOLUTE COUNT 0.05 K/ L 0.04-0.54 (BEAKER) (test code = 416) BASOPHILS ABSOLUTE COUNT (BEAKER) 0.03 K/ L 0.01-0.08 (test code = 417) IMMATURE GRANULOCYTES-RELATIVE 0 % 0-1 PERCENT (BEAKER) (test code = 2801) POCT-GLUCOSE [id number] 12:18:00 Test Item Value Reference Range Interpretation Comments POC-GLUCOSE METER 128 mg/dL 70-110 H TESTED AT [facility] 6720 (BEAKER) (test code = [facility] 1538) [address] POCT-GLUCOSE [id number] 08:11:00 Test Item Value Reference Range Interpretation Comments POC-GLUCOSE METER 118 mg/dL 70-110 H TESTED AT [place] [address] (BEAKER) (test code = [facility] 1538) [id number] POCT-GLUCOSE [id number] 21:24:00 Test Item Value Reference Range Interpretation Comments POC-GLUCOSE METER 130 mg/dL 70-110 H TESTED AT [place] [address] (BEAKER) (test code = [facility] 1538) [address] URINALYSIS W/ REFLEX URINE [id number] 17:25:00 Test Item Value Reference Range Interpretation Comments COLOR (BEAKER) (test code = 470) Light Yellow CLARITY (BEAKER) (test code = Clear 469) SPECIFIC GRAVITY UA (BEAKER) 1.006 1.001-1.035 (test code = 468) PH UA (BEAKER) (test code = 467) 7.0 5.0-8.0 PROTEIN UA (BEAKER) (test code = Negative Negative 464) GLUCOSE UA (BEAKER) (test code = Negative Negative 365) KETONES UA (BEAKER) (test code = Negative Negative 371) BILIRUBIN UA (BEAKER) (test code Negative Negative = 462) BLOOD UA (BEAKER) (test code = Negative Negative 461) NITRITE UA (BEAKER) (test code = Negative Negative 465) LEUKOCYTE ESTERASE UA (BEAKER) Negative Negative (test code = 466) UROBILINOGEN UA (BEAKER) (test 0.2 mg/dL 0.2-1.0 code = 463) RBC UA (BEAKER) (test code = 1 /HPF 519) WBC UA (BEAKER) (test code = 1 /HPF 520) CRYSTALS, URINE (BEAKER) (test Rare code = 1521) SOURCE(BEAKER) (test code = 2795) POCT-GLUCOSE [id number] 17:01:00 Test Item Value Reference Range Interpretation Comments POC-GLUCOSE METER 109 mg/dL 70-110 TESTED AT [place] [address] ([facility] (test code = [facility] 1538) [address] [id number] 15:06:00 Test Item Value Reference Range Interpretation Comments RPR SCREEN (BEAKER) (test code = Nonreactive Nonreactive 420) POCT-GLUCOSE [id number] 11:50:00 Test Item Value Reference Range Interpretation Comments POC-GLUCOSE METER 156 mg/dL 70-110 H TESTED AT [facility] 67 ([facility]) (test code = [facility] 1538) [address] [id number] 10:36:00 Test Item Value Reference Range Interpretation Comments THYROID STIMULATING HORMONE 0.05 uIU/mL 0.35-4.94 L (BEAKER) (test code = 772) VITAMIN B12 AND [id number] 10:27:00 Test Item Value Reference Range Interpretation Comments VITAMIN B12 (BEAKER) (test code = 1571 pg/mL 213-816 H 774) FOLATE (BEAKER) (test code = 362) 12.0 ng/mL >=7.0 TROPONIN [id number] 09:58:00 Test Item Value Reference Range Interpretation Comments TROPONIN I (BEAKER) (test code = 0.04 ng/mL 0.00-0.03 H 397) Troponin I (TnI) levels must be interpreted [...] acidosis, acute neurological disease, and persistent tachyarrhythmia.LIPID [id number] 09:52:00 Test Item Value Reference Range Interpretation Comments TRIGLYCERIDES (BEAKER) (test code = 172 mg/dL 540) CHOLESTEROL (BEAKER) (test code = 123 mg/dL 631) HDL CHOLESTEROL (BEAKER) (test code 37 mg/dL = 976) LDL CHOLESTEROL CALCULATED (BEAKER) 52 mg/dL (test code = 633) Triglyceride Reference Range: Low Risk <150 Borderline 150-199 High Risk 200- 499 Very High Risk >=500Cholesterol Reference Range: Low Risk <200 Borderline 200-239 High Risk >240HDL Cholesterol Reference Range: Low Risk >=60 High Risk <40LDL Cholesterol Reference Range: Optimal <100 Near Optimal 100-129 Borderline 130-159 High 160-189 Very High >=190BASIC METABOLIC [id number] 09:52:00 Test Item Value Reference Range Interpretation Comments SODIUM (BEAKER) 136 meq/L 136-145 (test code = 381) POTASSIUM (BEAKER) 4.4 meq/L 3.5-5.1 (test code = 379) CHLORIDE (BEAKER) 105 meq/L 98-107 (test code = 382) CO2 (BEAKER) (test 29 meq/L 22-29 code = 355) BLOOD UREA NITROGEN 10 mg/dL 7-21 (BEAKER) (test code = 354) CREATININE (BEAKER) 1.04 mg/dL 0.57-1.25 (test code = 358) GLUCOSE RANDOM 127 mg/dL 70-105 H (BEAKER) (test code = 652) CALCIUM (BEAKER) 8.7 mg/dL 8.4-10.2 (test code = 697) EGFR (BEAKER) (test 70 mL/min/1.73 ESTIMA VINICIUS GFR IS code = 1092) sq m NOT ACCURATE CREATININE CLEARANCE IN PREDICTING GLOMERULAR FILTRATION RATE . ESTIMATED GFR I S NOT APPLICABLE FOR DIALYSIS PATIEN TS. HEPATIC FUNCTION [id number] 09:52:00 Test Item Value Reference Range Interpretation Comments TOTAL PROTEIN (BEAKER) (test code = 6.7 gm/dL 6.0-8.3 770) ALBUMIN (BEAKER) (test code = 1145) 3.5 g/dL 3.5-5.0 BILIRUBIN TOTAL (BEAKER) (test code 0.4 mg/dL 0.2-1.2 = 377) BILIRUBIN DIRECT (BEAKER) (test 0.2 mg/dL 0.1-0.5 code = 706) ALKALINE PHOSPHATASE (BEAKER) (test 104 U/L 40-150 code = 346) AST (SGOT) (BEAKER) (test code = 22 U/L 5-34 353) ALT (SGPT) (BEAKER) (test code = 19 U/L 6-55 347) PROTHROMBIN TIME/[id number] 09:43:00 Test Item Value Reference Range Interpretation Comments PROTIME (BEAKER) (test code = 29.3 seconds 11.7-14.7 H 759) INR (BEAKER) (test code = 370) 2.8 <=5.9 RECOMMENDED COUMADIN/WARFARIN INR THERAPY RANGESSTANDARD DOSE: 2.0 - 3.0 Includes: PROPHYLAXIS for venous thrombosis, systemic embolization; TREATMENT for venous thrombosis and/or pulmonary embolus.HIGH RISK: Target INR is 2.5-3.5 for patients with mechanical heart valves.CBC W/PLT COUNT & AUTO [id number] 09:41:00 Test Item Value Reference Range Interpretation Comments WHITE BLOOD CELL COUNT (BEAKER) 5.8 K/ L 3.5-10.5 (test code = 775) RED BLOOD CELL COUNT (BEAKER) 3.84 M/ L 4.63-6.08 L (test code = 761) HEMOGLOBIN (BEAKER) (test code = 11.2 GM/DL 13.7-17.5 L 410) HEMATOCRIT (BEAKER) (test code = 34.4 % 40.1-51.0 L 411) MEAN CORPUSCULAR VOLUME (BEAKER) 89.6 fL 79.0-92.2 (test code = 753) MEAN CORPUSCULAR HEMOGLOBIN 29.2 pg 25.7-32.2 (BEAKER) (test code = 751) MEAN CORPUSCULAR HEMOGLOBIN CONC 32.6 GM/DL 32.3-36.5 (BEAKER) (test code = 752) RED CELL DISTRIBUTION WIDTH 13.7 % 11.6-14.4 (BEAKER) (test code = 412) PLATELET COUNT (BEAKER) (test 127 K/CU MM 150-450 L code = 756) MEAN PLATELET VOLUME (BEAKER) 9.6 fL 9.4-12.4 (test code = 754) NUCLEATED RED BLOOD CELLS 0 /100 WBC 0-0 (BEAKER) (test code = 413) NEUTROPHILS RELATIVE PERCENT 72 % (BEAKER) (test code = 429) LYMPHOCYTES RELATIVE PERCENT 22 % (BEAKER) (test code = 430) MONOCYTES RELATIVE PERCENT 6 % (BEAKER) (test code = 431) EOSINOPHILS RELATIVE PERCENT 1 % (BEAKER) (test code = 432) BASOPHILS RELATIVE PERCENT 0 % (BEAKER) (test code = 437) NEUTROPHILS ABSOLUTE COUNT 4.18 K/ L 1.78-5.38 (BEAKER) (test code = 670) LYMPHOCYTES ABSOLUTE COUNT 1.26 K/ L 1.32-3.57 L (BEAKER) (test code = 414) MONOCYTES ABSOLUTE COUNT (BEAKER) 0.32 K/ L 0.30-0.82 (test code = 415) EOSINOPHILS ABSOLUTE COUNT 0.04 K/ L 0.04-0.54 (BEAKER) (test code = 416) BASOPHILS ABSOLUTE COUNT (BEAKER) 0.02 K/ L 0.01-0.08 (test code = 417) IMMATURE GRANULOCYTES-RELATIVE 0 % 0-1 PERCENT (BEAKER) (test code = 2801) POCT-GLUCOSE [id number] 08:38:00 Test Item Value Reference Range Interpretation Comments POC-GLUCOSE METER 146 mg/dL 70-110 H TESTED AT [facility] 6720 ([facility]) (test code = [facility] 1538) [id number] URINE [id number] 09:31:00 Test Item Value Reference Interpretation Comments Range CULTURE ([facility]) COAGULASE NEGATIVE A 10-19 ,000 col/mL (test code = 1095) STAPHYLOCOCCUS Coagula se negative Staphylococcus Clindamycin (test S code = 10) Erythromycin (test R code = 4) Linezolid (test code S = 40) Nitrofurantoin (test S code = 23) Oxacillin (test code S = 14) Rifampin (test code = S 43) Tetracycline (test R code = 2) Trimethoprim + S Sulfamethoxazole (test code = 47) Vancomycin (test code S = 13) EEG AWAKE AND [id number] 14:58:00For STAT EEG- after 5 PM weekdays, weekends and holidays, page the on-call EEG TechReason for exam:->reports of first time seizure hould this be performed at the bedside?->YesDate of EE06/25/18 DATE OF REPORT: 06/25/18 ACC: [id number] EEG Number: [id number] Test Location: Inpatient Start time: 06/25/18 at 1018 Stop time: 06/25/18 at 1039 ICD-10: 38247 CPT Code: R56.9 HISTORY:72 year old male with h/o Afib, CAD [...] the maximally alert state, a symmetric continuous backgroundpattern is seen with an approximately 9 Hz [...] Fellow Jamir Pagan MD PhD Attending Neurophysiologist [facility] POCT-GLUCOSE [id number] 11:26:00 Test Item Value Reference Range Interpretation Comments POC-GLUCOSE METER 156 mg/dL 70-110 H TESTED AT [place] [address] ([facility]) (test code = [facility] 1538) [id number] POCT-GLUCOSE [id number] 08:59:00 Test Item Value Reference Range Interpretation Comments POC-GLUCOSE METER 85 mg/dL 70-110 TESTED AT [place] [address] ([facility]) (test code = [facility] [address] 1538) [id number] 07:29:00 Test Item Value Reference Range Interpretation Comments PHOSPHORUS (BEAKER) (test code = 3.2 mg/dL 2.3-4.7 604) [id number] 07:29:00 Test Item Value Reference Range Interpretation Comments MAGNESIUM (BEAKER) (test code = 2.5 mg/dL 1.6-2.6 627) BASIC METABOLIC [id number] 07:29:00 Test Item Value Reference Range Interpretation Comments SODIUM (BEAKER) 137 meq/L 136-145 (test code = 381) POTASSIUM (BEAKER) 3.7 meq/L 3.5-5.1 (test code = 379) CHLORIDE (BEAKER) 103 meq/L 98-107 (test code = 382) CO2 (BEAKER) (test 23 meq/L 22-29 code = 355) BLOOD UREA NITROGEN 20 mg/dL 7-21 (BEAKER) (test code = 354) CREATININE (BEAKER) 1.49 mg/dL 0.57-1.25 H (test code = 358) GLUCOSE RANDOM 67 mg/dL 70-105 L (BEAKER) (test code = 652) CALCIUM (BEAKER) 8.7 mg/dL 8.4-10.2 (test code = 697) EGFR (BEAKER) (test 46 mL/min/1.73 ESTIMA VINICIUS GFR IS code = 1092) sq m NOT ACCURATE CREATININE CLEARANCE IN PREDICTING GLOMERULAR FILTRATION RATE . ESTIMATED GFR I S NOT APPLICABLE FOR DIALYSIS PATIEN TS. PROTHROMBIN [id number] 06:05:00 Test Item Value Reference Range Interpretation Comments PROTIME (BEAKER) (test code = 33.9 seconds 11.7-14.7 H 759) INR (BEAKER) (test code = 370) 3.3 <=5.9 RECOMMENDED COUMADIN/WARFARIN INR THERAPY RANGESSTANDARD DOSE: 2.0 - 3.0 Includes: PROPHYLAXIS for venous thrombosis, systemic embolization; TREATMENT for venous thrombosis and/or pulmonary embolus.HIGH RISK: Target INR is 2.5-3.5 for patients with mechanical heart valves.[id number] 03:36:00 Test Item Value Reference Range Interpretation Comments RPR SCREEN (BEAKER) (test code = Nonreactive Nonreactive 420) URINALYSIS W/ REFLEX URINE [id number] 22:28:00 Test Item Value Reference Range Interpretation Comments COLOR (BEAKER) (test code = 470) Yellow CLARITY (BEAKER) (test code = 469) Clear SPECIFIC GRAVITY UA (BEAKER) (test 1.014 1.001-1.035 code = 468) PH UA (BEAKER) (test code = 467) 6.5 5.0-8.0 PROTEIN UA (BEAKER) (test code = 20 mg/dL Negative A 464) GLUCOSE UA (BEAKER) (test code = 70 mg/dL Negative A 365) KETONES UA (BEAKER) (test code = Negative Negative 371) BILIRUBIN UA (BEAKER) (test code = Negative Negative 462) BLOOD UA (BEAKER) (test code = 461) Negative Negative NITRITE UA (BEAKER) (test code = Negative Negative 465) LEUKOCYTE ESTERASE UA (BEAKER) Negative Negative (test code = 466) UROBILINOGEN UA (BEAKER) (test code 0.2 mg/dL 0.2-1.0 = 463) RBC UA (BEAKER) (test code = 519) 1 /HPF WBC UA (BEAKER) (test code = 520) < /HPF HYALINE CASTS (BEAKER) (test code = 1 /LPF 514) SOURCE(BEAKER) (test code = 2795) POCT-GLUCOSE [id number] 22:00:00 Test Item Value Reference Range Interpretation Comments POC-GLUCOSE METER 84 mg/dL 70-110 TESTED AT [facility] 6720 (BEAKER) (test code = [facility] [address] 1538) POCT-GLUCOSE [id number] 17:33:00 Test Item Value Reference Range Interpretation Comments POC-GLUCOSE METER 106 mg/dL 70-110 TESTED AT [facility] 6720 (BEAKER) (test code = [facility] 1538) [address] RAD, CHEST, 1 VIEW, NON [id number] 16:32:00Reason for exam:->AMSShould this be performed at the bedside?->YesFINAL REPORT Chest, 1 view Clinical history: AMS Comparison: April 07, 2018 Discussion: Left-sided pacemaker in position without pneumothorax or pleural effusion. There is mild bibasilar atelectasis. The cardiac silhouette is enlarged with tortuous appearance of the thoracic aorta. No acute osseous abnormality. Status post median sternotomy. Signed: Naveen Jackson MDReport Verified Date/Time: 06/24/2018 16:32:28 Reading Location: [facility] B1 C013X Ortho Consult Reading Room [facility] signed by: NAVEEN JACKSON M.D. on 06/24/2018 04:32 PMCOMPREHENSIVE METABOLIC [id number] 13:24:00 Test Item Value Reference Range Interpretation Comments TOTAL PROTEIN 7.7 gm/dL 6.0-8.3 (BEAKER) (test code = 770) ALBUMIN (BEAKER) 3.8 g/dL 3.5-5.0 (test code = 1145) ALKALINE PHOSPHATASE 122 U/L 40-150 (BEAKER) (test code = 346) BILIRUBIN TOTAL 0.5 mg/dL 0.2-1.2 (BEAKER) (test code = 377) SODIUM (BEAKER) (test 136 meq/L 136-145 code = 381) POTASSIUM (BEAKER) 3.9 meq/L 3.5-5.1 (test code = 379) CHLORIDE (BEAKER) 101 meq/L 98-107 (test code = 382) CO2 (BEAKER) (test 28 meq/L 22-29 code = 355) BLOOD UREA NITROGEN 19 mg/dL 7-21 (BEAKER) (test code = 354) CREATININE (BEAKER) 1.66 mg/dL 0.57-1.25 H (test code = 358) GLUCOSE RANDOM 126 mg/dL 70-105 H (BEAKER) (test code = 652) CALCIUM (BEAKER) 9.1 mg/dL 8.4-10.2 (test code = 697) AST (SGOT) (BEAKER) 18 U/L 5-34 (test code = 353) ALT (SGPT) (BEAKER) 17 U/L 6-55 (test code = 347) EGFR (BEAKER) (test 41 mL/min/1.73 ESTIMA VINICIUS GFR IS code = 1092) sq m NOT ACCURATE CREATININE CLEARANCE IN PREDICTING GLOMERULAR FILTRATION RATE . ESTIMATED GFR I S NOT APPLICABLE FOR DIALYSIS PATIEN TS. POCT-GLUCOSE [id number] 12:41:00 Test Item Value Reference Range Interpretation Comments POC-GLUCOSE METER 135 mg/dL 70-110 H TESTED AT [facility] 6720 ([facility]) (test code = [facility] 1538) [address] T4, [id number] 11:37:00 Test Item Value Reference Range Interpretation Comments FREE T4 (GILMA) (test code = 655) 1.22 ng/dL 0.70-1.48 CT, BRAIN, WITHOUT [id number] 09:37:00FINAL REPORT CT head without contrast 06/24/2018 [...] and/or use of iterated reconstruction technique. COMPARISON: Noneavailable FINDINGS: There is no hemorrhage, extra-axial collection, [...] ischemic and involutional changes. Signed: Gabriel Quarles Verified Date/Time: 06/24/2018 09:37:20 Reading Location: [address] Neuro Reading Room POCT- GLUCOSE [id number] 09:07:00 Test Item Value Reference Range Interpretation Comments POC-GLUCOSE METER 144 mg/dL 70-110 H TESTED AT [facility] 6720 ([facility]) (test code = [facility] 1538) [id number] VITAMIN B12 AND [id number] 08:24:00 Test Item Value Reference Range Interpretation Comments VITAMIN B12 (BEAKER) (test code = 1074 pg/mL 213-816 H 774) FOLATE ([facility]) (test code = 362) 13.7 ng/mL >=7.0 HEMOGLOBIN [id number] 08:16:00 Test Item Value Reference Range Interpretation Comments HEMOGLOBIN A1C (GILMA) (test code = 5.8 % 4.3-6.1 368) TSH/FREE T4 IF [id number] 08:01:00 Test Item Value Reference Range Interpretation Comments THYROID STIMULATING HORMONE 0.04 uIU/mL 0.35-4.94 L (GILMA) (test code = 772) LIPID [id number] 07:25:00 Test Item Value Reference Range Interpretation Comments TRIGLYCERIDES (GILMA) (test code = 185 mg/dL 540) CHOLESTEROL (GILMA) (test code = 166 mg/dL 631) HDL CHOLESTEROL (GILMA) (test code 39 mg/dL = 976) LDL CHOLESTEROL CALCULATED ([facility]) 90 mg/dL (test code = 633) Triglyceride Reference Range: Low Risk <150 Borderline 150-199 High Risk 200- 499 Very High Risk >=500Cholesterol Reference Range: Low Risk <200 Borderline 200-239 High Risk >240HDL Cholesterol Reference Range: Low Risk >=60 High Risk <40LDL Cholesterol Reference Range: Optimal <100 Near Optimal 100-129 Borderline 130-159 High 160-189 Very High >=190 Fasting PROTHROMBIN [id number] 07:13:00 Test Item Value Reference Range Interpretation Comments PROTIME ([facility]IL[facility]) (test code = 29.0 seconds 11.7-14.7 H 759) INR (GILMA) (test code = 370) 2.7 <=5.9 RECOMMENDED COUMADIN/WARFARIN INR THERAPY RANGESSTANDARD DOSE: 2.0 - 3.0 Includes: PROPHYLAXIS for venous thrombosis, systemic embolization; TREATMENT for venous thrombosis and/or pulmonary embolus.HIGH RISK: Target INR is 2.5-3.5 for patients with mechanical heart valves.POCT-GLUCOSE [id number] 22:17:00 Test Item Value Reference Range Interpretation Comments POC-GLUCOSE METER 176 mg/dL 70-110 H TESTED AT [facility] 6720 ([facility]) (test code = [facility] 1538) [id number] PROTHROMBIN [id number] 18:50:00 Test Item Value Reference Range Interpretation Comments PROTIME ([facility]) (test code = 30.8 seconds 11.7-14.7 H 759) INR (BEAKER) (test code = 370) 3.0 <=5.9 RECOMMENDED COUMADIN/WARFARIN INR THERAPY RANGESSTANDARD DOSE: 2.0 - 3.0 Includes: PROPHYLAXIS for venous thrombosis, systemic embolization; TREATMENT for venous thrombosis and/or pulmonary embolus.HIGH RISK: Target INR is 2.5-3.5 for patients with mechanical heart valves.POCT-GLUCOSE [id number] 17:55:00 Test Item Value Reference Range Interpretation Comments POC-GLUCOSE METER 134 mg/dL 70-110 H TESTED AT [facility] 6720 (BEAKER) (test code = [facility] 1538) [address] BASIC METABOLIC [id number] 13:37:00 Test Item Value Reference Range Interpretation Comments SODIUM (BEAKER) 136 meq/L 136-145 (test code = 381) POTASSIUM (BEAKER) 4.6 meq/L 3.5-5.1 Specimen slightly (test code = 379) hemolyzed CHLORIDE (BEAKER) 103 meq/L 98-107 (test code = 382) CO2 (BEAKER) (test 23 meq/L 22-29 code = 355) BLOOD UREA NITROGEN 16 mg/dL 7-21 (BEAKER) (test code = 354) CREATININE (BEAKER) 1.39 mg/dL 0.57-1.25 H Specimen slightly (test code = 358) hemolyzed GLUCOSE RANDOM 132 mg/dL 70-105 H (BEAKER) (test code = 652) CALCIUM (BEAKER) 8.7 mg/dL 8.4-10.2 (test code = 697) EGFR (BEAKER) (test 50 mL/min/1.73 ESTIMA VINICIUS GFR IS code = 1092) sq m NOT ACCURATE CREATININE CLEARANCE IN PREDICTING GLOMERULAR FILTRATION RATE . ESTIMATED GFR I S NOT APPLICABLE FOR DIALYSIS PATIEN TS. CBC W/PLT COUNT & AUTO [id number] 13:23:00 Test Item Value Reference Range Interpretation Comments WHITE BLOOD CELL COUNT (BEAKER) 7.3 K/ L 3.5-10.5 (test code = 775) RED BLOOD CELL COUNT (BEAKER) 3.88 M/ L 4.63-6.08 L (test code = 761) HEMOGLOBIN (BEAKER) (test code = 11.9 GM/DL 13.7-17.5 L 410) HEMATOCRIT (BEAKER) (test code = 35.6 % 40.1-51.0 L 411) MEAN CORPUSCULAR VOLUME (BEAKER) 91.8 fL 79.0-92.2 (test code = 753) MEAN CORPUSCULAR HEMOGLOBIN 30.7 pg 25.7-32.2 (BEAKER) (test code = 751) MEAN CORPUSCULAR HEMOGLOBIN CONC 33.4 GM/DL 32.3-36.5 (BEAKER) (test code = 752) RED CELL DISTRIBUTION WIDTH 13.5 % 11.6-14.4 (BEAKER) (test code = 412) PLATELET COUNT (BEAKER) (test 149 K/CU MM 150-450 L code = 756) MEAN PLATELET VOLUME (BEAKER) 9.5 fL 9.4-12.4 (test code = 754) NUCLEATED RED BLOOD CELLS 0 /100 WBC 0-0 (BEAKER) (test code = 413) NEUTROPHILS RELATIVE PERCENT 78 % (BEAKER) (test code = 429) LYMPHOCYTES RELATIVE PERCENT 15 % (BEAKER) (test code = 430) MONOCYTES RELATIVE PERCENT 6 % (BEAKER) (test code = 431) EOSINOPHILS RELATIVE PERCENT 0 % (BEAKER) (test code = 432) BASOPHILS RELATIVE PERCENT 0 % (BEAKER) (test code = 437) NEUTROPHILS ABSOLUTE COUNT 5.67 K/ L 1.78-5.38 H (BEAKER) (test code = 670) LYMPHOCYTES ABSOLUTE COUNT 1.08 K/ L 1.32-3.57 L (BEAKER) (test code = 414) MONOCYTES ABSOLUTE COUNT (BEAKER) 0.47 K/ L 0.30-0.82 (test code = 415) EOSINOPHILS ABSOLUTE COUNT 0.02 K/ L 0.04-0.54 L (BEAKER) (test code = 416) BASOPHILS ABSOLUTE COUNT (BEAKER) 0.02 K/ L 0.01-0.08 (test code = 417) IMMATURE GRANULOCYTES-RELATIVE 0 % 0-1 PERCENT (BEAKER) (test code = 2801) POCT-GLUCOSE [id number] 12:33:00 Test Item Value Reference Range Interpretation Comments POC-GLUCOSE METER 165 mg/dL 70-110 H TESTED AT [facility] 6720 (BEAKER) (test code = [facility] 1538) [id number] POCT-GLUCOSE [id number] 08:33:00 Test Item Value Reference Range Interpretation Comments POC-GLUCOSE METER 233 mg/dL 70-110 H TESTED AT [facility] 6720 ([facility]) (test code = [facility] 1538) [id number] PET, CARDIAC PERFUSION MULTIPLE STUDIES, REST AND [id number] 12:33:00 Reason for exam:->ischemia evaluation.FINAL REPORT PROCEDURE: Rest/Stress MYOCARDIAL PERFUSION PET with regadenoson\XA9\ CPT CODE: 74232 INDICATION: Ischemic evaluation, chest pain, atrial fibrillation HISTORY: Cardiacrisk factors: Diabetes mellitus. Other cardiovascular history: Known CAD, CABG, ICD, cardiomyopathy.Recent cardiac symptoms: Dyspnea. Current cardiovascular-related medications: Warfarin, [...] and 126/43 mmHg at tracer injection. Stress wasstopped for predetermined endpoint. The patient experienced dyspnea; treatment was not required . Preliminary ECG evaluation revealed sinus rhythm at rest and no ischemic changes with stress. (Final ECG interpretation and other stress and monitoring data are reported separately by Cardiology.) IMAGINGFINDINGS: Study quality is good. Images obtained after stress injection show moderately decreased anterior lateral lateral and inferior. Resting images show shows improvement in the anterolateral segment. LV volume appears dilated . RV volume appears normal . Gated images obtained immediately after stress show global hypokinesis LV wall motion. Gated images obtained at rest show global hypokinesis LVwall motion. LVEF at rest is 23%. LVEF at stress is 28%. IMPRESSION: 1. Abnormal study. 2. Appropriate pharmacologic stress. 3. Abnormal myocardial perfusion. There is a moderately severe severity, large size, anterolateral, lateral and inferior lateral, perfusion defect. There is reversibility of theinferolateral segment. 4. Abnormal resting LV function. Abnormal stress function. 5. Extracardiac tracer distribution is normal. 6. No previous [facility] study for comparison. NONINVASIVE RISK STRATIFICATION: The above findings are considered high risk (>3% annual mortality rate) based on the followingcriteria: - Severe resting left ventricular dysfunction (LVEF 35%)- Severe exercise left ventriculardysfunction (exercise LVEF 35%)- Stress-induced large perfusion defect (particularly if anterior)- Stress-induced multiple perfusion defects of moderate size- Large, fixed perfusion defect with LV dilat ion or increased lung uptake(thallium-201)- Stress-induced moderate perfusion defect with LV dilation or increasedlung uptake (thallium-201)(JACC. 2012;59(9):857-81.) Signed: Hao Faith MDReport Verified Date/Time: 04/10/2018 12:33:34 Reading Location: [address] Reading Room POCT- GLUCOSE [id number] 11:43:00 Test Item Value Reference Range Interpretation Comments POC-GLUCOSE METER 354 mg/dL 70-110 H Notified Marcelle Plaza MD/TESTED ([facility]) (test code = AT [facility] [address] [place], [place] [address]) [facility] 7[address] 0 POCT-GLUCOSE [id number] 07:21:00 Test Item Value Reference Range Interpretation Comments POC-GLUCOSE METER 156 mg/dL 70-110 H TESTED AT [place] [address] ([facility]) (test code = [facility] [place] [address]) [address] [id number] 06:34:00 Test Item Value Reference Range Interpretation Comments MAGNESIUM (BEAKER) (test code = 2.5 mg/dL 1.6-2.6 627) BASIC METABOLIC [id number] 06:34:00 Test Item Value Reference Range Interpretation Comments SODIUM (BEAKER) 137 meq/L 136-145 (test code = 381) POTASSIUM (BEAKER) 3.6 meq/L 3.5-5.1 (test code = 379) CHLORIDE (BEAKER) 101 meq/L 98-107 (test code = 382) CO2 (BEAKER) (test 28 meq/L 22-29 code = 355) BLOOD UREA NITROGEN 28 mg/dL 7-21 H (BEAKER) (test code = 354) CREATININE (BEAKER) 1.73 mg/dL 0.57-1.25 H (test code = 358) GLUCOSE RANDOM 135 mg/dL 70-105 H (BEAKER) (test code = 652) CALCIUM (BEAKER) 9.0 mg/dL 8.4-10.2 (test code = 697) EGFR (BEAKER) (test 39 mL/min/1.73 ESTIMA VINICIUS GFR IS code = 1092) sq m NOT ACCURATE CREATININE CLEARANCE IN PREDICTING GLOMERULAR FILTRATION RATE . ESTIMATED GFR I S NOT APPLICABLE FOR DIALYSIS PATIEN TS. PROTHROMBIN [id number] 06:31:00 Test Item Value Reference Range Interpretation Comments PROTIME (BEAKER) (test code = 17.5 seconds 11.7-14.7 H 759) INR (BEAKER) (test code = 370) 1.4 <=5.9 RECOMMENDED COUMADIN/WARFARIN INR THERAPY RANGESSTANDARD DOSE: 2.0 - 3.0 Includes: PROPHYLAXIS for venous thrombosis, systemic embolization; TREATMENT for venous thrombosis and/or pulmonary embolus.HIGH RISK: Target INR is 2.5-3.5 for patients with mechanical heart valves.While on warfarin.CBC W/PLT COUNT & AUTO [id number] 06:19:00 Test Item Value Reference Range Interpretation Comments WHITE BLOOD CELL COUNT (BEAKER) 6.3 K/ L 3.5-10.5 (test code = 775) RED BLOOD CELL COUNT (BEAKER) 3.02 M/ L 4.63-6.08 L (test code = 761) HEMOGLOBIN (BEAKER) (test code = 9.1 GM/DL 13.7-17.5 L 410) HEMATOCRIT (BEAKER) (test code = 28.4 % 40.1-51.0 L 411) MEAN CORPUSCULAR VOLUME (BEAKER) 94.0 fL 79.0-92.2 H (test code = 753) MEAN CORPUSCULAR HEMOGLOBIN 30.1 pg 25.7-32.2 (BEAKER) (test code = 751) MEAN CORPUSCULAR HEMOGLOBIN CONC 32.0 GM/DL 32.3-36.5 L (BEAKER) (test code = 752) RED CELL DISTRIBUTION WIDTH 15.1 % 11.6-14.4 H (BEAKER) (test code = 412) PLATELET COUNT (BEAKER) (test 127 K/CU MM 150-450 L code = 756) MEAN PLATELET VOLUME (BEAKER) 9.9 fL 9.4-12.4 (test code = 754) NUCLEATED RED BLOOD CELLS 0 /100 WBC 0-0 (BEAKER) (test code = 413) NEUTROPHILS RELATIVE PERCENT 70 % (BEAKER) (test code = 429) LYMPHOCYTES RELATIVE PERCENT 18 % (BEAKER) (test code = 430) MONOCYTES RELATIVE PERCENT 9 % (BEAKER) (test code = 431) EOSINOPHILS RELATIVE PERCENT 2 % (BEAKER) (test code = 432) BASOPHILS RELATIVE PERCENT 1 % (BEAKER) (test code = 437) NEUTROPHILS ABSOLUTE COUNT 4.46 K/ L 1.78-5.38 (BEAKER) (test code = 670) LYMPHOCYTES ABSOLUTE COUNT 1.15 K/ L 1.32-3.57 L (BEAKER) (test code = 414) MONOCYTES ABSOLUTE COUNT (BEAKER) 0.56 K/ L 0.30-0.82 (test code = 415) EOSINOPHILS ABSOLUTE COUNT 0.10 K/ L 0.04-0.54 (BEAKER) (test code = 416) BASOPHILS ABSOLUTE COUNT (BEAKER) 0.03 K/ L 0.01-0.08 (test code = 417) IMMATURE GRANULOCYTES-RELATIVE 1 % 0-1 PERCENT (BEAKER) (test code = 2801) POCT-GLUCOSE [id number] 23:34:00 Test Item Value Reference Range Interpretation Comments POC-GLUCOSE METER 155 mg/dL 70-110 H TESTED AT [place] [address] [facility] (test code = [facility] 1538) [address] POCT-GLUCOSE [id number] 19:50:00 Test Item Value Reference Range Interpretation Comments POC-GLUCOSE METER 155 mg/dL 70-110 H TESTED AT [place] [address] ([facility] (test code = [facility] 1538) [address] POCT-GLUCOSE [id number] 11:50:00 Test Item Value Reference Range Interpretation Comments POC-GLUCOSE METER 196 mg/dL 70-110 H TESTED AT [place] [address] (BEAKER) (test code = [facility] [place] 1538) [address] POCT-GLUCOSE [id number] 07:58:00 Test Item Value Reference Range Interpretation Comments POC-GLUCOSE METER 170 mg/dL 70-110 H TESTED AT [facility] 6720 (BEAKER) (test code = [facility] 1538) [address] [id number] 07:31:00 Test Item Value Reference Range Interpretation Comments MAGNESIUM (BEAKER) (test code = 2.5 mg/dL 1.6-2.6 627) BASIC METABOLIC [id number] 07:31:00 Test Item Value Reference Range Interpretation Comments SODIUM (BEAKER) 138 meq/L 136-145 (test code = 381) POTASSIUM (BEAKER) 3.9 meq/L 3.5-5.1 (test code = 379) CHLORIDE (BEAKER) 104 meq/L 98-107 (test code = 382) CO2 (BEAKER) (test 22 meq/L 22-29 code = 355) BLOOD UREA NITROGEN 28 mg/dL 7-21 H (BEAKER) (test code = 354) CREATININE (BEAKER) 1.66 mg/dL 0.57-1.25 H (test code = 358) GLUCOSE RANDOM 133 mg/dL 70-105 H (BEAKER) (test code = 652) CALCIUM (BEAKER) 8.4 mg/dL 8.4-10.2 (test code = 697) EGFR (BEAKER) (test 41 mL/min/1.73 ESTIMA VINICIUS GFR IS code = 1092) sq m NOT ACCURATE CREATININE CLEARANCE IN PREDICTING GLOMERULAR FILTRATION RATE . ESTIMATED GFR I S NOT APPLICABLE FOR DIALYSIS PATIEN TS. CREATINE KINASE (CK), TOTAL AND [id number] 07:31:00 Test Item Value Reference Range Interpretation Comments CREATINE KINASE TOTAL (BEAKER) 184 U/L 29-200 (test code = 380) CREATINE KINASE-MB (BEAKER) (test 0.9 ng/mL 0.0-6.6 code = 750) CREATINE KINASE-MB INDEX (BEAKER) 0.5 % (test code = 395) CK-MB Reference Range:<6.7 Normal6.7-10.0 Borderline>10.0 AbnormalCBC W/PLT COUNT & AUTO [id number] 06:40:00 Test Item Value Reference Range Interpretation Comments WHITE BLOOD CELL COUNT (BEAKER) 6.6 K/ L 3.5-10.5 (test code = 775) RED BLOOD CELL COUNT (BEAKER) 2.61 M/ L 4.63-6.08 L (test code = 761) HEMOGLOBIN (BEAKER) (test code = 7.8 GM/DL 13.7-17.5 L 410) HEMATOCRIT (BEAKER) (test code = 25.0 % 40.1-51.0 L 411) MEAN CORPUSCULAR VOLUME (BEAKER) 95.8 fL 79.0-92.2 H (test code = 753) MEAN CORPUSCULAR HEMOGLOBIN 29.9 pg 25.7-32.2 (BEAKER) (test code = 751) MEAN CORPUSCULAR HEMOGLOBIN CONC 31.2 GM/DL 32.3-36.5 L (BEAKER) (test code = 752) RED CELL DISTRIBUTION WIDTH 15.3 % 11.6-14.4 H (BEAKER) (test code = 412) PLATELET COUNT (BEAKER) (test 111 K/CU MM 150-450 L code = 756) MEAN PLATELET VOLUME (BEAKER) 9.8 fL 9.4-12.4 (test code = 754) NUCLEATED RED BLOOD CELLS 0 /100 WBC 0-0 (BEAKER) (test code = 413) NEUTROPHILS RELATIVE PERCENT 72 % (BEAKER) (test code = 429) LYMPHOCYTES RELATIVE PERCENT 18 % (BEAKER) (test code = 430) MONOCYTES RELATIVE PERCENT 8 % (BEAKER) (test code = 431) EOSINOPHILS RELATIVE PERCENT 1 % (BEAKER) (test code = 432) BASOPHILS RELATIVE PERCENT 1 % (BEAKER) (test code = 437) NEUTROPHILS ABSOLUTE COUNT 4.72 K/ L 1.78-5.38 (BEAKER) (test code = 670) LYMPHOCYTES ABSOLUTE COUNT 1.19 K/ L 1.32-3.57 L (BEAKER) (test code = 414) MONOCYTES ABSOLUTE COUNT (BEAKER) 0.52 K/ L 0.30-0.82 (test code = 415) EOSINOPHILS ABSOLUTE COUNT 0.06 K/ L 0.04-0.54 (BEAKER) (test code = 416) BASOPHILS ABSOLUTE COUNT (BEAKER) 0.03 K/ L 0.01-0.08 (test code = 417) IMMATURE GRANULOCYTES-RELATIVE 1 % 0-1 PERCENT ([facility]) (test code = 2801) PROTHROMBIN [id number] 06:40:00 Test Item Value Reference Range Interpretation Comments PROTIME (GILMA) (test code = 18.2 seconds 11.7-14.7 H 759) INR ([facility]) (test code = 370) 1.5 <=5.9 RECOMMENDED COUMADIN/WARFARIN INR THERAPY RANGESSTANDARD DOSE: 2.0 - 3.0 Includes: PROPHYLAXIS for venous thrombosis, systemic embolization; TREATMENT for venous thrombosis and/or pulmonary embolus.HIGH RISK: Target INR is 2.5-3.5 for patients with mechanical heart valves.While on warfarin.POCT-GLUCOSE METER 2018-04-08 23:26:00 Test Item Value Reference Range Interpretation Comments POC-GLUCOSE METER 175 mg/dL 70-110 H TESTED AT [place] [address] ([facility]) (test code = [facility] 1538) [id number] POCT-GLUCOSE [id number] 16:46:00 Test Item Value Reference Range Interpretation Comments POC-GLUCOSE METER 143 mg/dL 70-110 H TESTED AT [place] [address] ([facility]) (test code = [facility] 1538) [id number] POCT-GLUCOSE [id number] 14:34:00 Test Item Value Reference Range Interpretation Comments POC-GLUCOSE METER 171 mg/dL 70-110 H TESTED AT [place] [address] ([facility]) (test code = [facility] 1538) [id number] HEMOGLOBIN [id number] 11:18:00 Test Item Value Reference Range Interpretation Comments HEMOGLOBIN A1C (DONTE) (test code = 6.6 % 4.3-6.1 H 368) CREATINE KINASE (CK), TOTAL AND [id number] 07:48:00 Test Item Value Reference Range Interpretation Comments CREATINE KINASE TOTAL ([facility]) 111 U/L 29-200 (test code = 380) CREATINE KINASE-MB ([facility]) (test 1.1 ng/mL 0.0-6.6 code = 750) CREATINE KINASE-MB INDEX ([facility]) 1.0 % (test code = 395) CK-MB Reference Range:<6.7 Normal6.7-10.0 Borderline>10.0 Abnormal [id number] 07:42:00 Test Item Value Reference Range Interpretation Comments MAGNESIUM (BEAKER) (test code = 2.4 mg/dL 1.6-2.6 627) BASIC METABOLIC [id number] 07:42:00 Test Item Value Reference Range Interpretation Comments SODIUM (BEAKER) 137 meq/L 136-145 (test code = 381) POTASSIUM (BEAKER) 4.0 meq/L 3.5-5.1 (test code = 379) CHLORIDE (BEAKER) 104 meq/L 98-107 (test code = 382) CO2 (BEAKER) (test 24 meq/L 22-29 code = 355) BLOOD UREA NITROGEN 31 mg/dL 7-21 H (BEAKER) (test code = 354) CREATININE (BEAKER) 1.62 mg/dL 0.57-1.25 H (test code = 358) GLUCOSE RANDOM 145 mg/dL 70-105 H (BEAKER) (test code = 652) CALCIUM (BEAKER) 8.5 mg/dL 8.4-10.2 (test code = 697) EGFR (BEAKER) (test 42 mL/min/1.73 ESTIMA VINICIUS GFR IS code = 1092) sq m NOT ACCURATE CREATININE CLEARANCE IN PREDICTING GLOMERULAR FILTRATION RATE . ESTIMATED GFR I S NOT APPLICABLE FOR DIALYSIS PATIEN TS. [id number] 07:17:00 Test Item Value Reference Range Interpretation Comments FERRITIN (BEAKER) (test code = 361) 54 ng/mL 5-275 VITAMIN B12 AND [id number] 07:17:00 Test Item Value Reference Range Interpretation Comments VITAMIN B12 (BEAKER) (test code = 1684 pg/mL 213-816 H 774) FOLATE (BEAKER) (test code = 362) 14.0 ng/mL >=7.0 CBC W/PLT COUNT & AUTO [id number] 07:08:00 Test Item Value Reference Range Interpretation Comments WHITE BLOOD CELL COUNT (BEAKER) 6.2 K/ L 3.5-10.5 (test code = 775) RED BLOOD CELL COUNT (BEAKER) 2.55 M/ L 4.63-6.08 L (test code = 761) HEMOGLOBIN (BEAKER) (test code = 7.7 GM/DL 13.7-17.5 L 410) HEMATOCRIT (BEAKER) (test code = 24.5 % 40.1-51.0 L 411) MEAN CORPUSCULAR VOLUME (BEAKER) 96.1 fL 79.0-92.2 H (test code = 753) MEAN CORPUSCULAR HEMOGLOBIN 30.2 pg 25.7-32.2 (BEAKER) (test code = 751) MEAN CORPUSCULAR HEMOGLOBIN CONC 31.4 GM/DL 32.3-36.5 L (BEAKER) (test code = 752) RED CELL DISTRIBUTION WIDTH 15.6 % 11.6-14.4 H (BEAKER) (test code = 412) PLATELET COUNT (BEAKER) (test 110 K/CU MM 150-450 L code = 756) MEAN PLATELET VOLUME (BEAKER) 10.3 fL 9.4-12.4 (test code = 754) NUCLEATED RED BLOOD CELLS 0 /100 WBC 0-0 (BEAKER) (test code = 413) NEUTROPHILS RELATIVE PERCENT 74 % (BEAKER) (test code = 429) LYMPHOCYTES RELATIVE PERCENT 19 % (BEAKER) (test code = 430) MONOCYTES RELATIVE PERCENT 5 % (BEAKER) (test code = 431) EOSINOPHILS RELATIVE PERCENT 1 % (BEAKER) (test code = 432) BASOPHILS RELATIVE PERCENT 0 % (BEAKER) (test code = 437) NEUTROPHILS ABSOLUTE COUNT 4.58 K/ L 1.78-5.38 (BEAKER) (test code = 670) LYMPHOCYTES ABSOLUTE COUNT 1.16 K/ L 1.32-3.57 L (BEAKER) (test code = 414) MONOCYTES ABSOLUTE COUNT (BEAKER) 0.29 K/ L 0.30-0.82 L (test code = 415) EOSINOPHILS ABSOLUTE COUNT 0.06 K/ L 0.04-0.54 (BEAKER) (test code = 416) BASOPHILS ABSOLUTE COUNT (BEAKER) 0.02 K/ L 0.01-0.08 (test code = 417) IMMATURE GRANULOCYTES-RELATIVE 1 % 0-1 PERCENT (BEAKER) (test code = 2801) IRON, TIBC, % SAT. (WITHOUT FERRITIN)2018-04-08 06:51:00 Test Item Value Reference Range Interpretation Comments IRON (BEAKER) (test code = 547) 36 ug/dL 40-160 L TOTAL IRON BINDING CAPACITY 278 ug/dL 250-450 (BEAKER) (test code = 769) IRON % SATURATION (2) (BEAKER) 13 % 20-55 L (test code = 2590) POCT-GLUCOSE [id number] 06:40:00 Test Item Value Reference Range Interpretation Comments POC-GLUCOSE METER 147 mg/dL 70-110 H TESTED AT [facility] 67[address] (BEAKER) (test code = [place] 1538) [id number] PROTHROMBIN [id number] 06:24:00 Test Item Value Reference Range Interpretation Comments PROTIME (BEAKER) (test code = 23.6 seconds 11.7-14.7 H 759) INR (BEAKER) (test code = 370) 2.1 <=5.9 RECOMMENDED COUMADIN/WARFARIN INR THERAPY RANGESSTANDARD DOSE: 2.0 - 3.0 Includes: PROPHYLAXIS for venous thrombosis, systemic embolization; TREATMENT for venous thrombosis and/or pulmonary embolus.HIGH RISK: Target INR is 2.5-3.5 for patients with mechanical heart valves.TROPONIN [id number] 00:58:00 Test Item Value Reference Range Interpretation Comments TROPONIN I (BEAKER) (test code = 0.03 ng/mL 0.00-0.03 397) Troponin I (TnI) levels must be interpreted [...] acidosis, acute neurological disease, and persistent tachyarrhythmia.LIPID [id number] 00:52:00 Test Item Value Reference Range Interpretation Comments TRIGLYCERIDES (BEAKER) (test code = 147 mg/dL 540) CHOLESTEROL (BEAKER) (test code = 129 mg/dL 631) HDL CHOLESTEROL (BEAKER) (test code 34 mg/dL = 976) LDL CHOLESTEROL CALCULATED (BEAKER) 66 mg/dL (test code = 633) Triglyceride Reference Range: Low Risk <150 Borderline 150-199 High Risk 200- 499 Very High Risk >=500Cholesterol Reference Range: Low Risk <200 Borderline 200-239 High Risk >240HDL Cholesterol Reference Range: Low Risk >=60 High Risk <40LDL Cholesterol Reference Range: Optimal <100 Near Optimal 100-129 Borderline 130-159 High 160-189 Very High >=190POCT-GLUCOSE [id number] 00:10:00 Test Item Value Reference Range Interpretation Comments POC-GLUCOSE METER 76 mg/dL 70-110 TESTED AT [facility] 67[address] ([place]) (test code = [place] [id number] 1538) RAD, CHEST, 1 VIEW, NON [id number] 18:37:00Reason for exam:->fluid overloadShould this be performed at the bedside?->YesFINAL REPORT History: Fluid overload. Comparison: None. Findings: A single viewof the chest is submitted. The cardiac silhouette is enlarged. The patient has undergone previous sternotomy and left subclavian ICD placement. There is atherosclerotic calcification of the aorta. There is mild central pulmonary vascular congestion. Bilateral interstitial opacities are centered on the perihilar lungs and suggest pulmonary edema. There is no focal consolidation, pneumothorax, large pleural effusion or acute bony abnormality. Signed: Raul Villarreal MDReport Verified Date/Time: 04/07/2018 18:37:22 Reading Location: [address] Reading Room B-TYPE NATRIURETIC FACTOR (BNP)2018-04-07 17:35:00 Test Item Value Reference Range Interpretation Comments B-TYPE NATRIURETIC PEPTIDE ([place]ILMA) 927 pg/mL 0-100 H (test code = 700) TROPONIN [id number] 17:35:00 Test Item Value Reference Range Interpretation Comments TROPONIN I (GILMA) (test code = 0.02 ng/mL 0.00-0.03 397) Troponin I (TnI) levels must be interpreted [...] failure, acidosis, acute neurological disease, and persistent tachyarrhythmia.POCT-GLUCOSE [id number] 17:28:00 Test Item Value Reference Range Interpretation Comments POC-GLUCOSE METER 105 mg/dL 70-110 TESTED AT [facility] 67[address] (BEAKER) (test code = [place] 1539) [id number] COMPREHENSIVE METABOLIC [id number] 17:28:00 Test Item Value Reference Range Interpretation Comments TOTAL PROTEIN 7.1 gm/dL 6.0-8.3 (BEAKER) (test code = 770) ALBUMIN (BEAKER) 3.6 g/dL 3.5-5.0 (test code = 1145) ALKALINE PHOSPHATASE 144 U/L 40-150 (BEAKER) (test code = 346) BILIRUBIN TOTAL 0.6 mg/dL 0.2-1.2 (BEAKER) (test code = 377) SODIUM (BEAKER) (test 140 meq/L 136-145 code = 381) POTASSIUM (BEAKER) 4.0 meq/L 3.5-5.1 (test code = 379) CHLORIDE (BEAKER) 107 meq/L 98-107 (test code = 382) CO2 (BEAKER) (test 25 meq/L 22-29 code = 355) BLOOD UREA NITROGEN 30 mg/dL 7-21 H (BEAKER) (test code = 354) CREATININE (BEAKER) 1.59 mg/dL 0.57-1.25 H (test code = 358) GLUCOSE RANDOM 97 mg/dL 70-105 (BEAKER) (test code = 652) CALCIUM (BEAKER) 8.9 mg/dL 8.4-10.2 (test code = 697) AST (SGOT) (BEAKER) 25 U/L 5-34 (test code = 353) ALT (SGPT) (BEAKER) 28 U/L 6-55 (test code = 347) EGFR (BEAKER) (test 43 mL/min/1.73 ESTIMA VINICIUS GFR IS code = 1092) sq m NOT ACCURATE CREATININE CLEARANCE IN PREDICTING GLOMERULAR FILTRATION RATE . ESTIMATED GFR I S NOT APPLICABLE FOR DIALYSIS PATIEN TS. PROTHROMBIN [id number] 17:18:00 Test Item Value Reference Range Interpretation Comments PROTIME (BEAKER) (test code = 29.2 seconds 11.7-14.7 H 759) INR (BEAKER) (test code = 370) 2.8 <=5.9 RECOMMENDED COUMADIN/WARFARIN INR THERAPY RANGESSTANDARD DOSE: 2.0 - 3.0 Includes: PROPHYLAXIS for venous thrombosis, systemic embolization; TREATMENT for venous thrombosis and/or pulmonary embolus.HIGH RISK: Target INR is 2.5-3.5 for patients with mechanical heart valves.CBC W/PLT COUNT & AUTO [id number] 17:09:00 Test Item Value Reference Range Interpretation Comments WHITE BLOOD CELL COUNT (BEAKER) 6.7 K/ L 3.5-10.5 (test code = 775) RED BLOOD CELL COUNT (BEAKER) 2.55 M/ L 4.63-6.08 L (test code = 761) HEMOGLOBIN (BEAKER) (test code = 7.8 GM/DL 13.7-17.5 L 410) HEMATOCRIT (BEAKER) (test code = 24.4 % 40.1-51.0 L 411) MEAN CORPUSCULAR VOLUME (BEAKER) 95.7 fL 79.0-92.2 H (test code = 753) MEAN CORPUSCULAR HEMOGLOBIN 30.6 pg 25.7-32.2 (BEAKER) (test code = 751) MEAN CORPUSCULAR HEMOGLOBIN CONC 32.0 GM/DL 32.3-36.5 L (BEAKER) (test code = 752) RED CELL DISTRIBUTION WIDTH 15.7 % 11.6-14.4 H (BEAKER) (test code = 412) PLATELET COUNT (BEAKER) (test 117 K/CU MM 150-450 L code = 756) MEAN PLATELET VOLUME (BEAKER) 9.6 fL 9.4-12.4 (test code = 754) NUCLEATED RED BLOOD CELLS 0 /100 WBC 0-0 (BEAKER) (test code = 413) NEUTROPHILS RELATIVE PERCENT 69 % (BEAKER) (test code = 429) LYMPHOCYTES RELATIVE PERCENT 23 % (BEAKER) (test code = 430) MONOCYTES RELATIVE PERCENT 6 % (BEAKER) (test code = 431) EOSINOPHILS RELATIVE PERCENT 2 % (BEAKER) (test code = 432) BASOPHILS RELATIVE PERCENT 0 % (BEAKER) (test code = 437) NEUTROPHILS ABSOLUTE COUNT 4.65 K/ L 1.78-5.38 (BEAKER) (test code = 670) LYMPHOCYTES ABSOLUTE COUNT 1.51 K/ L 1.32-3.57 (BEAKER) (test code = 414) MONOCYTES ABSOLUTE COUNT (BEAKER) 0.40 K/ L 0.30-0.82 (test code = 415) EOSINOPHILS ABSOLUTE COUNT 0.11 K/ L 0.04-0.54 (BEAKER) (test code = 416) BASOPHILS ABSOLUTE COUNT (BEAKER) 0.02 K/ L 0.01-0.08 (test code = 417) IMMATURE GRANULOCYTES-RELATIVE 0 % 0-1 PERCENT (BEAKER) (test code = 2801)
[2022-06-11 20:06] LABS: Absolute Lymphocytes (CBC) 1.2 K/uL (0.7-4.9); Hematocrit 33.6 % (39.6-49.0); Lymphocytes % 20.1 % (15.3-44.8); MCV 89.8 fL (80-100); MPV 6.6 fL (7.6-11.3); RBC Red Blood Cell Count 3.74 M/uL (4.33-5.43)
[2022-06-11 20:24] LABS: Albumin 3.4 g/dL (3.4-5.0); Bilirubin Total 0.3 mg/dL (0.2-1.0); Potassium 4.2 mmol/L (3.5-5.1); Protein, Total 7.2 g/dL (6.4-8.2)
--- NOTE | 2022-06-11 21:41 | RAD REPORT ---
EXAM DESCRIPTION: CTAbdomen Pelvis Wo Contrast - 06/11/2022 9:25 pm CLINICAL HISTORY: constipation COMPARISON: CTSTONE PROTOCOL dated 06/16/2015; CTSTONE PROTOCOL dated 02/19/2014; CTSTONE PROTOCOL da jc 01/08/2014 TECHNIQUE: CT of the abdomen and pelvis was performed. All CT scans are performed using dose optimization technique as appropriate and may include automated exposure control or mA/KV adjustment according to patient size. FINDINGS: Lower chest: Pacemaker leads. Small hiatal hernia. Question mild thickened distal esophagu s which could reflect esophagitis. Liver: No acute abnormality or suspicious lesions. Biliary: No biliary ductal dilatation. Stomach: No significant focal abnormality. Duodenum: No significant focal abnormality. Pancreas: No significant abnormality. Spleen: No significant abnormality. Adrenal: No suspicious lesions. Kidney/ureter: No hydronephrosis. No renal calculi. Retroperitoneum: No retroperitoneal adenopathy. Vascular: No aneurysm. Atherosclerosis Bowel: Moderate large colonic stool burden, particularly in the rectum.. Peritoneum: No ascites or free air. Bladder: Grossly unremarkable. Reproductive: No adnexal masses. Bones: No acute fracture. Other: n/a IMPRESSION: Constipation the proper clinical setting. No bowel obstruction. Normal appendix.
[2022-06-11] MEDS ORDERED: LACTULOSE 20 GM/30 ML UCUP ONE (21:44)
--- NOTE | 2022-06-11 22:16 | EDPHYS ---
Physician Documentation [facility] Name: Zana Zamora Age: 76 yrs Sex: Male : 1945 Arrival Date: 06/11/2022 Time: 18:11 Bed 8 Private MD: ED Physician Zackery Murphy HPI: 06/11 20:55 This 76 yrs old Male presents to ER via EMS with complaints of Constipation, kdr Nausea/Vomiting. 20:55 Patient states that he has not had a bowel movement in 5 days. He normally has a bowel kdr movement every morning. Feels constipated. He has no other complaints and appears nontoxic at the time of presentation. Onset: The symptoms/episode began/occurred gradually, 5 day(s) ago. Severity of symptoms: At their worst the symptoms were mild in the emergency department the symptoms are unchanged. The patient has not recently seen a physician. Historical: - Allergies: 18:59 NKA; ph - PMHx: 18:59 Atrial Fib; CAD; CHF; CVA; Diabetes - IDDM; Hyperlipidemia; Hypertension; Umbilical ph hernia; - Immunization history:: Adult Immunizations up to date. - Social history:: Smoking status: Patient reports the use of cigarette tobacco products, cigars. ROS: 20:55 Constitutional: Negative for fever, chills, and weight loss, Eyes: Negative for injury, kdr pain, redness, and discharge, Neck: Negative for injury, pain, and swelling, Cardiovascular: Negative for chest pain, palpitations, and edema, Respiratory: Negative for shortness of breath, cough, wheezing, and pleuritic chest pain, Back: Negative for injury and pain, : Negative for injury, bleeding, discharge, and swelling, MS/Extremity: Negative for injury and deformity, Skin: Negative for injury, rash, and discoloration, Neuro: Negative for headache, weakness, numbness, tingling, and seizure activity. Psych: Negative for depression, anxiety, suicide ideation, homicidal ideation, and hallucinations, Allergy/Immunology: Negative for hives, rash, and allergies, Endocrine: Negative for neck swelling, polydipsia, polyuria, polyphagia, and marked weight changes, Hematologic/Lymphatic: Negative for swollen nodes, abnormal bleeding, and unusual bruising. 20:55 Abdomen/GI: Positive for abdominal cramps. Exam: 21:05 Constitutional: This is a well developed, well nourished patient who is awake, alert, kdr and in no acute distress. Head/Face: Normocephalic, atraumatic. Eyes: Pupils equal round and reactive to light, extra-ocular motions intact. Lids and lashes normal. Conjunctiva and sclera are non-icteric and not injected. Cornea within normal limits. Periorbital areas with no swelling, redness, or edema. Neck: Trachea midline, no thyromegaly or masses palpated, and no cervical lymphadenopathy. Supple, full range of motion without nuchal rigidity, or vertebral point tenderness. No Meningismus. Chest/axilla: Normal chest wall appearance and motion. Nontender with no deformity. No lesions are appreciated. Cardiovascular: Regular rate and rhythm with a normal S1 and S2. No gallops, murmurs, or rubs. Normal PMI, no JVD. No pulse deficits. Respiratory: Lungs have equal breath sounds bilaterally, clear to auscultation and percussion. No rales, rhonchi or wheezes noted. No increased work of breathing, no retractions or nasal flaring. Abdomen/GI: Soft, non-tender, with normal bowel sounds. No distension or tympany. No guarding or rebound. No evidence of tenderness throughout. Back: No spinal tenderness. No costovertebral tenderness. Full range of motion. Skin: Warm, dry with normal turgor. Normal color with no rashes, no lesions, and no evidence of cellulitis. MS/ Extremity: Pulses equal, no cyanosis. Neurovascular intact. Full, normal range of motion. Neuro: Awake and alert, GCS 15, oriented to person, place, time, and situation. Cranial nerves II-XII grossly intact. Motor strength 5/5 in all extremities. Sensory grossly intact. Cerebellar exam normal. Normal gait. Psych: Awake, alert, with orientation to person, place and time. Behavior, mood, and affect are within normal limits. 21:05 Abdomen/GI: Rectal exam: Prostate: normal, rectal tone normal, Stool: hard, fecal impaction, that is mild. Vital Signs: 18:15 BP 164 / 55; Pulse 75; Resp 18; Temp 98.1; Pulse Ox 100% on R/A; Weight 58.97 kg; ph Height 5 ft. 6 in. (167.64 cm); Pain 0/10; 20:41 BP 114 / 92; Pulse 75; Resp 18 S; Pulse Ox 100% on R/A; aa9 18:15 Body Mass Index 20.98 (58.97 kg, 167.64 cm) ph MDM: 22:15 Patient medically screened. kdr 06/12 04:49 Data reviewed: vital signs, nurses notes, lab test result(s), radiologic studies. kdr Counseling: I had a detailed discussion with the patient and/or guardian regarding: the historical points, exam findings, and any diagnostic results supporting the discharge/admit diagnosis, lab results, radiology results, the need for outpatient follow up. 06/11 19:27 Order name: CBC with Diff; Complete Time: 21:41 as6 06/11 19:27 Order name: CMP; Complete Time: 21:41 as6 06/11 19:27 Order name: Lipase; Complete Time: 21:41 as6 06/11 20:43 Order name: Abdomen ; Complete Time: 21:59 EDMS 06/11 19:27 Order name: IV Saline Lock; Complete Time: 20:00 as6 06/11 19:27 Order name: Labs collected and sent; Complete Time: 20:00 as6 Administered Medications: 06/11 21:55 Drug: Lactulose 20 grams Volume: 30 ml; Route: PO; aa9 22:39 Follow up: Response: No adverse reaction aa9 22:39 Drug: Maalox (aluminum hydroxide, magnesium hydroxide, simethicone) Suspension (200 aa9 mg-200 mg-20 mg/5 mL) 30 ml Route: PO; 22:39 Follow up: Response: No adverse reaction aa9 Disposition Summary: 06/11/22 22:15 Discharge Ordered Location: Home kdr Problem: new kdr Symptoms: have improved kdr Condition: Stable kdr Diagnosis - Constipation kdr Followup: kdr - With: Private Physician - When: 2 - 3 days - Reason: If symptoms return, Further diagnostic work-up, Recheck today's complaints, Continuance of care, Re-evaluation by your physician Discharge Instructions: - Discharge Summary Sheet kdr - Constipation, Adult, [id number] kdr Forms: - Medication Reconciliation Form kdr - Thank You Letter kdr Prescriptions: - Dulcolax (bisacodyl) 5 mg Oral tablet,delayed release (DR/EC) - take 2 tablet by ORAL route once daily; 20 tablet; Refills: 0, Product kdr Selection Permitted - Miralax - take 1 packet by ORAL route once daily; 2 packet; Refills: 0, Product Selection kdr Permitted - Lactulose 10 gram/15 mL Oral Solution - take 30 milliliters by ORAL route once daily; 300 milliliter; Refills: 0, kdr Product Selection Permitted Signatures: Dispatcher [employer] EDMS Zackery Murphy MD MD kdr Hall, Patricia, RN RN Jagdeep Mace RN RN as6 Arpita Santamaria RN RN aa9 Corrections: (The following items were deleted from the chart) 20:43 19:32 Abdomen Pelvis W Con+CT.RAD.BRZ ordered. EDMS EDMS 21:22 20:06 Abdomen Acute Series+RAD.RAD.BRZ ordered. EDMS EDMS
--- NOTE | 2022-06-11 22:16 | ER ---
Nurse's Notes [facility] Name: Zana Zamora Age: 76 yrs Sex: Male : 1945 Arrival Date: 06/11/2022 Time: 18:11 Bed 8 Private MD: Diagnosis: Constipation Presentation: 06/11 18:15 Chief complaint: EMS states: Pt from [facility], c/o constipation w/ last BM ph 6 days ago, also reports N/V that started today w/ 1 episode of coffee ground emesis Pt denies abdominal pain or nausea upon arrival to ED, VSS. Coronavirus screen: Vaccine status: Patient reports receiving the 2nd dose of the covid vaccine. Ebola Screen: No symptoms or risks identified at this time. Initial Sepsis Screen: Does the patient meet any 2 criteria? No. Patient's initial sepsis screen is negative. Does the patient have a suspected source of infection? No. Patient's initial sepsis screen is negative. Risk Assessment: Do you want to hurt yourself or someone else? Patient reports no desire to harm self or others. Onset of symptoms was June 11, 2022. 18:15 Method Of Arrival: EMS: [facility] ph 18:15 Acuity: ELLA 3 ph Triage Assessment: 19:00 General: Appears in no apparent distress. Behavior is calm, cooperative, appropriate ph for age. Pain: Denies pain. Neuro: Level of Consciousness is awake, alert, obeys commands, Oriented to person, place, time, situation. Cardiovascular: Capillary refill < 3 seconds in bilateral fingers Patient's skin is warm and dry. Respiratory: Airway is patent Respiratory effort is even, unlabored. GI: Abdomen is non-distended, Reports constipation, nausea, vomiting, Patient currently denies abdominal pain. Musculoskeletal: Circulation, motion, and sensation intact. Range of motion: intact in all extremities. Historical: - Allergies: 18:59 NKA; ph - PMHx: 18:59 Atrial Fib; CAD; CHF; CVA; Diabetes - IDDM; Hyperlipidemia; Hypertension; Umbilical ph hernia; - Immunization history:: Adult Immunizations up to date. - Social history:: Smoking status: Patient reports the use of cigarette tobacco products, cigars. Screenin:01 Abuse screen: Denies threats or abuse. Denies injuries from another. Nutritional ph screening: No deficits noted. Tuberculosis screening: No symptoms or risk factors identified. 19:01 Fall Risk None identified. ph Assessment: 20:41 General: Appears in no apparent distress. comfortable, Behavior is calm, cooperative, aa9 appropriate for age. Pain: Denies pain. Neuro: Level of Consciousness is awake, alert, obeys commands, Oriented to person, place, time, situation. Cardiovascular: Patient's skin is warm and dry. Respiratory: Airway is patent Respiratory effort is even, unlabored. GI: Patient currently denies abdominal pain, diarrhea, nausea. : No signs and/or symptoms were reported regarding the genitourinary system. EENT: No signs and/or symptoms were reported regarding the EENT system. Derm: Skin is intact. 21:55 Reassessment: Patient appears in no apparent distress at this time. Patient denies pain aa9 at this time. Reassessment: pt low fowlers in bed, denies concerns, call light within reach, tv monitor on. General: Appears comfortable, Behavior is calm, cooperative, appropriate for age. Vital Signs: 18:15 BP 164 / 55; Pulse 75; Resp 18; Temp 98.1; Pulse Ox 100% on R/A; Weight 58.97 kg; ph Height 5 ft. 6 in. (167.64 cm); Pain 0/10; 20:41 BP 114 / 92; Pulse 75; Resp 18 S; Pulse Ox 100% on R/A; aa9 18:15 Body Mass Index 20.98 (58.97 kg, 167.64 cm) ph ED Course: 18:11 Patient arrived in ED. ss 18:15 Zackery Murphy MD is Attending Physician. kdr 18:59 Triage completed. ph 19:00 Arm band placed on Patient placed in an exam room, on a stretcher. ph 19:01 Patient has correct armband on for positive identification. Placed in gown. Bed in low ph position. Call light in reach. Side rails up X 1. Pulse ox on. NIBP on. 20:00 Inserted saline lock: 22 gauge in left forearm, using aseptic technique. Blood zm collected. 20:00 CBC with Diff Sent. zm 20:00 CMP Sent. zm 20:00 Lipase Sent. zm 21:27 Abdomen In Process Unspecified. EDMS 21:43 Arpita Santamaria, RN is Primary Nurse. aa9 22:39 No provider procedures requiring assistance completed. IV discontinued, intact, aa9 bleeding controlled, No redness/swelling at site. Pressure dressing applied. Administered Medications: 21:55 Drug: Lactulose 20 grams Volume: 30 ml; Route: PO; aa9 22:39 Follow up: Response: No adverse reaction aa9 22:39 Drug: Maalox (aluminum hydroxide, magnesium hydroxide, simethicone) Suspension (200 aa9 mg-200 mg-20 mg/5 mL) 30 ml Route: PO; 22:39 Follow up: Response: No adverse reaction aa9 Medication: 19:01 VIS not applicable for this client. ph Outcome: 22:15 Discharge ordered by . kdr 22:39 Discharged to home via wheelchair, with family. aa9 :39 Condition: stable 22:39 Discharge instructions given to patient, Instructed on discharge instructions, follow up and referral plans. medication usage, Demonstrated understanding of instructions, follow-up care, medications, Prescriptions given X 3. 22:40 Patient left the ED. aa9 Signatures: Dispatcher [employer] EDMS Zackery Murphy MD MD [facility] Maya Castañeda RN RN Mira Cardenas RN RN Georgia Zambrano Aylin, RN RN aa9
[2022-06-11] MEDS ORDERED: MAGNES/ALUMIN/SIMET 30ML UCUP ONE (22:26)
[2022-06-11 23:36] VITALS: TEMP 98.1; O2SAT 100
[2022-06-11 23:41] VITALS: BP 114/92
== END 2022-06-11 22:40 | disposition home or self-care (01) ==
LOC: ER 18:07
DX: K59.00 Constipation, unspecified (principal); F17.290 Nicotine dependence, other tobacco product, uncomplicated
CPT/HCPCS: 36415; 74176; 80053; 83690; 85025; 99284

== ENCOUNTER 2022-07-25 16:03 | Emergency (ER) | payer OTHER ==
--- OUTSIDE RECORDS SUMMARY | 2022-07-25 16:07 | XMS REPORT | Continuity of Care Document ---
:1945 Author Organization [facility] t Address [address] [place] [address] Care Team Providers Name Role Phone No, Pcp [facility] Primary Care Physician Unavailable MEIR REYES Attending Clinician Unavailable DELFINO WARREN Attending Clinician Unavailable MATIAS COLLIER Attending Clinician Unavailable EMIR REYES Admitting Clinician Unavailable DELFINO WARREN Admitting Clinician Unavailable MATIAS COLLIER Admitting Clinician Unavailable Problems Condition Condition Condition Status Onset Resolution Last Treating Co mments Source Name Details Category Date Date Treatment Clinician Date TIA TIA Disease Active 2017-[address] [facility] (transient (transient 2-21 [facility] ischemic ischemic 00:00: Medica l attack) attack) 00 [place] CVA CVA Disease Active 2017-[address] [facility] [address] (cerebral (cerebral 1-18 [facility] vascular vascular 00:00: Medica l accident) accident) 00 [facility] er Seizures Seizures Disease Active 2017-[facility] 00 [place] Essential Essential Disease Active 2017-[address] [facility] hypertensi hypertensi 1-17 [facility] on on 00:00: Medical 00 [place] Atrial Atrial Disease Active 2017-[address] fibrillati fibrillati 1-17 [facility] on on 00:00: Medical 00 [place] Stroke Stroke Disease Active 2018-[address] [facility] 00 [facility] Chest pain Chest pain Disease Active [facility] 04[facility] 00 Center Combined Combined [...] Stop Date Source Natural brother Heart attack [facility] Natural father Heart attack [facility] Natural mother Heart failure [facility] Social History Social Habit Start Date Stop Date Quantity Comments Source History SDOH [facility] Alcohol Comment Medical C enter History SDOH [facility] Alcohol Std Drinks Medica Center History SDOH [facility] Alcohol Binge Medical [facility] Tobacco Comment 2018-07-27 2018-07-27 2 cigars [address] [facility] 00:00[facility]00 00:00:00 [facility] Alcohol intake 2018-07-27 2018-07-[address] [facility] 00:00:00 00:00:00 non-drinker of Medical Ce nter alcohol (finding) Tobacco use and 2018-06-23 2018-06-[address] [facility] exposure 00:00:00 00:00:00 Medical Center History SDOH 2018-06-23 2018-06-[address] [facility] Alcohol Frequency 00:00:00 00:00:00 [facility] History of tobacco 2017-07-[address] [facility] use 00:00:00 [facility] Sex Assigned At [address] [facility] kes 00:00:00 00:00:00 [facility] Smoking Status Start Date Stop Date Source Former smoker 2018-06-23 00:00:00 2018-06-23 00:00:00 [facility] Medications Ordered Filled Start Stop Current Ordering Indication Dosage Frequency Signature Comments Components Source Medication Medication Date Date Medication? Clinician (SIG) Name Name aspirin 81 2017-08 Yes 81mg QD Take [address] MG chewable 2-24 by mouth [facility] tablet 14:47: daily. [address] atorvastati 2017-08 Yes 20mg QD Take [address] [facility] (LIPITOR) 2-24 by mouth Luke [facility] 20 MG 14:47: daily. Medical tablet 27 [place] cyanocobala 2017-08 Yes 1000ug QD Take 1,[address] min 1000 2-24 mcg by [facility] MCG tablet 14:47: mouth Medica l 27 daily. [place] carvedilol 2017-08 Yes 3.125mg Take 3.125 CHI [...] mg tablet 14:47: daily. Medica l 27 [place] furosemide 2017-08 Yes 60mg QD Take [address] (LASIX) 40 2-24 by mouth [facility] MG tablet 14:47: daily . Medic al 27 [place] insulin 2017-08 Yes 10U Inject 10 [facility] [...] 20 MG 14:47: daily. Medical capsule 27 [place] warfarin 2017-08 Yes 5mg QD Take [address] (COUMADIN) 2-24 by mouth [facility] 5 MG tablet 14:47: daily Medic al 27 Except Center Monday, Monday and Monday. . warfarin 2017-08 Yes 7.5mg QD Take 7.[address] (COUMADIN) 2-24 mg by [facility] 7.5 MG 14:47: mouth Medical tablet 27 daily On Center Monday, Monday and Monday . aspirin 81 2017-08 Yes 81mg QD Take [address] MG chewable 2-24 by mouth [facility] tablet 14:47: daily. Medical 27 [place] atorvastati 2017-08 Yes 20mg QD Take [address] [facility] (LIPITOR) 2-24 by mouth [facility] 20 MG 14:47: daily. Medical tablet 27 [place] cyanocobala 2017-08 Yes 1000ug QD Take 1,[address] min 1000 2-24 mcg by [facility] MCG tablet 14:47: mouth Medica l 27 daily. [place] carvedilol 2017-08 Yes 3.125mg Take 3.125 CHI [...] mg tablet 14:47: daily. Medica l 27 [place] furosemide 2017-08 Yes 60mg QD Take [address] (LASIX) 40 2-24 by mouth [facility] MG tablet 14:47: daily . Medic al 27 [place] insulin 2017-08 Yes 10U Inject 10 [facility] [...] 20 MG 14:47: daily. Medical capsule 27 [place] warfarin 2017-08 Yes 5mg QD Take 5 [...] by mouth 2 Center (two) times daily. levothyroxi 2017-08 Yes 100ug Take 1 [facility] [...] Yes .4mg Place [address] in 04-10 tablet [facility] (NITROSTAT) 00:00: (0.4 mg Med ical 0.4 MG SL 00 total) Center tablet under the tongue every 5 (five) minutes as needed for Chest pain. nitroglycer Yes .4mg Place [address] [facility] in 04-10 tablet [facility] (NITROSTAT) 00:00: (0.4 mg Med ical 0.4 MG SL 00 total) Center tablet under the tongue every 5 (five) minutes as needed for Chest pain. Procedures This patient has no known procedures. Results Test Description Test Time Test Comments Results Result Comments Source POCT-GLUCOSE METER 2018-07-30 11:40:00 Test Item Value Reference Range Interpretation Comme nts POC-GLUCOSE METER ([employer]DONTE) (test 179 mg/dL 70-[address] [facility] [address] code = 1538) [facility] 7703 0 POCT-GLUCOSE [id number] 08:10:00 Test Item Value Reference Range Interpretation Comments POC-GLUCOSE METER 134 mg/dL 70-[address] [facility] 6720 ([facility]) (test code = YAO R [facility] 1538) [address] PROTHROMBIN [id number] 06:51:00 Test Item Value Reference Range Interpretation Comments PROTIME (BEAKER) (test code = 25.3 seconds 11.7-14.7 H 759) INR (BEAKER) (test code = 370) 2.3 <=5.9 RECOMMENDED COUMADIN/WARFARIN INR THERAPY RANGESSTANDARD DOSE: 2.0 - 3.0 Includes: PROPHYLAXIS for venous thrombosis, systemic embolization; TREATMENT for venous thrombosis and/or pulmonary embolus.HIGH RISK: Target INR is 2.5-3.5 for patients with mechanical heart valves.BASIC METABOLIC [id number] 06:46:00 Test Item Value Reference Range Interpretation [...] PATIEN TS. CBC W/PLT COUNT & AUTO [id number] 06:08:00 Test Item Value Reference Range Interpretation [...] EOSINOPHILS ABSOLUTE COUNT 0.11 K/ L 0.04-0.54 (AKER) (test code = 416) BASOPHILS ABSOLUTE COUNT ([facility]) 0.03 K/ L 0.01-0.08 (test code = 417) IMMATURE GRANULOCYTES-RELATIVE 0 % 0-1 PERCENT ([facility]) (test code = 2801) POCT-GLUCOSE [id number] 22:28:00 Test Item Value Reference Range Interpretation Comments POC-GLUCOSE METER 166 mg/dL 70-110 H TESTED AT [place] [address] ([facility]) (test code = YAO Ibanez [place] 1538) [address] POCT-GLUCOSE [id number] 17:28:00 Test Item Value Reference Range Interpretation Comments POC-GLUCOSE METER 155 mg/dL 70-110 H TESTED AT [place] [address] ([facility]) (test code = YAO Ibanez [place] 1538) [address] POCT-GLUCOSE [id number] 14:06:00 Test Item Value Reference Range Interpretation Comments POC-GLUCOSE METER 78 mg/dL 70-110 TESTED AT [place] [address] ([facility]) (test code = YAO Ibanez [facility] [address] 1538) POCT-GLUCOSE [id number] 11:23:00 Test Item Value Reference Range Interpretation Comments POC-GLUCOSE METER 197 mg/dL 70-110 H TESTED AT [place] [address] ([facility]) (test code = YAO Ibanez [place] 1538) [address] POCT-GLUCOSE [id number] 08:12:00 Test Item Value Reference Range Interpretation Comments POC-GLUCOSE METER 124 mg/dL 70-110 H TESTED AT [place] [address] ([facility]) (test code = [employer] Ibanez [place] 1538) [address] PROTHROMBIN [id number] 05:20:00 Test Item Value Reference Range Interpretation Comments PROTIME ([facility]) (test code = 27.0 seconds 11.7-14.7 H 759) INR ([facility]) (test code = 370) 2.5 <=5.9 RECOMMENDED COUMADIN/WARFARIN INR THERAPY RANGESSTANDARD DOSE: 2.0 - 3.0 Includes: PROPHYLAXIS for venous thrombosis, systemic embolization; TREATMENT for venous thrombosis and/or pulmonary embolus.HIGH RISK: Target INR is 2.5-3.5 for patients with mechanical heart valves.BASIC METABOLIC [id number] 05:20:00 Test Item Value Reference Range Interpretation [...] PATIEN TS. CBC W/PLT COUNT & AUTO [id number] 04:53:00 Test Item Value Reference Range Interpretation [...] PERCENT (BEAKER) (test code = 2801) POCT-GLUCOSE [id number] 21:31:00 Test Item Value Reference Range Interpretation Comments POC-GLUCOSE METER 159 mg/dL 70-110 H TESTED AT [place] [address] ([facility]) (test code = YAO [place] 1538) [address] POCT-GLUCOSE [id number] 16:54:00 Test Item Value Reference Range Interpretation Comments POC-GLUCOSE METER 201 mg/dL 70-110 H TESTED AT [place] [address] ([facility]) (test code = YAO [place] 1538) [address] POCT-GLUCOSE [id number] 15:07:00 Test Item Value Reference Range Interpretation Comments POC-GLUCOSE METER 98 mg/dL 70-110 TESTED AT [place] [address] ([facility]) (test code = YAO Ibanez [facility] [address] 1538) PROTHROMBIN [id number] 14:05:00 Test Item Value Reference Range Interpretation Comments PROTIME (BEAKER) (test code = 26.6 seconds 11.7-14.7 H 759) INR (BEAKER) (test code = 370) 2.5 <=5.9 RECOMMENDED COUMADIN/WARFARIN INR THERAPY RANGESSTANDARD DOSE: 2.0 - 3.0 Includes: PROPHYLAXIS for venous thrombosis, systemic embolization; TREATMENT for venous thrombosis and/or pulmonary embolus.HIGH RISK: Target INR is 2.5-3.5 for patients with mechanical heart valves.While on warfarin.BASIC METABOLIC [id number] 13:55:00 Test Item Value Reference Range Interpretation [...] PATIEN TS. CBC W/PLT COUNT & AUTO [id number] 13:44:00 Test Item Value Reference Range Interpretation [...] PERCENT (BEAKER) (test code = 2801) POCT-GLUCOSE [id number] 12:18:00 Test Item Value Reference Range Interpretation Comments POC-GLUCOSE METER 128 mg/dL 70-[address] [facility] 67[address] ([facility]) (test code = YAO LEONARD 1538) [address] POCT-GLUCOSE [id number] 08:11:00 Test Item Value Reference Range Interpretation Comments POC-GLUCOSE METER 118 mg/dL 70-[address] [facility] 6720 (BEAKER) (test code = YAO Ibanez [facility] 1538) [address] POCT-GLUCOSE [id number] 21:24:00 Test Item Value Reference Range Interpretation Comments POC-GLUCOSE METER 130 mg/dL 70-110 H TESTED AT [place] [address] (BEAKER) (test code = YAO Ibanez [facility] 1538) [address] URINALYSIS W/ REFLEX URINE [id number] 17:25:00 Test Item Value Reference Range Interpretation [...] 1521) SOURCE(BEAKER) (test code = 2795) POCT-GLUCOSE [id number] 17:01:00 Test Item Value Reference Range Interpretation Comments POC-GLUCOSE METER 109 mg/dL 70-110 TESTED AT [place] [address] (BEAKER) (test [facility] = [facility] 1538) [address] [id number] 15:06:00 Test Item Value Reference Range Interpretation Comments RPR SCREEN (BEAKER) (test code = Nonreactive Nonreactive 420) POCT-GLUCOSE [id number] 11:50:00 Test Item Value Reference Range Interpretation Comments POC-GLUCOSE METER 156 mg/dL 70-110 H TESTED AT [place] [address] (BEAKER) (test code = YAO [place] 1538) [address] [id number] 10:36:00 Test Item Value Reference Range Interpretation Comments THYROID STIMULATING HORMONE 0.05 uIU/mL 0.35-4.94 L (BEAKER) (test code = 772) VITAMIN B12 AND [id number] 10:27:00 Test Item Value Reference Range Interpretation Comments VITAMIN B12 (BEAKER) (test code = 1571 pg/mL 213-816 H 774) FOLATE (BEAKER) (test code = 362) 12.0 ng/mL >=7.0 TROPONIN [id number] 09:58:00 Test Item Value Reference Range Interpretation [...] acidosis, acute neurological disease, and persistent tachyarrhythmia.LIPID [id number] 09:52:00 Test Item Value Reference Range Interpretation [...] 130-159 High 160-189 Very High >=190BASIC METABOLIC [id number] 09:52:00 Test Item Value Reference Range Interpretation [...] APPLICABLE FOR DIALYSIS PATIEN TS. HEPATIC FUNCTION [id number] 09:52:00 Test Item Value Reference Range Interpretation [...] code = 19 U/L 6-55 347) PROTHROMBIN [id number] 09:43:00 Test Item Value Reference Range Interpretation [...] mechanical heart valves.CBC W/PLT COUNT & AUTO [id number] 09:41:00 Test Item Value Reference Range Interpretation [...] 417) IMMATURE GRANULOCYTES-RELATIVE 0 % 0-1 PERCENT ([facility]) (test code = 2801) POCT-GLUCOSE [id number] 08:38:00 Test Item Value Reference Range Interpretation Comments POC-GLUCOSE METER 146 mg/dL 70-[address] [facility] 6720 ([facility]) (test code = YAO [place] 1538) [address] URINE [id number] 09:31:00 Test Item Value Reference Interpretation Comments Range CULTURE ([facility]) COAGULASE NEGATIVE A 10-19 ,000 col/mL (test [...] code S = 13) EEG AWAKE AND [id number] 14:58:00For STAT EEG- after 5 PM weekdays, weekends and holidays, page the on-call EEG TechReason for exam:->reports of first time seizure hould this be performed at the bedside?->YesDate of EE06/25/18 DATE OF REPORT: 06/25/18 ACC: [id number] EEG Number: [id number] Test Location: Inpatient Start time: 06/25/18 at 1018 Stop time: 06/25/18 at 1039 ICD-10: 56381 CPT Code: R56.9 HISTORY:72 year old male [...] Fellow Jamir Pagan MD PhD Attending Neurophysiologist [facility] POCT-GLUCOSE [id number] 11:26:00 Test Item Value Reference Range Interpretation Comments POC-GLUCOSE METER 156 mg/dL 70-110 H TESTED AT [place] [address] (BEAKER) (test code = [facility] 1538) [address] POCT-GLUCOSE [id number] 08:59:00 Test Item Value Reference Range Interpretation Comments POC-GLUCOSE METER 85 mg/dL 70-110 TESTED AT [place] [address] (BEAKER) (test code = [facility] [address] 1538) [id number] 07:29:00 Test Item Value Reference Range Interpretation Comments PHOSPHORUS (BEAKER) (test code = 3.2 mg/dL 2.3-4.7 604) [id number] 07:29:00 Test Item Value Reference Range Interpretation Comments MAGNESIUM (BEAKER) (test code = 2.5 mg/dL 1.6-2.6 627) BASIC METABOLIC [id number] 07:29:00 Test Item Value Reference Range Interpretation [...] NOT APPLICABLE FOR DIALYSIS PATIEN TS. PROTHROMBIN [id number] 06:05:00 Test Item Value Reference Range Interpretation Comments PROTIME (BEAKER) (test code = 33.9 seconds 11.7-14.7 H 759) INR (BEAKER) (test code = 370) 3.3 <=5.9 RECOMMENDED COUMADIN/WARFARIN INR THERAPY RANGESSTANDARD DOSE: 2.0 - 3.0 Includes: PROPHYLAXIS for venous thrombosis, systemic embolization; TREATMENT for venous thrombosis and/or pulmonary embolus.HIGH RISK: Target INR is 2.5-3.5 for patients with mechanical heart valves.[id number] 03:36:00 Test Item Value Reference Range Interpretation Comments RPR SCREEN (BEAKER) (test code = Nonreactive Nonreactive 420) URINALYSIS W/ REFLEX URINE [id number] 22:28:00 Test Item Value Reference Range Interpretation [...] 514) SOURCE(BEAKER) (test code = 2795) POCT-GLUCOSE [id number] 22:00:00 Test Item Value Reference Range Interpretation Comments POC-GLUCOSE METER 84 mg/dL 70-[address] [facility] 6720 (BEAKER) (test [facility] = [facility] [address] 1538) POCT-GLUCOSE [id number] 17:33:00 Test Item Value Reference Range Interpretation Comments POC-GLUCOSE METER 106 mg/dL 70-[address] [facility] 6720 ([facility]) (test code = [facility] 1538) [address] RAD, CHEST, 1 VIEW, NON [id number] 16:32:00Reason for exam:->AMSShould this be performed at [...] MDReport Verified Date/Time: 06/24/2018 16:32:28 Reading Location: [facility] C013X Ortho Consult Reading Room [facility] signed by: NAVEEN JACKSON M.D. on 06/24/2018 04:32 PMCOMPREHENSIVE METABOLIC [id number] 13:24:00 Test Item Value Reference Range Interpretation [...] NOT APPLICABLE FOR DIALYSIS PATIEN TS. POCT-GLUCOSE [id number] 12:41:00 Test Item Value Reference Range Interpretation Comments POC-GLUCOSE METER 135 mg/dL 70-[address] [facility] 6720 ([facility]) (test code = YAO [place] 1538) [address] T4, [id number] 11:37:00 Test Item Value Reference Range Interpretation Comments FREE T4 (BEAKER) (test code = 655) 1.22 ng/dL 0.70-1.48 CT, BRAIN, WITHOUT [id number] 09:37:00FINAL REPORT CT head without contrast 06/24/2018 [...] appearing ischemic and involutional changes. Signed: Gabriel Quarleseport Verified Date/Time: 06/24/2018 09:37:20 Reading Location: [facility] B1 C013V Neuro Reading Room POCT- GLUCOSE [id number] 09:07:00 Test Item Value Reference Range Interpretation Comments POC-GLUCOSE METER 144 mg/dL 70-[address] [facility] 6720 ([facility]) (test code = YAO Ibanez [facility] 1538) [address] VITAMIN B12 AND [id number] 08:24:00 Test Item Value Reference Range Interpretation Comments VITAMIN B12 ([facility]) (test code = 1074 pg/mL 213-816 H 774) FOLATE ([facility]) (test code = 362) 13.7 ng/mL >=7.0 HEMOGLOBIN [id number] 08:16:00 Test Item Value Reference Range Interpretation Comments HEMOGLOBIN A1C ([facility]) (test code = 5.8 % 4.3-6.1 368) TSH/FREE T4 IF [id number] 08:01:00 Test Item Value Reference Range Interpretation Comments THYROID STIMULATING HORMONE 0.04 uIU/mL 0.35-4.94 L ([facility]) (test code = 772) LIPID [id number] 07:25:00 Test Item Value Reference Range Interpretation Comments TRIGLYCERIDES ([facility]) (test code = 185 mg/dL 540) CHOLESTEROL ([facility]) (test code = 166 mg/dL 631) HDL CHOLESTEROL ([facility]) (test code 39 mg/dL = 976) LDL CHOLESTEROL CALCULATED ([facility]) 90 mg/dL (test code = 633) Triglyceride Reference Range: Low Risk <150 Borderline 150-199 High Risk 200- 499 Very High Risk >=500Cholesterol Reference Range: Low Risk <200 Borderline 200-239 High Risk >240HDL Cholesterol Reference Range: Low Risk >=60 High Risk <40LDL Cholesterol Reference Range: Optimal <100 Near Optimal 100-129 Borderline 130-159 High 160-189 Very High >=190 Fasting PROTHROMBIN [id number] 07:13:00 Test Item Value Reference Range Interpretation Comments PROTIME ([employer]) (test code = 29.0 seconds 11.7-14.7 H 759) INR (BEAKER) (test code = 370) 2.7 <=5.9 RECOMMENDED COUMADIN/WARFARIN INR THERAPY RANGESSTANDARD DOSE: 2.0 - 3.0 Includes: PROPHYLAXIS for venous thrombosis, systemic embolization; TREATMENT for venous thrombosis and/or pulmonary embolus.HIGH RISK: Target INR is 2.5-3.5 for patients with mechanical heart valves.POCT-GLUCOSE [id number] 22:17:00 Test Item Value Reference Range Interpretation Comments POC-GLUCOSE METER 176 mg/dL 70-110 H TESTED AT [place] [address] ([employer]) (test code = [facility] 1538) [address] PROTHROMBIN [id number] 18:50:00 Test Item Value Reference Range Interpretation Comments PROTIME ([facility]IL[facility]) (test code = 30.8 seconds 11.7-14.7 H 759) INR ([employer]) (test code = 370) 3.0 <=5.9 RECOMMENDED COUMADIN/WARFARIN INR THERAPY RANGESSTANDARD DOSE: 2.0 - 3.0 Includes: PROPHYLAXIS for venous thrombosis, systemic embolization; TREATMENT for venous thrombosis and/or pulmonary embolus.HIGH RISK: Target INR is 2.5-3.5 for patients with mechanical heart valves.POCT-GLUCOSE [id number] 17:55:00 Test Item Value Reference Range Interpretation Comments POC-GLUCOSE METER 134 mg/dL 70-[address] [facility] 67 ([employer]) (test code = [facility] 1538) [address] BASIC METABOLIC [id number] 13:37:00 Test Item Value Reference Range Interpretation Comments SODIUM ([employer]AKER) 136 meq/L 136-145 (test code = 381) POTASSIUM (AKER) 4.6 meq/L 3.5-5.1 Specimen slightly (test code [...] PATIEN TS. CBC W/PLT COUNT & AUTO [id number] 13:23:00 Test Item Value Reference Range Interpretation [...] PERCENT (BEAKER) (test code = 2801) POCT-GLUCOSE [id number] 12:33:00 Test Item Value Reference Range Interpretation Comments POC-GLUCOSE METER 165 mg/dL 70-[address] [facility] 6720 ([facility]) (test code = [facility] 1538) [address] POCT-GLUCOSE [id number] 08:33:00 Test Item Value Reference Range Interpretation Comments POC-GLUCOSE METER 233 mg/dL 70-110 H TESTED AT [place] [id number] ([facility]) (test code = [facility] 1538) [address] PET, CARDIAC PERFUSION MULTIPLE STUDIES, REST AND [id number] 12:33:00 Reason for exam:->ischemia evaluation.FINAL REPORT PROCEDURE: Rest/Stress MYOCARDIAL PERFUSION PET with regadenoson\XA9\ CPT CODE: 58257 INDICATION: Ischemic evaluation, chest pain, atrial fibrillation [...] increasedlung uptake (thallium-201)(JACC. 2012;59(9):857-81.) Signed: Hao Faith [facility] Verified Date/Time: 04/10/2018 12:33:34 Reading Location: [address] [address] Reading Room POCT- GLUCOSE [id number] 11:43:00 Test Item Value Reference Range Interpretation Comments POC-GLUCOSE METER 354 mg/dL 70-110 H Notified R Bola MD/TESTED (BEAKER) (test code = AT [facility] [address] [facility]) [facility] 7[address] 0 POCT-GLUCOSE [id number] 07:21:00 Test Item Value Reference Range Interpretation Comments POC-GLUCOSE METER 156 mg/dL 70-[address] [facility] 6720 (BEAKER) (test code = YAO Ibanez [facility] 1538) [address] [id number] 06:34:00 Test Item Value Reference Range Interpretation Comments MAGNESIUM (BEAKER) (test code = 2.5 mg/dL 1.6-2.6 627) BASIC METABOLIC [id number] 06:34:00 Test Item Value Reference Range Interpretation [...] NOT APPLICABLE FOR DIALYSIS PATIEN TS. PROTHROMBIN [id number] 06:31:00 Test Item Value Reference Range Interpretation [...] valves.While on warfarin.CBC W/PLT COUNT & AUTO [id number] 06:19:00 Test Item Value Reference Range Interpretation [...] PERCENT (BEAKER) (test code = 2801) POCT-GLUCOSE [id number] 23:34:00 Test Item Value Reference Range Interpretation Comments POC-GLUCOSE METER 155 mg/dL 70-110 H TESTED AT [place] [address] ([facility]) (test code = [facility] Marcelle [facility] 1538) [address] POCT-GLUCOSE [id number] 19:50:00 Test Item Value Reference Range Interpretation Comments POC-GLUCOSE METER 155 mg/dL 70-110 H TESTED AT [place] [address] ([facility]) (test code = [facility] 1538) [address] POCT-GLUCOSE [id number] 11:50:00 Test Item Value Reference Range Interpretation Comments POC-GLUCOSE METER 196 mg/dL 70-110 H TESTED AT [place] [address] ([facility]) (test code = [facility] 1538) [address] POCT-GLUCOSE [id number] 07:58:00 Test Item Value Reference Range Interpretation Comments POC-GLUCOSE METER 170 mg/dL 70-110 H TESTED AT [place] [address] ([facility]) (test code = [facility] 1538) [address] [id number] 07:31:00 Test Item Value Reference Range Interpretation Comments MAGNESIUM (BEAKER) (test code = 2.5 mg/dL 1.6-2.6 627) BASIC METABOLIC [id number] 07:31:00 Test Item Value Reference Range Interpretation [...] PATIEN TS. CREATINE KINASE (CK), TOTAL AND [id number] 07:31:00 Test Item Value Reference Range Interpretation Comments CREATINE KINASE TOTAL (BEAKER) 184 U/L 29-200 (test code = 380) CREATINE KINASE-MB (BEAKER) (test 0.9 ng/mL 0.0-6.6 code = 750) CREATINE KINASE-MB INDEX (BEAKER) 0.5 % (test code = 395) CK-MB Reference Range:<6.7 Normal6.7-10.0 Borderline>10.0 AbnormalCBC W/PLT COUNT & AUTO [id number] 06:40:00 Test Item Value Reference Range Interpretation [...] 0-1 PERCENT (BEAKER) (test code = 2801) PROTHROMBIN TIME/[id number] 06:40:00 Test Item Value Reference Range Interpretation Comments PROTIME (BEAKER) (test code = 18.2 seconds 11.7-14.7 H 759) INR (BEAKER) (test code = 370) 1.5 <=5.9 RECOMMENDED COUMADIN/WARFARIN INR THERAPY RANGESSTANDARD DOSE: 2.0 - 3.0 Includes: PROPHYLAXIS for venous thrombosis, systemic embolization; TREATMENT for venous thrombosis and/or pulmonary embolus.HIGH RISK: Target INR is 2.5-3.5 for patients with mechanical heart valves.While on warfarin.POCT-GLUCOSE METER 2018-04-08 23:26:00 Test Item Value Reference Range Interpretation Comments POC-GLUCOSE METER 175 mg/dL 70-[address] [facility] 6720 (BEAKER) (test code = YAO Ibanez [facility] 1538) [address] POCT-GLUCOSE [id number] 16:46:00 Test Item Value Reference Range Interpretation Comments POC-GLUCOSE METER 143 mg/dL 70-[address] [facility] 6720 (BEAKER) (test code = YAO Ibanez [facility] 1538) [address] POCT-GLUCOSE [id number] 14:34:00 Test Item Value Reference Range Interpretation Comments POC-GLUCOSE METER 171 mg/dL 70-[address] [facility] 6720 (BEAKER) (test code = YAO Ibanez [facility] 1538) [address] HEMOGLOBIN [id number] 11:18:00 Test Item Value Reference Range Interpretation Comments HEMOGLOBIN A1C (BEAKER) (test code = 6.6 % 4.3-6.1 H 368) CREATINE KINASE (CK), TOTAL AND [id number] 07:48:00 Test Item Value Reference Range Interpretation Comments CREATINE KINASE TOTAL (BEAKER) 111 U/L 29-200 (test code = 380) CREATINE KINASE-MB (BEAKER) (test 1.1 ng/mL 0.0-6.6 code = 750) CREATINE KINASE-MB INDEX (BEAKER) 1.0 % (test code = 395) CK-MB Reference Range:<6.7 Normal6.7-10.0 Borderline>10.0 Abnormal [id number] 07:42:00 Test Item Value Reference Range Interpretation Comments MAGNESIUM (BEAKER) (test code = 2.4 mg/dL 1.6-2.6 627) BASIC METABOLIC [id number] 07:42:00 Test Item Value Reference Range Interpretation [...] S NOT APPLICABLE FOR DIALYSIS PATIEN TS. [id number] 07:17:00 Test Item Value Reference Range Interpretation Comments FERRITIN (BEAKER) (test code = 361) 54 ng/mL 5-275 VITAMIN B12 AND [id number] 07:17:00 Test Item Value Reference Range Interpretation Comments VITAMIN B12 (BEAKER) (test code = 1684 pg/mL 213-816 H 774) FOLATE (BEAKER) (test code = 362) 14.0 ng/mL >=7.0 CBC W/PLT COUNT & AUTO [id number] 07:08:00 Test Item Value Reference Range Interpretation [...] 20-55 L (test code = 2590) POCT-GLUCOSE [id number] 06:40:00 Test Item Value Reference Range Interpretation Comments POC-GLUCOSE METER 147 mg/dL 70-[address] [facility] 6720 (BEAKER) (test code = [facility] [place] 1538) [address] PROTHROMBIN [id number] 06:24:00 Test Item Value Reference Range Interpretation Comments PROTIME (BEAKER) (test code = 23.6 seconds 11.7-14.7 H 759) INR (BEAKER) (test code = 370) 2.1 <=5.9 RECOMMENDED COUMADIN/WARFARIN INR THERAPY RANGESSTANDARD DOSE: 2.0 - 3.0 Includes: PROPHYLAXIS for venous thrombosis, systemic embolization; TREATMENT for venous thrombosis and/or pulmonary embolus.HIGH RISK: Target INR is 2.5-3.5 for patients with mechanical heart valves.TROPONIN [id number] 00:58:00 Test Item Value Reference Range Interpretation Comments TROPONIN I (GILMA) (test code = 0.03 ng/mL 0.00-0.03 397) [...] acidosis, acute neurological disease, and persistent tachyarrhythmia.LIPID [id number] 00:52:00 Test Item Value Reference Range Interpretation Comments TRIGLYCERIDES (GILMA) (test code = 147 mg/dL 540) CHOLESTEROL ([employer]AKER) (test code = 129 mg/dL 631) HDL CHOLESTEROL ([employer]) (test code 34 mg/dL = 976) LDL CHOLESTEROL CALCULATED ([facility]) 66 mg/dL (test code = 633) Triglyceride Reference Range: Low Risk <150 Borderline 150-199 High Risk 200- 499 Very High Risk >=500Cholesterol Reference Range: Low Risk <200 Borderline 200-239 High Risk >240HDL Cholesterol Reference Range: Low Risk >=60 High Risk <40LDL Cholesterol Reference Range: Optimal <100 Near Optimal 100-129 Borderline 130-159 High 160-189 Very High >=190POCT-GLUCOSE [id number] 00:10:00 Test Item Value Reference Range Interpretation Comments POC-GLUCOSE METER 76 mg/dL 70-[address] [facility] 6720 ([facility]) (test code = YAO Ibanez [facility] [address] 1538) RAD, CHEST, 1 VIEW, NON [id number] 18:37:00Reason for exam:->fluid overloadShould this be performed [...] MDReport Verified Date/Time: 04/07/2018 18:37:22 Reading Location: [address] Reading Room TROPONIN [id number] 17:35:00 Test Item Value Reference Range Interpretation Comments TROPONIN I (BEAKER) (test code = 0.02 ng/mL 0.00-0.03 397) [...] disease, and persistent tachyarrhythmia.B-TYPE NATRIURETIC FACTOR (BNP) 2018-04-07 17:35:00 Test Item Value Reference Range Interpretation Comments B-TYPE NATRIURETIC PEPTIDE (BEAKER) 927 pg/mL 0-100 H (test code = 700) POCT-GLUCOSE [id number] 17:28:00 Test Item Value Reference Range Interpretation Comments POC-GLUCOSE METER 105 mg/dL 70-[address] [facility] 6720 ([facility]) (test code = YAO Ibanez [facility] 1538) [address] COMPREHENSIVE METABOLIC [id number] 17:28:00 Test Item Value Reference Range Interpretation [...] NOT APPLICABLE FOR DIALYSIS PATIEN TS. PROTHROMBIN [id number] 17:18:00 Test Item Value Reference Range Interpretation [...] mechanical heart valves.CBC W/PLT COUNT & AUTO [id number] 17:09:00 Test Item Value Reference Range Interpretation [...] % 0-1 PERCENT (BEAKER) (test code = 7629)
--- NOTE | 2022-07-25 17:06 | RAD REPORT ---
EXAM DESCRIPTION: CT - Head C Spine Mpr Wo Con - 07/25/2022 4:51 pm CLINICAL HISTORY: Head and neck injury status post fall. Head and neck pain COMPARISON: 2018 TECHNIQUE: Computed axial tomography of the head and cervical spine was obtained. Sagittal and coronal reconstruction was performed. All CT scans are performed using dose optimization technique as appropriate and may include automated exposure control or mA/KV adjustment according to patient size. FINDINGS: Moderate subarachnoid blood right frontal lobe. Small subdural hematoma along right fronta l and right parietal convexities. No shift of midline structures. Right occipital scalp hematoma. Ventricles are normal caliber. A cervical fracture is not visualized. No dislocation is noted. Spondylosis cervical spine IMPRESSION: Small subdural hematoma along the right frontal and right parietal convexities Moderate right frontal subarachnoid bleed A cervical fracture is not visualized. Joan of the emergency room notified 5:01 p.m. July 25, 2022
[2022-07-25 17:10] LABS: Absolute Lymphocytes (CBC) 1.2 K/uL (0.7-4.9); Hematocrit 28.9 % (39.6-49.0); Lymphocytes % 20.4 % (15.3-44.8); MPV 6.7 fL (7.6-11.3); RBC Red Blood Cell Count 3.28 M/uL (4.33-5.43)
[2022-07-25 17:17] LABS: Protime INR 1.85
--- NOTE | 2022-07-25 17:18 | RAD REPORT ---
EXAM DESCRIPTION: Brandon Single View07/25/2022 4:40 pm CLINICAL HISTORY: Chest pain COMPARISON: 2018 FINDINGS: The lungs appear clear of acute infiltrate. The heart is mildly enlarged. Pacemaker leads are in place. IMPRESSION: No acute abnormalities displayed
[2022-07-25 17:33] LABS: Albumin 2.9 g/dL (3.4-5.0); Bilirubin Direct 0.2 mg/dL (0-0.2); Bilirubin Total 0.6 mg/dL (0.2-1.0); Magnesium 2.2 mg/dL (1.6-2.4); Potassium 4.1 mmol/L (3.5-5.1); Protein, Total 6.8 g/dL (6.4-8.2); Troponin High Sensitivity 26.1 pg/mL (<58.9)
[2022-07-25] MEDS ORDERED: NA CHLORIDE 0.9% 50 ML IV ONE (17:33)
--- NOTE | 2022-07-25 17:41 | EDPHYS ---
Physician Documentation [facility] Name: Zana Zamora Age: 76 yrs Sex: Male : 1945 Arrival Date: 07/25/2022 Time: 16:09 Bed 17 Private MD: ED Physician Joel Levy HPI: 07/25 17:32 This 76 yrs old Male presents to ER via EMS with complaints of Syncope. kb 17:32 Current symptoms: headache, that is mild. kb 17:36 Details of fall: The patient fell from an upright position, while walking. Onset: The kb symptoms/episode began/occurred just prior to arrival. Associated injuries: The patient sustained injury to the head, hematoma, pain. The patient has experienced syncope, collapsed, lost consciousness. Duration: This was a single episode, that lasted 30 minute(s). Context: the episode(s) was witnessed, by no one, occurred at home, occurred while the patient was walking, Just prior to the episode the patient experienced dizziness. Associated injury: Head/face: right occipital area, abrasion, tenderness, hematoma. Associated signs and symptoms: Pertinent positives: headache. Severity of symptoms: At their worst the symptoms were moderate, in the emergency department the symptoms are unchanged. The patient has not experienced similar symptoms in the past. The patient has not recently seen a physician. Pt reports he was feeling dizzy and weak, started walking towards his bed and then woke up on the floor. States he believes he was out for about 30 minutes. Reports slight headache. Has had the weakness and dizziness multiple times in the past. . Historical: - Allergies: 16:11 NKA; hb - Home Meds: 16:15 aspirin 81 mg Oral chew 1 tab once daily [Active]; atorvastatin 40 mg oral tab once hb daily [Active]; carvedilol 3.125 mg oral tab 2 times per day [Active]; furosemide 40 mg oral tab once daily [Active]; levothyroxine 88 mcg oral tab [Active]; lisinopril 5 mg Oral tab 1 tab once daily [Active]; Novolog 100 unit/mL Sub-Q soln three times a day [Active]; omeprazole 20 mg Oral cpDR 2 caps once daily [Active]; Ranexa 1,000 mg Oral Tb12 1 tab 2 times per day [Active]; finasteride 5 mg oral tab 1 tab once daily [Active]; oxybutynin chloride 10 mg Oral tr24 1 tab twice a day [Active]; 18:05 Eliquis 5 mg oral tab 1 tab 2 times per day [Active]; jl7 - PMHx: 16:11 Atrial Fib; CHF; CVA; CAD; Diabetes - IDDM; Hyperlipidemia; Umbilical hernia; hb Hypertension; - Immunization history:: Adult Immunizations up to date. - Social history:: Smoking status: Patient/guardian denies using tobacco. ROS: 17:04 Constitutional: Negative for fever, chills, and weight loss. kb 17:04 Skin: Positive for hematoma, of the right occipital area. 17:04 Neuro: Positive for dizziness, syncope. 17:04 All other systems are negative. Exam: 17:04 Constitutional: This is a well developed, well nourished patient who is awake, alert, kb and in no acute distress. Eyes: Pupils equal round and reactive to light, extra-ocular motions intact. Lids and lashes normal. Conjunctiva and sclera are non-icteric and not injected. Cornea within normal limits. Periorbital areas with no swelling, redness, or edema. ENT: Moist Mucous membranes Neck: Trachea midline, no thyromegaly or masses palpated, and no cervical lymphadenopathy. Supple, full range of motion without nuchal rigidity, or vertebral point tenderness. No Meningismus. Cardiovascular: Regular rate and rhythm with a normal S1 and S2. No gallops, murmurs, or rubs. No pulse deficits. Respiratory: Respirations even and unlabored. No increased work of breathing. Talking in full sentences Abdomen/GI: Soft, non-tender. No distention MS/ Extremity: Pulses equal, no cyanosis. Neurovascular intact. Full, normal range of motion. Neuro: Awake and alert, GCS 15, oriented to person, place, time, and situation. Moves all extremities. Normal gait. Psych: Awake, alert, with orientation to person, place and time. Behavior, mood, and affect are within normal limits. 17:51 ECG was reviewed by the Attending Physician. kb Vital Signs: 16:09 BP 152 / 105; Pulse 75; Resp 18; Temp 98.1(TE); Pulse Ox 96% on R/A; Pain 5/10; hb 17:03 Weight 58.97 kg; Height 5 ft. 7 in. (170.18 cm); jl7 17:30 BP 126 / 98; Pulse 75; Resp 16; Pulse Ox 99% on R/A; Pain 2/10; hb 17:45 BP 143 / 69; Pulse 75; Resp 15; Pulse Ox 100% on R/A; hb 18:00 BP 146 / 51; Pulse 75; Resp 17; Pulse Ox 100% on R/A; Pain 2/10; hb 17:03 Body Mass Index 20.36 (58.97 kg, 170.18 cm) jl7 Procedures: 17:06 Peripheral line: by aseptic technique a peripheral line was placed in the left forearm snw vein. MDM: 16:10 Patient medically screened. kb 17:03 ECG was reviewed by the Attending Physician. Data reviewed: vital signs, nurses notes. kb Data interpreted: Pulse oximetry: on room air is 96 %. Interpretation: normal. 17:04 ED course: Discussed intracranial hemorrhage with Matthias, pharmacist, and pharmacy will ms3 bring down Kcentra for administration. 17:36 Counseling: I had a detailed discussion with the patient and/or guardian regarding: the kb historical points, exam findings, and any diagnostic results supporting the discharge/admit diagnosis, lab results, radiology results, the need to transfer to another facility, for higher level of care, [facility] does not immediately have the required specialist. 17:39 ED course: Awaiting callback from [place] neurosurgeon. kb 17:48 ED course: Pt accepted to [facility] by Dr Polanco, neurosurgery. . kb 07/25 16:13 Order name: Basic Metabolic Panel; Complete Time: 17:35 kb 07/25 16:13 Order name: CBC with Diff; Complete Time: 17:31 kb 07/25 16:13 Order name: CPK; Complete Time: 17:35 kb 07/25 16:13 Order name: Hepatic Function; Complete Time: 17:35 kb 07/25 16:13 Order name: Magnesium; Complete Time: 17:35 kb 07/25 16:13 Order name: Protime (+inr); Complete Time: 17:18 kb 07/25 16:13 Order name: Ptt, Activated; Complete Time: 17:18 kb 07/25 16:13 Order name: Troponin High Sensitivity; Complete Time: 17:35 kb 07/25 16:13 Order name: CT Head C Spine; Complete Time: 17:12 kb 07/25 16:13 Order name: Chest Single View XRAY; Complete Time: 17:19 kb 07/25 16:53 Order name: SARS RAPID; Complete Time: 18:09 em1 07/25 17:10 Order name: Type And Screen kb 07/25 16:13 Order name: EKG; Complete Time: 16:14 kb 07/25 16:13 Order name: Cardiac monitoring; Complete Time: 17:09 kb 07/25 16:13 Order name: EKG - Nurse/Tech; Complete Time: 17:09 kb 07/25 16:13 Order name: IV Saline Lock; Complete Time: 17:09 kb 07/25 16:13 Order name: Labs collected and sent; Complete Time: 17:09 kb 07/25 16:13 Order name: NPO; Complete Time: 17:09 kb 07/25 16:13 Order name: O2 Per Protocol; Complete Time: 17:09 kb 07/25 16:13 Order name: O2 Sat Monitoring; Complete Time: 17:09 kb EC:51 Rate is 75 beats/min. Rhythm is regular. QRS Speer is Normal. PA interval is normal at kb 160 msec. QRS interval is normal at 100 msec. QT interval is normal at 473 msec. Administered Medications: 17:40 Drug: Kcentra 500 unit 1500 units Route: IV; Rate: calculated rate; Site: left forearm; hb 18:45 Follow up: Response: No adverse reaction; IV Status: Infusion continued hb 18:40 Drug: Keppra (levETIRAcetam) 1000 mg Route: IV; Rate: 1 calculated rate; Site: left hb forearm; 18:49 Follow up: IV Status: Infusion continued upon transfer hb Disposition: 17:20 Co-signature as Attending Physician, Joel VILLAGRAN/FUNCTIONAL TESTER's history reviewed, patient ms3 interviewed, and examined. HPI: 76-year-old male presents via [facility] status post fall. Patient states he was walking in the next and he remembered was waking up on the floor. Patient states he did hit his head My personal exam of patient reveals: Patient is alert and oriented x4, in no apparent distress. Heart rate irregular without murmurs rubs or gallops. Lungs are clear to auscultation bilaterally. Abdomen is nontender to palpation. Pupils equal round reactive to light. Disposition Summary: 07/25/22 17:41 Transfer Ordered Transfer Location: [facility] Reason: Higher level of care kb Condition: Fair kb Problem: new kb Symptoms: are unchanged kb Accepting Physician: Dr Polanco(07/25/22 18:51) hb Diagnosis - Traumatic subdural hemorrhage kb - Traumatic subarachnoid hemorrhage kb - Syncope kb - Fall on same level from slipping, tripping and stumbling without subsequent kb striking against object Discharge Instructions: - Discharge Summary Sheet jl7 Forms: - Medication Reconciliation Form kb - SBAR form jl7 Critical care time excluding procedures: 17:20 Critical care time: Bedside Care: 30 minutes, Consultation: 10 minutes, Family ms3 Intervention: 10 minutes. Total time: 50 minutes Signatures: Dispatcher [employer] EDMS Joan Van, ELEAZAR-C SUPERVISOR INSTRUMENT MAINTENANCE-Ckb Vikki Jean FNP-C FNP-Kelechiw Adelaida Vang RN RN Dora Carey RN RN jl7 Joel Levy DO DO ms3 Corrections: (The following items were deleted from the chart) 16:18 16:15 Home Meds: warfarin 5 mg Oral tab 1.5 tabs mondays, wednesdays, and fridays; hb hb 18:51 17:41 Dr Polanco kb hb
--- NOTE | 2022-07-25 17:41 | ER ---
Nurse's Notes [facility] Name: Zana Zamora Age: 76 yrs Sex: Male : 1945 Arrival Date: 07/25/2022 Time: 16:09 Bed 17 Private MD: Diagnosis: Traumatic subdural hemorrhage;Traumatic subarachnoid hemorrhage;Syncope;Fall on same level from slipping, tripping and stumbling without subsequent striking against object Presentation: 07/25 16:09 Chief complaint: [facility] reports multiple falls with week without injury, today he hb fell out of bed, pt reports tripping while ambulating near bed but thinks he may have passed out then fell. Unknown LOC. Contusion noted to back of head. Coronavirus screen: At this time, the client does not indicate any symptoms associated with coronavirus-19. Ebola Screen: No symptoms or risks identified at this time. Initial Sepsis Screen: Does the patient meet any 2 criteria? No. Patient's initial sepsis screen is negative. Does the patient have a suspected source of infection? No. Patient's initial sepsis screen is negative. Risk Assessment: Do you want to hurt yourself or someone else? Patient reports no desire to harm self or others. Onset of symptoms was July 25, 2022. 16:09 Method Of Arrival: EMS: [facility] hb 16:09 Acuity: ELLA 3 hb 16:56 Acuity: ELLA 1 jl7 Historical: - Allergies: 16:11 NKA; hb - Home Meds: 16:15 aspirin 81 mg Oral chew 1 tab once daily [Active]; atorvastatin 40 mg oral tab once hb daily [Active]; carvedilol 3.125 mg oral tab 2 times per day [Active]; furosemide 40 mg oral tab once daily [Active]; levothyroxine 88 mcg oral tab [Active]; lisinopril 5 mg Oral tab 1 tab once daily [Active]; Novolog 100 unit/mL Sub-Q soln three times a day [Active]; omeprazole 20 mg Oral cpDR 2 caps once daily [Active]; Ranexa 1,000 mg Oral Tb12 1 tab 2 times per day [Active]; finasteride 5 mg oral tab 1 tab once daily [Active]; oxybutynin chloride 10 mg Oral tr24 1 tab twice a day [Active]; 18:05 Eliquis 5 mg oral tab 1 tab 2 times per day [Active]; jl7 - PMHx: 16:11 Atrial Fib; CHF; CVA; CAD; Diabetes - IDDM; Hyperlipidemia; Umbilical hernia; hb Hypertension; - Immunization history:: Adult Immunizations up to date. - Social history:: Smoking status: Patient/guardian denies using tobacco. Screenin:13 [facility] ED Fall Risk Assessment (Adult) History of falling in the last 3 months, hb including since admission Yes- physiologic fall (2 pts) Confusion or Disorientation No (0 pts) Intoxicated or Sedated No (0 pts) Impaired Gait Yes (1 pt) Mobility Assist Device Used Yes (1 pt) Altered Elimination Yes (1 pt) Score/Fall Risk Level 3 or more points = High Risk Oriented to surroundings, Maintained a safe environment, Educated pt \T\ family on fall prevention, incl call for assistance when getting out of bed, Hourly rounding (assess needs \T\ fall precautionary measures) done, Used ambulatory aids as needed (educated on \T\ assisted with). Abuse screen: Denies threats or abuse. Denies injuries from another. Nutritional screening: No deficits noted. Tuberculosis screening: No symptoms or risk factors identified. Fall Risk Total Feng Fall Scale indicates. Assessment: 16:14 General: Appears in no apparent distress. Behavior is calm, cooperative. Pain: Pain hb currently is 5 out of 10 on a pain scale. Neuro: Level of Consciousness is awake, alert, obeys commands, Oriented to person, place, time, situation. Cardiovascular: Patient's skin is warm and dry. Respiratory: Respiratory effort is even, unlabored, Respiratory pattern is regular, symmetrical. GI: No signs and/or symptoms were reported involving the gastrointestinal system. : No signs and/or symptoms were reported regarding the genitourinary system. EENT: No signs and/or symptoms were reported regarding the EENT system. Derm: Skin is pink, warm \T\ dry. Musculoskeletal: No signs and/or symptoms reported regarding the musculoskeletal system. 17:00 Reassessment: Patient appears in no apparent distress at this time. No changes from hb previously documented assessment. Patient and/or family updated on plan of care and expected duration. Pain level reassessed. Patient is alert, oriented x 3, equal unlabored respirations, skin warm/dry/pink. 17:58 Reassessment: Report given to , 10 min ETA. hb 18:00 Reassessment: Patient is alert, oriented x 3, equal unlabored respirations, skin hb warm/dry/pink. KCentra infusion continues. 18:04 Reassessment: Report called to Alejandra ANDERS at [facility]. hb 18:11 Reassessment: [facility] at bedside. hb Vital Signs: 16:09 BP 152 / 105; Pulse 75; Resp 18; Temp 98.1(TE); Pulse Ox 96% on R/A; Pain 5/10; hb 17:03 Weight 58.97 kg; Height 5 ft. 7 in. (170.18 cm); jl7 17:30 BP 126 / 98; Pulse 75; Resp 16; Pulse Ox 99% on R/A; Pain 2/10; hb 17:45 BP 143 / 69; Pulse 75; Resp 15; Pulse Ox 100% on R/A; hb 18:00 BP 146 / 51; Pulse 75; Resp 17; Pulse Ox 100% on R/A; Pain 2/10; hb 17:03 Body Mass Index 20.36 (58.97 kg, 170.18 cm) jl7 ED Course: 16:09 Patient arrived in ED. hb 16:10 Joan Van FNP-C is PHCP. kb 16:10 Joel Levy DO is Attending Physician. kb 16:11 Triage completed. hb 16:13 Arm band placed on. hb 16:13 Patient has correct armband on for positive identification. hb 16:38 Missed attempt(s): 22 gauge in left forearm. hb 16:42 Chest Single View XRAY In Process Unspecified. EDMS 16:46 Missed attempt(s): 22 gauge in right. hb 16:52 CT Head C Spine In Process Unspecified. EDMS 17:02 Inserted saline lock: 22 gauge in left forearm, using aseptic technique. Blood hb collected. 17:09 Adelaida Vang, RN is Primary Nurse. hb 17:09 SARS RAPID Sent. hb 18:49 No provider procedures requiring assistance completed. Patient transferred, IV remains hb in place. Administered Medications: 17:40 Drug: Kcentra 500 unit 1500 units Route: IV; Rate: calculated rate; Site: left forearm; hb 18:45 Follow up: Response: No adverse reaction; IV Status: Infusion continued hb 18:40 Drug: Keppra (levETIRAcetam) 1000 mg Route: IV; Rate: 1 calculated rate; Site: left hb forearm; 18:49 Follow up: IV Status: Infusion continued upon transfer hb Medication: 16:15 VIS not applicable for this client. hb Outcome: 17:41 ER care complete, transfer ordered by MD. shah 18:50 Transferred by helicopter to [facility]. hb 18:50 Condition: stable 18:50 Instructed on the need for transfer, Demonstrated understanding of instructions. 18:51 Patient left the ED. hb Signatures: Dispatcher [employer] EDMS Joan Van, COMMERCIAL LOAN ANALYST-C COMMERCIAL LOAN ANALYST-Adelaida Guzman RN RN hb Dora Walden RN RN jl7 Corrections: (The following items were deleted from the chart) 16:18 16:15 Home Meds: warfarin 5 mg Oral tab 1.5 tabs mondays, wednesdays, and fridays; hb hb 17:45 17:00 Inserted saline lock: 22 gauge in left forearm, using aseptic technique. Blood hb collected. Missed attempt(s): hb 17:53 17:43 BP 126 / 98; Pulse 75bpm; Resp 16bpm; Pulse Ox 99% RA; Pain 2/10; hb hb 17:53 17:53 BP 143 / 69; Pulse 75bpm; Resp 15bpm; Pulse Ox 100% RA; hb hb 18:08 18:08 BP 146 / 51; Pulse 75bpm; Resp 17bpm; Pulse Ox 100% RA; Pain 2/10; hb hb
[2022-07-25] MEDS ORDERED: levETIRAcetam 1,000 MG in NA CHLORIDE 0.9% 100 ML IV ONE (17:45)
[2022-07-25] MEDS ORDERED: PROTHROMBIN COMPLEX CONCENTRATE (HUMAN) 500 UNIT VIAL IV ONE (18:00)
[2022-07-25 18:08] LABS: SARS-CoV-2 Antigen Rapid Res Negative (Negative)
[2022-07-25 19:26] VITALS: TEMP 98.1
[2022-07-25 19:40] VITALS: O2SAT 100
[2022-07-25 19:41] VITALS: BP 146/51
--- NOTE | 2022-07-26 15:16 | EKG ---
Test Date: 2022-07-25 Test Time: 17:06:57 Rigging Up Man: HB MEASUREMENT RESULTS: Intervals: Rate: 75 SD: 160 QRSD: 108 QT: 424 QTc: 473 [place]: P: SD: 160 QRS: 59 T: 106 INTERPRETIVE STATEMENTS: Normal sinus rhythm Cannot rule out Inferior infarct, age undetermined Cannot rule out Anterior infarct, age undetermined Abnormal ECG Compared to ECG 07/27/2018 02:26:35 Atrial-paced complex(es) or rhythm no longer present Ventricular-paced complex(es) or rhythm no longer present Right bundle-branch block no longer present Myocardial infarct finding still present Electronically Signed On 07-26-22 15:14:54 [employer] PERSON by Marco Fair
== END 2022-07-25 18:51 | disposition short-term general hospital (02) ==
LOC: ER 16:03
DX: S06.5X0A Traumatic subdural hemorrhage without loss of consciousness, initial encounter (principal); S06.6X0A Traumatic subarachnoid hemorrhage without loss of consciousness, initial encounter; W01.0XXA Fall on same level from slipping, tripping and stumbling without subsequent striking against object, initial encounter; I48.91 Unspecified atrial fibrillation; Z79.01 Long term (current) use of anticoagulants; I50.9 Heart failure, unspecified; I10 Essential (primary) hypertension; E11.9 Type 2 diabetes mellitus without complications; Z79.82 Long term (current) use of aspirin; Z20.822 Contact with and (suspected) exposure to COVID-19
CPT/HCPCS: 96365; 93005; 85025; 80048; 36415; 86900; 83735; 86850; 82550; 85610; 86901; 80076; 85730; 84484; 70450; 72125; 71045; 96375; 99291; 87811; J1953